=== PATIENT | male | born 1930 | race Caucasian/White ===

== ENCOUNTER 2016-12-29 14:13 | Inpatient (IN) | payer MEDICARE, OTHER ==
[2016-12-29] MEDS ORDERED: RX INFO: IV CONTRAST WAS GIVEN 1 EACH MISC MISCELLANE PRN (15:13)
[2016-12-29] MEDS ORDERED: SODIUM CHLORIDE 0.9% 1,000 ML IV STA (15:13)
[2016-12-29] MEDS ORDERED: SODIUM CHLORIDE 0.9% 500 ML IV STA (15:13)
--- NOTE | 2016-12-29 15:14 | ED ---
General Adult HPI - General Chief complaint: Recheck/Abnormal Lab/Rx Stated complaint: Fall/weakness Time Seen by Provider: 12/29/16 15:13 Source: patient, family, RN notes reviewed, old records reviewed Mode of arrival: wheelchair Limitations: physical limitation - History of Present Illness Initial comments: This is an 86-year-old male reevaluation. Patient here today for evaluation of neurological issues at this time. Urinary retention, back pain, patient denies history of back pain or trauma. Family states patient has had recent weight loss Intent. No change in his bowel habits. As far as diarrhea. The patient has had loss of stool, loss of bowel. The significant and occasional urinary retention. Weakness and right leg, multiple falls but no specific trauma from falls and patient denies any pain. - Related Data Home Medications Medication Instructions Recorded Confirmed Fluticasone/Salmeterol [Advair 1 puff INHALATION RT-BID 12/29/16 12/29/16 250-50 Diskus] Ipratropium-Albuterol Nebulize 3 ml INHALATION RT-QID PRN 12/29/16 12/29/16 [Duoneb 0.5 mg-3 mg/3 ml Soln] Allergies Allergy/AdvReac Type Severity Reaction Status Date / Time No Known Allergies Allergy Verified 12/29/16 16:23 Review of Systems ROS Statement: Those systems with pertinent positive or pertinent negative responses have been documented in the HPI. ROS Other: All systems not noted in ROS Statement are negative. Past Medical History Past Medical History: Asthma Additional Past Medical History / Comment(s): chronic back problems, PUD History of Any Multi-Drug Resistant Organisms: None Reported Past Surgical History: Back Surgery Past Psychological History: No Psychological Hx Reported Smoking Status: Never smoker Past Alcohol Use History: None Reported Past Drug Use History: None Reported General Exam Limitations: physical limitation General appearance: alert, in no apparent distress Head exam: Present: atraumatic, normocephalic, normal inspection Eye exam: Present: normal appearance, PERRL, EOMI. Absent: scleral icterus, conjunctival injection, periorbital swelling ENT exam: Present: normal exam, mucous membranes moist Neck exam: Present: normal inspection. Absent: tenderness, meningismus, lymphadenopathy Respiratory exam: Present: normal lung sounds bilaterally. Absent: respiratory distress, wheezes, rales, rhonchi, stridor Cardiovascular Exam: Present: regular rate, normal rhythm, normal heart sounds. Absent: systolic murmur, diastolic murmur, rubs, gallop, clicks GI/Abdominal exam: Present: soft, normal bowel sounds. Absent: distended, tenderness, guarding, rebound, rigid Extremities exam: Present: normal inspection, full ROM, normal capillary refill. Absent: tenderness, pedal edema, joint swelling, calf tenderness Back exam: Present: normal inspection Neurological exam: Present: alert, oriented X3, CN II-XII intact Psychiatric exam: Present: normal affect, normal mood Skin exam: Present: warm, dry, intact, normal color. Absent: rash Course Vital Signs 12/29/16 12/29/16 14:21 17:00 Temperature 97.6 F 97.5 F L Pulse Rate 68 63 Respiratory 20 18 Rate Blood Pressure 102/59 115/60 O2 Sat by Pulse 98 98 Oximetry EKG Findings - EKG Comments: EKG Findings:: EKG shows normal sinus rhythm at 61, KS 146, QRS 80, QTC 440 Medical Decision Making - Medical Decision Making 86 male ER for evaluation of weakness, increasing falls, patient appears did have urinary retention, UTI and pyelonephritis, patient admitted for IV antibiotic treatment - Lab Data Result diagrams: 12/29/16 15:54 12/29/16 15:54 Lab Results 12/29/16 12/29/16 12/29/16 Range/Units 15:19 15:54 15:54 WBC 11.5 H (3.8-10.6) k/uL RBC 4.24 L (4.30-5.90) m/uL Hgb 12.6 L (13.0-17.5) gm/dL Hct 38.5 L (39.0-53.0) % MCV 90.7 (80.0-100.0) fL MCH 29.7 (25.0-35.0) pg MCHC 32.8 (31.0-37.0) g/dL RDW 13.6 (11.5-15.5) % Plt Count 427 (150-450) k/uL Neutrophils % 81 % Lymphocytes % 11 % Monocytes % 5 % Eosinophils % 2 % Basophils % 1 % Neutrophils # 9.3 H (1.3-7.7) k/uL Lymphocytes # 1.3 (1.0-4.8) k/uL Monocytes # 0.5 (0-1.0) k/uL Eosinophils # 0.2 (0-0.7) k/uL Basophils # 0.1 (0-0.2) k/uL PT (9.0-12.0) sec INR (<1.1) APTT (22.0-30.0) sec Sodium (137-145) mmol/L Potassium (3.5-5.1) mmol/L Chloride (98-107) mmol/L Carbon Dioxide (22-30) mmol/L Anion Gap mmol/L BUN (9-20) mg/dL Creatinine (0.66-1.25) mg/dL Est GFR (MDRD) Af Amer (>60 ml/min/1.73 sqM) Est GFR (MDRD) Non-Af (>60 ml/min/1.73 sqM) Glucose (74-99) mg/dL Calcium (8.4-10.2) mg/dL Phosphorus (2.5-4.5) mg/dL Magnesium (1.6-2.3) mg/dL Total Bilirubin (0.2-1.3) mg/dL AST (17-59) U/L ALT (21-72) U/L Alkaline Phosphatase (38-126) U/L Total Creatine Kinase 45 L (55-170) U/L CK-MB (CK-2) 1.3 (0.0-2.4) ng/mL CK-MB (CK-2) Rel Index 2.9 Troponin I <0.012 (0.000-0.034) ng/mL Total Protein (6.3-8.2) g/dL Albumin (3.5-5.0) g/dL Urine Color Yellow Urine Appearance Cloudy (Clear) Urine pH 6.0 (5.0-8.0) Ur Specific [place] 1.011 (1.001-1.035) Urine Protein 1+ H (Negative) Urine Glucose (UA) Negative (Negative) Urine Ketones Negative (Negative) Urine Blood Small H (Negative) Urine Nitrite Negative (Negative) Urine Bilirubin Negative (Negative) Urine Urobilinogen 3.0 (<2.0) mg/dL Ur Leukocyte Esterase Large H (Negative) Urine RBC 10 H (0-5) /hpf Urine WBC >182 H (0-5) /hpf Urine WBC Clumps Many H (None) /hpf Amorphous Sediment Rare H (None) /hpf Urine Bacteria Many H (None) /hpf 12/29/16 12/29/16 Range/Units 15:54 15:54 WBC (3.8-10.6) k/uL RBC (4.30-5.90) m/uL Hgb (13.0-17.5) gm/dL Hct (39.0-53.0) % MCV (80.0-100.0) fL MCH (25.0-35.0) pg MCHC (31.0-37.0) g/dL RDW (11.5-15.5) % Plt Count (150-450) k/uL Neutrophils % % Lymphocytes % % Monocytes % % Eosinophils % % Basophils % % Neutrophils # (1.3-7.7) k/uL Lymphocytes # (1.0-4.8) k/uL Monocytes # (0-1.0) k/uL Eosinophils # (0-0.7) k/uL Basophils # (0-0.2) k/uL PT 13.4 H (9.0-12.0) sec INR 1.4 (<1.1) APTT 25.1 (22.0-30.0) sec Sodium 138 (137-145) mmol/L Potassium 4.2 (3.5-5.1) mmol/L Chloride 106 (98-107) mmol/L Carbon Dioxide 26 (22-30) mmol/L Anion Gap 6 mmol/L BUN 25 H (9-20) mg/dL Creatinine 0.84 (0.66-1.25) mg/dL Est GFR (MDRD) Af Amer >60 (>60 ml/min/1.73 sqM) Est GFR (MDRD) Non-Af >60 (>60 ml/min/1.73 sqM) Glucose 91 (74-99) mg/dL Calcium 8.3 L (8.4-10.2) mg/dL Phosphorus 2.5 (2.5-4.5) mg/dL Magnesium 1.8 (1.6-2.3) mg/dL Total Bilirubin 0.7 (0.2-1.3) mg/dL AST 34 (17-59) U/L ALT 49 (21-72) U/L Alkaline Phosphatase 83 (38-126) U/L Total Creatine Kinase (55-170) U/L CK-MB (CK-2) (0.0-2.4) ng/mL CK-MB (CK-2) Rel Index Troponin I (0.000-0.034) ng/mL Total Protein 6.5 (6.3-8.2) g/dL Albumin 2.8 L (3.5-5.0) g/dL Urine Color Urine Appearance (Clear) Urine pH (5.0-8.0) Ur Specific [place] (1.001-1.035) Urine Protein (Negative) Urine Glucose (UA) (Negative) Urine Ketones (Negative) Urine Blood (Negative) Urine Nitrite (Negative) Urine Bilirubin (Negative) Urine Urobilinogen (<2.0) mg/dL Ur Leukocyte Esterase (Negative) Urine RBC (0-5) /hpf Urine WBC (0-5) /hpf Urine WBC Clumps (None) /hpf Amorphous Sediment (None) /hpf Urine Bacteria (None) /hpf - Radiology Data Radiology results: report reviewed (CT abdomen and pelvis and lumbar spine shows likely L obstruction, urinary, kidney ultrasound ureter BLADDERS ULTRASOUND SHOWS NO DEFINITE MASS), image reviewed Disposition Clinical Impression: UTI (urinary tract infection), Pyelonephritis Disposition: ADMITTED IP TO THIS [facility] Condition: Fair Referrals: Nonstaff,Physician [REFERRING] - 1-2 days
[2016-12-29 15:43] LABS: Amorphous Sediment,Urine Rare /hpf; Appearance,Urine Cloudy (Clear); Bacteria,Urine Many /hpf; Bilirubin,Urine Negative (Negative); Glucose,Urine (UA) Negative (Negative); Ketones,Urine Negative (Negative); Leukocyte Esterase,Urine Large (Negative); Nitrite,Urine Negative (Negative); Particle Count 97632; Protein,Urine 1+ (Negative); RBC,Urine 10 /hpf (0-5); Specific Gravity,Urine 1.011 (1.001-1.035); UA Billing (MACRO vs. MICRO) MICRO; WBC,Urine >182 /hpf (0-5)
[2016-12-29 16:05] LABS: Basophils # (A) 0.1 k/uL (0-0.2); Basophils % (A) 1 %; CH 30.5; CHCM 33.8; Eosinophils # (A) 0.2 k/uL (0-0.7); Eosinophils % (A) 2 %; HCT 38.5 % (39.0-53.0); HDW 3.06; HGB 12.6 gm/dL (13.0-17.5); Luc # (Auto) 0.16; Luc % (Auto) 1; Lymphocytes # (A) 1.3 k/uL (1.0-4.8); Lymphocytes % (A) 11 %; MCH 29.7 pg (25.0-35.0); MCHC 32.8 g/dL (31.0-37.0); MCV 90.7 fL (80.0-100.0); Mean Platelet Volume 6.9; Monocytes # (A) 0.5 k/uL (0-1.0); Monocytes % (A) 5 %; Neutrophils # (A) 9.3 k/uL (1.3-7.7); Neutrophils % (A) 81 %; RBC 4.24 m/uL (4.30-5.90); RDW 13.6 % (11.5-15.5); WBC 11.5 k/uL (3.8-10.6)
[2016-12-29 16:12] LABS: INR 1.4 (<1.1); Partial Thromboplastin Time 25.1 sec (22.0-30.0); Prothrombin Time 13.4 sec (9.0-12.0)
[2016-12-29 16:13] LABS: ALT 49 U/L (21-72); AST 34 U/L (17-59); Alkaline Phosphatase 83 U/L (38-126); Anion Gap 6 mmol/L; Blood Urea Nitrogen 25 mg/dL (9-20); Calcium 8.3 mg/dL (8.4-10.2); Carbon Dioxide 26 mmol/L (22-30); Chloride 106 mmol/L (98-107); Glucose 91 mg/dL (74-99); Magnesium 1.8 mg/dL (1.6-2.3); Non-African American GFR(MDRD) >60 (>60 ml/min/1.73 sqM); Phosphorous 2.5 mg/dL (2.5-4.5); Potassium 4.2 mmol/L (3.5-5.1); Sodium 138 mmol/L (137-145); Total Bilirubin 0.7 mg/dL (0.2-1.3); Total Protein 6.5 g/dL (6.3-8.2)
[2016-12-29 16:23] LABS: Creatine Kinase 45 U/L (55-170)
[2016-12-29 16:36] LABS: Creatine Kinase MB 1.3 ng/mL (0.0-2.4); Troponin I <0.012 ng/mL (0.000-0.034)
[2016-12-29] MEDS ORDERED: cefTRIAXone 2,000 MG in SODIUM CHLORIDE 0.9% 100 ML IVPB STA (16:46)
--- NOTE | 2016-12-29 17:49 | CT ---
EXAMINATION TYPE: CT lumbar spine w con DATE OF EXAM: 12/29/2016 COMPARISON: NONE HISTORY: Weight loss and inability to urinate CT DLP: 474.7 mGycm Automated exposure control for dose reduction was used. CONTRAST: CT scan of the lumbar is performed with IV Contrast, patient injected with 100 mL of Omnipaque 300. Enhanced CT of the lumbar spine was performed. Bone and soft tissue window settings are submitted as well as coronal and sagittal reconstructions. There is laminectomy defect at L3-L4. There is spondylolysis of L5 bilaterally. I see no compression fracture. There is severe narrowing of the L2-3 disc space with sclerosis and subchondral cystic [place]. There is extensive spur formation anteriorly at L3-4. I see no focal bone destruction. There is n o lumbar paraspinal mass. There are a few bilateral renal cortical cysts that measure up to 2.3 cm. T he sacroiliac joints appear intact. I see no pathologic enhancement. There are posterior disc herniat ions noted at L3-4 and L4-5 with encroachment on the spinal canal. L4-5 disc herniation is more to th e right side. There is some spinal stenosis at L2-3 due to the spur formation and facet arthropathy. 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 Previous surgery. Moderate sized posterior disc stefan iations at L3-4 L4-5. No fracture. L5 spondylolysis. There is lateral recess stenosis and relative sp inal stenosis at L5-S1 due to facet arthropathy. There is mild spinal stenosis also at L2-3.
--- NOTE | 2016-12-29 18:04 | CT ---
EXAMINATION TYPE: CT abdomen pelvis w con DATE OF EXAM: 12/29/2016 5:54 PM COMPARISON: NONE HISTORY: Weight loss and inability to urinate CT DLP: 474.7 mGycm Automated exposure control for dose reduction was used. TECHNIQUE: Helical acquisition of images was performed from the lung bases through the pelvis. CONTRAST: Performed without Oral Contrast and with IV Contrast, patient injected with 100 mL of Omnipaque 300. FINDINGS: The lung bases are clear. There is no pleural effusion. There is no pericardial effusion. Liver spleen pancreas gallbladder appear normal. Bile ducts are not dilated. There is no adrenal mass . There are multiple rounded low-density areas in both kidneys that measure up to 2.5 cm related to m ultiple cortical cysts. There is an intermediate low-density 2.5 cm area on the lower pole left kidne y. There is slight decreased cortical enhancement on the lower pole right kidney and lower lateral po le left kidney. There is no hydronephrosis. There is no retroperitoneal adenopathy. There is no ascit es. I see no intestinal wall thickening. There are no dilated loops. There is a dilated urinary bladder that measures 15 cm in height. There are prostatic implants noted. There are changes in the lumbar spine described in the CT lumbar spine report today. I see no pelvic mass.: IMPRESSION: DILATED URINARY BLADDER CONSISTENT WITH BLADDER OUTLET OBSTRUCTION. HETEROGENEOUS RENAL ENHANCEMENT I N THE CORTEX OF THE LOWER POLE OF BOTH KIDNEYS AND TO A LESSER EXTENT THE UPPER POLES OF BOTH KIDNEYS BUT COULD RELATE TO PYELONEPHRITIS. MULTIPLE BILATERAL RENAL CORTICAL CYSTS. A SOLID RENAL MASS RYAN OT BE ENTIRELY EXCLUDED. BILATERAL RENAL ULTRASOUND IS RECOMMENDED TO CONFIRM RENAL CYSTS AND EXCLUDE A SOLID RENAL MASS.
--- NOTE | 2016-12-29 19:32 | US ---
EXAMINATION TYPE: US renals and bladder DATE OF EXAM: 12/29/2016 COMPARISON: NONE CLINICAL HISTORY: Pain. EXAM MEASUREMENTS: Right Kidney: 12.1 x 4.4 x 4.9 cm Left Kidney: 12.6 x 5.0 x 4.8 cm Right Kidney: Dilated right renal pelvis possible hydronephrosis, 1 anechoic area mid pole likely cys t, 1 complex area inferior pole with cystic and solid components Left Kidney: Echogenic area seen mid pole with twinkle artifact ?nephrolithiasis Bladder: appears wnl Bilateral Jets seen: yes Possible evidence for hydronephrosis on the right renal. Appears there may be small nephrolithiasis i n the left renal. Two areas are identified on the right renal one appearing anechoic the other compl ex with cystic and solid components. The urinary bladder is anechoic. Bilateral ureteral jets are s een. IMPRESSION: There is a 1.9 cm complex cyst on the lower pole of the right kidney. Urinary bladder is sonolucent. There is no evidence of renal obstruction. There are bilateral ureteral jets. Nonobstructing left carmina al calculus. I do not see definite solid suspicious renal mass and I think that this could be followe d conservatively with repeat ultrasound in 6 months. The heterogeneous enhancement pattern seen on CT scan today in the renal cortex is suggestive of pyelonephritis.
[2016-12-29 21:17] VITALS: BMI 19.0
[2016-12-30] MEDS: ENOXAPARIN 40 MG/0.4 ML SYRINGE SQ SCH (09:25)
[2016-12-30] MEDS ORDERED: IPRATROPIUM-ALBUTEROL 3 ML NEB INHALATION PRN ×2 (09:55→23:21)
[2016-12-30] MEDS: IPRATROPIUM-ALBUTEROL 3 ML NEB INHALATION SCH ×4 (12:29→23:20)
[2016-12-30] MEDS: PARoxetine 10 MG TAB PO SCH (17:31)
--- NOTE | 2016-12-30 19:24 | HP ---
DATE OF ADMISSION: 12/30/2016 The patient is a very pleasant 86-year-old gentleman, recently moved to [place] from [place]. Much of the history is not available because of that. The patient has not seen a doctor apparently for more than 3 years. Patient's daughter who happens to be a nurse practitioner, when she brought the patient from [place] the patient was doing okay, ambulating with a cane, and did need a walker in the airport though. He was doing well until the day before, that is Friday, and the patient had a fall on Friday, felt weak all of a sudden and had a fall. Patient was complaining of back pain. Because of this I obtained a CT of the back. There were some chronic changes without any myelopathy or compression of the spinal cord. The patient has urinary incontinence which is more so lately. The patient has bowel incontinence as well and foul-smelling urine, because of which patient was brought to the ER and then patient had a fall. The urine is grossly abnormal. The patient apparently, 20 years ago, was treated for prostate cancer which is in complete remission, because of which PAC is being ordered. Initially there was a concern that he may have metastatic lesion to the back. The patient does not have any such lesions on the CT. The other issues are loss of weight slowly over time and the patient has not been eating well. 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 Because of dementia the patient has not been eating and patient appears to be depressed secondary to that, because of which him I will start him on Donepezil and also antidepressant medications. Urine protein is 1+, small blood, large leukocyte esterase, RBC 10, WBC greater than 182. Many WBC clumps. The patient did have leukocytosis without any fever. Patient has increased urinary frequency as well. Although patient denies any symptoms, patient is not a reliable historian. REVIEW OF SYSTEMS: CONSTITUTIONAL: No fever, no malaise, no fatigue. HEENT: No recent visual problems or hearing problems. Denied any sore throat. CARDIOVASCULAR: No chest pain, orthopnea, PND, no palpitations, no syncope. PULMONARY: No shortness of breath, no cough, no hemoptysis. GASTROINTESTINAL: No diarrhea, no nausea, no vomiting, no abdominal pain. Normoactive bowel sounds. NEUROLOGICAL: No headaches, no weakness, no numbness. HEMATOLOGICAL: Denies any bleeding or petechiae. GENITOURINARY: Denies any burning micturition, frequency, or urgency. MUSCULOSKELETAL/RHEUMATOLOGICAL: Denies any joint pain, swelling, or any muscle pain. ENDOCRINE: Denies any polyuria or polydipsia. The rest of the 14 point review of systems is negative. Home medications: 1. Fluticasone. 2. Salmeterol. 3. Albuterol ipratropium. ALLERGIES: No known drug allergies. 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 SOCIAL HISTORY: Denied any smoking, alcohol abuse or any drug abuse. FAMILY HISTORY: Significant for myocardial infarction. PHYSICAL EXAMINATION: VITAL SIGNS: Temperature 98.0, pulse of 69, respiratory rate of 16, blood pressure 123/67. Saturating at 96% on room air. GENERAL: Alert and oriented x around 2, which is most probably his baseline, which is unknown at this time. HEENT: Pupils are round and equally reacting to light. EOMI. No scleral icterus. No conjunctival pallor. Normocephalic, atraumatic. No pharyngeal erythema. No thyromegaly. CARDIOVASCULAR: S1 and S2 present. No murmurs, rubs, or gallops. PULMONARY: Chest is clear to auscultation, no wheezing or crackles. ABDOMEN: Soft, nontender, nondistended, normoactive bowel sounds. No palpable organomegaly. MUSCULOSKELETAL: No joint swelling or deformity. EXTREMITIES: No cyanosis, clubbing, or pedal edema. NEUROLOGICAL: Gross neurological examination did not reveal any focal deficits. SKIN: No rashes. LABORATORY DATA: CBC, CMP abnormal for elevated WBC count of 11,500. The patient's MCV is 90.7, INR is 1.4 consistent with nutritional deficiency of vitamin K. ASSESSMENT: 1. Increased urinary frequency with abnormal urine. Urine cultures are obtained. The patient most probably has urinary tract infection for which patient is on Rocephin at this point of time. 2. Generalized weakness and falls, probably related to urinary tract infection, which is expected to improve. 3. Lumbar spinal CT did show some chronic changes without myelopathy or compression on the spinal cord at this time. 4. Generalized weakness and deconditioning for which we will obtain physical therapy consult. PT and OT consultation. 5. Possible dementia; appears to be moderate. We will obtain Mini-Mental status exam. Patient started on Donepezil. 6. Possible depression, for which patient will be started on antidepressants. 7. Elevated INR due to nutritional vitamin K deficiency as the patient has not been eating well. 8. History of prostate cancer, because of which we will PSA testing, which is pending. Patient had renal ultrasound which showed cysts. Does not appear to have any solid cysts. The patient will need a repeat ultrasound as an outpatient. Patient had abdominal CT which showed possible cyst, because of which ultrasound was obtained which did not show any solid cysts consistent with any cancers lesion. 9. Regarding weight loss, further work-up can be done as an outpatient. Patient will need his primary care physician. Dr. Gaona will evaluate the patient tomorrow. Daughter will decide primary care physician for him. 10. Leukocytosis due to possible urinary tract infection. 11. Moderate protein calorie malnutrition. PLAN: Physical therapy evaluation. Continue antibiotics. IV fluids. Pending PSA testing.
[2016-12-30] MEDS: SYMBICORT 160-4.5 MCG INHALER INHALATION SCH (19:53)
[2016-12-30] MEDS: DONEPEZIL 5 MG TAB PO SCH (21:00)
[2016-12-31 05:53] LABS: CH 30.1; CHCM 33.5; HCT 32.2 % (39.0-53.0); HDW 3.06; HGB 10.6 gm/dL (13.0-17.5); MCH 29.7 pg (25.0-35.0); MCHC 32.9 g/dL (31.0-37.0); MCV 90.4 fL (80.0-100.0); Mean Platelet Volume 6.4; RBC 3.56 m/uL (4.30-5.90); RDW 13.5 % (11.5-15.5); WBC 13.9 k/uL (3.8-10.6)
[2016-12-31 06:06] LABS: Anion Gap 3 mmol/L; Blood Urea Nitrogen 13 mg/dL (9-20); Carbon Dioxide 27 mmol/L (22-30); Chloride 108 mmol/L (98-107); Glucose 94 mg/dL (74-99); Non-African American GFR(MDRD) >60 (>60 ml/min/1.73 sqM); Potassium 4.1 mmol/L (3.5-5.1); Sodium 138 mmol/L (137-145)
[2016-12-31] MEDS: PARoxetine 10 MG TAB PO SCH ×2 (08:08→20:35)
[2016-12-31] MEDS: ENOXAPARIN 40 MG/0.4 ML SYRINGE SQ SCH (08:08)
[2016-12-31] MEDS: SYMBICORT 160-4.5 MCG INHALER INHALATION SCH ×2 (11:48→20:54)
--- NOTE | 2016-12-31 15:43 | XR ---
EXAMINATION TYPE: XR chest 2V DATE OF EXAM: 12/31/2016 COMPARISON: CT abdomen pelvis 12/29/2016 HISTORY: Rehabilitation placement, extended-care facility placement TECHNIQUE: Frontal and lateral views of the chest are obtained on 3 images. FINDINGS: There is no focal air space opacity, pleural effusion, or pneumothorax seen. The cardiac silhouette size is within normal limits. Scattered granulomas are present. Prominent lung lines to be indicative of COPD. The osseous structures are intact. IMPRESSION: No acute cardiopulmonary process. 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
--- NOTE | 2016-12-31 16:51 | PN ---
DATE OF SERVICE: 12/31/2016 This 86 -year-old gentleman who was admitted with UTI with possible sepsis also had change in mental status. The patient was confused and complains of weakness and falls, stress incontinence and other issues prior to admission. Currently the patient is feeling better. Still appetite is very poor. White count is elevated. Yesterday's white count was 11.5, today it is 13.9. The urine culture showed gram negative bacilli. Final report is pending. PSA was negative. PAST MEDICAL HISTORY: Reviewed. REVIEW OF SYSTEMS: CARDIOVASCULAR: No angina or palpitations. RESPIRATORY: As mentioned earlier. GI: No nausea or vomiting. : No dysuria. Nervous system: No numbness or weakness. Current medications are reviewed and include: 1. DuoNeb q.i.d. and p.r.n. 2. Symbicort 160/4.5. 3. Rocephin. 4. Lovenox. 5. Paxil. PHYSICAL EXAMINATION: Patient is alert and oriented times two. Pulse 62, blood pressure 111/54 mg. respiratory rate 16. Temperature 97.7. Pulse ox 97% on room air. HEENT: Conjunctivae normal. NECK: No jugular venous distention. CARDIOVASCULAR: S1, S2 muffled. RESPIRATORY: Breath sounds diminished at the bases. Scattered rhonchi and crackles. ABDOMEN: The abdomen is soft and nontender. No mass palpable. Legs: No edema. No swelling. Nervous system: Higher functions as mentioned earlier. Moves all four limbs. Mild diffuse weakness. LYMPHATICS: No lymph nodes palpable in the neck, axillae or groin. SKIN: No ulcer, rash, bleeding. LABS: WBC 13.9, hemoglobin 10.6, sodium 138. Potassium 4.1. Calcium 8. ASSESSMENT: 1. Urinary tract infection with possible sepsis. 2. Change in mental status, metabolic encephalopathy, secondary to urinary tract infection. 3. Generalized gait dysfunction and asthenia, possibly secondary to sepsis. 4. Increased WBC. 5. Anemia, normocytic anemia of chronic disease. 6. Dehydration, present on admission with diminished p.o. intake. 7. History of asthma. 8. History of degenerative joint disease. 9. History of back surgery. 10. Mild protein calorie malnutrition with a BMI of 19. 11. Full code. RECOMMENDATIONS AND DISCUSSION: In this 86 -year-old gentleman who presented with multiple complex medical issues, we will monitor the patient closely, continue the current medications, continue with symptomatic treatment. I would recommend broad spectrum IV antibiotics. Follow the cultures. Bronchodilators. DVT prophylaxis. Otherwise, PT, OT evaluation. Possible ECF rehab. Guarded prognosis because of the multiple complex medical issues. Further recommendations to follow. Repeat labs are noted. See orders for further details. The patient also apparently had poor score on the dementia testing, I would recommend to treat the infection and control the septic process and repeat dementia evaluation later. Otherwise, continue to monitor. Further recommendations to follow. Prognosis guarded. Discussed with the family. Discussed with the patient.
[2016-12-31] MEDS: DONEPEZIL 5 MG TAB PO SCH (20:35)
[2016-12-31] MEDS: PANTOPRAZOLE 40 MG/10 ML VIAL IVP SCH (20:35)
[2017-01-01 06:10] LABS: Basophils # (A) 0.1 k/uL (0-0.2); Basophils % (A) 1 %; CH 30.3; CHCM 33.6; Eosinophils # (A) 0.1 k/uL (0-0.7); Eosinophils % (A) 1 %; HCT 33.4 % (39.0-53.0); HDW 3.08; HGB 10.8 gm/dL (13.0-17.5); Luc # (Auto) 0.11; Luc % (Auto) 1; Lymphocytes # (A) 0.9 k/uL (1.0-4.8); Lymphocytes % (A) 8 %; MCH 29.3 pg (25.0-35.0); MCHC 32.5 g/dL (31.0-37.0); MCV 90.3 fL (80.0-100.0); Mean Platelet Volume 6.4; Monocytes # (A) 0.6 k/uL (0-1.0); Monocytes % (A) 6 %; Neutrophils % (A) 84 %; RDW 13.3 % (11.5-15.5); WBC 10.7 k/uL (3.8-10.6)
[2017-01-01 06:27] LABS: Anion Gap 6 mmol/L; Blood Urea Nitrogen 14 mg/dL (9-20); Calcium 8.1 mg/dL (8.4-10.2); Carbon Dioxide 25 mmol/L (22-30); Chloride 106 mmol/L (98-107); Glucose 77 mg/dL (74-99); Non-African American GFR(MDRD) >60 (>60 ml/min/1.73 sqM); Sodium 137 mmol/L (137-145)
[2017-01-01] MEDS: SYMBICORT 160-4.5 MCG INHALER INHALATION SCH ×2 (08:16→19:35)
[2017-01-01] MEDS: ENOXAPARIN 40 MG/0.4 ML SYRINGE SQ SCH (08:36)
[2017-01-01] MEDS: PANTOPRAZOLE 40 MG/10 ML VIAL IVP SCH (08:36)
[2017-01-01] MEDS: THIAMINE 100 MG TAB PO SCH (15:18)
[2017-01-01] MEDS: MULTIVITAMINS, THERA 1 EACH TAB PO SCH (15:18)
[2017-01-01] MEDS: FOLIC ACID 1 MG TAB PO SCH (15:18)
[2017-01-01] MEDS: ERTAPENEM 1 GM in SODIUM CHLORIDE 0.9% 50 ML IVPB SCH (16:13)
[2017-01-01 18:18] LABS: Appearance,Urine Turbid (Clear); Bacteria,Urine Many /hpf; Bilirubin,Urine Negative (Negative); Glucose,Urine (UA) Negative (Negative); Ketones,Urine Negative (Negative); Leukocyte Esterase,Urine Large (Negative); Nitrite,Urine Positive (Negative); PH, Urine 6.5 (5.0-8.0); Particle Count 37744; Protein,Urine 1+ (Negative); Specific Gravity,Urine 1.014 (1.001-1.035); UA Billing (MACRO vs. MICRO) MICRO; Urobilinogen,Urine <2.0 mg/dL (<2.0); WBC,Urine >182 /hpf (0-5)
--- NOTE | 2017-01-01 18:38 | P.CNOR ---
<Jair Camacho - Last Filed: 01/01/17 18:29> History of Present Illness - [facility] Consult date: 01/01/17 Requesting physician: Bernadette Bergeron Consult reason: other (Lumbar degenerative changes seen on CT; recent fall; history of lumbar surgery) History of present illness: Patient is a very pleasant 86-year-old male who is seen and examined at bedside after we were consulted for degenerative changes of his lumbar spine seen on CT. Patient was originally brought to [facility] for further evaluation by his family for after sustaining a fall over the weekend and increased lower extremity weakness. Patient also has been experiencing some urinary incontinence. Patient previously resided in [place] and was moved to [place] by his family, who is a nurse practitioner here at [facility]. After being admitted, a computed tomography scan of the lumbar spine was performed and showed evidence of degenerative changes without acute change. He does have a history of an L3-4 laminectomy surgery formed approximately 4 years ago that was performed in [place]. Patient states at the bedside following that surgery he had significant improvement of his symptoms at that time. Patient states at the bedside he is not currently experiencing any significant low back pain, lower extremity radiculopathy, or lower extremity weakness bilaterally. He was previously experiencing some right thigh pain that has subsided. He states he is not exactly sure why he was admitted. He does not currently wish to have further treatment or evaluation in regards to his lumbar spine. Medicine states patient does appear to have some dementia. He is also currently being treated for urinary tract infection after a urine culture was positive for E. coli. At the time of admission document state he was having mental status change. Today the patient is currently awake, alert, and oriented 3 and able to communicate without significant difficulty. Patient is able to answer questions about his history thoroughly without difficulty. Past Medical History Past Medical History: Asthma Additional Past Medical History / Comment(s): chronic back problems, PUD History of Any Multi-Drug Resistant Organisms: ESBL Year Discovered:: 12/29/16 MDRO Source:: URINE Past Surgical History: Back Surgery Past Anesthesia/Blood Transfusion Reactions: No Reported Reaction Past Psychological History: No Psychological Hx Reported Smoking Status: Never smoker Past Alcohol Use History: None Reported Past Drug Use History: None Reported - Past Family History Father Family Medical History: Myocardial Infarction ([place]) Mother Family Medical History: No Reported History Medications and Allergies Home Medications Medication Instructions Recorded Confirmed Type No Known Home Medications [No 12/29/16 12/29/16 History Known Home Medications] Allergies Allergy/AdvReac Type Severity Reaction Status Date / Time No Known Allergies Allergy Verified 12/29/16 21:12 Physical Examination Physical exam: Patient is awake, alert, and oriented 3 Vital signs stable Good chest excursion with deep inspiration and expiration Abdomen soft nontender Examination of lumbar spine reveals skin is intact with no abrasions, lacerations, or bruises; no erythema, purulence or signs of infection No pain with palpation of the lumbosacral spine Evidence of a well-healed incision along the midline of the lumbar spine Dorsiflexion, plantarflexion, and extensor hallucis longus positive sustained bilaterally Lower extremity strength 5/5 bilaterally Patellar reflex 2+ bilaterally No lower extremity hyperreflexia bilaterally Straight leg test negative bilateral lower extremities No signs or symptoms of DVT; no calf pain No pain with internal and external rotation of the hips bilaterally Neurovascularly intact Results Pertinent studies: CT lumbar spine taken on 12/29/2016 with contrast: L2-3 degenerative disc disease with sclerosis, facet arthropathy, and spur formation resulting in spinal stenosis; L3-4 evidence of laminectomy defect, extensive spur formation and posterior disc herniation resulting in spinal encroachment; L4-5 posterior disc herniation greater on the right with some encroachment of the spinal canal ; L5 spondylolysis bilaterally; no evidence of vertebral body compression fracture - Labs Labs: Abnormal Lab Results - Last 24 Hours (Table) 01/01/17 01/01/17 01/01/17 Range/Units 05:50 05:50 17:30 WBC 10.7 H (3.8-10.6) k/uL RBC 3.70 L (4.30-5.90) m/uL Hgb 10.8 L (13.0-17.5) gm/dL Hct 33.4 L (39.0-53.0) % Neutrophils # 9.0 H (1.3-7.7) k/uL Lymphocytes # 0.9 L (1.0-4.8) k/uL Calcium 8.1 L (8.4-10.2) mg/dL Urine Protein 1+ H (Negative) Urine Blood Small H (Negative) Ur Leukocyte Esterase Large H (Negative) Urine WBC >182 H (0-5) /hpf Urine WBC Clumps Many H (None) /hpf Urine Bacteria Many H (None) /hpf Microbiology - Last 24 Hours (Table) 12/31/16 15:18 Blood Culture - Preliminary Blood No Growth after 24 hours 12/31/16 15:07 Blood Culture - Preliminary Blood No Growth after 24 hours 12/29/16 15:19 Urine Culture - Final Urine,Voided Escherichia coli H & H 12/29/16 12/31/16 01/01/17 Range/Units 15:54 05:35 05:50 Hgb 12.6 L 10.6 L 10.8 L (13.0-17.5) gm/dL Hct 38.5 L 32.2 L 33.4 L (39.0-53.0) % Coagulation 12/29/16 Range/Units 15:54 INR 1.4 (<1.1) Result Diagrams: 01/01/17 05:50 01/01/17 05:50 Assessment and Plan (1) History of laminectomy Status: Acute (2) Lumbar facet arthropathy Status: Acute (3) Lumbar degenerative disc disease Status: Acute (4) Lumbar spinal stenosis Status: Acute (5) Lumbar spondylolysis Status: Acute (6) History of recent fall Status: Acute (7) UTI (urinary tract infection) Status: Acute Plan: Assessment: History of L3-4 laminectomy Urinary tract infection; positive for E. coli on urine culture Lumbar facet arthropathy Lumbar degenerative disc disease Lumbar spinal stenosis L5 spondylolysis Recent fall Plan: 1. After reviewing imaging, physical examination of the patient, further discussion with the patient, and further discussion with his family, we are not currently planning for any further treatment, imaging, or evaluation in regards to the patient's lumbosacral spine. Patient states he is not currently experiencing any low back pain, lower extremity weakness, or lower extremity radiculopathy. He does not wish to have further treatment in regards to his lumbosacral spine. We did discuss that if he has an exacerbation of low back pain or extremity radiculopathy, we could consult with pain management for further evaluation. If he begins to experience lower extremity weakness, he may also benefit by working through physical therapy. At this time we will plan to continue with conservative treatment. Patient agrees conservative treatment is a good plan of care. Conservative treatment was discussed in detail with his family as well who is in agreement with this plan. 2. Medicine to continue following the patient for his other medical diagnoses 3. From an orthopedic spine standpoint, patient is clear for discharge once cleared by medicine and other providers 4. Following discharge, patient may follow-up with Jair Camacho PA-C or Dr. Hamzah Berman at [facility] on an as-needed basis 5. I have discussed this patient detail with Dr. Hamzah Berman and he agrees with this plan Time with Patient: Less than 30 <Rosa M Berman - Last Filed: 01/02/17 10:13> History of Present Illness - HPI History of present illness: The patient is seen today at bedside on 01/02/2017. I discussed the case yesterday with our physician grants and contracts assistant Jair Holly. I also reviewed the computed tomography scan. The patient currently denies any problems with his back. He had surgery 2 years ago at his lumbar spine in [place] and feels that he had significant improvement in his back is happy with his results. He does have significant degenerative changes at his lumbar spine and prior decompression that has been appropriate for him and he is not having new changes in his back or lower extremities but he does have chronic changes at his lumbar spine as seen on his imaging. He is not instrumented any further workup or treatment for his lumbar spine and I think that is reasonable. He can follow-up with his regular physician for further care and may call her office if he feels he needs any further assistance with his spine. I discussed this with him and he is agreeable. Physical Examination Osteopathic Statement: *. No significant issues noted on an osteopathic structural exam other than those noted in the History and Physical/Consult. Results - Labs Labs: Abnormal Lab Results - Last 24 Hours (Table) 01/01/17 Range/Units 17:30 Urine Protein 1+ H (Negative) Urine Blood Small H (Negative) Ur Leukocyte Esterase Large H (Negative) Urine WBC >182 H (0-5) /hpf Urine WBC Clumps Many H (None) /hpf Urine Bacteria Many H (None) /hpf Microbiology - Last 24 Hours (Table) 01/01/17 17:30 Urine Culture - Preliminary Urine,Clean Catch 12/31/16 15:18 Blood Culture - Preliminary Blood No Growth after 24 hours 12/31/16 15:07 Blood Culture - Preliminary Blood No Growth after 24 hours 12/29/16 15:19 Urine Culture - Final Urine,Voided Escherichia coli H & H 12/29/16 12/31/16 01/01/17 Range/Units 15:54 05:35 05:50 Hgb 12.6 L 10.6 L 10.8 L (13.0-17.5) gm/dL Hct 38.5 L 32.2 L 33.4 L (39.0-53.0) % Coagulation 12/29/16 Range/Units 15:54 INR 1.4 (<1.1) Result Diagrams: 01/01/17 05:50 01/01/17 05:50
--- NOTE | 2017-01-01 19:42 | PN ---
DATE OF SERVICE: 01/01/2017 This 86-year-old gentleman who was admitted with urinary tract infection with sepsis also had ESBL E. coli from the culture. No chest pain or palpitation. No fever. Patient complained of tiredness, weakness. The patient mildly confused. On exam, pulse 61, blood pressure 107/59, respiratory rate 16, temperature 97.9, pulse ox 92% on room air. HEENT: Conjunctivae normal. NECK: No jugular venous distention. CARDIOVASCULAR: S1, S2 muffled. RESPIRATORY: Breath sounds diminished at the bases. A few scattered rhonchi. No crackles. ABDOMEN: Soft, nontender. Legs: No edema. No swelling. CENTRAL NERVOUS SYSTEM: Mild diffuse weakness. LABS: WBC 10.5, hemoglobin 10.8. Culture noted. ASSESSMENT: 1. Urinary tract infection with possible sepsis ESBL Escherichia coli. 2. Change in mental status, metabolic encephalopathy sepsis secondary to urinary tract infection. 3. Generalized gait dysfunction, asthenia, possibly secondary to sepsis. 4. Increased WBC. 5. Anemia, normocytic anemia of chronic disease. 6. Dehydration, present on admission with diminished p.o. intake. 7. History of asthma. 8. History of degenerative joint disease. 9. History of back surgery. 10. Mild protein calorie malnutrition with body mass index 19. 11. FULL CODE. RECOMMENDATIONS AND DISCUSSION. Continue the current medications, continue with monitoring, symptomatic treatment. Otherwise at this time, I recommend continue current medications, continue symptomatic treatment, dietary evaluation, continue with antibiotics, bronchodilators. Infectious disease evaluation, Ertapenem has been initiated. Further recommendations to follow.
[2017-01-01] MEDS: DONEPEZIL 5 MG TAB PO SCH (21:49)
[2017-01-01] MEDS: PARoxetine 10 MG TAB PO SCH (21:49)
[2017-01-02] MEDS: SYMBICORT 160-4.5 MCG INHALER INHALATION SCH ×2 (08:28→20:38)
[2017-01-02] MEDS: ENOXAPARIN 40 MG/0.4 ML SYRINGE SQ SCH (09:09)
[2017-01-02] MEDS: PANTOPRAZOLE 40 MG/10 ML VIAL IVP SCH (09:10)
[2017-01-02 10:06] LABS: Basophils % (A) 0 %; CH 30.2; CHCM 33.5; Eosinophils # (A) 0.1 k/uL (0-0.7); Eosinophils % (A) 1 %; HCT 34.2 % (39.0-53.0); HDW 3.01; HGB 11.2 gm/dL (13.0-17.5); Luc # (Auto) 0.12; Luc % (Auto) 1; Lymphocytes # (A) 0.8 k/uL (1.0-4.8); Lymphocytes % (A) 7 %; MCH 29.7 pg (25.0-35.0); MCHC 32.8 g/dL (31.0-37.0); MCV 90.6 fL (80.0-100.0); Mean Platelet Volume 6.7; Monocytes # (A) 0.7 k/uL (0-1.0); Monocytes % (A) 5 %; Neutrophils # (A) 10.6 k/uL (1.3-7.7); Neutrophils % (A) 86 %; RBC 3.77 m/uL (4.30-5.90); WBC 12.3 k/uL (3.8-10.6); WBC (Perox) 12.59
--- NOTE | 2017-01-02 10:26 | CONS ---
DATE OF CONSULTATION: DATE OF SERVICE: 01/01/2017 REASON FOR CONSULTATION: ESBL Escherichia coli urinary tract infection. HISTORY OF PRESENT ILLNESS: The patient is an 86-year-old male who has been admitted to [facility] and presented on 12/29/2016 predominantly with neurological symptoms. The patient apparently did have a fall on Friday. Prior to that, has been complaining of some back pain. The patient also noticed to have bowel incontinence and as well as foul smelling urine. With these symptoms, the patient has been evaluated by the ER physician. The patient did have CT of the abdomen and pelvis, which did show possibility of distention of the bladder and possible renal cysts. A renal ultrasound confirmed those cysts, one of them was complex. Patient did have a UA that was significantly positive. He has been treated with Rocephin with the urine culture coming back positive for an ESBL E. coli. Hence ID was consulted for further recommendation. Patient is not a very good historian when asked she says everything is right okay with me and denies having any significant pain or shortness of breath or any cough or any abdominal pain and no diarrhea. Overall history remains to be limited so most of the information has been obtained from review of the chart. REVIEW OF SYSTEMS: Could not be reliably obtained. The positives have been mentioned in the HPI. PAST MEDICAL HISTORY: Significant for asthma, chronic back pain and possibility of dementia. PAST SURGICAL HISTORY: Back surgery. SOCIAL HISTORY: No history of smoking, drinking or drug use. FAMILY HISTORY: Positive for [place]. ALLERGIES: No known drug allergies. Medications currently include the patient is on DuoNeb, Symbicort, Aricept Lovenox, folic acid, Theragran, Protonix, Paxil and vitamin B1. On examination, blood pressure is 125/65 with a pulse of 61, temperature 97.5. He is 97% on room air. General description is an elderly male, lying in bed in no distress. No tachypnea or accessory muscle of respiration use. HEENT examination shows pallor. No scleral icterus. Oral mucosal membranes dry. NECK: Trachea central, no thyromegaly. LUNGS: Unlabored breathing. Clear to auscultation anteriorly. No wheeze or crackle. HEART: S1, S2. Regular rate and rhythm. ABDOMEN: Soft, no tenderness. No guarding or rigidity. EXTREMITIES: No edema of the feet. SKIN EXAMINATION: No rash or mass palpable. NEUROLOGICAL: The patient is awake, alert, oriented x3. Mood and affect normal. LABS: Hemoglobin 10.8, white count 10.7. Admission white count is 11.5. BUN of 14 with creatinine 0.82. UA admission was large leukocyte esterase with more than 182 WBCs. Blood culture has been negative. Urine treated with an ESBL E. coli. CT and ultrasound report as mentioned above. DIAGNOSTIC IMPRESSION AND PLAN: Patient with ESBL Escherichia coli positive urine culture in a patient who did have significant retention of urine with cloudy, smelly urine on presentation likely symptomatic urinary tract infection. patient has not received antibiotics or exposure that has put him a risk ESBL infection. PLAN: 1. We will repeat a clean catch UA and cultures before commiting to terminal press operator IV antibiotics. 2. Will discontinue the Rocephin, start the patient on Invanz 1 gram IV daily while awaiting for repeat urine culture to finalize. 3. Will follow up on his clinical condition and cultures to further adjust the medication if needed. Thank you for this consultation. Will follow this patient along with you. BRETT
[2017-01-02 10:44] LABS: Anion Gap 6 mmol/L; Blood Urea Nitrogen 15 mg/dL (9-20); Carbon Dioxide 27 mmol/L (22-30); Chloride 105 mmol/L (98-107); Glucose 87 mg/dL (74-99); Non-African American GFR(MDRD) >60 (>60 ml/min/1.73 sqM); Sodium 138 mmol/L (137-145)
[2017-01-02] MEDS: ERTAPENEM 1 GM in SODIUM CHLORIDE 0.9% 50 ML IVPB SCH (13:14)
[2017-01-02] MEDS: FOLIC ACID 1 MG TAB PO SCH (13:20)
[2017-01-02] MEDS: MULTIVITAMINS, THERA 1 EACH TAB PO SCH (13:21)
[2017-01-02] MEDS: THIAMINE 100 MG TAB PO SCH (13:21)
[2017-01-02] MEDS ORDERED: LIDOCAINE URO-JET JELLY 2% 5 ML KIT URETHRAL STA (16:41)
[2017-01-02 18:28] LABS: Appearance,Urine Cloudy (Clear); Bacteria,Urine Rare /hpf; Bilirubin,Urine Negative (Negative); Glucose,Urine (UA) Negative (Negative); Ketones,Urine Negative (Negative); Leukocyte Esterase,Urine Large (Negative); Nitrite,Urine Negative (Negative); PH, Urine 6.5 (5.0-8.0); Particle Count 2219; Protein,Urine Trace (Negative); RBC,Urine 8 /hpf (0-5); Specific Gravity,Urine 1.008 (1.001-1.035); UA Billing (MACRO vs. MICRO) MICRO; WBC,Urine >182 /hpf (0-5)
--- NOTE | 2017-01-02 18:49 | PN ---
DATE OF SERVICE: 01/02/2017 This 86-year-old gentleman admitted with UTI with ESBL E. coli, also had significant post void residual indicating urinary outlet obstruction. The patient is also running some fever. The patient is on ertapenem. PICC line has been recommended by Dr. Harley of infectious disease. No chest pain or palpitations. On exam, alert and oriented x3. Pulse 67, blood pressure 180/58, respirations 19, temperature 98.1, T-max 100 degrees, pulse ox 96% on room air. HEENT: Conjunctivae normal. NECK: No jugular venous distension. CARDIOVASCULAR: S1 and S2 muffled. RESPIRATORY: Breath sounds diminished in the bases. No rhonchi. No crackles. ABDOMEN: Soft, nontender. LEGS: No edema. NERVOUS SYSTEM: Nonfocal. LABS: WBC 12.6, hemoglobin is 11.2. UA noted. ASSESSMENT: 1. Urinary tract infection, possibly extended-spectrum beta-lactamase Escherichia coli. 2. Urinary outlet obstruction with a high residual volume. 3. Change in mental status, metabolic encephalopathy and sepsis secondary to urinary tract infection, present on admission. 4. Generalized gait dysfunction asthenia, possibly secondary to sepsis. 5. Increased WBC. 6. Anemia, normocytic anemia of chronic disease. 7. Dehydration, present on admission with diminished p.o. intake. 8. History of asthma. 9. Asthma, chronic intermittent. 10. History of degenerative joint disease. 11. History of back surgery. 12. Mild protein-calorie malnutrition with a body mass index of 19. 13. FULL CODE. RECOMMENDATIONS AND DISCUSSION: In this 86-year-old gentleman who presented with multiple complex medical issues, we will monitor the patient closely. Continue the current medications, continue with symptomatic treatment. Otherwise, continue with antibiotics. Possible PICC line. PT and OT evaluation. Possible ECF rehab. Guarded prognosis. Urology evaluation. Further recommendations to follow.
[2017-01-02] MEDS: PARoxetine 10 MG TAB PO SCH (21:08)
[2017-01-02] MEDS: DONEPEZIL 5 MG TAB PO SCH (21:08)
--- NOTE | 2017-01-02 21:33 | CONS ---
DATE OF CONSULTATION: 01/02/2017 REASON FOR CONSULTATION: Urinary retention. The patient is an 86-year-old male admitted on 12/31 for treatment of a urinary tract infection and back pain. A CT scan of the lumbosacral spine showed degenerative changes but no spinal cord compression. CT scan on 12/29 showed evidence of a complex 1.9 cm cyst in the lower pole of the right kidney, a non-obstructive left renal calculus and a distended bladder. A renal ultrasound performed the same day showed no other significant abnormality. A urine culture from 12/29 grew E coli which was resistant to multiple antibiotics. Patient was initially started on Rocephin and has been switched to Ertapenem. A bladder scan was performed earlier today and reportedly showed over 700 mL. The patient has a history of difficulty in placement of a Deutsch catheter, and urologic consultation was requested. The patient is not a particularly accurate historian and is somewhat confused at times. He apparently has a history of prostate cancer treated with brachytherapy 20 years ago. One or 2 years ago he had back surgery and there was difficulty in placement of a Deutsch catheter at that time. Patient was incontinent of urine prior to admission. He did have malodorous urine, which has improved since admission. He has had no recent gross hematuria. Patient's past medical history is significant in regard to asthma and chronic back pain. Current medications include: 1. DuoNeb. 2. Symbicort. 3. Aricept. 4. Lovenox. 5. Protonix. 6. Paxil. 7. Ertapenem. The patient has previously undergone surgery on his lower back. REVIEW OF SYSTEMS: Significant mainly in regard to the above. Patient denies any shortness of breath or abdominal pain at the present time. Physical exam reveals an elderly male who has a temperature of 99.5, blood pressure 104/57. HEENT: No supraclavicular or cervical adenopathy. CHEST: Breathing is unlabored. ABDOMEN: There is some slight fullness in the suprapubic area to palpation. No pain in this region. GENITALIA: Patient is in diapers and is incontinent. Penis is uncircumcised. There is no urethral discharge or blood noted at the urethral meatus. Both testicles are descended. No hernia is present. RECTAL: A large external hemorrhoid is present. Prostate is relatively flat and consistent with previous radiation therapy. Anal sphincter tone is reduced. There is no evidence of fecal impaction. Laboratory evaluation on admission included a white blood count of 11,500. BUN 25, creatinine 0.84. White blood count today was 12,300. BUN 15, creatinine 0.86. Immediately following my examination I attempted to pass a 16 Indian Deutsch catheter using sterile technique, but this met with obstruction in the region of the bulbomembranous junction. A 12 Indian Coude catheter was also tried, without success. A 5 Indian filiform was passed through the urethra and into the bladder, and a urethral stricture was then dilated from 10 to 14 Indian using followers. A 0.035 Glidewire was passed through a follower and into the bladder. The 12 Indian Coude catheter was modified with a slit at its tip and advanced over the Glidewire and into the bladder. Clear urine drained from the bladder. IMPRESSION: 1. Incomplete bladder emptying secondary to urethral stricture. 2. Recent [id number] Escherichia coli urinary tract infection versus contaminated urine related to chronic incontinence. RECOMMENDATION: Patient's catheter should be left in place for the time being until his infection has been treated. A repeat urine culture will be obtained from urine obtained through the catheter. Thank you for allowing me to participate in the care of this gentleman.
[2017-01-03] MEDS ORDERED: PANTOPRAZOLE 40 MG TABLET PO SCH (07:30)
[2017-01-03] MEDS: SYMBICORT 160-4.5 MCG INHALER INHALATION SCH (07:32)
[2017-01-03 07:35] VITALS: RESP 16
[2017-01-03] MEDS: ENOXAPARIN 40 MG/0.4 ML SYRINGE SQ SCH (08:26)
[2017-01-03 08:55] LABS: Basophils # (A) 0.1 k/uL (0-0.2); Basophils % (A) 0 %; CH 30.4; CHCM 34.7; Eosinophils # (A) 0.1 k/uL (0-0.7); Eosinophils % (A) 1 %; HDW 3.23; HGB 11.3 gm/dL (13.0-17.5); Luc # (Auto) 0.15; Luc % (Auto) 1; Lymphocytes # (A) 0.9 k/uL (1.0-4.8); Lymphocytes % (A) 6 %; MCHC 34.1 g/dL (31.0-37.0); Mean Platelet Volume 6.3; Monocytes # (A) 0.9 k/uL (0-1.0); Monocytes % (A) 6 %; Neutrophils # (A) 12.8 k/uL (1.3-7.7); Neutrophils % (A) 86 %; RBC 3.75 m/uL (4.30-5.90); RDW 12.8 % (11.5-15.5); WBC 14.9 k/uL (3.8-10.6); WBC (Perox) 15.03
[2017-01-03 09:22] LABS: Anion Gap 6 mmol/L; Blood Urea Nitrogen 15 mg/dL (9-20); Carbon Dioxide 26 mmol/L (22-30); Chloride 103 mmol/L (98-107); Glucose 74 mg/dL (74-99); Non-African American GFR(MDRD) >60 (>60 ml/min/1.73 sqM); Potassium 4.2 mmol/L (3.5-5.1); Sodium 135 mmol/L (137-145)
--- NOTE | 2017-01-03 10:08 | P.PN ---
Progress Note - Text The patient is afebrile. He says that he has been comfortable with his Deutsch catheter. Urine draining from the catheter is clear with some sediment. Urine culture was obtained at the time of placement of the catheter yesterday but the results are pending. The patient is scheduled to undergo PICC line placement for IV antibiotics following discharge. It is anticipated that he will be going to a rehab unit. Impression: Urethral stricture and urinary tract infection-post urethral dilation and placement of Deutsch catheter. Recommendation: The patient's catheter should be left in place for 1 week. The patient should have bladder scans done once his catheter is removed and then periodically for the next week. I would like to see the patient back in the office within 1 week following removal of the catheter as it is likely he will require periodic urethral dilations due to his stricture. Have discussed this with the patient's daughter.
[2017-01-03] MEDS ORDERED: LIDOCAINE 2% INJ 20 MG/ML SQ ONE (10:43)
--- NOTE | 2017-01-03 10:58 | PN ---
DATE OF SERVICE: 01/02/2017 REASON FOR FOLLOWUP: ESBL C. coli urinary tract infection. INTERVAL HISTORY: The patient is afebrile. The patient is afebrile. The patient did have evidence of urinary retention, high postvoid residual, though the patient denies significant symptoms. Denies any chest pain. No cough. No abdominal pain or any diarrhea. On examination, blood pressure 104/57 with a pulse of 61, temperature 99.5. He is 98% on room air. General description is an elderly male, lying in bed in no distress. RESPIRATORY SYSTEM: Unlabored breathing. Clear to auscultation anteriorly. HEART: S1, S2. Regular rate and rhythm. ABDOMEN: Soft. No tenderness. LABS: Hemoglobin is 11.1, white count 12.2 with a BUN of 15, creatinine 0.86. DIAGNOSTIC IMPRESSION ANDP SIMON: Patient with an extended-spectrum beta-lactamase Escherichia coli urinary tract infection and complicated urinary tract infection. Patient did have evidence of urinary retention, positive benign prostatic hypertrophy. At this time, will continue the patient on Invanz 1 g daily. Will obtain a PICC line, as patient is likely to continue with outpatient antibiotic therapy. Plan discussed in detail with the patient's family. BRETT
[2017-01-03] MEDS: MULTIVITAMINS, THERA 1 EACH TAB PO SCH (11:04)
[2017-01-03] MEDS: FOLIC ACID 1 MG TAB PO SCH (11:04)
[2017-01-03] MEDS: THIAMINE 100 MG TAB PO SCH (11:04)
[2017-01-03] MEDS: ERTAPENEM 1 GM in SODIUM CHLORIDE 0.9% 50 ML IVPB SCH (12:46)
[2017-01-03 14:59] VITALS: BP 104/53; PULSE 63; TEMP 96.6
--- NOTE | 2017-01-03 15:48 | DS ---
DATE OF ADMISSION: 12/31/2016 DATE OF DISCHARGE: DATE OF SERVICE: 01/03/2017 FINAL DIAGNOSES: 1. Urinary tract infection with ESBL Escherichia coli with sepsis, present on admission. 2. Urinary outlet obstruction with possible urethral stricture with high-residual volume on Deutsch catheter. 3. Change in mental status, metabolic encephalopathy with sepsis, present on admission, secondary to urinary tract infection. 4. Generalized gait dysfunction, asthenia. 5. Increased white count. 6. Anemia, normocytic; anemia of chronic disease. 7. Dehydration, present on admission, with diminished oral intake. 8. History of chronic intermittent asthma. 9. History of degenerative joint disease. 10. History of back surgery. 11. History of mild protein-calorie malnutrition with a body mass index of 19. 12. Status post PICC line. 13. FULL CODE. DISCHARGE DISPOSITION: The patient will be discharged in stable condition with guarded prognosis. Total time taken 35 minutes. HISTORY OF PRESENT ILLNESS: This 86-year-old gentleman with a past medical history of multiple medical problems was admitted with UTI with ESBL E coli. The patient also had features of urinary outlet obstruction. Patient had change in mental status. He was treated with antibiotics. ESBL was grown from the culture. A PICC line was inserted. Dr. Harley recommended IV antibiotics and the patient improved significantly. Multiple consultants, including Dr. Kim and Dr. Casarez, also saw the patient; recommended outpatient followup. On exam, vitals are stable. CARDIOVASCULAR SYSTEM: S1, S2 muffled. ABDOMEN: Soft. NERVOUS SYSTEM: No focal deficit. Dr. Kim recommended that the catheter remain in place at least one week. Bladder scan once the catheter is removed, and periodically for the next week. Discharge advice and medications are: 1. Diet is cardiac. 2. Follow up with Dr. Mae in 2 to 3 days after discharge from [facility]. 3. Follow up with Dr. Carrillo and Dr. Kim as recommended. 4. Symbicort 160/4.5 two puffs b.i.d. 5. Invanz 1 gram IV daily per Dr. Harley. 6. Folic acid 1 mg daily. 7. Albuterol Atrovent updrafts q.i.d. and q.4 p.r.n. 8. Multivitamins 1 p.o. daily. 9. Protonix 40 mg daily. 10. Paxil 10 mg p.o. daily. 11. Thiamine 100 mg p.o. daily. Once again, the patient will be discharged in stable condition with guarded prognosis.
--- NOTE | 2017-01-03 16:56 | PN ---
DATE OF SERVICE: 01/03/2017 REASON FOR FOLLOWUP: ESBL E coli urinary tract infection. INTERVAL HISTORY: The patient is afebrile. He is feeling better, breathing comfortably. Denies significant chest pain or cough. No abdominal pain. Did have Deutsch catheter placed by Urology yesterday. On examination, blood pressure 105/60 with a pulse of 71, temperature 97.7. He is 94% on room air. General description is an elderly male lying in bed in no distress. RESPIRATORY SYSTEM: Unlabored breathing. Clear to auscultation anteriorly. HEART: S1, S2. Regular rate and rhythm. ABDOMEN: Soft. No tenderness. LABS: Hemoglobin 9.3, white count 14. 9 with BUN of 15, creatinine 0.83. DIAGNOSTIC IMPRESSION AND PLAN: Patient has ESBL urinary tract infection ( ) for which the patient is continued on IV Invanz for another 12 days with outpatient followup. Plan of care discussed with the attending. Continue supportive care.
--- NOTE | 2017-01-14 08:06 | IR ---
EXAMINATION TYPE: IR cvc insert >=5 years DATE OF EXAM: 01/14/2017 COMPARISON: NONE CLINICAL HISTORY: Infection Needs long-term intravenous access for antibiotics. PROCEDURE: After informed consent, the skin overlying the upper extremity vein was localized with ultrasound and noted to be compressible and patent. An ultrasound image was obtained and submitted on the patient' s chart. The overlying skin was prepped and draped and Lidocaine was used for local anesthesia. A s kin radha was made with a scalpel. Access was gained to the vein under ultrasound guidance with a 21 gauge needle and a 0.018 inch wire was advanced. Access site was dilated with Peel-Away sheath and c atheter tailored to the appropriate length and advanced such that the distal tip is at the cavoatrial junction. Spot image was obtained verifying placement. Catheter was fixed to the skin with suture and a sterile dressing was placed following hemostasis. Catheter was aspirated and flushed with sali ne. Patient was discharged in stable condition without complication. Maximal barrier technique is ut ilized. Ultrasound image is documented on the chart. Ultrasound used with sterile technique. Fluoro time and fluoroscopic images submitted to document procedure: 94 intraoperative C-arm images, 0.3 minutes fluoroscopy time IMPRESSION: STATUS POST ULTRASOUND AND FLUOROSCOPIC GUIDED PICC LINE PLACEMENT, READY FOR USE. THIS PROCEDURE WAS PERFORMED BY THE UNDERSIGNED.
== END 2017-01-03 16:42 | DRG 871 ==
LOC: EC 14:13 → 3OBS 19:55 → OBSVTOIN 12-31 10:57 → 4MS4W 01-01 15:15
PROVIDERS: ADMIT Hospitalist; ATTEND Hospitalist
PROC: 02HV33Z Insertion of Infusion Device into Superior Vena Cava, Percutaneous Approach (ICD-10-PCS; principal; 2017-01-03 10:00)
DX: A41.51 Sepsis due to Escherichia coli [E. coli] (principal); G93.41 Metabolic encephalopathy; N39.0 Urinary tract infection, site not specified; E44.1 Mild protein-calorie malnutrition; N28.1 Cyst of kidney, acquired; F03.90 Unspecified dementia, unspecified severity, without behavioral disturbance, psychotic disturbance, mood disturbance, and anxiety; E86.0 Dehydration; R15.9 Full incontinence of feces; N13.9 Obstructive and reflux uropathy, unspecified; D63.8 Anemia in other chronic diseases classified elsewhere; J45.20 Mild intermittent asthma, uncomplicated; R29.6 Repeated falls; M19.90 Unspecified osteoarthritis, unspecified site; M21.371 Foot drop, right foot; M43.06 Spondylolysis, lumbar region; M46.96 Unspecified inflammatory spondylopathy, lumbar region; M48.06 Spinal stenosis, lumbar region; M51.36 Other intervertebral disc degeneration, lumbar region; N20.0 Calculus of kidney; N35.9 Urethral stricture, unspecified; G89.29 Other chronic pain; N39.3 Stress incontinence (female) (male); R26.9 Unspecified abnormalities of gait and mobility; R53.1 Weakness; F32.9 Major depressive disorder, single episode, unspecified; E56.1 Deficiency of vitamin K; R79.1 Abnormal coagulation profile; Z68.1 Body mass index [BMI] 19.9 or less, adult; Z16.12 Extended spectrum beta lactamase (ESBL) resistance; Z79.51 Long term (current) use of inhaled steroids; Z79.899 Other long term (current) drug therapy; Z85.46 Personal history of malignant neoplasm of prostate; Z82.49 Family history of ischemic heart disease and other diseases of the circulatory system
CPT/HCPCS: 36415; 36569; 71020; 72132; 74177; 76770; 76937; 77001; 80048; 80053; 81001; 82550; 82553; 83735; 84100; 84153; 84484; 85025; 85027; 85610; 85730; 87040; 87077; 87086; 87186; 93005; 96361; 96365; 96366; 96372; 99285

== ENCOUNTER → 2017-02-03 | Outpatient (CLI) | payer MEDICARE, OTHER ==
[2017-02-03 16:27] LABS: Basophils # (A) 0.1 k/uL (0-0.2); Basophils % (A) 1 %; CH 29.7; CHCM 33.2; Eosinophils # (A) 0.4 k/uL (0-0.7); Eosinophils % (A) 6 %; HCT 36.3 % (39.0-53.0); HDW 2.96; HGB 12.2 gm/dL (13.0-17.5); Luc # (Auto) 0.13; Luc % (Auto) 2; Lymphocytes # (A) 1.2 k/uL (1.0-4.8); Lymphocytes % (A) 19 %; MCH 30.2 pg (25.0-35.0); MCHC 33.6 g/dL (31.0-37.0); MCV 89.9 fL (80.0-100.0); Monocytes # (A) 0.5 k/uL (0-1.0); Monocytes % (A) 7 %; Neutrophils # (A) 4.3 k/uL (1.3-7.7); Neutrophils % (A) 65 %; RBC 4.04 m/uL (4.30-5.90); RDW 14.7 % (11.5-15.5); WBC 6.6 k/uL (3.8-10.6)
[2017-02-03 16:37] LABS: Anion Gap 10 mmol/L; Blood Urea Nitrogen 20 mg/dL (9-20); Calcium 8.9 mg/dL (8.4-10.2); Carbon Dioxide 25 mmol/L (22-30); Chloride 109 mmol/L (98-107); Glucose 102 mg/dL (74-99); Non-African American GFR(MDRD) >60 (>60 ml/min/1.73 sqM); Potassium 4.1 mmol/L (3.5-5.1); Sodium 144 mmol/L (137-145)
== END | disposition home or self-care (01) ==
LOC: LABWHC1 15:49
PROVIDERS: ATTEND Urology
DX: Z01.810 Encounter for preprocedural cardiovascular examination (principal); R53.83 Other fatigue; N35.014 Post-traumatic urethral stricture, male, unspecified; Z79.899 Other long term (current) drug therapy; Z01.812 Encounter for preprocedural laboratory examination
CPT/HCPCS: 80048; 85025

== ENCOUNTER 2017-02-05 14:47 | Day surgery (SDC) | payer MEDICARE, OTHER ==
[2017-02-03 13:17] VITALS: BMI 19.0
[~2017-02-05 14:47] MED LIST: ERTAPENEM 1 GM in SODIUM CHLORIDE 0.9% 50 ML IVPB ONE; HYDROmorphone 1 MG/ML 1 ML SYRINGE IVP PRN; LACTATED RINGERS 1,000 ML IV SCH; LEVOFLOXACIN 500MG-D5W PMX 500 MG in DEXTROSE/WATER 1 100ML.BAG IVPB ONE; MIDAZOLAM 2 MG/2 ML VIAL IV PRN
[2017-02-05 15:13] VITALS: TEMP 97.7
[2017-02-05] MEDS ORDERED: LIDOCAINE 1% 20 ML VIAL (10MG/ML) FOR IV START INTRADERMA ONE (15:23)
[2017-02-05] MEDS ORDERED: ONDANSETRON 4 MG/2 ML VIAL IVP ONE (15:25)
[2017-02-05] MEDS ORDERED: PROPOFOL 10 MG/ML 20 ML VIAL IV ONE (15:32)
[2017-02-05] MEDS ORDERED: fentaNYL (PF) 50 MCG/ML 2 ML AMP ONE (15:32)
--- NOTE | 2017-02-05 16:19 | P.OP ---
Date of Procedure: 02/05/17 Preoperative Diagnosis: Incomplete bladder emptying secondary to urethral stricture Postoperative Diagnosis: Incomplete bladder emptying secondary to urethral stricture and/or bladder neck contracture Procedure(s) Performed: Cystoscopy with dilation of urethral stricture using filiforms and followers and placement of Deutsch catheter Implants: Anesthesia: MAC Pathology: none sent Disposition: same day Indications for Procedure: The patient is an 86-year-old male with a history of prostate cancer treated with brachytherapy. He has a history of incomplete bladder emptying and has required urethral dilations in the past. One month ago he developed urinary retention and it was only with difficulty that a 14-Panamanian Deutsch catheter could be placed following dilation of urethral stricture or bladder neck contracture using filiforms and followers. Repeat dilation under anesthesia is planned Operative Findings: The patient was taken to the operating suite where adequate intravenous sedation was given. Patient was placed in the dorsal lithotomy position with his legs suspended from padded Mir stirrups. The genitalia was prepped with Betadine soap painted with Betadine solution and draped in a sterile fashion. The penile urethra was traversed under direct vision using the 17-Panamanian sheath and 30 lens. Anterior urethra was free of inflammatory lesion tumor and stricture. It was impossible to advance the cystoscope through the region of the membranous urethra. A 5 Fr filiform was passed through the urethra and into the bladder. The urethra was then dilated from [id number] using successive followers. It was only with difficulty that the 18-Panamanian follower could be advanced. Cystoscopy was then performed using the 17-Panamanian sheath. The patient appeared to have narrowing in the region of the membranous urethra as well as the bladder neck. The bladder was examined. Both ureteral orifice ease were normal location and configuration and effluxed clear urine. The bladder was heavily trabeculated but was free of tumor foreign body and diverticulum. A 0.035 straight Glidewire was advanced through the cystoscope and the cystoscope was withdrawn leaving the Glidewire in place. I initially attempted to advance a 16-Panamanian Deutsch catheter over the Glidewire but this proved impossible. Eventually a 16-Panamanian coud catheter which had been modified with a slit at its tip was advanced over the Glidewire and into the bladder. The catheter was then connected to gravity drainage The patient tolerated procedure well and left the operative room awake and in satisfactory condition. The narrowing in the region of the prostate may be related to either a urethral stricture and/or bladder neck contracture related to previous radiation therapy. The catheter will be removed on 02/10 and the patient will be seen back in follow-up 1 week later. The patient is currently on Cipro and this will be continued for another for 5 days. Description of Procedure:
[2017-02-05 17:52] VITALS: PULSE 43
[2017-02-05 18:46] VITALS: BP 129/56; RESP 16
== END 2017-02-05 18:58 ==
LOC: OR 14:47
PROVIDERS: ATTEND Urology
DX: N35.014 Post-traumatic urethral stricture, male, unspecified (principal); R33.9 Retention of urine, unspecified; Z87.440 Personal history of urinary (tract) infections; Z85.46 Personal history of malignant neoplasm of prostate; Z92.3 Personal history of irradiation; J45.909 Unspecified asthma, uncomplicated; M21.371 Foot drop, right foot; Z79.51 Long term (current) use of inhaled steroids; Z79.899 Other long term (current) drug therapy
CPT/HCPCS: 52281; C1769; C2627; J2405; J3010; J1335; J2704

== ENCOUNTER 2017-03-12 20:53 | Inpatient (IN) | payer MEDICARE, OTHER ==
[2017-03-12] MEDS ORDERED: SODIUM CHLORIDE 0.9% 500 ML IV STA (21:10)
[2017-03-12] MEDS ORDERED: RX INFO: IV CONTRAST WAS GIVEN 1 EACH MISC MISCELLANE PRN (21:10)
[2017-03-12] MEDS ORDERED: SODIUM CHLORIDE 0.9% 1,000 ML IV ONE (21:20)
[2017-03-12 21:25] LABS: Basophils % (A) 0 %; CH 30.5; CHCM 34.8; Eosinophils # (A) 0.1 k/uL (0-0.7); Eosinophils % (A) 1 %; HCT 37.9 % (39.0-53.0); HDW 2.93; HGB 13.2 gm/dL (13.0-17.5); Luc # (Auto) 0.24; Luc % (Auto) 2; Lymphocytes % (A) 7 %; MCH 30.7 pg (25.0-35.0); MCHC 34.9 g/dL (31.0-37.0); Mean Platelet Volume 7.1; Monocytes # (A) 1.4 k/uL (0-1.0); Monocytes % (A) 9 %; Neutrophils # (A) 12.7 k/uL (1.3-7.7); Neutrophils % (A) 82 %; RBC 4.31 m/uL (4.30-5.90); RDW 13.7 % (11.5-15.5); WBC 15.5 k/uL (3.8-10.6); WBC (Perox) 15.78
[2017-03-12 21:35] LABS: ALT 29 U/L (21-72); AST 25 U/L (17-59); Alkaline Phosphatase 95 U/L (38-126); Anion Gap 13 mmol/L; Blood Urea Nitrogen 30 mg/dL (9-20); Calcium 9.2 mg/dL (8.4-10.2); Carbon Dioxide 21 mmol/L (22-30); Chloride 102 mmol/L (98-107); Glucose 114 mg/dL (74-99); Non-African American GFR(MDRD) >60 (>60 ml/min/1.73 sqM); Potassium 3.6 mmol/L (3.5-5.1); Sodium 136 mmol/L (137-145); Total Protein 6.9 g/dL (6.3-8.2)
[2017-03-12 21:39] LABS: INR 1.1 (<1.2); Partial Thromboplastin Time 26.2 sec (22.0-30.0); Prothrombin Time 11.2 sec (9.0-12.0)
--- NOTE | 2017-03-12 21:46 | CT ---
EXAMINATION TYPE: CT brain wo con for TPA DATE OF EXAM: 03/12/2017 COMPARISON: NONE HISTORY: TIA symptoms. CT DLP: 1176.7 mGycm Automated exposure control for dose reduction was used. FINDINGS: There is cerebral cortical atrophy. There is no mass effect nor midline shift. There is no sign of in tracranial hemorrhage. There is an extra-axial 1.5 cm rounded calcification at the right parietal con vexity this could be calcifying hemangioma or osteochondroma. There is no adjacent edema or mass effe ct. Calvarium is intact. IMPRESSION: SMALL CALCIFYING MASS AT THE RIGHT PARIETAL CONVEXITY HAS BENIGN FEATURES. CEREBRAL ATROPHY. NO ACUTE INTRACRANIAL ABNORMALITY.
[2017-03-12 21:47] LABS: Creatine Kinase 70 U/L (55-170)
--- NOTE | 2017-03-12 21:47 | XR ---
EXAMINATION TYPE: XR chest 1V portable DATE OF EXAM: 03/12/2017 COMPARISON: 12/31/2016 HISTORY: Altered mental status TECHNIQUE: Single frontal view of the chest is obtained. FINDINGS: Heart and mediastinum are normal. Lungs are clear. There is no heart failure. There is no pleural effusion. Bony thorax is intact. There are chest leads. IMPRESSION: No active cardiopulmonary disease. No change.
--- NOTE | 2017-03-12 21:49 | XR ---
EXAMINATION TYPE: XR hand complete RT DATE OF EXAM: 03/12/2017 COMPARISON: NONE HISTORY: Pain TECHNIQUE: 3 views FINDINGS: There is previous surgery with prosthetic MP joints at the second third fourth and fifth me tatarsal heads. There is fusion of the first MP joint. There is narrowing of intercarpal joint spaces with sclerosis and subchondral cystic change. I see no fracture. There is moderate narrowing with mojica bchondral cystic change and minimal spur formation at the IP joints. 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 This could b e long-standing rheumatoid arthritis or erosive osteoarthritis. No acute bony abnormality.
--- NOTE | 2017-03-12 21:57 | CT ---
EXAMINATION TYPE: CT angio head neck DATE OF EXAM: 03/12/2017 HISTORY: TIA symptoms. COMPARISON: NONE CT DLP: 395.28 mGycm. Automated Exposure Control for Dose Reduction was Utilized. TECHNIQUE: CTA scan of the neck is performed with IV Contrast, patient injected with 65 mL of Omnipa que 350, axial images are obtained, coronal and sagittal reformatted images are reviewed. Three-D rec onstructed images are created on an independent workstation and reviewed. FINDINGS: The thoracic aorta is atheromatous. There is normal branching pattern of the great vessels on the aor tic arch. There is bilateral arterial flow in the vertebral arteries. There is arterial flow in the c ommon internal and external carotid arteries. The carotid artery bifurcations appear widely patent. T here is no evidence of carotid artery aneurysm or dissection. There is arterial flow in the anterior middle and posterior cerebral arteries. There is arterial flow in the vertebrobasilar artery system. Basilar artery fills mostly from the left side. I see no evide nce of stenosis. There is no mass effect. There is no evidence of aneurysm. There is normal contrast opacification of the venous sinuses. There is mild calcification at the carotid artery bifurcations. IMPRESSION: Negative CT angiogram of the neck. Minimal atherosclerotic ossification without evidence of stenosis. Negative CT angiogram of the brain.
[2017-03-12 22:00] LABS: Creatine Kinase MB 1.7 ng/mL (0.0-2.4); Troponin I <0.012 ng/mL (0.000-0.034)
[2017-03-12] MEDS ORDERED: ASPIRIN 325 MG TAB PO STA (22:34)
[2017-03-12] MEDS: SODIUM CHLORIDE 0.9% 1,000 ML IV SCH (22:39)
[2017-03-12] MEDS ORDERED: METOPROLOL TARTRATE 25 MG TAB PO STA (22:49)
[2017-03-12 22:50] LABS: Appearance,Urine Clear (Clear); Bilirubin,Urine Negative (Negative); Glucose,Urine (UA) Negative (Negative); Ketones,Urine 2+ (Negative); Leukocyte Esterase,Urine Negative (Negative); Mucus,Urine Occasional /hpf; Nitrite,Urine Negative (Negative); Particle Count 3098; Protein,Urine 1+ (Negative); RBC,Urine 5 /hpf (0-5); Specific Gravity,Urine 1.037 (1.001-1.035); UA Billing (MACRO vs. MICRO) MICRO
[2017-03-12] MEDS ORDERED: ACETAMINOPHEN TAB 500 MG TAB PO STA (23:37)
--- NOTE | 2017-03-12 23:41 | ED ---
General Adult HPI - General Chief complaint: Neuro Symptoms/Deficit Stated complaint: TIA Time Seen by Provider: 03/12/17 21:10 Source: patient, family, RN notes reviewed Mode of arrival: wheelchair Limitations: no limitations - History of Present Illness Initial comments: 86-year-old male with past medical history of arthritis, and asthma presents with acute onset right upper and right lower extremity weakness. Patient's symptoms began approximately 5:30 PM. According to the patient's daughter he is right handed, and he ate his dinner with his left hand which is atypical. Patient also had to use his arms to move his right leg. He does have a history of right foot drop, but he normally has good proximal strength. No slurred speech, no acute confusion. Patient was also noted to have a left-sided facial droop. According to the patient's daughter he has a history of recurrent urinary tract infections was seen by his primary care physician for this yesterday. Also has had recent weight loss of approximately 15 pounds likely secondary to decreased appetite. Denies chest pain. Denies fever or chills. Denies abdominal pain. Severity scale (1-10): 0 - Related Data Home Medications Medication Instructions Recorded Confirmed Ipratropium-Albuterol Nebulize 3 ml INHALATION RT-QID PRN 02/03/17 03/12/17 [Duoneb 0.5 mg-3 mg/3 ml Soln] Escitalopram [Lexapro] 10 mg PO QAM 03/12/17 03/12/17 Fluticasone/Salmeterol [Advair 1 puff INHALATION RT-BID 03/12/17 03/12/17 250-50 Diskus] Folic Acid 1 mg PO QAM 03/12/17 03/12/17 Allergies Allergy/AdvReac Type Severity Reaction Status Date / Time No Known Allergies Allergy Verified 02/03/17 11:22 Review of Systems ROS Statement: Those systems with pertinent positive or pertinent negative responses have been documented in the HPI. ROS Other: All systems not noted in ROS Statement are negative. Past Medical History Past Medical History: Asthma Additional Past Medical History / Comment(s): chronic back problems, Rt foot drop, Uses a walker History of Any Multi-Drug Resistant Organisms: None Reported Date of last positivie culture/infection: 01/01/17 MDRO Source:: URINE Past Surgical History: Back Surgery Additional Past Surgical History / Comment(s): RECENT PICC LINE, NOW REMOVED, JONO CATARACTS Past Anesthesia/Blood Transfusion Reactions: No Reported Reaction Past Psychological History: No Psychological Hx Reported Smoking Status: Never smoker Past Alcohol Use History: None Reported Past Drug Use History: None Reported - Past Family History Father Family Medical History: Myocardial Infarction ([place]) Mother Family Medical History: No Reported History General Exam Limitations: no limitations General appearance: alert, in no apparent distress Head exam: Present: atraumatic, normocephalic Eye exam: Present: normal appearance, PERRL, EOMI. Absent: scleral icterus, conjunctival injection ENT exam: Present: normal exam, mucous membranes dry Neck exam: Present: normal inspection, tenderness. Absent: meningismus Respiratory exam: Present: normal lung sounds bilaterally. Absent: respiratory distress, wheezes Cardiovascular Exam: Present: tachycardia, irregular rhythm GI/Abdominal exam: Present: soft. Absent: distended, tenderness Extremities exam: Present: normal capillary refill, joint swelling (Bilateral wrists are swollen, worse on the right with overlying erythema.). Absent: pedal edema Neurological exam: Present: alert, oriented X3, other (NIH is 8, there is right lower extremity weakness, right upper extremity drift, and left-sided facial droop) Skin exam: Present: warm, dry, intact. 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 ] Respiratory 18 16 16 Rate Blood Pressure 140/75 Blood Pressure 140/75 135/75 [Right Arm] O2 Sat by Pulse 98 99 Oximetry 03/12/17 03/12/17 03/12/17 21:45 22:00 22:15 Temperature Pulse Rate Pulse Rate [ 124 H 120 H 118 H Oyster Preparer ] Respiratory 17 16 17 Rate Blood Pressure Blood Pressure 124/70 147/75 110/97 [Right Arm] O2 Sat by Pulse 99 100 100 Oximetry 03/12/17 03/12/17 03/12/17 22:30 22:45 23:00 Temperature Pulse Rate Pulse Rate [ 143 H 122 H 116 H Oyster Preparer ] Respiratory 17 17 17 Rate Blood Pressure Blood Pressure 143/92 132/72 140/68 [Right Arm] O2 Sat by Pulse 100 97 99 Oximetry - Reevaluation(s) Reevaluation #1: 03/12/17 23:34 Patient's NIH is 8, heart rate improving with IV hydration EKG Findings - EKG Comments: EKG Findings:: EKG shows atrial fibrillation with rapid ventricular response, ventricular rate of 118, QRS duration 86, QTC 454, there is no ST segment elevation, there is T-wave inversion in the anterior and anterolateral leads Medical Decision Making - Medical Decision Making 86-year-old male presenting with right upper and right lower extremity weakness. This began at approximately 5:30 PM. Patient is evaluated as a code stroke. Initial NIH of 8. Additional exam findings include atrial fibrillation with RVR, and bilateral wrist swelling, worse on the right. CT head is obtained is negative for hemorrhage or acute process, CT angiography of the head and neck shows no focal stenosis or filling defect. Case is discussed with the neuro interventional list, patient is also TPA window and he does not recommend TPA at this time. Case is discussed with the admitting team as well as neurology on-call. All parties involved agree TPA is not a good option for this patient. Patient will receive a stat MRI of the brain, be given aspirin. EKG does reveal atrial fibrillation with RVR, patient is clinically dehydrated on examination and urinalysis does point towards dehydration, he receives IV hydration with improvement in heart rate, is also started on metoprolol 25 mg by mouth. White blood cell count is elevated at 15.5, no clear source of infection identified. Troponin is negative. Patient will be admitted for neurology evaluation, MRI, echo and carotid duplex. Diagnosis: CVA, concern for brain stem infarction, atrial fibrillation with RVR , dehydration - Lab Data Result diagrams: 03/12/17 21:15 03/12/17 21:15 Lab Results 03/12/17 03/12/17 03/12/17 Range/Units 21:15 21:15 21:15 WBC 15.5 H (3.8-10.6) k/uL RBC 4.31 (4.30-5.90) m/uL Hgb 13.2 (13.0-17.5) gm/dL Hct 37.9 L (39.0-53.0) % MCV 88.0 (80.0-100.0) fL MCH 30.7 (25.0-35.0) pg MCHC 34.9 (31.0-37.0) g/dL RDW 13.7 (11.5-15.5) % Plt Count 325 (150-450) k/uL Neutrophils % 82 % Lymphocytes % 7 % Monocytes % 9 % Eosinophils % 1 % Basophils % 0 % Neutrophils # 12.7 H (1.3-7.7) k/uL Lymphocytes # 1.0 (1.0-4.8) k/uL Monocytes # 1.4 H (0-1.0) k/uL Eosinophils # 0.1 (0-0.7) k/uL Basophils # 0.0 (0-0.2) k/uL PT (9.0-12.0) sec INR (<1.2) APTT (22.0-30.0) sec Sodium 136 L (137-145) mmol/L Potassium 3.6 (3.5-5.1) mmol/L Chloride 102 (98-107) mmol/L Carbon Dioxide 21 L (22-30) mmol/L Anion Gap 13 mmol/L BUN 30 H (9-20) mg/dL Creatinine 0.70 (0.66-1.25) mg/dL Est GFR (MDRD) Af Amer >60 (>60 ml/min/1.73 sqM) Est GFR (MDRD) Non-Af >60 (>60 ml/min/1.73 sqM) Glucose 114 H (74-99) mg/dL Calcium 9.2 (8.4-10.2) mg/dL Magnesium 2.0 (1.6-2.3) mg/dL Total Bilirubin 1.0 (0.2-1.3) mg/dL AST 25 (17-59) U/L ALT 29 (21-72) U/L Alkaline Phosphatase 95 (38-126) U/L Total Creatine Kinase 70 (55-170) U/L CK-MB (CK-2) 1.7 (0.0-2.4) ng/mL CK-MB (CK-2) Rel Index 2.4 Troponin I <0.012 (0.000-0.034) ng/mL Total Protein 6.9 (6.3-8.2) g/dL Albumin 3.4 L (3.5-5.0) g/dL Urine Color Urine Appearance (Clear) Urine pH (5.0-8.0) Ur Specific [place] (1.001-1.035) Urine Protein (Negative) Urine Glucose (UA) (Negative) Urine Ketones (Negative) Urine Blood (Negative) Urine Nitrite (Negative) Urine Bilirubin (Negative) Urine Urobilinogen (<2.0) mg/dL Ur Leukocyte Esterase (Negative) Urine RBC (0-5) /hpf Hyaline Casts (0-2) /lpf Urine Mucus (None) /hpf 03/12/17 03/12/17 Range/Units 21:15 22:35 WBC (3.8-10.6) k/uL RBC (4.30-5.90) m/uL Hgb (13.0-17.5) gm/dL Hct (39.0-53.0) % MCV (80.0-100.0) fL MCH (25.0-35.0) pg MCHC (31.0-37.0) g/dL RDW (11.5-15.5) % Plt Count (150-450) k/uL Neutrophils % % Lymphocytes % % Monocytes % % Eosinophils % % Basophils % % Neutrophils # (1.3-7.7) k/uL Lymphocytes # (1.0-4.8) k/uL Monocytes # (0-1.0) k/uL Eosinophils # (0-0.7) k/uL Basophils # (0-0.2) k/uL PT 11.2 (9.0-12.0) sec INR 1.1 (<1.2) APTT 26.2 (22.0-30.0) sec Sodium (137-145) mmol/L Potassium (3.5-5.1) mmol/L Chloride (98-107) mmol/L Carbon Dioxide (22-30) mmol/L Anion Gap mmol/L BUN (9-20) mg/dL Creatinine (0.66-1.25) mg/dL Est GFR (MDRD) Af Amer (>60 ml/min/1.73 sqM) Est GFR (MDRD) Non-Af (>60 ml/min/1.73 sqM) Glucose (74-99) mg/dL Calcium (8.4-10.2) mg/dL Magnesium (1.6-2.3) mg/dL Total Bilirubin (0.2-1.3) mg/dL AST (17-59) U/L ALT (21-72) U/L Alkaline Phosphatase (38-126) U/L Total Creatine Kinase (55-170) U/L CK-MB (CK-2) (0.0-2.4) ng/mL CK-MB (CK-2) Rel Index Troponin I (0.000-0.034) ng/mL Total Protein (6.3-8.2) g/dL Albumin (3.5-5.0) g/dL Urine Color Yellow Urine Appearance Clear (Clear) Urine pH 6.0 (5.0-8.0) Ur Specific [place] 1.037 H (1.001-1.035) Urine Protein 1+ H (Negative) Urine Glucose (UA) Negative (Negative) Urine Ketones 2+ H (Negative) Urine Blood Small H (Negative) Urine Nitrite Negative (Negative) Urine Bilirubin Negative (Negative) Urine Urobilinogen 2.0 (<2.0) mg/dL Ur Leukocyte Esterase Negative (Negative) Urine RBC 5 (0-5) /hpf Hyaline Casts 64 H (0-2) /lpf Urine Mucus Occasional H (None) /hpf Critical Care Time Critical Care Time: Yes Total Critical Care Time: 35 Disposition Clinical Impression: Cerebrovascular accident, Atrial fibrillation with RVR Disposition: ADMITTED IP TO THIS HOSP Referrals: Daphney Mae MD [Primary Care Provider] - 1-2 days Decision to Admit Reason: Admit from [facility] Decision Date: 03/12/17 Decision Time: 23:00
[2017-03-12] MEDS ORDERED: IV VANCOMYCIN PER PHARMACY 1 EACH MISC MISCELLANE PRN (23:55)
[2017-03-13] MEDS ORDERED: VANCOMYCIN 1,000 MG in SODIUM CHLORIDE 0.9% 250 ML IVPB STA (00:07)
[2017-03-13] MEDS: HEPARIN SODIUM,PORCINE 5,000 UNIT/ML 1 ML VIAL SQ SCH ×2 (00:16→08:16)
--- NOTE | 2017-03-13 01:37 | P.CNNES ---
History of Present Illness Consult date: 03/13/17 Reason for Consult: Patient admitted with right-sided weakness and possible acute stroke. History of Present Illness: This patient is a 86-year-old right-handed white male who was brought in today to the emergency room by his daughter and other family members due to change in mentation and new findings of right-sided weakness. Patient currently is residing at [facility] and was seen today by his daughter and son-in-law. He appeared to be having more difficulty walking with right-sided weakness. He has a known history of a right foot drop from the previous back surgery 3 years ago. He was fitted for a recent AFO brace and was to obtain it in the next few days to use for his walking purposes. He normally uses a walker at home to get about. Apparently today he was noted to have new onset of right-sided weakness involving his right arm as well. He was also noted to have some facial asymmetry and mild facial weakness. The daughter was very concerned and decided to bring him to the emergency room for further evaluation. He was seen in the ER by the ER physician Dr. Wallace who ordered a initial computed tomography scan of the brain. His presentation to the ER revealed right-sided weakness and difficulty with his speech. He had an initial NIH stroke scale evaluation which came back at 9.0. A repeat NIH scale was done one hour later and his NIH scale was 6.0. The patient was evaluated by the neuro interventional this Dr. Moore with the use of the stroke robot. After evaluation of the computed tomography scan of the brain which was entirely normal as well as a CTA angiogram study which was done in the ER was also normal Dr. Moore did not recommend any further stroke intervention. He was not felt to be a TPA candidate as per Dr. Moore. He was recommended admission to the hospital with a stroke evaluation. The patient was surgically admitted to the hospital. Neurology was consulted late this evening for further evaluation and recommendations. Patient was seen in his room after admission to the hospital early this morning at about 1 AM. He does seem to show improvement with his right-sided hemiparesis. He does have a left upper motor neuron facial weakness pattern. His clinical history at this time was compounded with the finding of new onset of atrial fibrillation in the ER. We have recommended a cardiology consultation. Given the higher incidence of stroke associated with new onset atrial fibrillation we have recommended a aggressive stroke evaluation for this patient. According to his daughter he has been very much independent. He had been living at the [facility] in his own apartment with his . She is [facility] hospitalized [facility] at this time. The patient apparently has been losing weight according to the daughter over the last 6 months. There is been over a 40 pound weight loss recently. He is in the process of establishing with Dr. Mae as his primary care physician. We would recommend further evaluation for possibility of occult malignancy in this elderly gentleman. Overall he seems to be pleasant. He is aware of his right-sided weakness mostly involving his right arm. He denies any headache at this time. He does have a left upper motor neuron facial weakness pattern. We have recommended the patient undergo an MRI of the brain for further evaluation of possible brainstem ischemia or stroke. His computed tomography scan of the brain does reveal area of calcification on the right superficial area of the right parietal lobe. This could represent a meningioma. We will have further evaluation with the MRI of the brain. The patient is to continue on aspirin therapy at this time while he is undergoing a stroke evaluation. We have discussed the case at length with the patient as well as his daughter at bedside. All of their questions were answered. They' re in full agreement with our current treatment plans. His overall prognosis at this time remains guarded. We will continue close neurological follow-up this patient during this admission. Review of Systems Constitutional: Denies chills, Denies fever Eyes: denies blurred vision, denies pain Ears, nose, mouth and throat: Denies headache, Denies sore throat Cardiovascular: Denies chest pain, Denies shortness of breath Respiratory: Denies cough Gastrointestinal: Denies abdominal pain, Denies diarrhea, Denies nausea, Denies vomiting Musculoskeletal: Denies myalgias Integumentary: Denies pruritus, Denies rash Neurological: Reports change in mentation, Reports change in speech, Reports confusion, Reports gait dysfunction, Reports memory loss, Reports motor disturbance, Denies numbness, Denies weakness Psychiatric: Reports memory loss, Denies anxiety, Denies depression Endocrine: Denies fatigue, Denies weight change Past Medical History Past Medical History: Asthma, Cancer, Prostate Disorder, Rheumatoid Arthritis ( RA) Additional Past Medical History / Comment(s): chronic back problems, Rt foot drop, Uses a walker, prostate cancer, radiation seeds History of Any Multi-Drug Resistant Organisms: None Reported Date of last positivie culture/infection: 01/01/17 MDRO Source:: URINE Past Surgical History: Back Surgery Additional Past Surgical History / Comment(s): RECENT PICC LINE, NOW REMOVED, JONO CATARACTS, R hand surgery Past Anesthesia/Blood Transfusion Reactions: No Reported Reaction Past Psychological History: No Psychological Hx Reported Smoking Status: Never smoker Past Alcohol Use History: None Reported Past Drug Use History: None Reported - Past Family History Father Family Medical History: Myocardial Infarction ([place]) Mother Family Medical History: No Reported History Medications and Allergies Home Medications Medication Instructions Recorded Confirmed Type Ipratropium-Albuterol Nebulize 3 ml INHALATION RT-QID PRN 02/03/17 03/12/17 History [Duoneb 0.5 mg-3 mg/3 ml Soln] Escitalopram [Lexapro] 10 mg PO QAM 03/12/17 03/12/17 History Fluticasone/Salmeterol [Advair 1 puff INHALATION RT-BID 03/12/17 03/12/17 History 250-50 Diskus] Folic Acid 1 mg PO QAM 03/12/17 03/12/17 History Allergies Allergy/AdvReac Type Severity Reaction Status Date / Time No Known Allergies Allergy Verified 02/03/17 11:22 Physical Examination - Vital Signs Vital Signs: Vital Signs Temp Pulse Pulse Resp BP BP Pulse Ox 03/13/17 00:00 97.2 F L 100 16 116/65 99 03/12/17 23:00 116 H 17 140/68 99 03/12/17 22:45 122 H 17 132/72 97 03/12/17 22:30 143 H 17 143/92 100 03/12/17 22:15 118 H 17 110/97 100 03/12/17 22:00 120 H 16 147/75 100 03/12/17 21:45 124 H 17 124/70 99 03/12/17 21:30 122 H 16 135/75 99 03/12/17 21:15 126 H 16 140/75 98 03/12/17 21:00 97.6 F 125 H 18 140/75 Intake and Output 03/12/17 03/12/17 03/13/17 14:59 22:59 06:59 Other: Weight 57.606 kg 99 kg Patient Weight 03/13/17 06:59 Weight 99 kg - Constitutional General appearance: thin - EENT EENT: PERRL, mucous membranes moist - Respiratory Respiratory: lungs clear, normal breath sounds - Cardiovascular Cardiovascular: regular rate, normal S1, normal S2 Extremities: no peripheral edema bilaterally - Gastrointestinal Gastrointestinal: normoactive bowel sounds - Integumentary Integumentary: normal - Neurologic Cranial nerve examination: PERRL, EOMI, VFF, V1/V2/V3 grossly intact, tongue midline, intact gag reflex, intact corneal reflex, facial droop (There is left- sided facial asymmetry and left upper motor neuron weakness pattern.), normal palatal elevation Speech examination: intact Sensorimotor examination: intact Motor examination - right side: 3/5: biceps, triceps, wrist flexion, wrist extension, decal applier, hip flexors, knee extensors, dorsiflexion, toe extension (EHL) , plantarflexion Motor examination - left side: 4/5: biceps, triceps, wrist flexion, wrist extension, decal applier, hip flexors, knee extensors, dorsiflexion, toe extension (EHL) , plantarflexion Detailed sensory examination: intact Reflex and gait examination: intact Reflexes: 1+: ankle, bicep, knee, tricep - Musculoskeletal Musculoskeletal: no pain - Psychiatric Psychiatric: mood/affect appropriate, depressed, cooperative Results - Laboratory Findings CBC and BMP: 03/12/17 21:15 03/12/17 21:15 Abnormal Lab Findings: Abnormal Labs 03/12/17 03/12/17 03/12/17 21:15 21:15 22:35 WBC 15.5 H Hct 37.9 L Neutrophils # 12.7 H Monocytes # 1.4 H Sodium 136 L Carbon Dioxide 21 L BUN 30 H Glucose 114 H Albumin 3.4 L Ur Specific Holcomb 1.037 H Urine Protein 1+ H Urine Ketones 2+ H Urine Blood Small H Hyaline Casts 64 H Urine Mucus Occasional H Assessment and Plan (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 He was brought into the emergency room and was evaluated by the neuro interventional group at [facility]. The stroke robot was activated and he was evaluated. Dr. Moore reviewed his computed tomography scan of the brain and CTA angiogram results and felt he was not a candidate for TPA. He was admitted to hospital for further neurological assessment and treatment. His neurological exam findings at this time revealed right hemiparesis with a left facial weakness pattern. This findings suggest cross neurological localization suggesting possibility of brainstem ischemia or brainstem stroke. We have recommended an MRI of the brain for further evaluation. His CTA angiogram was reported negative for any evidence of any arterial stenosis. We will continue with close neurological follow-up for this patient during this admission. He is to be maintained on aspirin therapy for secondary stroke prevention at this time pending his stroke workup. This case was discussed at length with the patient's daughter. All of her questions were answered. She is aware of his guarded condition. We will continue close neurological follow-up with this patient. His overall prognosis at this time remains guarded. Time with Patient: Greater than 30
[2017-03-13 06:48] LABS: Calcium 7.8 mg/dL (8.4-10.2)
--- NOTE | 2017-03-13 08:46 | MR ---
EXAMINATION TYPE: MR brain wo/w con DATE OF EXAM: 03/13/2017 7:27 AM COMPARISON: CT brain March 12, 2017 HISTORY: possible brainstem stroke CONTRAST: Patient received 19 mL intravenous MultiHance gadolinium contrast. Multiplanar and multispin-echo imaging of the brain was performed . Pre and post contrast enhanced i mages are obtained. The ventricles, basal cisterns and sulci overlying the cerebral convexities are moderately enlarged w ith greater central component. There is evidence of mild to moderate periventricular white matter ischemic demyelination. Remote deep white matter insults are also noted. No acute edema is seen on diffusion weighted imaging. There is no evidence for midline shift or mass effect. Acute intracranial hemorrhage or extra-axial collection is not evident. Enhancing extra-axial lesion high right frontal region measuring 1.2 x 1.4 cm compatible with meningi chidi. Chronic paranasal sinusitis. Chronic right-sided mastoiditis. IMPRESSION: 1. Age-related atrophic and chronic small vessel ischemic change. No acute intracranial process at t his time. 2. High right frontal meningioma. 3. Chronic sinusitis and mastoiditis.
[2017-03-13] MEDS ORDERED: ASPIRIN 325 MG TAB PO SCH (09:00)
[2017-03-13] MEDS ORDERED: VANCOMYCIN 1,500 MG in SODIUM CHLORIDE 0.9% 250 ML IVPB SCH (10:00)
[2017-03-13 10:32] LABS: C Reactive Protein 190.3 mg/L (<10.0)
[2017-03-13] MEDS: METOPROLOL TARTRATE 25 MG TAB PO SCH ×2 (10:41→19:49)
--- NOTE | 2017-03-13 10:49 | P.CRDCN ---
History of Present Illness Consult date: 03/13/17 Requesting physician: Daphney Mae Consult reason: atrial fibrillation Chief complaint: Right sided weakness History of present illness: This is a very pleasant 86-year-old gentleman with history of asthma, mild dementia, UTIs, who was noted yesterday to have significant weakness in his right arm and right leg. Apparently the patient is right handed and was noted to use his left hand to eat dinner. He was also having to lift his his right leg with his left hand in order to move. He was brought to the hospital with suspicion of possible stroke. Patient has also apparently lost greater than 15 pounds recently. Most of the patient's history was obtained from his daughter who is a nurse practitioner. EKG on arrival here showed atrial fibrillation with a moderately rapid ventricular response and ST-T wave changes. Patient has no prior documented history of atrial fibrillation in the past. Since his admission here patient has converted to normal sinus rhythm and is in a normal sinus rhythm at the time of my examination. MRI of the brain revealed age-related atrophic and chronic small vessel change no acute process. High right frontal meningioma, chronic sinusitis. Carotid Doppler study and EEG have also been performed this morning and are pending. The pressure on arrival here 140/70 with a heart rate in the 120s, 98% on 2 L of oxygen. White blood cell count 15.5, hemoglobin 13.2, platelet count 325. Sed rate 78. Sodium 136, potassium 3.6, BUN 30, creatinine 0.7. Troponin 0.012. C -reactive protein 190.3. Rheumatoid factor 18. Past Medical History Past Medical History: Asthma, Cancer, Prostate Disorder, Rheumatoid Arthritis ( RA) Additional Past Medical History / Comment(s): chronic back problems, Rt foot drop, Uses a walker, prostate cancer, radiation seeds History of Any Multi-Drug Resistant Organisms: None Reported Date of last positivie culture/infection: 01/01/17 MDRO Source:: URINE Past Surgical History: Back Surgery Additional Past Surgical History / Comment(s): RECENT PICC LINE, NOW REMOVED, JONO CATARACTS, R hand surgery Past Anesthesia/Blood Transfusion Reactions: No Reported Reaction Past Psychological History: No Psychological Hx Reported Smoking Status: Never smoker Past Alcohol Use History: None Reported Past Drug Use History: None Reported - Past Family History Father Family Medical History: Myocardial Infarction ([place]) Mother Family Medical History: No Reported History Medications and Allergies Home Medications Medication Instructions Recorded Confirmed Type Ipratropium-Albuterol Nebulize 3 ml INHALATION RT-QID PRN 02/03/17 03/12/17 History [Duoneb 0.5 mg-3 mg/3 ml Soln] Escitalopram [Lexapro] 10 mg PO QAM 03/12/17 03/12/17 History Fluticasone/Salmeterol [Advair 1 puff INHALATION RT-BID 03/12/17 03/12/17 History 250-50 Diskus] Folic Acid 1 mg PO QAM 03/12/17 03/12/17 History Allergies Allergy/AdvReac Type Severity Reaction Status Date / Time No Known Allergies Allergy Verified 02/03/17 11:22 Physical Exam Vitals: Vital Signs Temp Pulse Pulse Resp BP BP Pulse Ox 03/13/17 10:27 50 L 03/13/17 07:56 96.8 F L 67 16 103/53 96 03/13/17 03:46 67 16 03/13/17 03:45 98.2 F 67 16 118/72 97 03/13/17 01:46 100 16 03/13/17 00:00 97.2 F L 100 16 116/65 99 03/12/17 23:00 116 H 17 140/68 99 03/12/17 22:45 122 H 17 132/72 97 03/12/17 22:30 143 H 17 143/92 100 03/12/17 22:15 118 H 17 110/97 100 03/12/17 22:00 120 H 16 147/75 100 03/12/17 21:45 124 H 17 124/70 99 03/12/17 21:30 122 H 16 135/75 99 03/12/17 21:15 126 H 16 140/75 98 03/12/17 21:00 97.6 F 125 H 18 140/75 Intake and Output 03/12/17 03/13/17 03/13/17 22:59 06:59 14:59 Intake Total 0 Balance 0 Intake: Oral 0 Other: Voiding Method Urinal Urinal Incontinent Incontinent Weight 57.606 kg 91.5 kg 91.5 kg Patient Weight 03/14/17 06:59 Weight 91.5 kg PHYSICAL EXAMINATION: HEENT: Head is atraumatic, normocephalic. Pupils equal, round. Neck is supple. There is no elevated jugular venous pressure. HEART EXAMINATION: Heart S1 and S2 with soft systolic murmur is heard. CHEST EXAMINATION: Lungs are clear to auscultation and precussion. No chest wall tenderness is noted on palpation or with deep breathing. ABDOMEN: Soft, nontender. Bowel sounds are heard. No organomegaly noted. EXTREMITIES:[ 2+ peripheral pulses with no evidence of peripheral edema and no calf tenderness noted]. NEUROLOGIC [patient is awake, alert and oriented times one Results 03/12/17 21:15 03/12/17 21:15 Cardiac Enzymes 03/12/17 03/12/17 Range/Units 21:15 21:15 AST 25 (17-59) U/L CK-MB (CK-2) 1.7 (0.0-2.4) ng/mL Troponin I <0.012 (0.000-0.034) ng/mL Coagulation 03/12/17 Range/Units 21:15 PT 11.2 (9.0-12.0) sec APTT 26.2 (22.0-30.0) sec Lipids 03/13/17 Range/Units 05:28 Triglycerides 49 (<150) mg/dL Cholesterol 106 (<200) mg/dL HDL Cholesterol 35 L (40-60) mg/dL CBC 03/12/17 Range/Units 21:15 WBC 15.5 H (3.8-10.6) k/uL RBC 4.31 (4.30-5.90) m/uL Hgb 13.2 (13.0-17.5) gm/dL Hct 37.9 L (39.0-53.0) % Plt Count 325 (150-450) k/uL Comprehensive Metabolic Panel 03/12/17 03/13/17 Range/Units 21:15 05:28 Sodium 136 L (137-145) mmol/L Potassium 3.6 (3.5-5.1) mmol/L Chloride 102 (98-107) mmol/L Carbon Dioxide 21 L (22-30) mmol/L BUN 30 H (9-20) mg/dL Creatinine 0.70 (0.66-1.25) mg/dL Glucose 114 H (74-99) mg/dL Calcium 9.2 7.8 L (8.4-10.2) mg/dL AST 25 (17-59) U/L ALT 29 (21-72) U/L Alkaline Phosphatase 95 (38-126) U/L Total Protein 6.9 (6.3-8.2) g/dL Albumin 3.4 L (3.5-5.0) g/dL Current Medications Generic Name Dose Route Start Last Admin Trade Name Freq PRN Reason Stop Dose Admin Aspirin 325 mg 03/13/17 09:00 Aspirin PO DAILY [facility] Heparin Sodium (Porcine) 5,000 unit 03/13/17 00:00 03/13/17 08:16 Heparin SQ 5,000 unit Q8HR DANIEL Administration Sodium Chloride 1,000 mls @ 75 mls/hr 03/12/17 21:30 03/12/17 22:39 Saline 0.9% IV 75 mls/hr .[id number] DANIEL Administration Vancomycin HCl 1,500 mg/ 250 mls @ 125 mls/hr 03/13/17 10:00 Sodium Chloride IVPB Q12H [facility] Metoprolol Tartrate 25 mg 03/13/17 09:00 Lopressor PO BID [facility] Miscellaneous Information 1 each 03/12/17 21:10 Rx Info: Iv Contrast Was Given MISCELLANE 03/14/17 21:11 DAILY PRN Per Protocol Miscellaneous Information 1 each 03/14/17 09:00 Vancomycin Trough Due MISCELLANE 03/14/17 09:01 ONCE ONE Intake and Output 03/12/17 03/13/17 03/13/17 22:59 06:59 14:59 Intake Total 0 Balance 0 Intake: Oral 0 Other: Voiding Method Urinal Urinal Incontinent Incontinent Weight 57.606 kg 91.5 kg 91.5 kg Patient Weight 03/14/17 06:59 Weight 91.5 kg 03/12/17 21:15 03/12/17 21:15 EKG Interpretations (text) Original EKG showed atrial fibrillation with a moderately rapid ventricular response and nonspecific ST-T wave changes. Repeat EKG shows normal sinus rhythm with no acute changes. Assessment and Plan Plan: Assessment and plan #1 symptoms of right-sided arm and leg weakness, rule out CVA. Neurology following. #2 atrial fibrillation with rapid ventricular response, now in normal sinus rhythm. New-onset. Paroxysmal in nature. #3 Mild dementia #4 recurrent UTIs #5 asthma Plan We will obtain an echocardiogram with Doppler study. We will also check a free T4 and TSH level. Patient will require anticoagulation for stroke prevention. We will look into coverage for Eliquis. He's currently on heparin 5000 units subcu every 8 hour which we will discontinue. We will also discontinue the patient's aspirin. Further recommendations to follow. DNP note has been reviewed, I agree with a documented findings and plan of care. Patient was seen and examined.
--- NOTE | 2017-03-13 10:57 | ECHOF ---
Referral Reason:Thrombus MEASUREMENTS -------- HEIGHT: 182.9 cm WEIGHT: 91.2 kg BP: 118/72 IVSd: 1.0 cm (0.6 - 1.1) LVIDd: 4.2 cm (3.9 - 5.3) LVPWd: 1.1 cm (0.6 - 1.1) IVSs: 1.2 cm LVIDs: 3.5 cm LVPWs: 1.3 cm LA Diam: 3.1 cm (2.7 - 3.8) MV EXCURSION: 27.614 mm (> 18.000) MV EF SLOPE: 143 mm/s (70 - 150) EPSS: 0.5 cm MV E Wallace: 0.71 m/s MV DecT: 188 ms MV A Wallace: 0.59 m/s MV E/A Ratio: 1.22 RAP: 5.00 mmHg RVSP: 31.23 mmHg FINDINGS -------- Undetermined rhythm. This was a technically adequate study. There is mild concentric left ventricular hypertrophy. Overall left ventricular systolic function is normal with, an EF between 55 - 60 %. The right ventricle is normal in size. Prominent Apical trabeculae, no clearcut thrombus. The left atrial size is normal. The right atrial size is normal. There is mild aortic valve sclerosis. There is no evidence of aortic regurgitation. Mild mitral annular calcification present. Mild mitral regurgitation is present. Mild tricuspid regurgitation present. There is no evidence of pulmonary hypertension. The right ventricular systolic pressure, as measured by Doppler, is 31.23mmHg. There is no pulmonic regurgitation present. The aortic root size is normal. There is no pericardial effusion. CONCLUSIONS -------- 1. There is mild concentric left ventricular hypertrophy. 2. Overall left ventricular systolic function is normal with, an EF between 55 - 60 %. 3. There is mild aortic valve sclerosis. 4. Mild mitral annular calcification present. 5. Mild mitral regurgitation is present. 6. Mild tricuspid regurgitation present. 7. There is no evidence of pulmonary hypertension. 8. The right ventricular systolic pressure, as measured by Doppler, is 31.23mmHg. 9. There is no pulmonic regurgitation present. MASTER SCHEDULER: Anna Mitchell RDCS
--- NOTE | 2017-03-13 11:05 | US ---
EXAMINATION TYPE: US carotid duplex BILAT DATE OF EXAM: 03/13/2017 COMPARISON: CTA neck dated 03/12/2017 CLINICAL HISTORY: Stenosis. EXAM MEASUREMENTS: RIGHT: Peak Systolic Velocity (PSV) cm/sec ----- Right CCA: 77.2 ----- Right ICA: 135.3 ----- Right ECA: 59.0 ICA/CCA ratio: 1.8 RIGHT: End Diastole cm/sec ----- Right CCA: 12.4 ----- Right ICA: 24.8 ----- Right ECA: 1.8 LEFT: Peak Systolic Velocity (PSV) cm/sec ----- Left CCA: 76.1 ----- Left ICA: 97.6 ----- Left ECA: 54.6 ICA/CCA ratio: 1.3 LEFT: End Diastole cm/sec ----- Left CCA: 0.0 ----- Left ICA: 18.3 ----- Left ECA: 0.0 VERTEBRALS (direction of flow): Right Vertebral: Antegrade Left Vertebral: Antegrade plaque bilateral bulbs. Tortuous right ICA, and left ECA. Grayscale, color Doppler, spectral Doppler imaging performed of the carotid arteries IMPRESSION: No hemodynamic significant stenosis of the proximal internal carotid arteries bilaterall y by Doppler criteria, and indirect measurement of carotid stenosis Criteria for Assigning % of Stenosis / Diameter reduction (Estimation based on the indirect measurements of the internal carotid artery velocities (ICA PSV). 1. Normal (no stenosis)=ICA PSV < 125 cm/s: ratio < 2.0: ICA EDV<40 cm/s. 2. Less than 50% stenosis=ICA PSV < 125 cm/s: ratio < 2.0: ICA EDV<40 cm/s. 3. 50 to 69% stenosis=ICA PSV of 125 to 230 cm/s: ration 2.0 ? 4.0: ICA EDV 40-100 cm/s. 4. Greater than 70% stenosis to near occlusion= ICA PSV > 230 cm/s: ratio > 4.0: ICA EDV > 100 cm/s. 5. Near occlusion= ICA PSV velocities may be low or undetectable: variable ratio and ICA EDV. 6. Total occlusion=unable to detect flow.
[2017-03-13] MEDS: SODIUM CHLORIDE 0.9% 1,000 ML IV SCH (12:03)
[2017-03-13] MEDS: APIXABAN 2.5 MG TABLET PO SCH ×2 (12:48→19:49)
--- NOTE | 2017-03-13 12:55 | P.CNPUL ---
History of Present Illness Consult date: 03/13/17 Requesting physician: Britany Gaona Reason for consult: dyspnea Chief complaint: Right-sided weakness History of present illness: This is a pleasant 86-year-old male patient who follows with Dr. Mae as his primary care physician. He does have history of chronic bronchial asthma, arthritis, right foot drop, chronic back pain, prostate cancer treated with therapy. He does have a history of ESBL E. coli and had been seen by Dr. Ortega E he had a PICC line placed and was on IV Inv and December 2016. 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 03/12/2017 the patient was brought to the emergency room with right-sided weakness. His daughter had noted him to be eating with his left arm and he is usually right-handed. He also was utilizing his arms to move his right leg which was unusual for him. A code stroke was called and the patient was evaluated by neurology and felt not to be a candidate for TPA. CT angiogram of the neck and brain were negative. X-ray of the right hand showed features of inflammatory arthritis which could be long- standing rheumatoid arthritis versus erosive osteoarthritis. No acute bony abnormalities were noted. MRI of the brain revealed age-related atrophic and chronic small vessel ischemic changes but no acute intracranial process. 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 Chronic sinusitis and mastoiditis. Carotid Dopplers revealed no significant stenosis. Echocardiogram revealed preserved left ventricular systolic function with estimated ejection fraction 55 -60%. The patient was also found to be in atrial fibrillation with rapid ventricular response, since converted to normal sinus rhythm. Cardiology and neurology are on the case. His chest x-ray showed no acute pulmonary process. He is maintaining good O2 saturations in the mid to upper 90s on room air. He has been afebrile. The patient is a poor historian. Review of Systems ROS unobtainable: due to mental status Past Medical History Past Medical History: Asthma, Cancer, Prostate Disorder, Rheumatoid Arthritis ( RA) Additional Past Medical History / Comment(s): chronic back problems, Rt foot drop, Uses a walker, prostate cancer, radiation seeds History of Any Multi-Drug Resistant Organisms: None Reported Date of last positivie culture/infection: 01/01/17 MDRO Source:: URINE Past Surgical History: Back Surgery Additional Past Surgical History / Comment(s): RECENT PICC LINE, NOW REMOVED, JONO CATARACTS, R hand surgery Past Anesthesia/Blood Transfusion Reactions: No Reported Reaction Past Psychological History: No Psychological Hx Reported Smoking Status: Never smoker Past Alcohol Use History: None Reported Past Drug Use History: None Reported - Past Family History Father Family Medical History: Myocardial Infarction ([place]) Mother Family Medical History: No Reported History Medications and Allergies Home Medications Medication Instructions Recorded Confirmed Type Ipratropium-Albuterol Nebulize 3 ml INHALATION RT-QID PRN 02/03/17 03/12/17 History [Duoneb 0.5 mg-3 mg/3 ml Soln] Escitalopram [Lexapro] 10 mg PO QAM 03/12/17 03/12/17 History Fluticasone/Salmeterol [Advair 1 puff INHALATION RT-BID 03/12/17 03/12/17 History 250-50 Diskus] Folic Acid 1 mg PO QAM 03/12/17 03/12/17 History Allergies Allergy/AdvReac Type Severity Reaction Status Date / Time No Known Allergies Allergy Verified 02/03/17 11:22 Physical Exam Vitals: Vital Signs Temp Pulse Pulse Resp BP BP BP 03/13/17 10:38 58 L 16 104/51 03/13/17 10:27 50 L 03/13/17 07:56 96.8 F L 67 16 103/53 03/13/17 03:46 67 16 03/13/17 03:45 98.2 F 67 16 118/72 03/13/17 01:46 100 16 03/13/17 00:00 97.2 F L 100 16 116/65 03/12/17 23:00 116 H 17 140/68 03/12/17 22:45 122 H 17 132/72 03/12/17 22:30 143 H 17 143/92 03/12/17 22:15 118 H 17 110/97 03/12/17 22:00 120 H 16 147/75 03/12/17 21:45 124 H 17 124/70 03/12/17 21:30 122 H 16 135/75 03/12/17 21:15 126 H 16 140/75 03/12/17 21:00 97.6 F 125 H 18 140/75 Pulse Ox 03/13/17 10:38 99 03/13/17 10:27 03/13/17 07:56 96 03/13/17 03:46 03/13/17 03:45 97 03/13/17 01:46 03/13/17 00:00 99 03/12/17 23:00 99 03/12/17 22:45 97 03/12/17 22:30 100 03/12/17 22:15 100 03/12/17 22:00 100 03/12/17 21:45 99 03/12/17 21:30 99 03/12/17 21:15 98 03/12/17 21:00 Intake and Output 03/12/17 03/13/17 03/13/17 22:59 06:59 14:59 Intake Total 0 Balance 0 Intake: Oral 0 Other: Voiding Method Urinal Urinal Incontinent Incontinent Weight 57.606 kg 91.5 kg 91.5 kg Patient Weight 03/14/17 06:59 Weight 91.5 kg GENERAL EXAM: Alert, comfortable in no apparent distress. HEAD: Normocephalic. EYES: Normal reaction of pupils, equal size. NOSE: Clear with pink turbinates. THROAT: No erythema or exudates. NECK: No masses, no JVD. CHEST: No chest wall deformity. LUNGS: Equal air entry with no crackles, wheeze, rhonchi or dullness. CVS: S1 and S2 normal with no audible murmurs, regular rhythm. ABDOMEN: No hepatosplenomegaly, normal bowel sounds, no guarding or rigidity. Extremities: There is some right-sided weakness noted. Changes of arthritis. No peripheral edema. No clubbing, no cyanosis. Results - Laboratory Findings CBC and BMP: 03/12/17 21:15 03/12/17 21:15 PT/INR, D-dimer PT 11.2 sec (9.0-12.0) 03/12/17 21:15 INR 1.1 (<1.2) 03/12/17 21:15 Abnormal lab findings: Abnormal Labs 03/12/17 03/12/17 03/12/17 21:15 21:15 22:35 WBC 15.5 H Hct 37.9 L Neutrophils # 12.7 H Monocytes # 1.4 H ESR Sodium 136 L Carbon Dioxide 21 L BUN 30 H Glucose 114 H Calcium C-Reactive Protein Albumin 3.4 L HDL Cholesterol Ur Specific [place] 1.037 H Urine Protein 1+ H Urine Ketones 2+ H Urine Blood Small H Hyaline Casts 64 H Urine Mucus Occasional H Rheumatoid Factor 03/13/17 03/13/17 05:28 05:28 WBC Hct Neutrophils # Monocytes # ESR 78 H Sodium Carbon Dioxide BUN Glucose Calcium 7.8 L C-Reactive Protein 190.3 H Albumin HDL Cholesterol 35 L Ur Specific [place] Urine Protein Urine Ketones Urine Blood Hyaline Casts Urine Mucus Rheumatoid Factor 18 H - Diagnostic Findings Chest x-ray: image reviewed Assessment and Plan Plan: Impression: #1 Right-sided weakness with suspected acute CVA/TIA. #2 New-onset atrial fibrillation with rapid ventricular response. Initiated on beta blockers and Eliquis. #3 Chronic mild persistent bronchial asthma, currently inactive and stable. 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 #5 Recent ESBL E. coli urinary tract infection treated with IV Invanz, PICC line since removed. Repeat culture in progress. #6 Chronic back pain with previous surgery and noted right foot drop. #7 Rheumatoid arthritis. Rheumatoid factor XVIII. #8 Recent 15 pound weight loss secondary to poor appetite. #9 Poor overall functional performance secondary to the above-mentioned multiple comorbidities. Plan: The patient was seen and evaluated by Dr. Sawyer. His chest x-ray scans and labs were all reviewed. We will continue with bronchodilators and Pulmicort inhalations twice a day as the patient is on Advair and DuoNeb inhalations in the outpatient setting. The patient was initiated on vancomycin in regards to his urinalysis and recent ESBL infection. He's been seen by cardiology and the patient is now on Eliquis and Lopressor. He is being followed by neurology as well. We will continue to follow and make further recommendations based on his clinical status. Time with Patient: Greater than 30
[2017-03-13] MEDS ORDERED: ACETAMINOPHEN TAB 500 MG TAB PO PRN (15:46)
--- NOTE | 2017-03-13 18:26 | P.CONS ---
History of Present Illness - Reason for Consult Consult date: 03/13/17 - History of Present Illness Patient is a pleasant 86-year-old male who presented to the [facility] ER last night with left facial droop and right-sided weakness. Patient's daughter who is a nurse practitioner at the hospital is present today with myself and Dr. Vizcarra and tells the majority of patient's history as patient is a poor historian. Per patient's daughter, patient has a history of RA and he was treated with gold about 30 years ago. He is not any RA medications at the moment. Patient has had lumbar spinal surgery about 3 years ago and he also has history of a right foot drop. Patient's daughter admits that the patient has experienced significant weight loss since last year when he weighed 170 pounds and he now weighs 127. She mentions that on Friday patient had some swelling in his left wrist and he now seems to have swelling in his right wrist. When patient was brought to the hospital he was unable to lift his right leg into the car which is unusual for him. Patient does have history of asthma and prostate cancer with radiation seeds. He does get recurrent UTIs however urinalysis done in the hospital was found to be negative and chest x-ray that was done was also found to be normal so no infectious process has yet to be identified. Patient was found to have a mildly positive rheumatoid factor of 18 , elevated ESR at 78, and a significantly elevated CRP at 190.3. He has been seen by neurology, cardiology, and pulmonology. Patient was evaluated by neurology and he was felt to not be a candidate for TPA and patient was also found to be in A. fib with rapid ventricular response and he was converted to normal sinus rhythm. X-ray of patient's right hand revealed some features of inflammatory arthritis. Upon speaking with the patient today he was sitting up in hospital bed comfortably in no acute distress Review of Systems All systems: negative Constitutional: Denies chills, Denies fever Eyes: denies blurred vision, denies pain Ears, nose, mouth and throat: Denies headache, Denies sore throat Cardiovascular: Denies chest pain, Denies shortness of breath Respiratory: Denies cough Gastrointestinal: Denies abdominal pain, Denies diarrhea, Denies nausea, Denies vomiting Musculoskeletal: right: hand pain, hand swelling Integumentary: Denies pruritus, Denies rash Neurological: Reports weakness, Denies numbness Psychiatric: Denies anxiety, Denies depression Endocrine: Reports weight change, Denies fatigue Past Medical History Past Medical History: Asthma, Cancer, Prostate Disorder, Rheumatoid Arthritis ( RA) Additional Past Medical History / Comment(s): chronic back problems, Rt foot drop, Uses a walker, prostate cancer, radiation seeds History of Any Multi-Drug Resistant Organisms: None Reported Year Discovered:: 01/01/17 MDRO Source:: URINE Past Surgical History: Back Surgery Additional Past Surgical History / Comment(s): RECENT PICC LINE, NOW REMOVED, JONO CATARACTS, R hand surgery Past Anesthesia/Blood Transfusion Reactions: No Reported Reaction Past Psychological History: No Psychological Hx Reported Smoking Status: Never smoker Past Alcohol Use History: None Reported Past Drug Use History: None Reported - Past Family History Father Family Medical History: Myocardial Infarction ([place]) Mother Family Medical History: No Reported History Medications and Allergies Home Medications Medication Instructions Recorded Confirmed Type Ipratropium-Albuterol Nebulize 3 ml INHALATION RT-QID PRN 02/03/17 03/12/17 History [Duoneb 0.5 mg-3 mg/3 ml Soln] Escitalopram [Lexapro] 10 mg PO QAM 03/12/17 03/12/17 History Fluticasone/Salmeterol [Advair 1 puff INHALATION RT-BID 03/12/17 03/12/17 History 250-50 Diskus] Folic Acid 1 mg PO QAM 03/12/17 03/12/17 History Allergies Allergy/AdvReac Type Severity Reaction Status Date / Time No Known Allergies Allergy Verified 02/03/17 11:22 Physical Exam Vitals: Vital Signs Temp Pulse Pulse Resp BP BP BP 03/13/17 16:00 97.9 F 69 16 127/65 03/13/17 10:38 58 L 16 104/51 03/13/17 10:27 50 L 03/13/17 07:56 96.8 F L 67 16 103/53 03/13/17 03:46 67 16 03/13/17 03:45 98.2 F 67 16 118/72 03/13/17 01:46 100 16 03/13/17 00:00 97.2 F L 100 16 116/65 03/12/17 23:00 116 H 17 140/68 03/12/17 22:45 122 H 17 132/72 03/12/17 22:30 143 H 17 143/92 03/12/17 22:15 118 H 17 110/97 03/12/17 22:00 120 H 16 147/75 03/12/17 21:45 124 H 17 124/70 03/12/17 21:30 122 H 16 135/75 03/12/17 21:15 126 H 16 140/75 03/12/17 21:00 97.6 F 125 H 18 140/75 Pulse Ox 03/13/17 16:00 98 03/13/17 10:38 99 03/13/17 10:27 03/13/17 07:56 96 03/13/17 03:46 03/13/17 03:45 97 03/13/17 01:46 03/13/17 00:00 99 03/12/17 23:00 99 03/12/17 22:45 97 03/12/17 22:30 100 03/12/17 22:15 100 03/12/17 22:00 100 03/12/17 21:45 99 03/12/17 21:30 99 03/12/17 21:15 98 03/12/17 21:00 Intake and Output 03/13/17 03/13/17 03/13/17 06:59 14:59 22:59 Intake Total 840 Output Total 300 Balance 540 Intake: IV 600 Sodium Chloride 0.9% 1, 600 000 ml @ 75 mls/hr IV . [id number] [facility] Rx#:[id number] Oral 240 Output: Urine 300 Other: Voiding Method Urinal Urinal Incontinent Incontinent Weight 91.5 kg 58.2 kg Patient Weight 03/14/17 06:59 Weight 58.2 kg - Constitutional General appearance: no acute distress - EENT Eyes: EOMI - Neck Neck: no lymphadenopathy - Respiratory Respiratory: right: CTA, left: diminished - Cardiovascular Heart sounds: normal: S1, S2 - Gastrointestinal General gastrointestinal: no organomegaly, soft, no tenderness - Integumentary Integumentary: no rash - Neurologic Neurologic: focal deficits (A&O x 1; left sided facial droop noted) - Musculoskeletal Musculoskeletal: right sided weakness (cogwheel rigidity noted in RUE; swelling in RT wrist; B/L Dupuytren's contractures; limited ROM RT knee ) Results CBC & Chem 7: 03/12/17 21:15 03/12/17 21:15 Labs: Abnormal Lab Results - Last 24 Hours (Table) 03/12/17 03/12/17 03/12/17 Range/Units 21:15 21:15 22:35 WBC 15.5 H (3.8-10.6) k/uL Hct 37.9 L (39.0-53.0) % Neutrophils # 12.7 H (1.3-7.7) k/uL Monocytes # 1.4 H (0-1.0) k/uL ESR (0-15) mm/hr Sodium 136 L (137-145) mmol/L Carbon Dioxide 21 L (22-30) mmol/L BUN 30 H (9-20) mg/dL Glucose 114 H (74-99) mg/dL Calcium (8.4-10.2) mg/dL C-Reactive Protein (<10.0) mg/L Albumin 3.4 L (3.5-5.0) g/dL HDL Cholesterol (40-60) mg/dL Ur Specific [place] 1.037 H (1.001-1.035) Urine Protein 1+ H (Negative) Urine Ketones 2+ H (Negative) Urine Blood Small H (Negative) Hyaline Casts 64 H (0-2) /lpf Urine Mucus Occasional H (None) /hpf Rheumatoid Factor (<12) IU/mL 03/13/17 03/13/17 Range/Units 05:28 05:28 WBC (3.8-10.6) k/uL Hct (39.0-53.0) % Neutrophils # (1.3-7.7) k/uL Monocytes # (0-1.0) k/uL ESR 78 H (0-15) mm/hr Sodium (137-145) mmol/L Carbon Dioxide (22-30) mmol/L BUN (9-20) mg/dL Glucose (74-99) mg/dL Calcium 7.8 L (8.4-10.2) mg/dL C-Reactive Protein 190.3 H (<10.0) mg/L Albumin (3.5-5.0) g/dL HDL Cholesterol 35 L (40-60) mg/dL Ur Specific [place] (1.001-1.035) Urine Protein (Negative) Urine Ketones (Negative) Urine Blood (Negative) Hyaline Casts (0-2) /lpf Urine Mucus (None) /hpf Rheumatoid Factor 18 H (<12) IU/mL Microbiology - Last 24 Hours (Table) 03/12/17 22:35 Urine Culture - Preliminary Urine,Voided Assessment and Plan Plan: At this time, a complete autoimmune workup will be ordered on the patient including ANCAs to look for possible vasculitis. 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 He did also seem to have synovitis/swelling in his right wrist and some stiffness in his right wrist as well. At this time, we will start patient on prednisone 30 mg daily and patient 's daughter has notified the nurses of this order verbally. At this time, the exact cause for patient's significantly elevated CRP is still unknown however we will follow patient's lab results for further plan of care. 1. Right-sided weakness and left facial droop; patient being followed by neurology 2. Rheumatoid arthritis; treated in the past not on any immunosuppressives currently 3. New onset Atrial fibrillation 3. recurrent UTIs 4. Unintentional weight loss The patient was seen and examined by Dr. Vizcarra who agrees with the above findings, assessment, and plan. Time with Patient: Less than 30
[2017-03-13] MEDS: predniSONE 10 MG TAB PO SCH (18:31)
[2017-03-13 18:41] LABS: Creatine Kinase 47 U/L (55-170); Uric Acid 5.1 mg/dL (3.5-8.5)
[2017-03-13 19:13] LABS: Hepatitis B Surface Ag Index 0.08
--- NOTE | 2017-03-13 19:49 | P.PN ---
Subjective This patient is a 86-year-old right-handed white male who was seen in neurology consultation yesterday for evaluation of possible stroke. Patient had undergone an initial evaluation in the ER due to increased symptoms of right- sided weakness and left facial droop. Patient underwent an initial computed tomography scan of the brain which was negative for any acute findings. He was sent for MRI of the brain today which is reported to show only age-related atrophy and chronic small vessel ischemic changes. 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 MRI was done with and without gadolinium. No other acute changes were noted. Review of the actual MRI films however reveals a area of possible ischemia involving the left dorothy. We will review this MRI films with the radiologist tomorrow for further assessment. The patient has been seen by cardiology today. His EKG showed atrial fibrillation with a moderately rapid ventricular response with nonspecific ST-T wave changes. Patient is to undergo an echocardiogram study. Patient will require anticoagulation for stroke prevention. Cardiology is recommending Eliquis as possible further treatment for anticoagulation. Patient was taken off of aspirin by cardiology. He was sent for MRI of the brain today as noted above revealed only age-related atrophy. We are waiting to have a second evaluation of this MRI tomorrow by radiology. Overall the patient seems to be relatively stable. He did undergo some laboratory testing today and results were reviewed. His C-reactive protein is quite elevated at 190.3. His rheumatoid factor is positive at 18.0. CEA antigen came back within the normal range at 2.3. Total cholesterol was 106. We have reviewed all of these test results today with the patient and his daughter in detail. They're updated on the MRI results. We will continue close follow-up with the patient during this admission. His overall prognosis at this time remains guarded. Objective - Vital Signs Vital signs: Vital Signs Temp 97.9 F 03/13/17 16:00 Pulse 69 03/13/17 16:00 Resp 16 03/13/17 16:00 BP 127/65 03/13/17 16:00 Pulse Ox 98 03/13/17 16:00 Intake & Output 03/12/17 03/13/17 03/13/17 18:59 06:59 18:59 Intake Total 840 Output Total 300 Balance 540 Weight 91.5 kg 58.2 kg Intake: IV 600 Sodium Chloride 0.9% 1, 600 000 ml @ 75 mls/hr IV . [id number] [facility] Rx#:[id number] Oral 240 Output: Urine 300 Other: Voiding Method Urinal Urinal Incontinent Incontinent - Exam Physical examination: PHYSICAL EXAMINATION: Patient is resting comfortably in bed. VITAL SIGNS: Blood pressure is [127/65]. Heart rate is [69]. Respiration is [16] . Temperature is [97.9]. HEENT: Head is atraumatic, neck is supple, there were no carotid bruits. CHEST: Lungs are clear to auscultation and percussion. CARDIAC: S1, S2 normal rate and rhythm. There is no murmur. ABDOMEN: Soft and nontender. Bowel sounds are present. EXTREMITIES: There is no pedal edema. Peripheral pulses are present. Neurological examination: Patient's neurological examination is unchanged from yesterday. Patient has been up and ambulating in his room. He does have some unsteady gait. - Labs CBC & Chem 7: 03/12/17 21:15 03/12/17 21:15 Labs: Abnormal Lab Results - Last 24 Hours (Table) 03/12/17 03/12/17 03/12/17 Range/Units 21:15 21:15 22:35 WBC 15.5 H (3.8-10.6) k/uL Hct 37.9 L (39.0-53.0) % Neutrophils # 12.7 H (1.3-7.7) k/uL Monocytes # 1.4 H (0-1.0) k/uL ESR (0-15) mm/hr Sodium 136 L (137-145) mmol/L Carbon Dioxide 21 L (22-30) mmol/L BUN 30 H (9-20) mg/dL Glucose 114 H (74-99) mg/dL Calcium (8.4-10.2) mg/dL C-Reactive Protein (<10.0) mg/L Albumin 3.4 L (3.5-5.0) g/dL HDL Cholesterol (40-60) mg/dL Ur Specific [place] 1.037 H (1.001-1.035) Urine Protein 1+ H (Negative) Urine Ketones 2+ H (Negative) Urine Blood Small H (Negative) Hyaline Casts 64 H (0-2) /lpf Urine Mucus Occasional H (None) /hpf Rheumatoid Factor (<12) IU/mL 03/13/17 03/13/17 Range/Units 05:28 05:28 WBC (3.8-10.6) k/uL Hct (39.0-53.0) % Neutrophils # (1.3-7.7) k/uL Monocytes # (0-1.0) k/uL ESR 78 H (0-15) mm/hr Sodium (137-145) mmol/L Carbon Dioxide (22-30) mmol/L BUN (9-20) mg/dL Glucose (74-99) mg/dL Calcium 7.8 L (8.4-10.2) mg/dL C-Reactive Protein 190.3 H (<10.0) mg/L Albumin (3.5-5.0) g/dL HDL Cholesterol 35 L (40-60) mg/dL Ur Specific [place] (1.001-1.035) Urine Protein (Negative) Urine Ketones (Negative) Urine Blood (Negative) Hyaline Casts (0-2) /lpf Urine Mucus (None) /hpf Rheumatoid Factor 18 H (<12) IU/mL Microbiology - Last 24 Hours (Table) 03/12/17 22:35 Urine Culture - Preliminary Urine,Voided Assessment and Plan (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 He was brought into the emergency room and was evaluated by the neuro interventional group at [facility]. The stroke robot was activated and he was evaluated. Dr. Moore reviewed his computed tomography scan of the brain and CTA angiogram results and felt he was not a candidate for TPA. He was admitted to hospital for further neurological assessment and treatment. His neurological exam findings at this time revealed right hemiparesis with a left facial weakness pattern. This findings suggest cross neurological localization suggesting possibility of brainstem ischemia or brainstem stroke. We have recommended an MRI of the brain for further evaluation. His CTA angiogram was reported negative for any evidence of any arterial stenosis. We will continue with close neurological follow-up for this patient during this admission. He is to be maintained on aspirin therapy for secondary stroke prevention at this time pending his stroke workup. The patient underwent MRI of the brain today for further evaluation of possible brainstem ischemia. This MRI is reported negative for any evidence of acute stroke. Patient was seen by cardiology regarding his new onset atrial fibrillation. We will await further recommendations. We did review the results of the MRI today with the patient in detail. He underwent a routine EEG today as well which was reviewed. EEG is moderately slow. No evidence of any epileptiform discharges were seen. We will continue close neurological follow-up of this patient during this admission. Patient did have evidence of elevated C-reactive protein. Rheumatology has been consulted. His overall prognosis at this time remains guarded.
[2017-03-13 19:55] LABS: C Reactive Protein 209.8 mg/L (<10.0)
[2017-03-13] MEDS: BUDESONIDE 1 MG/2 ML NEBU INHALATION SCH (19:57)
[2017-03-13] MEDS: SYMBICORT 80-4.5 MCG INHALER INHALATION SCH (19:58)
[2017-03-13] MEDS: IPRATROPIUM-ALBUTEROL 3 ML NEB INHALATION PRN (19:58)
[2017-03-13 20:27] LABS: Glucose,Whole Blood 142 mg/dL (75-99)
--- NOTE | 2017-03-13 20:33 | HP ---
DATE OF SERVICE: 03/13/2017 CHIEF COMPLAINT: Weakness of the right side of the body. HISTORY OF PRESENT ILLNESS: This 86-year-old gentleman with a past medical history of multiple medical problems, including ESBL UTI, history of possible dementia, history of dehydration, malnutrition, being followed by Dr. Mae in the outpatient setting, was admitted with generalized tiredness and weakness , mainly on the right side, and some left facial droop. The patient was taken to [facility] and admitted for further evaluation and treatment. Initial CT scan and CTA were negative. MRI was also done. The patient was deemed not a candidate for TPA as per the neuro toe sewer because of the age of the patient as well as multiple complex medical issues and timing of the possible stroke. The patient also had ESBL UTI. There is no history of any fever , rigor or chills; no history of headache, loss of consciousness, seizures. PAST MEDICAL HISTORY: 1. History of asthma. 2. History of DJD. 3. History of rheumatoid arthritis. HOME MEDICATIONS: 1. DuoNeb q.i.d. and p.r.n. 2. Folic acid 1 mg each morning. 3. Advair 250/50 one puff b.i.d. 4. Lexapro 10 mg in the morning. ALLERGIES: NONE. FAMILY HISTORY: History of myocardial infarction in the family. SOCIAL HISTORY: No history of smoking. Occasional alcohol intake. REVIEW OF SYSTEMS: ENT: No diminished hearing. No diminished vision. CARVIOVASCULAR SYSTEM: No angina, palpitations. RESPIRATORY SYSTEM: No cough, hemoptysis. GI: No nausea, vomiting. : No dysuria, retention. NERVOUS SYSTEM: As mentioned earlier. ALLERGY/IMMUNOLOGY: No asthma, hayfever. MUSCULOSKELETAL: As mentioned earlier. HEMATOLOGY/ONCOLOGY: No history of anemia. ENDOCRINE: No history of diabetes, hypothyroidism. CONSTITUTIONAL: As mentioned earlier. DERMATOLOGY: Negative. RHEUMATOLOGY: Negative. PSYCHIATRY: As mentioned earlier. PHYSICAL EXAM: Patient is alert and oriented x2. Pulse is 67, blood pressure 103 /58, respiration 16, temperature 97.8, pulse ox 96% on room air. HEENT: Conjunctivae normal. NECK: No jugular venous distention. CARDIOVASCULAR: S1, S2 muffled. No S3. No S4. RESPIRATORY: Breath sounds diminished at the bases. No rhonchi. No crackles. ABDOMEN: Soft. Non-tender. No mass palpable. LEGS: No edema. No swelling. NERVOUS SYSTEM: Higher functions as mentioned earlier. Cranial nerves 2 through 12 grossly intact. Significant weakness of the right upper limb as well as the right lower leg present. Right lower leg is about 3. Right upper limb is 4 to 4+ . LYMPHATICS: No lymph node palpable in neck, axillae or groin. SKIN: No ulcer, rash, bleeding. JOINTS: No active deforming arthropathy. Minimal swelling of the joints present. Lab investigations at this time show WBC 15.4, hemoglobin 13.2. Sodium 136. Potassium 3.6. UA noted. Other labs are noted. ASSESSMENT: 1. Weakness of the right side of the body; possible acute stroke involving the left hemisphere. 2. Hyponatremia. 3. Increased white count. ST-T changes in EKG, r/o CAD 4. History of recent urinary tract infection with ESBL E coli. 5. History of asthma. 6. History of rheumatoid arthritis. 7. NO CODE, NO CPR, NO VENT. RECOMMENDATIONS AND DISCUSSION: In this 86-year-old gentleman who presented with multiple complex medical issues, we will monitor the patient closely, continue the current medications, continue with symptomatic treatment. Cardiology consultation and neurology consultation. PT/OT evaluation. Otherwise , I would recommend antiplatelet agents. Continue with Eliquis. DVT prophylaxis. Incentive spirometry. GI prophylaxis. Further recommendations to follow. Symptomatic treatment. See orders for further details. MTDD
[2017-03-13] MEDS: INSULIN LISPRO (humaLOG) 300 UNIT/3 ML VIAL SQ SCH (20:40)
[2017-03-13] MEDS ORDERED: ESCITALOPRAM 10 MG TAB PO SCH (21:00)
[2017-03-13] MEDS: QUEtiapine 25 MG TAB PO PRN (22:39)
[2017-03-14] MEDS: SODIUM CHLORIDE 0.9% 1,000 ML IV SCH ×2 (00:15→12:26)
[2017-03-14 01:40] LABS: Centromere Antibody Interp NEGATIVE (NEGATIVE); RNP AB Interpretation NEGATIVE (NEGATIVE)
[2017-03-14 01:46] LABS: Scleroderma SC-70 Ab Interp NEGATIVE (NEGATIVE)
[2017-03-14 01:57] LABS: ANA w/Reflex to Titer NEGATIVE (NEGATIVE); Cyclic Citrull Pep IgG Unit 148.2 U/mL; Cyclic Citrullinated Pep IgG POSITIVE (NEGATIVE)
[2017-03-14 05:56] LABS: Glucose,Whole Blood 148 mg/dL (75-99)
--- NOTE | 2017-03-14 06:00 | EEG ---
DATE OF SERVICE: 03/13/2017 ELECTROENCEPHALOGRAPHIC EXAMINATION REPORT INDICATION FOR EXAMINATION: This patient is an 86-year-old male being evaluated for right-sided weakness and possible stroke. Age: 86. EEG FINDINGS: A routine 21 channel awake digital EEG recording was accomplished utilizing the 10-20 international system with bipolar and referential montages. The background activity in the most alert, resting state consists of a low to medium amplitude, fairly well developed and well sustained 5-6 Hz activity over the posterior head regions. This posterior rhythm attenuates to eye opening. There is a small amount of low amplitude 18-20 Hz beta activity seen maximally over the anterior head regions. Muscle and movement artifact was observed on a few occasions during the tracing. Hyperventilation was not performed. Photic stimulation at flash frequencies of 2 -30 Hz produced a minimal occipital driving response. No epileptiform discharges were seen. IMPRESSION: This EEG is moderately abnormal in a diffuse fashion due to slowing of the EEG background. The EEG failed to reveal any focal, lateralized or epileptiform abnormalities. Clinical correlation is recommended. KOTAD
[2017-03-14 06:01] LABS: Basophils % (A) 0 %; CH 31.3; Eosinophils % (A) 0 %; HCT 31.8 % (39.0-53.0); HDW 2.89; HGB 10.5 gm/dL (13.0-17.5); Luc # (Auto) 0.04; Luc % (Auto) 0; Lymphocytes # (A) 0.3 k/uL (1.0-4.8); Lymphocytes % (A) 3 %; MCH 30.6 pg (25.0-35.0); MCHC 33.1 g/dL (31.0-37.0); MCV 92.4 fL (80.0-100.0); Mean Platelet Volume 7.3; Monocytes # (A) 0.6 k/uL (0-1.0); Monocytes % (A) 6 %; Neutrophils # (A) 9.2 k/uL (1.3-7.7); Neutrophils % (A) 91 %; RBC 3.44 m/uL (4.30-5.90); WBC 10.1 k/uL (3.8-10.6)
[2017-03-14 06:10] LABS: Anion Gap 10 mmol/L; Blood Urea Nitrogen 12 mg/dL (9-20); Calcium 8.2 mg/dL (8.4-10.2); Carbon Dioxide 23 mmol/L (22-30); Chloride 107 mmol/L (98-107); Glucose 137 mg/dL (74-99); Non-African American GFR(MDRD) >60 (>60 ml/min/1.73 sqM); Potassium 3.2 mmol/L (3.5-5.1); Sodium 140 mmol/L (137-145)
[2017-03-14] MEDS: INSULIN LISPRO (humaLOG) 300 UNIT/3 ML VIAL SQ SCH ×2 (06:41→12:26)
[2017-03-14] MEDS: PANTOPRAZOLE 40 MG TABLET PO SCH (06:42)
[2017-03-14] MEDS: predniSONE 10 MG TAB PO SCH (08:36)
[2017-03-14] MEDS: APIXABAN 2.5 MG TABLET PO SCH ×2 (08:36→19:54)
[2017-03-14] MEDS: FOLIC ACID 1 MG TAB PO SCH (08:36)
[2017-03-14] MEDS: METOPROLOL TARTRATE 25 MG TAB PO SCH ×2 (08:40→19:54)
[2017-03-14] MEDS: BUDESONIDE 1 MG/2 ML NEBU INHALATION SCH (08:52)
[2017-03-14] MEDS: SYMBICORT 80-4.5 MCG INHALER INHALATION SCH ×2 (08:52→21:15)
[2017-03-14] MEDS: IPRATROPIUM-ALBUTEROL 3 ML NEB INHALATION PRN (08:53)
[2017-03-14] MEDS ORDERED: VANCOMYCIN TROUGH DUE 1 EACH MISC MISCELLANE ONE (09:00)
--- NOTE | 2017-03-14 09:24 | P.PN ---
Subjective Principal diagnosis: Paroxysmal A. fib This is a pleasant 86-year-old gentleman who was admitted to the hospital with symptoms of right-sided weakness and was diagnosed with TIA. He was found to be in A. fib with RVR which was a newly diagnosed atrial fibrillation but the patient was subsequently converted to normal sinus mechanism. On follow-up with him today, he denies having any chest pain or discomfort for or difficulty in breathing. The neurology service has been following up with the patient as well as regarding the TIA/CVA. The patient was started on anticoagulation using Eliquis. Beside that he has been maintaining normal sinus mechanism. He underwent an echocardiogram which showed normal LV function without any significant valvular abnormalities. Objective - Vital Signs Vital signs: Vital Signs Temp 96.9 F L 03/14/17 08:00 Pulse 72 03/14/17 09:09 Resp 17 03/14/17 08:00 BP 125/62 03/14/17 08:00 Pulse Ox 97 03/14/17 08:00 Intake & Output 03/13/17 03/14/17 03/14/17 18:59 06:59 18:59 Intake Total 1080 450 Output Total 300 300 Balance 780 150 Weight 58.2 kg 59.6 kg Intake: IV 600 Sodium Chloride 0.9% 1, 600 000 ml @ 75 mls/hr IV . [id number] DANIEL Rx#:[id number] Intake, IV Titration 450 Amount Sodium Chloride 0.9% 1, 450 000 ml @ 75 mls/hr IV . [id number] DANIEL Rx#:[id number] Oral 480 Output: Urine 300 300 Other: Voiding Method Urinal Diaper Incontinent Incontinent # Voids 1 - Constitutional General appearance: Present: no acute distress - Respiratory Respiratory: bilateral: CTA - Cardiovascular Rhythm: regular Heart sounds: normal: S1, S2 - Labs CBC & Chem 7: 03/14/17 05:07 03/14/17 05:07 Labs: Abnormal Lab Results - Last 24 Hours (Table) 03/13/17 03/13/17 03/13/17 Range/Units 05:28 05:28 17:58 RBC (4.30-5.90) m/uL Hgb (13.0-17.5) gm/dL Hct (39.0-53.0) % Neutrophils # (1.3-7.7) k/uL Lymphocytes # (1.0-4.8) k/uL ESR 78 H (0-15) mm/hr Potassium (3.5-5.1) mmol/L Creatinine (0.66-1.25) mg/dL Glucose (74-99) mg/dL POC Glucose (mg/dL) (75-99) mg/dL Calcium (8.4-10.2) mg/dL Creatine Kinase 47 L (55-170) U/L C-Reactive Protein 190.3 H 209.8 H (<10.0) mg/L Vitamin D 25-Hydroxy (30.0-100.0) ng/mL Cyclic Citrull Peptide (NEGATIVE) 03/13/17 03/13/17 03/13/17 Range/Units 17:58 18:09 18:09 RBC (4.30-5.90) m/uL Hgb (13.0-17.5) gm/dL Hct (39.0-53.0) % Neutrophils # (1.3-7.7) k/uL Lymphocytes # (1.0-4.8) k/uL ESR 95 H (0-15) mm/hr Potassium (3.5-5.1) mmol/L Creatinine (0.66-1.25) mg/dL Glucose (74-99) mg/dL POC Glucose (mg/dL) (75-99) mg/dL Calcium (8.4-10.2) mg/dL Creatine Kinase (55-170) U/L C-Reactive Protein (<10.0) mg/L Vitamin D 25-Hydroxy 22.5 L (30.0-100.0) ng/mL Cyclic [place] Peptide POSITIVE H (NEGATIVE) 03/13/17 03/14/17 03/14/17 Range/Units 20:24 05:07 05:07 RBC 3.44 L (4.30-5.90) m/uL Hgb 10.5 L (13.0-17.5) gm/dL Hct 31.8 L (39.0-53.0) % Neutrophils # 9.2 H (1.3-7.7) k/uL Lymphocytes # 0.3 L (1.0-4.8) k/uL ESR (0-15) mm/hr Potassium 3.2 L (3.5-5.1) mmol/L Creatinine 0.51 L (0.66-1.25) mg/dL Glucose 137 H (74-99) mg/dL POC Glucose (mg/dL) 142 H (75-99) mg/dL Calcium 8.2 L (8.4-10.2) mg/dL Creatine Kinase (55-170) U/L C-Reactive Protein (<10.0) mg/L Vitamin D 25-Hydroxy (30.0-100.0) ng/mL Cyclic Citrull Peptide (NEGATIVE) 03/14/17 Range/Units 05:54 RBC (4.30-5.90) m/uL Hgb (13.0-17.5) gm/dL Hct (39.0-53.0) % Neutrophils # (1.3-7.7) k/uL Lymphocytes # (1.0-4.8) k/uL ESR (0-15) mm/hr Potassium (3.5-5.1) mmol/L Creatinine (0.66-1.25) mg/dL Glucose (74-99) mg/dL POC Glucose (mg/dL) 148 H (75-99) mg/dL Calcium (8.4-10.2) mg/dL Creatine Kinase (55-170) U/L C-Reactive Protein (<10.0) mg/L Vitamin D 25-Hydroxy (30.0-100.0) ng/mL Cyclic Citrull Peptide (NEGATIVE) Microbiology - Last 24 Hours (Table) 03/12/17 22:35 Urine Culture - Preliminary Urine,Voided Assessment and Plan Plan: This is a pleasant 86-year-old gentleman who was admitted to the hospital with an episode of TIA and was found to be in A. fib and subsequently converted to normal sinus mechanism. The patient has been maintaining normal sinus mechanism. The echocardiogram showed normal LV function. We will continue oral anticoagulation as well as metoprolol.
[2017-03-14 10:17] LABS: Free Kappa Lt Chain Qnt, Serum 4.13 mg/dL (0.33-1.94)
--- NOTE | 2017-03-14 12:05 | CDI ---
In responding to this query, please exercise your independent professional judgment. The [facility] Coding Staff and Clinical Documentation Specialists appreciate your assistance in clarifying documentation, maintaining compliance with coding guidelines, accurately documenting patients condition and capturing severity of illness. The fact that a question is asked does not imply that any particular answer is desired or expected. Communication forms are a method of clarifying documentation and are not made part of the Legal Health Record. Thank you in advance for your clarification. Last Revision, May 2015 Rita Escalante [address] [facility] [place] [address] Documentation Clarification Form Date: 03/14/2017 11:42:00 AM From: Alina Talley RN, CDS Admit Date: 03/12/2017 11:25:00 PM Patient Name: Fabio Geller Visit Number: [id number] Dr. Britany Gaona, 86 year old patient admitted for possible acute stroke. Patient has had involuntary weight loss of 25% over one year. Malnutrition has been documented in your H&P. History/Risk Factors: age > 65, history of prostate cancer, Clinical Indicators: BMI 17.3, involuntary weight loss of 25%, weight at 72% of ideal body weight, per Dietitian consult. Total Protein 6.9, Albumin 3.4 Treatment: Dietitian consult, magic cups TIS, In your professional opinion, can you please clarify if these findings signify one of the following conditions? Mild Protein-Calorie Malnutrition Moderate Protein-Calorie Malnutrition Severe Protein-Calorie Malnutrition Other condition, please specify Unable to determine Please document in your progress notes and discharge summary in order to capture severity of illness and risk of mortality. Include clinical findings that support your diagnosis. FYI: Press F11 to launch patient chart. Thank you. BRETT
--- NOTE | 2017-03-14 12:09 | P.PN ---
Subjective Principal diagnosis: Acute ischemic vertebrobasilar artery brainstem stroke This is a pleasant 86-year-old male patient who follows with Dr. Mae as his primary care physician. He does have history of chronic bronchial asthma, arthritis, right foot drop, chronic back pain, prostate cancer treated with therapy. He does have a history of ESBL E. coli and had been seen by Dr. Ortega E he had a PICC line placed and was on IV Inv and December 2016. 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 03/12/2017 the patient was brought to the emergency room with right-sided weakness. His daughter had noted him to be eating with his left arm and he is usually right-handed. He also was utilizing his arms to move his right leg which was unusual for him. A code stroke was called and the patient was evaluated by neurology and felt not to be a candidate for TPA. CT angiogram of the neck and brain were negative. X-ray of the right hand showed features of inflammatory arthritis which could be long- standing rheumatoid arthritis versus erosive osteoarthritis. No acute bony abnormalities were noted. MRI of the brain revealed age-related atrophic and chronic small vessel ischemic changes but no acute intracranial process. 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 Chronic sinusitis and mastoiditis. Carotid Dopplers revealed no significant stenosis. Echocardiogram revealed preserved left ventricular systolic function with estimated ejection fraction 55 -60%. The patient was also found to be in atrial fibrillation with rapid ventricular response, since converted to normal sinus rhythm. Cardiology and neurology are on the case. His chest x-ray showed no acute pulmonary process. He is maintaining good O2 saturations in the mid to upper 90s on room air. He has been afebrile. The patient is a poor historian. Patient was reevaluated today on 03/14/2017, has been seen by many consultants regarding his acute CVA, he was also seen by us for underlying COPD/asthma. Pulmonary-brink, the patient is relatively asymptomatic, no cough, no wheezing no shortness of breath. MRI showed no acute changes. However Dr. Leblanc raise the possibility of possible ischemia involving the left dorothy. His atrial fibrillation is being addressed by cardiology. And the patient will require anticoagulation for stroke prevention. Objective - Vital Signs Vital signs: Vital Signs Temp 96.9 F L 03/14/17 08:00 Pulse 72 08/18/17 09:09 Resp 17 03/14/17 08:00 BP 125/62 03/14/17 08:00 Pulse Ox 97 03/14/17 08:00 Intake & Output 03/13/17 03/14/17 03/14/17 18:59 06:59 18:59 Intake Total 1080 450 100 Output Total 300 300 300 Balance 780 150 -200 Weight 58.2 kg 59.6 kg Intake: IV 600 Sodium Chloride 0.9% 1, 600 000 ml @ 75 mls/hr IV . [id number] DANIEL Rx#:[id number] Intake, IV Titration 450 Amount Sodium Chloride 0.9% 1, 450 000 ml @ 75 mls/hr IV . [id number] DANIEL Rx#:[id number] Oral 480 100 Output: Urine 300 300 300 Other: Voiding Method Urinal Diaper Incontinent Incontinent # Voids 1 - Exam PHYSICAL EXAMINATION: Patient is resting comfortably in bed. VITAL SIGNS: Blood pressure is [127/65]. Heart rate is [69]. Respiration is [16] . Temperature is [97.9]. HEENT: Head is atraumatic, neck is supple, there were no carotid bruits. CHEST: Lungs are clear to auscultation and percussion. CARDIAC: S1, S2 normal rate and rhythm. There is no murmur. ABDOMEN: Soft and nontender. Bowel sounds are present. EXTREMITIES: There is no pedal edema. Peripheral pulses are present. Neurologic: Please refer to full urological evaluation by neurology. Patient has unsteady gait. - Labs CBC & Chem 7: 03/14/17 05:07 03/14/17 05:07 Labs: Abnormal Lab Results - Last 24 Hours (Table) 03/13/17 03/13/17 03/13/17 Range/Units 17:58 17:58 18:09 RBC (4.30-5.90) m/uL Hgb (13.0-17.5) gm/dL Hct (39.0-53.0) % Neutrophils # (1.3-7.7) k/uL Lymphocytes # (1.0-4.8) k/uL ESR 95 H (0-15) mm/hr Potassium (3.5-5.1) mmol/L Creatinine (0.66-1.25) mg/dL Glucose (74-99) mg/dL POC Glucose (mg/dL) (75-99) mg/dL Calcium (8.4-10.2) mg/dL Creatine Kinase 47 L (55-170) U/L C-Reactive Protein 209.8 H (<10.0) mg/L Vitamin D 25-Hydroxy (30.0-100.0) ng/mL Cyclic Citrull Peptide POSITIVE H (NEGATIVE) Free [place] LC, Quant (0.33-1.94) mg/dL Free Lambda LC, Quant (0.57-2.63) mg/dL 03/13/17 03/13/17 03/13/17 Range/Units 18:09 18:09 20:24 RBC (4.30-5.90) m/uL Hgb (13.0-17.5) gm/dL Hct (39.0-53.0) % Neutrophils # (1.3-7.7) k/uL Lymphocytes # (1.0-4.8) k/uL ESR (0-15) mm/hr Potassium (3.5-5.1) mmol/L Creatinine (0.66-1.25) mg/dL Glucose (74-99) mg/dL POC Glucose (mg/dL) 142 H (75-99) mg/dL Calcium (8.4-10.2) mg/dL Creatine Kinase (55-170) U/L C-Reactive Protein (<10.0) mg/L Vitamin D 25-Hydroxy 22.5 L (30.0-100.0) ng/mL Cyclic Citrull Peptide (NEGATIVE) Free [place] LC, Quant 4.13 H (0.33-1.94) mg/dL Free Lambda LC, Quant 3.20 H (0.57-2.63) mg/dL 03/14/17 03/14/17 03/14/17 Range/Units 05:07 05:07 05:54 RBC 3.44 L (4.30-5.90) m/uL Hgb 10.5 L (13.0-17.5) gm/dL Hct 31.8 L (39.0-53.0) % Neutrophils # 9.2 H (1.3-7.7) k/uL Lymphocytes # 0.3 L (1.0-4.8) k/uL ESR (0-15) mm/hr Potassium 3.2 L (3.5-5.1) mmol/L Creatinine 0.51 L (0.66-1.25) mg/dL Glucose 137 H (74-99) mg/dL POC Glucose (mg/dL) 148 H (75-99) mg/dL Calcium 8.2 L (8.4-10.2) mg/dL Creatine Kinase (55-170) U/L C-Reactive Protein (<10.0) mg/L Vitamin D 25-Hydroxy (30.0-100.0) ng/mL Cyclic Citrull Peptide (NEGATIVE) Free [place] LC, Quant (0.33-1.94) mg/dL Free Lambda LC, Quant (0.57-2.63) mg/dL Microbiology - Last 24 Hours (Table) 03/12/17 22:35 Urine Culture - Final Urine,Voided Assessment and Plan Plan: #1 Right-sided weakness with suspected acute CVA/TIA. #2 New-onset atrial fibrillation with rapid ventricular response. Initiated on beta blockers and Eliquis. #3 Chronic mild persistent bronchial asthma, currently inactive and stable. 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 #5 Recent ESBL E. coli urinary tract infection treated with IV Invanz, PICC line since removed. Repeat culture in progress. #6 Chronic back pain with previous surgery and noted right foot drop. #7 Rheumatoid arthritis. Rheumatoid factor XVIII. #8 Recent 15 pound weight loss secondary to poor appetite. #9 Poor overall functional performance secondary to the above-mentioned multiple comorbidities. Recommendation: Continue present treatment plan and supportive care measures, no active pulmonary issues, we will follow on when necessary basis. Time with Patient: Less than 30
[2017-03-14 12:22] LABS: Glucose,Whole Blood 147 mg/dL (75-99)
[2017-03-14 14:19] LABS: C-ANCA <1:20 Titer (<1:20); P-ANCA <1:20 Titer (<1:20)
[2017-03-14] MEDS ORDERED: Potassium Replacement Protocol 1 EACH MISC MISCELLANE PRN (14:24)
[2017-03-14] MEDS: POTASSIUM CHLORIDE ER 20 MEQ TAB.ER PO SCH ×3 (15:14→17:25)
[2017-03-14] MEDS: HALOPERIDOL 1 MG TAB PO PRN (16:28)
[2017-03-14] MEDS ORDERED: Magnesium Replacement Protocol 1 EACH MISC MISCELLANE PRN (16:40)
[2017-03-14] MEDS ORDERED: HALOPERIDOL LACTATE 5 MG/ML 1 ML VIAL IVP PRN ×2 (16:53→18:11)
[2017-03-14 17:10] LABS: Glucose,Whole Blood 148 mg/dL (75-99)
[2017-03-14] MEDS: MEGESTROL 400 MG/10 ML CUP PO SCH (17:28)
[2017-03-14] MEDS: MIRTAZAPINE 15 MG TAB PO SCH (19:54)
[2017-03-14] MEDS: MAGNESIUM SULFATE-D5W PMX 1 GM in DEXTROSE/WATER 1 100ML.BAG IVPB SCH ×2 (19:55→21:25)
[2017-03-14 20:33] LABS: Glucose,Whole Blood 141 mg/dL (75-99)
--- NOTE | 2017-03-14 20:36 | P.PN ---
Subjective This patient is a 86-year-old right-handed white male who was seen in neurology consultation yesterday for evaluation of possible stroke. Patient had undergone an initial evaluation in the ER due to increased symptoms of right- sided weakness and left facial droop. Patient underwent an initial computed tomography scan of the brain which was negative for any acute findings. He was sent for MRI of the brain today which is reported to show only age-related atrophy and chronic small vessel ischemic changes. 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 MRI was done with and without gadolinium. No other acute changes were noted. Review of the actual MRI films however reveals a area of possible ischemia involving the left dorothy. We will review this MRI films with the radiologist tomorrow for further assessment. The patient has been seen by cardiology today. His EKG showed atrial fibrillation with a moderately rapid ventricular response with nonspecific ST-T wave changes. Patient is to undergo an echocardiogram study. Patient will require anticoagulation for stroke prevention. Cardiology is recommending Eliquis as possible further treatment for anticoagulation. Patient was taken off of aspirin by cardiology. He was sent for MRI of the brain today as noted above revealed only age-related atrophy. We are waiting to have a second evaluation of this MRI tomorrow by radiology. Overall the patient seems to be relatively stable. He did undergo some laboratory testing today and results were reviewed. His C-reactive protein is quite elevated at 190.3. His rheumatoid factor is positive at 18.0. CEA antigen came back within the normal range at 2.3. Total cholesterol was 106. We have reviewed all of these test results today with the patient and his daughter in detail. They were updated on the MRI results. Patient seems to still have episodes of confusion and disorientation especially at night. He apparently became very agitated last night and required some restraints. He is doing better today and is not combative or agitated. He is currently being anticoagulated for the new onset atrial fibrillation. We will continue close follow-up with the patient during this admission. His overall prognosis at this time remains guarded. Objective - Vital Signs Vital signs: Vital Signs Temp 96.9 F L 03/14/17 08:00 Pulse 72 03/14/17 09:09 Resp 17 03/14/17 08:00 BP 125/62 03/14/17 08:00 Pulse Ox 97 03/14/17 08:00 Intake & Output 08/03/14/17 03/14/17 18:59 06:59 18:59 Intake Total 1080 450 100 Output Total 300 300 300 Balance 780 150 -200 Weight 58.2 kg 59.6 kg Intake: IV 600 Sodium Chloride 0.9% 1, 600 000 ml @ 75 mls/hr IV . [id number] [facility] Rx#:[id number] Intake, IV Titration 450 Amount Sodium Chloride 0.9% 1, 450 000 ml @ 75 mls/hr IV . [id number] D[facility] Rx#:[id number] Oral 480 100 Output: Urine 300 300 300 Other: Voiding Method Urinal Diaper Incontinent Incontinent # Voids 1 - Exam Physical examination: PHYSICAL EXAMINATION: Patient is resting comfortably in bed. VITAL SIGNS: Blood pressure is [125/62]. Heart rate is [77]. Respiration is [17] . Temperature is [97.0]. HEENT: Head is atraumatic, neck is supple, there were no carotid bruits. CHEST: Lungs are clear to auscultation and percussion. CARDIAC: S1, S2 normal rate and rhythm. There is no murmur. ABDOMEN: Soft and nontender. Bowel sounds are present. EXTREMITIES: There is no pedal edema. Peripheral pulses are present. Neurological examination: Patient's neurological examination is unchanged from yesterday. Patient has been up and ambulating in his room. He does have some unsteady gait. - Labs CBC & Chem 7: 03/14/17 05:07 03/14/17 19:23 Labs: Abnormal Lab Results - Last 24 Hours (Table) 03/13/17 03/13/17 03/13/17 Range/Units 17:58 17:58 18:09 RBC (4.30-5.90) m/uL Hgb (13.0-17.5) gm/dL Hct (39.0-53.0) % Neutrophils # (1.3-7.7) k/uL Lymphocytes # (1.0-4.8) k/uL ESR 95 H (0-15) mm/hr Potassium (3.5-5.1) mmol/L Creatinine (0.66-1.25) mg/dL Glucose (74-99) mg/dL POC Glucose (mg/dL) (75-99) mg/dL Calcium (8.4-10.2) mg/dL Creatine Kinase 47 L (55-170) U/L C-Reactive Protein 209.8 H (<10.0) mg/L Vitamin D 25-Hydroxy (30.0-100.0) ng/mL Cyclic Citrull Peptide POSITIVE H (NEGATIVE) Free [place] LC, Quant (0.33-1.94) mg/dL Free Lambda LC, Quant (0.57-2.63) mg/dL 03/13/17 03/13/17 03/13/17 Range/Units 18:09 18:09 20:24 RBC (4.30-5.90) m/uL Hgb (13.0-17.5) gm/dL Hct (39.0-53.0) % Neutrophils # (1.3-7.7) k/uL Lymphocytes # (1.0-4.8) k/uL ESR (0-15) mm/hr Potassium (3.5-5.1) mmol/L Creatinine (0.66-1.25) mg/dL Glucose (74-99) mg/dL POC Glucose (mg/dL) 142 H (75-99) mg/dL Calcium (8.4-10.2) mg/dL Creatine Kinase (55-170) U/L C-Reactive Protein (<10.0) mg/L Vitamin D 25-Hydroxy 22.5 L (30.0-100.0) ng/mL Cyclic Citrull Peptide (NEGATIVE) Free [place] LC, Quant 4.13 H (0.33-1.94) mg/dL Free [place] LC, Quant 3.20 H (0.57-2.63) mg/dL 03/14/17 03/14/17 03/14/17 Range/Units 05:07 05:07 05:54 RBC 3.44 L (4.30-5.90) m/uL Hgb 10.5 L (13.0-17.5) gm/dL Hct 31.8 L (39.0-53.0) % Neutrophils # 9.2 H (1.3-7.7) k/uL Lymphocytes # 0.3 L (1.0-4.8) k/uL ESR (0-15) mm/hr Potassium 3.2 L (3.5-5.1) mmol/L Creatinine 0.51 L (0.66-1.25) mg/dL Glucose 137 H (74-99) mg/dL POC Glucose (mg/dL) 148 H (75-99) mg/dL Calcium 8.2 L (8.4-10.2) mg/dL Creatine Kinase (55-170) U/L C-Reactive Protein (<10.0) mg/L Vitamin D 25-Hydroxy (30.0-100.0) ng/mL Cyclic Citrull Peptide (NEGATIVE) Free [place] LC, Quant (0.33-1.94) mg/dL Free Lambda LC, Quant (0.57-2.63) mg/dL 03/14/17 Range/Units 12:02 RBC (4.30-5.90) m/uL Hgb (13.0-17.5) gm/dL Hct (39.0-53.0) % Neutrophils # (1.3-7.7) k/uL Lymphocytes # (1.0-4.8) k/uL ESR (0-15) mm/hr Potassium (3.5-5.1) mmol/L Creatinine (0.66-1.25) mg/dL Glucose (74-99) mg/dL POC Glucose (mg/dL) 147 H (75-99) mg/dL Calcium (8.4-10.2) mg/dL Creatine Kinase (55-170) U/L C-Reactive Protein (<10.0) mg/L Vitamin D 25-Hydroxy (30.0-100.0) ng/mL Cyclic Cit[place]ull Peptide (NEGATIVE) Free [place] LC, Quant (0.33-1.94) mg/dL Free [place]ambda LC, Quant (0.57-2.63) mg/dL Microbiology - Last 24 Hours (Table) 03/12/17 22:35 Urine Culture - Final Urine,Voided Assessment and Plan (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 He was brought into the emergency room and was evaluated by the neuro interventional group at [facility]. The stroke robot was activated and he was evaluated. Dr. Moore reviewed his computed tomography scan of the brain and CTA angiogram results and felt he was not a candidate for TPA. He was admitted to hospital for further neurological assessment and treatment. His neurological exam findings at this time revealed right hemiparesis with a left facial weakness pattern. This findings suggest cross neurological localization suggesting possibility of brainstem ischemia or brainstem stroke. We have recommended an MRI of the brain for further evaluation. His CTA angiogram was reported negative for any evidence of any arterial stenosis. We will continue with close neurological follow-up for this patient during this admission. He is to be maintained on aspirin therapy for secondary stroke prevention at this time pending his stroke workup. The patient underwent MRI of the brain today for further evaluation of possible brainstem ischemia. This MRI is reported negative for any evidence of acute stroke. Patient was seen by cardiology regarding his new onset atrial fibrillation. We will await further recommendations. We did review the results of the MRI today with the patient in detail. He underwent a routine EEG today as well which was reviewed. EEG is moderately slow. No evidence of any epileptiform discharges were seen. We have reviewed all of these test results today in detail with the patient daughter and she is aware of these findings. We did review his MRI films today with Dr. Hopson and there does appear to be possible early ischemia in the left dorothy, suggesting infarction. We will continue close neurological follow-up of this patient during this admission. Patient did have evidence of elevated C-reactive protein. Rheumatology has been consulted. He is being evaluated for possible autoimmune disorder. We will continue close neurologic follow-up for this patient. His overall prognosis at this time remains guarded.
[2017-03-14] MEDS: QUEtiapine 25 MG TAB PO PRN (21:26)
[2017-03-15] MEDS: HALOPERIDOL 1 MG TAB PO PRN (03:16)
[2017-03-15] MEDS: SODIUM CHLORIDE 0.9% 1,000 ML IV SCH ×2 (04:25→19:36)
[2017-03-15 05:36] LABS: Glucose,Whole Blood 95 mg/dL (75-99)
[2017-03-15] MEDS: PANTOPRAZOLE 40 MG TABLET PO SCH (06:28)
[2017-03-15 06:42] LABS: Basophils % (A) 0 %; CHCM 33.7; Eosinophils % (A) 0 %; HCT 32.4 % (39.0-53.0); HDW 2.87; HGB 10.3 gm/dL (13.0-17.5); Luc # (Auto) 0.08; Luc % (Auto) 1; Lymphocytes # (A) 0.8 k/uL (1.0-4.8); Lymphocytes % (A) 9 %; MCH 29.4 pg (25.0-35.0); MCHC 31.9 g/dL (31.0-37.0); MCV 92.2 fL (80.0-100.0); Mean Platelet Volume 7.2; Monocytes # (A) 0.8 k/uL (0-1.0); Monocytes % (A) 9 %; Neutrophils # (A) 7.8 k/uL (1.3-7.7); Neutrophils % (A) 82 %; RBC 3.51 m/uL (4.30-5.90); RDW 13.9 % (11.5-15.5); WBC 9.5 k/uL (3.8-10.6); WBC (Perox) 9.74
[2017-03-15 06:55] LABS: Anion Gap 6 mmol/L; Blood Urea Nitrogen 11 mg/dL (9-20); Calcium 8.1 mg/dL (8.4-10.2); Carbon Dioxide 27 mmol/L (22-30); Chloride 108 mmol/L (98-107); Glucose 76 mg/dL (74-99); Magnesium 2.2 mg/dL (1.6-2.3); Non-African American GFR(MDRD) >60 (>60 ml/min/1.73 sqM); Potassium 3.3 mmol/L (3.5-5.1); Sodium 141 mmol/L (137-145)
[2017-03-15] MEDS ORDERED: Potassium Replacement Protocol 1 EACH MISC MISCELLANE PRN ×2 (07:04→14:48)
[2017-03-15 08:35] LABS: HLA B27 NEGATIVE; HLA B27 Comment SEEBELOW
[2017-03-15] MEDS: SYMBICORT 80-4.5 MCG INHALER INHALATION SCH ×2 (09:20→19:57)
[2017-03-15] MEDS: METOPROLOL TARTRATE 25 MG TAB PO SCH (10:48)
[2017-03-15] MEDS: POTASSIUM CHLORIDE ER 20 MEQ TAB.ER PO SCH ×4 (10:48→17:04)
[2017-03-15] MEDS: APIXABAN 2.5 MG TABLET PO SCH ×2 (10:48→19:37)
[2017-03-15] MEDS: FOLIC ACID 1 MG TAB PO SCH (10:48)
[2017-03-15] MEDS: MEGESTROL 400 MG/10 ML CUP PO SCH (10:48)
[2017-03-15] MEDS: predniSONE 10 MG TAB PO SCH (10:48)
--- NOTE | 2017-03-15 11:20 | P.PN ---
Subjective Principal diagnosis: Right-sided weakness This is an 86-year-old gentleman who presented to the hospital with symptoms of right-sided weakness and was diagnosed with TIA. Cardiology was following the patient because of a new diagnosis of atrial fibrillation. At this time he continues to be in a normal sinus rhythm, this morning his heart rate is in the 40s. Patient has been given Haldol through the night because of agitation. We will hold his morning dose of beta marta today, and decrease the dose to 12-1/2 mg one tablet by mouth twice a day from tomorrow. He is on Eliquis for anticoagulation. Echocardiogram revealed an ejection fraction of 55 -60%. Objective - Vital Signs Vital signs: Vital Signs Temp 97.4 F L 03/15/17 04:00 Pulse 55 L 03/15/17 04:00 Resp 18 03/15/17 04:00 BP 127/56 03/15/17 04:00 Pulse Ox 93 L 03/15/17 09:21 Intake & Output 03/14/17 03/15/17 03/15/17 18:59 06:59 18:59 Intake Total 100 1000 Output Total 300 600 0 Balance -200 400 0 Weight 59.2 kg Intake: IV 600 Sodium Chloride 0.9% 1, 600 000 ml @ 75 mls/hr IV . [id number] [facility] Rx#:[id number] Intake, IV Titration 200 Amount Magnesium Sulfate-D5w Pmx 200 1 gm In Dextrose/Water 1 100ml.bag @ 100 mls/hr IVPB Q1H D[facility]EL Rx#: [id number] Oral 100 200 Output: Urine 300 600 0 Other: Voiding Method Diaper Diaper Incontinent Incontinent # Voids 1 2 - Exam HEENT: Head is atraumatic, normocephalic. Pupils equal, round. Neck is supple. There is no elevated jugular venous pressure. HEART EXAMINATION: Heart S1 and S2 with soft systolic murmur is heard. CHEST EXAMINATION: Lungs are clear to auscultation and precussion. No chest wall tenderness is noted on palpation or with deep breathing. ABDOMEN: Soft, nontender. Bowel sounds are heard. No organomegaly noted. EXTREMITIES:[ 2+ peripheral pulses with no evidence of peripheral edema and no calf tenderness noted]. NEUROLOGIC [patient is awake, alert and oriented times one - Labs CBC & Chem 7: 03/15/17 05:39 03/15/17 05:39 Labs: Abnormal Lab Results - Last 24 Hours (Table) 03/13/17 03/13/17 03/14/17 Range/Units 17:58 18:09 12:02 RBC (4.30-5.90) m/uL Hgb (13.0-17.5) gm/dL Hct (39.0-53.0) % Neutrophils # (1.3-7.7) k/uL Lymphocytes # (1.0-4.8) k/uL Potassium (3.5-5.1) mmol/L Chloride (98-107) mmol/L Creatinine (0.66-1.25) mg/dL POC Glucose (mg/dL) 147 H (75-99) mg/dL Calcium (8.4-10.2) mg/dL Aldolase 9.1 H (1.2-7.6) U/L Free [place] LC, Quant 4.13 H (0.33-1.94) mg/dL Free [place] LC, Quant 3.20 H (0.57-2.63) mg/dL 03/14/17 03/14/17 03/15/17 Range/Units 17:07 20:32 05:39 RBC 3.51 L (4.30-5.90) m/uL Hgb 10.3 L (13.0-17.5) gm/dL Hct 32.4 L (39.0-53.0) % Neutrophils # 7.8 H (1.3-7.7) k/uL Lymphocytes # 0.8 L (1.0-4.8) k/uL Potassium (3.5-5.1) mmol/L Chloride (98-107) mmol/L Creatinine (0.66-1.25) mg/dL POC Glucose (mg/dL) 148 H 141 H (75-99) mg/dL Calcium (8.4-10.2) mg/dL Aldolase (1.2-7.6) U/L Free [place] LC, Quant (0.33-1.94) mg/dL Free [place] LC, Quant (0.57-2.63) mg/dL 03/15/17 Range/Units 05:39 RBC (4.30-5.90) m/uL Hgb (13.0-17.5) gm/dL Hct (39.0-53.0) % Neutrophils # (1.3-7.7) k/uL Lymphocytes # (1.0-4.8) k/uL Potassium 3.3 L (3.5-5.1) mmol/L Chloride 108 H (98-107) mmol/L Creatinine 0.48 L (0.66-1.25) mg/dL POC Glucose (mg/dL) (75-99) mg/dL Calcium 8.1 L (8.4-10.2) mg/dL Aldolase (1.2-7.6) U/L Free [place] LC, Quant (0.33-1.94) mg/dL Free [place]ambda LC, Quant (0.57-2.63) mg/dL Microbiology - Last 24 Hours (Table) 03/12/17 22:35 Urine Culture - Final Urine,Voided Assessment and Plan Plan: Assessment and plan #1 symptoms of right-sided arm and leg weakness, suggestive of TIA. Neurology following. #2 atrial fibrillation with rapid ventricular response, now in normal sinus rhythm. New-onset. Paroxysmal in nature. #3 Mild dementia #4 recurrent UTIs #5 asthma Plan Heart rate this morning in the 40s, patient is noted to also be receiving Haldol through the night for agitation. We will hold his beta marta today and decrease the dose from tomorrow to 12-1/2 mg one tablet by mouth twice a day. Continue current dose of Eliquis. DNP note has been reviewed, I agree with a documented findings and plan of care. Patient was seen and examined.
[2017-03-15 11:52] LABS: Glucose,Whole Blood 134 mg/dL (75-99)
[2017-03-15 16:44] LABS: Glucose,Whole Blood 203 mg/dL (75-99)
[2017-03-15] MEDS: MIRTAZAPINE 15 MG TAB PO SCH (19:37)
[2017-03-15] MEDS: METOPROLOL TARTRATE 12.5 MG TAB PO SCH (19:37)
--- NOTE | 2017-03-15 20:23 | P.PN ---
Subjective This patient is a 86-year-old right-handed white male who was seen in neurology consultation yesterday for evaluation of possible stroke. Patient had undergone an initial evaluation in the ER due to increased symptoms of right- sided weakness and left facial droop. Patient underwent an initial computed tomography scan of the brain which was negative for any acute findings. He was sent for MRI of the brain today which is reported to show only age-related atrophy and chronic small vessel ischemic changes. 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 MRI was done with and without gadolinium. No other acute changes were noted. Review of the actual MRI films however reveals a area of possible ischemia involving the left dorothy. We will review this MRI films with the radiologist tomorrow for further assessment. The patient has been seen by cardiology today. His EKG showed atrial fibrillation with a moderately rapid ventricular response with nonspecific ST-T wave changes. Patient is to undergo an echocardiogram study. Patient will require anticoagulation for stroke prevention. Cardiology is recommending Eliquis as possible further treatment for anticoagulation. Patient was taken off of aspirin by cardiology. He was sent for MRI of the brain today as noted above revealed only age-related atrophy. We are waiting to have a second evaluation of this MRI tomorrow by radiology. Overall the patient seems to be relatively stable. He did undergo some laboratory testing today and results were reviewed. His C-reactive protein is quite elevated at 190.3. His rheumatoid factor is positive at 18.0. CEA antigen came back within the normal range at 2.3. Total cholesterol was 106. We have reviewed all of these test results today with the patient and his daughter in detail. They were updated on the MRI results. Patient seems to still have episodes of confusion and disorientation especially at night. He apparently became very agitated last night and required some restraints. He is doing better today and is not combative or agitated. He is currently being anticoagulated for the new onset atrial fibrillation. Patient does appear to be doing better today as compared to yesterday. He seems to be following commands more easily. We will continue to monitor him closely over the weekend. We will continue close follow-up with the patient during this admission. His overall prognosis at this time remains guarded. Objective - Vital Signs Vital signs: Vital Signs Temp 97.1 F L 03/15/17 16:00 Pulse 59 L 03/15/17 16:00 Resp 18 03/15/17 16:00 BP 114/55 03/15/17 16:00 Pulse Ox 95 03/15/17 16:00 Intake & Output 03/15/17 03/15/17 03/16/17 06:59 18:59 06:59 Intake Total 1000 298 Output Total 600 350 Balance 400 -52 Weight 59.2 kg Intake: IV 600 Sodium Chloride 0.9% 1, 600 000 ml @ 75 mls/hr IV . [id number] DANIEL Rx#:[id number] Intake, IV Titration 200 Amount Magnesium Sulfate-D5w Pmx 200 1 gm In Dextrose/Water 1 100ml.bag @ 100 mls/hr IVPB Q1H DANIEL Rx#: [id number] Oral 200 298 Output: Urine 600 350 Other: Voiding Method Diaper Urinal Incontinent # Voids 2 - Exam Physical examination: PHYSICAL EXAMINATION: Patient is resting comfortably in bed. VITAL SIGNS: Blood pressure is [114/55]. Heart rate is [59]. Respiration is [18] . Temperature is [97.1]. HEENT: Head is atraumatic, neck is supple, there were no carotid bruits. CHEST: Lungs are clear to auscultation and percussion. CARDIAC: S1, S2 normal rate and rhythm. There is no murmur. ABDOMEN: Soft and nontender. Bowel sounds are present. EXTREMITIES: There is no pedal edema. Peripheral pulses are present. Neurological examination: Patient's neurological examination is unchanged from yesterday. Patient has been up and ambulating in his room. He does have some unsteady gait. - Labs CBC & Chem 7: 03/15/17 05:39 03/15/17 18:21 Labs: Abnormal Lab Results - Last 24 Hours (Table) 03/13/17 03/14/17 03/15/17 Range/Units 17:58 20:32 05:39 RBC 3.51 L (4.30-5.90) m/uL Hgb 10.3 L (13.0-17.5) gm/dL Hct 32.4 L (39.0-53.0) % Neutrophils # 7.8 H (1.3-7.7) k/uL Lymphocytes # 0.8 L (1.0-4.8) k/uL Potassium (3.5-5.1) mmol/L Chloride (98-107) mmol/L Creatinine (0.66-1.25) mg/dL POC Glucose (mg/dL) 141 H (75-99) mg/dL Calcium (8.4-10.2) mg/dL Aldolase 9.1 H (1.2-7.6) U/L 03/15/17 03/15/17 03/15/17 Range/Units 05:39 11:50 12:57 RBC (4.30-5.90) m/uL Hgb (13.0-17.5) gm/dL Hct (39.0-53.0) % Neutrophils # (1.3-7.7) k/uL Lymphocytes # (1.0-4.8) k/uL Potassium 3.3 L 3.1 L (3.5-5.1) mmol/L Chloride 108 H (98-107) mmol/L Creatinine 0.48 L (0.66-1.25) mg/dL POC Glucose (mg/dL) 134 H (75-99) mg/dL Calcium 8.1 L (8.4-10.2) mg/dL Aldolase (1.2-7.6) U/L 03/15/17 Range/Units 16:39 RBC (4.30-5.90) m/uL Hgb (13.0-17.5) gm/dL Hct (39.0-53.0) % Neutrophils # (1.3-7.7) k/uL Lymphocytes # (1.0-4.8) k/uL Potassium (3.5-5.1) mmol/L Chloride (98-107) mmol/L Creatinine (0.66-1.25) mg/dL POC Glucose (mg/dL) 203 H (75-99) mg/dL Calcium (8.4-10.2) mg/dL Aldolase (1.2-7.6) U/L Assessment and Plan (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 He was brought into the emergency room and was evaluated by the neuro interventional group at [facility]. The stroke robot was activated and he was evaluated. Dr. Moore reviewed his computed tomography scan of the brain and CTA angiogram results and felt he was not a candidate for TPA. He was admitted to hospital for further neurological assessment and treatment. His neurological exam findings at this time revealed right hemiparesis with a left facial weakness pattern. This findings suggest cross neurological localization suggesting possibility of brainstem ischemia or brainstem stroke. We have recommended an MRI of the brain for further evaluation. His CTA angiogram was reported negative for any evidence of any arterial stenosis. We will continue with close neurological follow-up for this patient during this admission. He is to be maintained on aspirin therapy for secondary stroke prevention at this time pending his stroke workup. The patient underwent MRI of the brain today for further evaluation of possible brainstem ischemia. This MRI is reported negative for any evidence of acute stroke. Patient was seen by cardiology regarding his new onset atrial fibrillation. We will await further recommendations. We did review the results of the MRI today with the patient in detail. He underwent a routine EEG today as well which was reviewed. EEG is moderately slow. No evidence of any epileptiform discharges were seen. We have reviewed all of these test results today in detail with the patient daughter and she is aware of these findings. We did review his MRI films today with Dr. Hopson and there does appear to be possible early ischemia in the left dorothy, suggesting infarction. We will continue close neurological follow-up of this patient during this admission. Patient did have evidence of elevated C-reactive protein. Rheumatology has been consulted. He is being evaluated for possible autoimmune disorder. Patient seems to be doing better today overall. We will continue to follow his progress closely over the weekend. We will continue close neurologic follow-up for this patient. His overall prognosis at this time remains guarded.
[2017-03-15 20:42] LABS: Glucose,Whole Blood 186 mg/dL (75-99)
[2017-03-16 06:04] LABS: Glucose,Whole Blood 118 mg/dL (75-99)
[2017-03-16] MEDS: SODIUM CHLORIDE 0.9% 1,000 ML IV SCH ×2 (06:06→20:36)
[2017-03-16 06:26] LABS: Basophils % (A) 0 %; CHCM 33.5; Eosinophils % (A) 0 %; HCT 30.4 % (39.0-53.0); HDW 2.84; HGB 9.7 gm/dL (13.0-17.5); Luc % (Auto) 1; Lymphocytes # (A) 0.8 k/uL (1.0-4.8); Lymphocytes % (A) 9 %; MCH 29.7 pg (25.0-35.0); Mean Platelet Volume 7.3; Monocytes # (A) 0.6 k/uL (0-1.0); Monocytes % (A) 7 %; Neutrophils # (A) 7.4 k/uL (1.3-7.7); Neutrophils % (A) 84 %; RBC 3.26 m/uL (4.30-5.90); RDW 14.1 % (11.5-15.5); WBC 8.9 k/uL (3.8-10.6); WBC (Perox) 9.55
[2017-03-16] MEDS: PANTOPRAZOLE 40 MG TABLET PO SCH (06:27)
[2017-03-16 06:43] LABS: Anion Gap 7 mmol/L; Blood Urea Nitrogen 16 mg/dL (9-20); Calcium 8.5 mg/dL (8.4-10.2); Carbon Dioxide 25 mmol/L (22-30); Chloride 109 mmol/L (98-107); Glucose 113 mg/dL (74-99); Non-African American GFR(MDRD) >60 (>60 ml/min/1.73 sqM); Potassium 3.8 mmol/L (3.5-5.1); Sodium 141 mmol/L (137-145)
[2017-03-16] MEDS: APIXABAN 2.5 MG TABLET PO SCH ×2 (07:34→20:28)
[2017-03-16] MEDS: MEGESTROL 400 MG/10 ML CUP PO SCH (07:34)
[2017-03-16] MEDS: predniSONE 10 MG TAB PO SCH (07:34)
[2017-03-16] MEDS: FOLIC ACID 1 MG TAB PO SCH (07:34)
[2017-03-16] MEDS: METOPROLOL TARTRATE 12.5 MG TAB PO SCH ×2 (07:38→20:28)
[2017-03-16] MEDS: SYMBICORT 80-4.5 MCG INHALER INHALATION SCH ×2 (08:26→20:47)
[2017-03-16 11:39] LABS: Glucose,Whole Blood 189 mg/dL (75-99)
[2017-03-16 16:43] LABS: Glucose,Whole Blood 112 mg/dL (75-99)
[2017-03-16] MEDS ORDERED: ERGOCALCIFEROL 50,000 UNIT CAP PO SCH (17:00)
[2017-03-16] MEDS: MIRTAZAPINE 15 MG TAB PO SCH (20:28)
[2017-03-16 20:38] LABS: Glucose,Whole Blood 150 mg/dL (75-99)
[2017-03-17 06:05] LABS: Glucose,Whole Blood 106 mg/dL (75-99)
[2017-03-17] MEDS: PANTOPRAZOLE 40 MG TABLET PO SCH (06:28)
[2017-03-17] MEDS: FOLIC ACID 1 MG TAB PO SCH (07:55)
[2017-03-17] MEDS: MEGESTROL 400 MG/10 ML CUP PO SCH (07:55)
[2017-03-17] MEDS: APIXABAN 2.5 MG TABLET PO SCH ×2 (07:55→20:07)
[2017-03-17] MEDS: predniSONE 10 MG TAB PO SCH (07:55)
[2017-03-17] MEDS: METOPROLOL TARTRATE 12.5 MG TAB PO SCH ×2 (07:55→20:08)
[2017-03-17] MEDS: SYMBICORT 80-4.5 MCG INHALER INHALATION SCH ×2 (08:10→20:14)
[2017-03-17 11:27] LABS: HCV Qualitative Result Not detected (Not detected)
[2017-03-17 11:34] LABS: Glucose,Whole Blood 130 mg/dL (75-99)
--- NOTE | 2017-03-17 12:10 | P.PN ---
Subjective Principal diagnosis: Right-sided weakness This is an 86-year-old gentleman who presented to the hospital with symptoms of right-sided weakness and was diagnosed with TIA. Cardiology was following the patient because of a new diagnosis of atrial fibrillation. At this time he continues to be in a normal sinus rhythm, this morning his heart rate is in the 40s. Patient has been given Haldol through the night because of agitation. We will hold his morning dose of beta marta today, and decrease the dose to 12-1/2 mg one tablet by mouth twice a day from tomorrow. He is on Eliquis for anticoagulation. Echocardiogram revealed an ejection fraction of 55 -60%. 03/17/2017 Patient seen and examined this morning, sitting up in the chair bedside. Continues to be confused. In normal sinus rhythm with heart rates in the 70s. On Eliquis for anticoagulation. Objective - Vital Signs Vital signs: Vital Signs Temp 96.7 F L 03/17/17 07:53 Pulse 52 L 03/17/17 07:53 Resp 20 03/17/17 07:53 BP 161/73 03/17/17 07:53 Pulse Ox 98 03/17/17 07:53 Intake & Output 03/16/17 03/17/17 03/17/17 18:59 06:59 18:59 Intake Total 780 600 236 Output Total 600 250 Balance 780 0 -14 Weight 62.5 kg Intake: IV 600 600 Sodium Chloride 0.9% 1, 600 600 000 ml @ 75 mls/hr IV . [id number] [facility] Rx#:[id number] Oral 180 236 Output: Urine 600 250 Other: Voiding Method Bedside Commode Bedside Commode Toilet Diaper Diaper Incontinent Incontinent # Voids 1 2 - Exam HEENT: Head is atraumatic, normocephalic. Pupils equal, round. Neck is supple. There is no elevated jugular venous pressure. HEART EXAMINATION: Heart S1 and S2 with soft systolic murmur is heard. CHEST EXAMINATION: Lungs are clear to auscultation and precussion. No chest wall tenderness is noted on palpation or with deep breathing. ABDOMEN: Soft, nontender. Bowel sounds are heard. No organomegaly noted. EXTREMITIES:[ 2+ peripheral pulses with no evidence of peripheral edema and no calf tenderness noted]. NEUROLOGIC [patient is awake, alert and oriented times one - Labs CBC & Chem 7: 03/16/17 06:05 03/16/17 06:05 Labs: Abnormal Lab Results - Last 24 Hours (Table) 03/16/17 03/16/17 03/17/17 Range/Units 16:35 20:35 06:02 POC Glucose (mg/dL) 112 H 150 H 106 H (75-99) mg/dL 03/17/17 Range/Units 11:29 POC Glucose (mg/dL) 130 H (75-99) mg/dL Assessment and Plan Plan: Assessment and plan #1 symptoms of right-sided arm and leg weakness, suggestive of TIA. Neurology following. #2 atrial fibrillation with rapid ventricular response, now in normal sinus rhythm. New-onset. Paroxysmal in nature. #3 Mild dementia #4 recurrent UTIs #5 asthma Plan From cardiology's perspective, we will continue the patient on his current medications.We will follow him now on an as-needed basis only, please don't hesitate to call with any questions. DNP note has been reviewed, I agree with a documented findings and plan of care. Patient was seen and examined.
[2017-03-17 14:21] LABS: Hexagonal Phase Neutralization Positive (Negative)
[2017-03-17 14:52] VITALS: BMI 18.6
[2017-03-17] MEDS: SODIUM CHLORIDE 0.9% 1,000 ML IV SCH (16:00)
[2017-03-17 16:42] LABS: Glucose,Whole Blood 183 mg/dL (75-99)
[2017-03-17] MEDS: MIRTAZAPINE 15 MG TAB PO SCH (20:08)
[2017-03-17] MEDS ORDERED: ATORVASTATIN 40 MG TAB PO SCH (21:00)
--- NOTE | 2017-03-17 23:10 | P.PN ---
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 #2 atrial fibrillation with rapid ventricular response, now in normal sinus rhythm. New-onset. Paroxysmal in nature. #3 Mild dementia #4 recurrent UTIs #5 asthma This is an 86-year-old gentleman with a known history of asthma, rheumatoid arthritis, history of prostate cancer status post radiation seeds who presented to the hospital with symptoms of right-sided weakness and was diagnosed with CVA/TIA. Patient was found to have new diagnosis of atrial fibrillation. At this time he continues to be in a normal sinus rhythm. He is on Eliquis for anticoagulation. Echocardiogram revealed an ejection fraction of 55-60%. Cardiology and neurology is following this patient Patient had workup done including CT head, CT angiogram, EEG, carotid duplex and MRI of the brain. MRI of the brain does appear to be possible early ischemia in the left dorothy, suggesting infarction. He is admitted atrophic changes and high right frontal meningioma Today patient is sitting in a chair comfortably. Denied any chest pain or short of breath. Patient is bradycardic and has not started beta blockers at this time. No fever no chills. Right upper extremity strength slightly improved. No Other acute overnight issues. Objective - Vital Signs Vital signs: Vital Signs Temp 97.5 F L 03/16/17 20:00 Pulse 66 03/16/17 20:00 Resp 18 03/16/17 20:00 BP 120/57 03/16/17 20:00 Pulse Ox 98 03/16/17 20:51 Intake & Output 03/16/17 03/16/17 03/17/17 06:59 18:59 06:59 Intake Total 1440 780 Output Total 400 Balance 1040 780 Weight 59.7 kg Intake: IV 1200 600 Sodium Chloride 0.9% 1, 1200 600 000 ml @ 75 mls/hr IV . [id number] [facility] Rx#:[id number] Oral 240 180 Output: Urine 400 Other: Voiding Method Urinal Bedside Commode Bedside Commode Diaper Diaper Diaper Incontinent Incontinent # Voids 2 1 - Exam PHYSICAL EXAMINATION: Patient is lying in the bed comfortably, no acute distress, awake alert and oriented.. HEENT: Normocephalic. Neck is supple. Pupils reactive. Nostrils clear. Oral cavity is moist. Ears reveal no drainage. Neck reveals no JVD, carotid bruits, or thyromegaly. CHEST EXAMINATION: Trachea is central. Symmetrical expansion. Lung lincoln clear to auscultation and percussion. CARDIAC: Normal S1, S2 with no gallops. No murmurs . bradycardia. ABDOMEN: Soft. Bowel sounds normal. No organomegaly. No abdominal bruits. Extremities reveal no edema. No clubbing or cyanosis Neurologically awake, alert, oriented 2-3. Right lower extremity foot drop. And right upper extremity muscle strength 3-4 out of 5 Skin: no rash or skin lesions Musculoskeletal: no joint swelling or deformity. Mild rheumatoid arthritis changes - Labs CBC & Chem 7: 03/16/17 06:05 03/16/17 06:05 Labs: Abnormal Lab Results - Last 24 Hours (Table) 03/16/17 03/16/17 03/16/17 Range/Units 06:02 06:05 06:05 RBC 3.26 L (4.30-5.90) m/uL Hgb 9.7 L (13.0-17.5) gm/dL Hct 30.4 L (39.0-53.0) % Lymphocytes # 0.8 L (1.0-4.8) k/uL Chloride 109 H (98-107) mmol/L Creatinine 0.50 L (0.66-1.25) mg/dL Glucose 113 H (74-99) mg/dL POC Glucose (mg/dL) 118 H (75-99) mg/dL 03/16/17 03/16/17 03/16/17 Range/Units 11:33 16:35 20:35 RBC (4.30-5.90) m/uL Hgb (13.0-17.5) gm/dL Hct (39.0-53.0) % Lymphocytes # (1.0-4.8) k/uL Chloride (98-107) mmol/L Creatinine (0.66-1.25) mg/dL Glucose (74-99) mg/dL POC Glucose (mg/dL) 189 H 112 H 150 H (75-99) mg/dL Assessment and Plan Plan: #1 acute CVA with right arm weakness and left facial droop. Improving. MRI showed possible early ischemia in the left dorothy, suggesting infarction #2 new onset atrial fibrillation. Currently in sinus rhythm. Started on low- dose metoprolol #3 right wrist synovitis and elevated CRP level. Patient was started on redness on 30 mg daily. #4 Rheumatoid arthritis. CCP positive and rheumatoid factor 18. Not on immunosuppressive therapy #5 history of right foot drop #5 unintensional intestinal weight loss. Possible poor oral intake. Malignancy workup so far negative. #6 mild dementia #7 recurrent UTI #8 history of asthma stable #9 depression #10 mild protein calorie malnutrition with a low level 3.4 #11 normocytic anemia. Plan: Patient will be continued on telemetry monitoring and patient was started on metoprolol 12.5 mg twice a day and anticoagulation. Continue the prednisone now. Continue with atorvastatin for secondary stroke prophylaxis. Patient is already on antibiotic ideation with brooke. We will continue to follow closely. Continue PT OT and possible transfer to rehab. Time with Patient: Greater than 30
--- NOTE | 2017-03-17 23:10 | P.PN ---
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 #2 atrial fibrillation with rapid ventricular response, now in normal sinus rhythm. New-onset. Paroxysmal in nature. #3 Mild dementia #4 recurrent UTIs #5 asthma This is an 86-year-old gentleman with a known history of asthma, rheumatoid arthritis, history of prostate cancer status post radiation seeds who presented to the hospital with symptoms of right-sided weakness and was diagnosed with CVA/TIA. Patient was found to have new diagnosis of atrial fibrillation. At this time he continues to be in a normal sinus rhythm. He is on Eliquis for anticoagulation. Echocardiogram revealed an ejection fraction of 55-60%. Cardiology and neurology is following this patient Patient had workup done including CT head, CT angiogram, EEG, carotid duplex and MRI of the brain. MRI of the brain does appear to be possible early ischemia in the left dorothy, suggesting infarction. He is admitted atrophic changes and high right frontal meningioma Today patient is sitting in a chair comfortably. Denied any chest pain or short of breath. Patient is bradycardic and has not started beta blockers at this time. No fever no chills. Right upper extremity strength slightly improved. No Other acute overnight issues. 03/17/2017 Patient denied any new complaints. Continue the current management and anticipate transfer to rehab tomorrow. Objective - Vital Signs Vital signs: Vital Signs Temp 97.0 F L 03/17/17 20:00 Pulse 57 L 03/17/17 20:00 Resp 18 03/17/17 20:00 BP 161/68 03/17/17 20:00 Pulse Ox 99 03/17/17 20:00 Intake & Output 03/17/17 03/17/17 03/18/17 06:59 18:59 06:59 Intake Total 600 672 250 Output Total 600 250 450 Balance 0 422 -200 Weight 62.5 kg 62.5 kg Intake: IV 600 Sodium Chloride 0.9% 1, 600 000 ml @ 75 mls/hr IV . [id number] [facility] Rx#:[id number] Intake, IV Titration 250 Amount Sodium Chloride 0.9% 1, 250 000 ml @ 75 mls/hr IV . [id number] [facility] Rx#:[id number] Oral 672 Output: Urine 600 250 450 Other: Voiding Method Bedside Commode Toilet Toilet Diaper Urinal Urinal Incontinent # Voids 2 - Exam PHYSICAL EXAMINATION: Patient is lying in the bed comfortably, no acute distress, awake alert and oriented.. HEENT: Normocephalic. Neck is supple. Pupils reactive. Nostrils clear. Oral cavity is moist. Ears reveal no drainage. Neck reveals no JVD, carotid bruits, or thyromegaly. CHEST EXAMINATION: Trachea is central. Symmetrical expansion. Lung lincoln clear to auscultation and percussion. CARDIAC: Normal S1, S2 with no gallops. No murmurs . bradycardia. ABDOMEN: Soft. Bowel sounds normal. No organomegaly. No abdominal bruits. Extremities reveal no edema. No clubbing or cyanosis Neurologically awake, alert, oriented 2-3. Right lower extremity foot drop. And right upper extremity muscle strength 3-4 out of 5 Skin: no rash or skin lesions Musculoskeletal: no joint swelling or deformity. Mild rheumatoid arthritis changes - Labs CBC & Chem 7: 03/16/17 06:05 03/16/17 06:05 Labs: Abnormal Lab Results - Last 24 Hours (Table) 03/13/17 03/13/17 03/17/17 Range/Units 17:58 18:09 06:02 Lupus Anticoag aPTT 68 H (<43) Sec(s) Lupus Anticoag PTT Mix 57 H (<43) Sec(s) Dil Manfred Viper Venom 79 H (<44) Sec(s) dRVVT 50:50 53 H (<44) Sec(s) Lupus Hexagonal Phase Positive H (Negative) POC Glucose (mg/dL) 106 H (75-99) mg/dL Total Protein (PEP) 5.6 L (6.2-8.2) g/dL Albumin (PEP) 2.59 L (3.80-4.90) g/dL 03/17/17 03/17/17 Range/Units 11:29 16:39 Lupus Anticoag aPTT (<43) Sec(s) Lupus Anticoag PTT Mix (<43) Sec(s) Dil Manfred Viper Venom (<44) Sec(s) dRVVT 50:50 (<44) Sec(s) Lupus Hexagonal Phase (Negative) POC Glucose (mg/dL) 130 H 183 H (75-99) mg/dL Total Protein (PEP) (6.2-8.2) g/dL Albumin (PEP) (3.80-4.90) g/dL Assessment and Plan Plan: #1 acute CVA with right arm weakness and left facial droop. Improving. MRI showed possible early ischemia in the left dorothy, suggesting infarction #2 new onset atrial fibrillation. Currently in sinus rhythm. Started on low- dose metoprolol #3 right wrist synovitis and elevated CRP level. Patient was started on redness on 30 mg daily. #4 Rheumatoid arthritis. CCP positive and rheumatoid factor 18. Not on immunosuppressive therapy #5 history of right foot drop #5 unintensional intestinal weight loss. Possible poor oral intake. Malignancy workup so far negative. #6 mild dementia #7 recurrent UTI #8 history of asthma stable #9 depression #10 mild protein calorie malnutrition with a low level 3.4 #11 normocytic anemia. Plan: Patient will be continued on telemetry monitoring and patient was started on metoprolol 12.5 mg twice a day and anticoagulation. Continue the prednisone now. Continue with atorvastatin for secondary stroke prophylaxis. Patient is already on antibiotic ideation with brooke. We will continue to follow closely. Continue PT OT and possible transfer to rehab.
[2017-03-18] MEDS: PANTOPRAZOLE 40 MG TABLET PO SCH (06:12)
[2017-03-18 06:56] LABS: % Iron Saturation 22.3 % (20-50)
[2017-03-18] MEDS: APIXABAN 2.5 MG TABLET PO SCH (08:24)
[2017-03-18] MEDS: FOLIC ACID 1 MG TAB PO SCH (08:24)
[2017-03-18] MEDS: predniSONE 10 MG TAB PO SCH (08:24)
[2017-03-18] MEDS: METOPROLOL TARTRATE 12.5 MG TAB PO SCH (08:24)
[2017-03-18] MEDS: MEGESTROL 400 MG/10 ML CUP PO SCH (08:25)
[2017-03-18 08:27] VITALS: BP 139/66; PULSE 64; RESP 16; TEMP 97.6
[2017-03-18 10:13] LABS: Basophils % (A) 0 %; CH 31.1; CHCM 33.5; Eosinophils % (A) 0 %; HCT 33.4 % (39.0-53.0); HDW 2.72; HGB 10.7 gm/dL (13.0-17.5); Luc # (Auto) 0.14; Luc % (Auto) 1; Lymphocytes # (A) 1.1 k/uL (1.0-4.8); Lymphocytes % (A) 10 %; MCH 29.8 pg (25.0-35.0); MCHC 31.9 g/dL (31.0-37.0); MCV 93.3 fL (80.0-100.0); Mean Platelet Volume 7.6; Monocytes # (A) 0.8 k/uL (0-1.0); Monocytes % (A) 7 %; Neutrophils % (A) 82 %; RBC 3.58 m/uL (4.30-5.90); RDW 14.1 % (11.5-15.5); WBC 11.1 k/uL (3.8-10.6)
[2017-03-18 10:21] LABS: Anion Gap 6 mmol/L; Blood Urea Nitrogen 16 mg/dL (9-20); Calcium 8.6 mg/dL (8.4-10.2); Carbon Dioxide 28 mmol/L (22-30); Chloride 107 mmol/L (98-107); Glucose 110 mg/dL (74-99); Magnesium 1.7 mg/dL (1.6-2.3); Non-African American GFR(MDRD) >60 (>60 ml/min/1.73 sqM); Potassium 3.7 mmol/L (3.5-5.1); Sodium 141 mmol/L (137-145)
[2017-03-18] MEDS: SYMBICORT 80-4.5 MCG INHALER INHALATION SCH (11:00)
--- NOTE | 2017-03-18 11:01 | P.DS ---
Addendum entered and electronically signed by Bernadette Bergeron NP-C 03/18/17 11: 29: Clarification: Final diagnoses, anemia of chronic disease, ferritin level pending. Change Protonix to 40 mg twice a day. Under plan: Holter monitor for 30 days Addendum entered and electronically signed by Bernadette Bergeron NP-C 03/18/17 11: 02: Final diagnoses #9 iron deficient anemia Original Note: <Bernadette Bergeron - Last Filed: 03/18/17 10:58> Providers Date of admission: 03/12/17 23:25 Expected date of discharge: 03/18/17 Attending physician: Britany Hitchcock Consults: 03/12/17 23:26 Consult Physician Urgent Consulting Provider: Daphney Mae Consult Reason/Comments: Patient known to physician Do you want consulting provider notified?: Yes, Notify in am Consult Physician Urgent Consulting Provider: Rosemary Leblanc Consult Reason/Comments: CVA Do you want consulting provider notified?: Yes, Notify in am 03/13/17 02:11 Consult Physician Urgent Consulting Provider: [facility] Consult Reason/Comments: New onset Afib Do you want consulting provider notified?: Yes, Notify in am 03/13/17 16:55 Consult Physician Routine Consulting Provider: Lenka Gomez Consult Reason/Comments: RA Do you want consulting provider notified?: Yes Primary care physician: Daphney Mae Hospital Course: Final Diagnoses: #1 Acute CVA with right-sided arm and leg weakness with left facial droop, improving #2 atrial fibrillation with rapid ventricular response, now in normal sinus rhythm. New-onset. Paroxysmal in nature. #3 Mild dementia #4 recurrent UTIs #5 asthma, no acute exacerbation #6 acute exacerbation of rheumatoid arthritis #7 moderate to severe protein calorie malnutrition, weight loss of greater than 40 pounds in 1 year. #8 gait dysfunction, uses walker with assistance, history of right foot drop. Hospital course:This is an 86-year-old gentleman with a known history of asthma, rheumatoid arthritis, history of prostate cancer status post radiation seeds who presented to the hospital with symptoms of right-sided weakness and was diagnosed with CVA/TIA, moderate to severe protein calorie malnutrition. Patient was found to have new diagnosis of atrial fibrillation. At this time he continues to be in a normal sinus rhythm. He is on Eliquis for anticoagulation. Echocardiogram revealed an ejection fraction of 55-60%. A cardiology, neurology and rheumatology.Patient had workup done including CT head, CT angiogram, EEG, carotid duplex and MRI of the brain.MRI of the brain does appear to be possible early ischemia in the left dorothy, suggesting infarction. He is admitted atrophic changes and high right frontal meningioma. Initiated on beta marta, dose decreased related to bradycardia, anticoagulated on Eliquis, statin initiated. Significant clinical improvement. Patient has been cleared for discharge by all consults. Patient is being discharged to [facility] in a stable condition with guarded prognosis. The impression and plan of care has been dictated as directed. : I performed a H&P examination of this patient and discussed the same with the dictator. I agree with the dictator's note. Any additional findings/opinions/ etc. will be noted. Patient Condition at Discharge: Stable Plan - Discharge Summary New Discharge Prescriptions: New Apixaban [Eliquis] 2.5 mg PO BID tab Atorvastatin [Lipitor] 40 mg PO HS tab Ergocalciferol [Vitamin D2 (DRISDOL)] 50,000 unit PO Q7D cap Megestrol [Megace] 400 mg PO DAILY dose Metoprolol Tartrate [Lopressor] 12.5 mg PO BID tab Mirtazapine [Remeron] 7.5 mg PO HS tab Multivitamins, Thera [Multivitamin (formulary)] 1 tab PO DAILY@1200 #1 tablet Pantoprazole [Protonix] 40 mg PO AC-BRKFST tab predniSONE 30 mg PO DAILY tab QUEtiapine [SEROquel] 12.5 mg PO HS PRN tab PRN Reason: Agitation Pantoprazole Sodium [Protonix] 40 mg PO BID #60 tablet.dr Continue Fluticasone/Salmeterol [Advair 250-50 Diskus] 1 puff INHALATION RT-BID Folic Acid 1 mg PO QAM Changed Ipratropium-Albuterol Nebulize [Duoneb 0.5 mg-3 mg/3 ml Soln] 3 ml INHALATION RT-QID #0 Discontinued Escitalopram [Lexapro] 10 mg PO QAM Discharge Medication List Fluticasone/Salmeterol [Advair 250-50 Diskus] 1 puff INHALATION RT-BID 08/16/17 [History] Folic Acid 1 mg PO QAM 03/12/17 [History] Apixaban [Eliquis] 2.5 mg PO BID tab 03/18/17 [Rx] Atorvastatin [Lipitor] 40 mg PO HS tab 03/18/17 [Rx] Ergocalciferol [Vitamin D2 (DRISDOL)] 50,000 unit PO Q7D cap 03/18/17 [Rx] Ipratropium-Albuterol Nebulize [Duoneb 0.5 mg-3 mg/3 ml Soln] 3 ml INHALATION RT -QID #0 03/18/17 [Rx] Megestrol [Megace] 400 mg PO DAILY dose 03/18/17 [Rx] Metoprolol Tartrate [Lopressor] 12.5 mg PO BID tab 03/18/17 [Rx] Mirtazapine [Remeron] 7.5 mg PO HS tab 03/18/17 [Rx] Multivitamins, Thera [Multivitamin (formulary)] 1 tab PO DAILY@1200 #1 tablet [Rx] Pantoprazole Sodium [Protonix] 40 mg PO BID #60 tablet.dr 03/18/17 [Rx] Pantoprazole [Protonix] 40 mg PO AC-BRKFST tab 03/18/17 [Rx] QUEtiapine [SEROquel] 12.5 mg PO HS PRN tab 03/18/17 [Rx] predniSONE 30 mg PO DAILY tab 03/18/17 [Rx] Follow up Appointment(s)/Referral(s): Rosemary Leblanc MD [STAFF PHYSICIAN] - 04/10/17 10:15 am Jamal Mcbride MD [STAFF PHYSICIAN] - 04/04/17 4:30 pm Cyrsu Bailey MD [STAFF PHYSICIAN] - 3 Days (While at [facility]) Lenka Gomez MD [STAFF PHYSICIAN] - 04/01/17 8:45 am (Appointment at 9:30, arrive at 8:45 for new patient forms) Daphney Mae MD [Primary Care Provider] - 1 Week (after DC from [facility]) Activity/Diet/Wound Care/Special Instructions: [facility] further steroid tapering to be completed at follow-up visit with dr. gomez. Diet: Cardiac, high protein, high calorie,encourage oral intake, Magic cups between meals ( No chocolate please)) Activity: As tolerated with walker and assistance Speech therapy Calorie Count with each meal , close monitoring of diet intake, BMI 18.4 CBC, BMP,Magnesium in 3 days Please have molder feeder that comes in to ECF trim both toenails and fingernails Discharge Disposition: TRANSFER TO SNF/ECF <Meek Hitchcock - Last Filed: 03/19/17 00:49> Hospital Course: Patient was seen and examined with DEALER ANALYST and reports reviewed. I agree with plan and management
[2017-03-18] MEDS ORDERED: MAGNESIUM OXIDE 400 MG TAB PO STA (11:39)
[2017-03-18] MEDS ORDERED: FERROUS SULFATE 325 MG TAB PO SCH (12:30)
--- NOTE | 2017-03-18 14:26 | P.PN ---
Subjective Principal diagnosis: Right-sided weakness This is an 86-year-old gentleman who presented to the hospital with symptoms of right-sided weakness and was diagnosed with TIA. Cardiology was following the patient because of a new diagnosis of atrial fibrillation. At this time he continues to be in a normal sinus rhythm, this morning his heart rate is in the 40s. Patient has been given Haldol through the night because of agitation. We will hold his morning dose of beta marta today, and decrease the dose to 12-1/2 mg one tablet by mouth twice a day from tomorrow. He is on Eliquis for anticoagulation. Echocardiogram revealed an ejection fraction of 55 -60%. 03/17/2017 Patient seen and examined this morning, sitting up in the chair bedside. Continues to be confused. In normal sinus rhythm with heart rates in the 70s. On Eliquis for anticoagulation. 03/18/2017 Patient seen and examined this morning, being discharged home today. Currently on Eliquis for anticoagulation. Objective - Vital Signs Vital signs: Vital Signs Temp 97.6 F 03/18/17 08:00 Pulse 64 03/18/17 08:00 Resp 16 03/18/17 08:00 BP 139/66 03/18/17 08:00 Pulse Ox 95 03/18/17 08:00 Intake & Output 03/17/17 03/18/17 03/18/17 18:59 06:59 18:59 Intake Total 672 250 Output Total 250 450 Balance 422 -200 Weight 62.5 kg 61.6 kg Intake: Intake, IV Titration 250 Amount Sodium Chloride 0.9% 1, 250 000 ml @ 75 mls/hr IV . [id number] [facility] Rx#:[id number] Oral 672 Output: Urine 250 450 Other: Voiding Method Toilet Toilet Toilet Urinal Urinal Urinal # Voids 1 - Exam HEENT: Head is atraumatic, normocephalic. Pupils equal, round. Neck is supple. There is no elevated jugular venous pressure. HEART EXAMINATION: Heart S1 and S2 with soft systolic murmur is heard. CHEST EXAMINATION: Lungs are clear to auscultation and precussion. No chest wall tenderness is noted on palpation or with deep breathing. ABDOMEN: Soft, nontender. Bowel sounds are heard. No organomegaly noted. EXTREMITIES:[ 2+ peripheral pulses with no evidence of peripheral edema and no calf tenderness noted]. NEUROLOGIC [patient is awake, alert and oriented times one - Labs CBC & Chem 7: 03/18/17 06:20 03/18/17 06:20 Labs: Abnormal Lab Results - Last 24 Hours (Table) 03/13/17 03/17/17 03/18/17 Range/Units 18:09 16:39 06:20 WBC (3.8-10.6) k/uL RBC (4.30-5.90) m/uL Hgb (13.0-17.5) gm/dL Hct (39.0-53.0) % Neutrophils # (1.3-7.7) k/uL Creatinine (0.66-1.25) mg/dL Glucose (74-99) mg/dL POC Glucose (mg/dL) 183 H (75-99) mg/dL Iron 41 L (49-181) ug/dL TIBC 184 L (261-462) ug/dL Total Protein (PEP) 5.6 L (6.2-8.2) g/dL Albumin (PEP) 2.59 L (3.80-4.90) g/dL 03/18/17 03/18/17 Range/Units 06:20 06:20 WBC 11.1 H (3.8-10.6) k/uL RBC 3.58 L (4.30-5.90) m/uL Hgb 10.7 L (13.0-17.5) gm/dL Hct 33.4 L (39.0-53.0) % Neutrophils # 9.0 H (1.3-7.7) k/uL Creatinine 0.62 L (0.66-1.25) mg/dL Glucose 110 H (74-99) mg/dL POC Glucose (mg/dL) (75-99) mg/dL Iron (49-181) ug/dL TIBC (261-462) ug/dL Total Protein (PEP) (6.2-8.2) g/dL Albumin (PEP) (3.80-4.90) g/dL Assessment and Plan Plan: Assessment and plan #1 symptoms of right-sided arm and leg weakness, suggestive of TIA. Neurology following. #2 atrial fibrillation with rapid ventricular response, now in normal sinus rhythm. New-onset. Paroxysmal in nature. #3 Mild dementia #4 recurrent UTIs #5 asthma Plan From cardiology's perspective, we will continue the patient on his current medications. Patient will require lifelong anticoagulation for stroke prevention. We will make him a follow-up appointment in the office to see Dr. Smith post discharge. DNP note has been reviewed, I agree with a documented findings and plan of care. Patient was seen and examined.
[2017-03-18] MEDS ORDERED: SENNOSIDES-DOCUSATE SODIUM 1 EACH TAB PO SCH (21:00)
== END 2017-03-18 12:10 | DRG 64 ==
LOC: EC 20:53 → 6SEL 23:25
PROVIDERS: ADMIT Hospitalist; ATTEND Hospitalist
DX: I63.9 Cerebral infarction, unspecified (principal); E43 Unspecified severe protein-calorie malnutrition; G81.94 Hemiplegia, unspecified affecting left nondominant side; E87.1 Hypo-osmolality and hyponatremia; F03.90 Unspecified dementia, unspecified severity, without behavioral disturbance, psychotic disturbance, mood disturbance, and anxiety; I48.0 Paroxysmal atrial fibrillation; J44.9 Chronic obstructive pulmonary disease, unspecified; E86.0 Dehydration; R29.810 Facial weakness; D32.0 Benign neoplasm of cerebral meninges; G89.29 Other chronic pain; H70.90 Unspecified mastoiditis, unspecified ear; J32.9 Chronic sinusitis, unspecified; M21.371 Foot drop, right foot; M19.90 Unspecified osteoarthritis, unspecified site; M54.9 Dorsalgia, unspecified; R26.9 Unspecified abnormalities of gait and mobility; J45.30 Mild persistent asthma, uncomplicated; D72.829 Elevated white blood cell count, unspecified; M65.9 Synovitis and tenosynovitis, unspecified; M06.9 Rheumatoid arthritis, unspecified; R32 Unspecified urinary incontinence; D50.9 Iron deficiency anemia, unspecified; D63.8 Anemia in other chronic diseases classified elsewhere; Z79.899 Other long term (current) drug therapy; Z85.46 Personal history of malignant neoplasm of prostate; Z82.49 Family history of ischemic heart disease and other diseases of the circulatory system; Z66 Do not resuscitate
CPT/HCPCS: 36415; 70450; 70496; 70498; 70553; 71010; 80048; 80053; 80061; 81001; 82085; 82164; 82306; 82310; 82378; 82550; 82553; 82607; 82728; 82747; 83036; 83516; 83540; 83550; 83735; 83883; 84132; 84165; 84443; 84484; 84550; 85025; 85598; 85610; 85613; 85652; 85730; 85732; 86038; 86140; 86147; 86160; 86162; 86200; 86225; 86226; 86235; 86255; 86334; 86431; 86812; 87086; 87340; 87522; 93005; 93306; 93880; 94640; 94760; 95819; 96361; 96372; 96374; 99291

== ENCOUNTER → 2019-03-02 | Outpatient (CLI) | payer MEDICARE, OTHER ==
--- NOTE | 2019-03-03 09:48 | NM ---
EXAMINATION TYPE: NM bone scan whole body DATE OF EXAM: 03/02/2019 COMPARISON: No recent exams, correlation to prior CT 12/29/2016 HISTORY: Prostate cancer, right hip pain Delayed whole-body scanning was performed following the injection of 20.2 mCi Tc 99m MDP. Images acq uired 3 hours post injection. FINDINGS: Mild increased uptake noted at the right hip joint correlates with osteoarthritic change. Arthropathy also noted in the right knee greater than left, bilateral wrists, shoulders, sternoclavicular joints . Uptake within the lumbar spine correlates with patient's degenerative disc change. Uptake in the ma xilla and mandible likely due to periodontal disease. Soft tissue uptake is noted and is normal. 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 Metastatic disease is not evident.
== END | disposition home or self-care (01) ==
LOC: RADNMMAIN 11:25
PROVIDERS: ATTEND Orthopaedic Surgery Sports Medicine
DX: M16.11 Unilateral primary osteoarthritis, right hip (principal); M51.36 Other intervertebral disc degeneration, lumbar region
CPT/HCPCS: 78306; A9503

== ENCOUNTER → 2019-05-12 | Outpatient (CLI) | payer MEDICARE, OTHER | END | disposition home or self-care (01) | LOC: LABWHC1 16:44 | PROVIDERS: ATTEND Urology | DX: N30.20 Other chronic cystitis without hematuria (principal) | CPT/HCPCS: 87086 ==

== ENCOUNTER 2020-03-04 22:53 | Inpatient (IN) | payer MEDICARE, OTHER ==
[2020-03-05] MEDS ORDERED: IPRATROPIUM-ALBUTEROL 3 ML NEB INHALATION PRN ×2 (00:30→11:21)
[2020-03-05 00:41] LABS: Basophils % (A) 0 %; Eosinophils # (A) 0.1 k/uL (0-0.7); Eosinophils % (A) 1 %; HCT 36.7 % (39.0-53.0); HGB 11.8 gm/dL (13.0-17.5); Lymphocytes # (A) 0.8 k/uL (1.0-4.8); Lymphocytes % (A) 5 %; MCH 29.7 pg (25.0-35.0); MCHC 32.3 g/dL (31.0-37.0); MCV 92.2 fL (80.0-100.0); Mean Platelet Volume 7.3; Monocytes % (A) 7 %; Neutrophils # (A) 12.7 k/uL (1.3-7.7); Neutrophils % (A) 87 %; Platelet Count 284 k/uL (150-450); RBC 3.98 m/uL (4.30-5.90); RDW 14.3 % (11.5-15.5); WBC 14.7 k/uL (3.8-10.6)
[2020-03-05] MEDS ORDERED: ALPRAZolam 0.5 MG TAB PO PRN (00:44)
[2020-03-05] MEDS ORDERED: MINERAL OIL-WHITE PETROLATUM 120 GM JAR TOPICAL PRN (00:45)
[2020-03-05] MEDS ORDERED: Magnesium Replacement Protocol 1 EACH MISC MISCELLANE PRN (00:58)
[2020-03-05] MEDS ORDERED: Potassium Replacement Protocol 1 EACH MISC MISCELLANE PRN (00:58)
[2020-03-05 01:40] LABS: ALT 18 U/L (4-49); AST 22 U/L (17-59); African American GFR (CKD) >90 (>60 ml/min/1.73 sqM); Albumin 2.8 g/dL (3.5-5.0); Alkaline Phosphatase 90 U/L (38-126); Anion Gap 8 mmol/L; Blood Urea Nitrogen 32 mg/dL (9-20); Calcium 8.4 mg/dL (8.4-10.2); Carbon Dioxide 21 mmol/L (22-30); Chloride 106 mmol/L (98-107); Glucose 121 mg/dL (74-99); Magnesium 1.8 mg/dL (1.6-2.3); Non-African American GFR(CKD) 84 (>60 ml/min/1.73 sqM); Potassium 3.7 mmol/L (3.5-5.1); Sodium 135 mmol/L (137-145); Total Bilirubin 0.7 mg/dL (0.2-1.3); Total Protein 6.1 g/dL (6.3-8.2)
[2020-03-05] MEDS ORDERED: METOPROLOL TARTRATE 25 MG TAB PO STA (01:41)
[2020-03-05 01:46] LABS: Basophils % (A) 0 %; Eosinophils # (A) 0.1 k/uL (0-0.7); Eosinophils % (A) 1 %; HCT 34.7 % (39.0-53.0); HGB 11.1 gm/dL (13.0-17.5); Hypochromasia Slight; Lymphocytes # (A) 0.6 k/uL (1.0-4.8); Lymphocytes % (A) 4 %; MCH 29.9 pg (25.0-35.0); MCV 93.4 fL (80.0-100.0); Mean Platelet Volume 7.3; Monocytes # (A) 0.9 k/uL (0-1.0); Monocytes % (A) 6 %; Neutrophils # (A) 13.1 k/uL (1.3-7.7); Neutrophils % (A) 88 %; Platelet Count 286 k/uL (150-450); RBC 3.72 m/uL (4.30-5.90); RDW 14.3 % (11.5-15.5); WBC 14.9 k/uL (3.8-10.6)
[2020-03-05] MEDS: SODIUM CHLORIDE 0.9% 1,000 ML IV SCH ×3 (02:16→22:06)
[2020-03-05 05:07] LABS: Mucus,Urine Rare /hpf; RBC,Urine 1 /hpf (0-5); Squamous Epithelial Cell,Urine 1 /hpf (0-4); WBC,Urine >182 /hpf (0-5)
[2020-03-05 05:12] LABS: Appearance,Urine Turbid (Clear); Color,Urine Yellow; Glucose,Urine (UA) Negative (Negative); Ketones,Urine Negative (Negative); PH, Urine 7.5 (5.0-8.0); Protein,Urine 1+ (Negative)
[2020-03-05 05:13] LABS: Bilirubin,Urine Negative (Negative); Blood,Urine Moderate (Negative); Leukocyte Esterase,Urine Large (Negative); Nitrite,Urine Negative (Negative)
[2020-03-05] MEDS: IPRATROPIUM-ALBUTEROL 3 ML NEB INHALATION SCH ×4 (07:46→19:04)
[2020-03-05] MEDS: SYMBICORT 80-4.5 MCG INHALER INHALATION SCH ×2 (07:46→19:04)
[2020-03-05] MEDS ORDERED: AMIODARONE 360 MG in DEXTROSE 5% IN WATER 200 ML IV ONE ×2 (08:38)
[2020-03-05] MEDS ORDERED: DEXTROSE 5% IN WATER 100 ML with AMIODARONE 150 MG IV ONE (08:38)
[2020-03-05] MEDS ORDERED: METOPROLOL TARTRATE 12.5 MG TAB PO SCH (09:00)
[2020-03-05] MEDS ORDERED: SODIUM CHLORIDE 0.9% 250 ML IV ONE (09:00)
--- NOTE | 2020-03-05 09:00 | P.CRDCN ---
History of Present Illness Consult date: 03/05/20 Chief complaint: Generalized weakness History of present illness: This is a very pleasant 89-year-old gentleman with a past medical history signi ficant for long-standing persistent atrial fibrillation on oral anticoagulation as well as underlying dementia was brought to the hospital by his family because he was not feeling well. Unfortunately the patient lost his few days ago. Since then he has not been eating and drinking well. He was not feeling well. He was feeling tired and fatigued and has no energy. This morning when the crys serranorichard was seen he was experiencing shivering and the temperature was elevated at 101. No symptoms of dizziness or lightheadedness or syncope. No symptoms of chest pain or chest discomfort, shortness of breath, or any feeling of heart racing or fluttering. The patient was diagnosed with dehydration and also the urine analysis revealed evidence of urinary tract infection and currently he is on antibiotic. We involved in the care of the patient for further evaluation of atrial fibrillation with RVR. The heart rate has been around 120 beats per minutes. The blood pressure has been marginal and it has been in the 90s. The patient is on metoprolol at 25 mg by mouth twice a day. He is also on oral anticoagulation. I am going to DC the metoprolol and start the patient on amiodarone bolus and drip. Continue oral anticoagulation at this point. Beside that he is in process of getting a urine culture and blood culture as well. Past Medical History Past Medical History: Atrial Fibrillation, Asthma, Cancer, Prostate Disorder, Rheumatoid Arthritis (RA) Additional Past Medical History / Comment(s): chronic back problems, Rt foot drop, Uses a walker, prostate cancer, radiation seeds History of Any Multi-Drug Resistant Organisms: ESBL Date of last positivie culture/infection: 03/30/17 MDRO Source:: URINE ESBL Past Surgical History: Back Surgery Additional Past Surgical History / Comment(s): RECENT PICC LINE, NOW REMOVED, JONO CATARACTS, R hand surgery Past Anesthesia/Blood Transfusion Reactions: No Reported Reaction Past Psychological History: No Psychological Hx Reported Smoking Status: Never smoker Past Alcohol Use History: None Reported Past Drug Use History: None Reported - Past Family History Father Family Medical History: No Reported History Mother Family Medical History: GI Bleed Medications and Allergies Home Medications Medication Instructions Recorded Confirmed Type Folic Acid 1 mg PO HS@199903/12/17 03/05/20 History Apixaban [Eliquis] 2.5 mg PO BID tab 03/18/17 03/05/20 Rx Atorvastatin [Lipitor] 40 mg PO HS tab 03/18/17 03/05/20 Rx ALPRAZolam [Xanax] 0.5 mg PO BID PRN 03/05/20 03/05/20 History Breo Unknown 1 puff INHALATION RT-DAILY 03/05/20 03/05/20 History Colloidal Oatmeal [Eucerin Eczema 1 applic TOPICAL DAILY PRN 03/05/20 03/05/20 History Relief] Cyanocobalamin [Vitamin B-12] 500 mcg PO DAILY@79903/05/20 03/05/20 History Donepezil [Aricept] 10 mg PO DAILY@79903/05/20 03/05/20 History Ergocalciferol [Vitamin D2 50,000 unit PO HARO 03/05/20 03/05/20 History (DRISDOL)] Ipratropium-Albuterol Nebulize 3 ml INHALATION RT-QID PRN 03/05/20 03/05/20 History [Duoneb 0.5 mg-3 mg/3 ml Soln] Metoprolol Tartrate [Lopressor] 12.5 mg PO BID 03/05/20 03/05/20 History Mirtazapine [Remeron] 30 mg PO HS 03/05/20 03/05/20 History Pantoprazole [Protonix] 40 mg PO DAILY@79903/05/20 03/05/20 History QUEtiapine [SEROquel] 50 mg PO HS@199903/05/20 03/05/20 History Allergies Allergy/AdvReac Type Severity Reaction Status Date / Time No Known Allergies Allergy Verified 03/05/20 07:47 Physical Exam Vitals: Vital Signs Temp Pulse Resp BP Pulse Ox 03/05/20 08:15 101.7 F H 119 H 18 92/51 96 03/05/20 04:05 16 03/05/20 00:10 98.9 F 132 H 20 137/73 96 03/04/20 23:43 147 H 17 Intake and Output 03/04/20 03/05/20 03/05/20 22:59 06:59 14:59 Intake Total 100 Balance 100 Intake: Oral 100 Other: Voiding Method Urinal Toilet Urinal # Voids 1 Weight 64.5 kg - Constitutional General appearance: no acute distress - Respiratory Respiratory: bilateral: CTA - Cardiovascular Rhythm: regular Heart sounds: normal: S1, S2 Abnormal Heart Sounds: systolic murmur Results 03/05/20 01:09 03/05/20 01:09 Cardiac Enzymes 03/05/20 03/05/20 Range/Units 01:09 01:09 AST 22 (17-59) U/L Troponin I <0.012 (0.000-0.034) ng/mL CBC 03/05/20 03/05/20 Range/Units 00:27 01:09 WBC 14.7 H 14.9 H (3.8-10.6) k/uL RBC 3.98 L 3.72 L (4.30-5.90) m/uL Hgb 11.8 L 11.1 L (13.0-17.5) gm/dL Hct 36.7 L 34.7 L (39.0-53.0) % Plt Count 284 286 (150-450) k/uL Comprehensive Metabolic Panel 03/05/20 Range/Units 01:09 Sodium 135 L (137-145) mmol/L Potassium 3.7 (3.5-5.1) mmol/L Chloride 106 (98-107) mmol/L Carbon Dioxide 21 L (22-30) mmol/L BUN 32 H (9-20) mg/dL Creatinine 0.72 (0.66-1.25) mg/dL Glucose 121 H (74-99) mg/dL Calcium 8.4 (8.4-10.2) mg/dL AST 22 (17-59) U/L ALT 18 (4-49) U/L Alkaline Phosphatase 90 (38-126) U/L Total Protein 6.1 L (6.3-8.2) g/dL Albumin 2.8 L (3.5-5.0) g/dL Current Medications Generic Name Dose Route Start Last Admin Trade Name Freq PRN Reason Stop Dose Admin Albuterol/Ipratropium 3 ml 03/05/20 08:00 03/05/20 07:46 Duoneb 0.5 Mg-3 Mg/3 Ml Soln INHALATION Not Given RT-QID DANIEL Albuterol/Ipratropium 3 ml 03/05/20 00:30 Duoneb 0.5 Mg-3 Mg/3 Ml Soln INHALATION RT-Q2H PRN Shortness Of Breath Or Wheezing Alprazolam 0.5 mg 03/05/20 00:44 Xanax PO BID PRN Agitation Apixaban 2.5 mg 03/05/20 09:00 Eliquis PO BID [facility] Atorvastatin Calcium 40 mg 03/05/20 21:00 Lipitor PO HS [facility] Budesonide/Formoterol Fumarate 2 puff 03/05/20 09:00 03/05/20 07:46 Symbicort 80-4.5 Mcg Inhaler INHALATION Not Given RT-BID [facility] Cyanocobalamin 500 mcg 03/05/20 09:00 Vitamin B-12 PO DAILY [facility] Escitalopram Oxalate 10 mg 03/05/20 09:00 Lexapro PO DAILY DANIEL Folic Acid 1 mg 03/05/20 09:00 Folic Acid PO QAM DANIEL Sodium Chloride 1,000 mls @ 60 mls/hr 03/05/20 00:15 03/05/20 02:16 Saline 0.9% IV 60 mls/hr .[id number] DANIEL Administration Ceftriaxone Sodium 1 gm/ 50 mls @ 100 mls/hr 03/05/20 02:00 03/05/20 04:42 Sodium Chloride IVPB 100 mls/hr HS DANIEL Administration Amiodarone HCl 360 mg/ 200 mls @ 33.333 mls/hr 03/05/20 08:38 Dextrose/Water IV 03/05/20 14:37 .Q6H ONE Protocol 1 MG/MIN Amiodarone HCl 300 mg/ 250 mls @ 25 mls/hr 03/05/20 14:38 Dextrose/Water IV 03/06/20 08:37 .Q10H DANIEL Protocol 0.5 MG/MIN Sodium Chloride 250 mls @ 999 mls/hr 03/05/20 09:00 Saline 0.9% IV 03/05/20 09:15 .Q16M ONE Miscellaneous Information 1 each 03/05/20 00:58 Magnesium Per Protocol MISCELLANE DAILY PRN Per Protocol Protocol Miscellaneous Information 1 each 03/05/20 00:58 Potassium Per Protocol MISCELLANE DAILY PRN Per Protocol Protocol Multi-Ingred Cream/Lotion/Oil/Oint 1 applic 08/09/20 00:45 Eucerin Cream TOPICAL BID PRN Dry Skin Multivitamins 1 each 03/05/20 12:00 Theragran PO DAILY@1200 DANIEL Pantoprazole Sodium 40 mg 03/05/20 09:00 Protonix IVP DAILY DANIEL Quetiapine Fumarate 50 mg 03/05/20 21:00 Seroquel PO HS DANIEL Intake and Output 03/04/20 03/05/20 03/05/20 22:59 06:59 14:59 Intake Total 100 Balance 100 Intake: Oral 100 Other: Voiding Method Urinal Toilet Urinal # Voids 1 Weight 64.5 kg 03/05/20 01:09 03/05/20 01:09 Assessment and Plan Assessment: Assessment #1 urosepsis #2 dehydration #3 atrial fibrillation with RVR secondary to the above #4 underlying dementia Plan #1 hold metoprolol in view of the marginal blood pressure #2 start the patient on amiodarone was bolus and drip and switched to amiodarone by mouth down the line #3 give the patient a bolus of IV fluid of 250 cc normal saline #4 continue oral anticoagulation #5 transferred to the ICU if he goes unstable
[2020-03-05] MEDS: ACETAMINOPHEN TAB 325 MG TAB PO PRN ×2 (09:14→23:38)
[2020-03-05] MEDS: CYANOCOBALAMIN 500 MCG TAB PO SCH (10:39)
[2020-03-05] MEDS: ESCITALOPRAM 10 MG TAB PO SCH (10:39)
[2020-03-05] MEDS: FOLIC ACID 1 MG TAB PO SCH (10:39)
[2020-03-05] MEDS: APIXABAN 2.5 MG TABLET PO SCH ×2 (10:39→22:01)
[2020-03-05] MEDS: MULTIVITAMINS, THERA 1 EACH TAB PO SCH (10:39)
[2020-03-05] MEDS: PANTOPRAZOLE 40 MG/10 ML VIAL IVP SCH (10:42)
[2020-03-05 11:14] VITALS: BMI 19.3
[2020-03-05] MEDS ORDERED: QUEtiapine 50 MG TAB PO PRN (11:21)
--- NOTE | 2020-03-05 12:38 | P.HPIM ---
History of Present Illness Patient is a pleasant 89-year-old male was sent in here because of the fever. Patient does have history of atrial ablation patient is found to be in A. fib with rapid unclear rate. Patient does have dementia appears to be moderate, does get agitated for which patient is on Seroquel. Patient was having altered mental status at home all the workup is negative except for urine which was abnormal for which patient was started on Rocephin. Patient had Proteus mirabilis in the urine in the past that Proteus mirabilis was pansensitive. Patient is unable to provide much of the history because of his insulin for his hearing problems and baseline dementia. Patient had temperature of 101. Patient heart rate was 1 20 bpm and patient clinically appears to be bit dehydrated. Patient blood pressure was low as well. Patient was on metoprolol which is being switched to amiodarone IV because of hypotension. Is not easy to obtain history from the patient but he denied any dysuria or increased urinary frequency. Patient had a QT of 380 and QTC is around 490. Chest x-ray did not show any obvious infiltrate hip x-ray and knee x-ray were not read by the radiologist at Review of Systems REVIEW OF SYSTEMS: Unable to obtain due to his clinical condition Past Medical History Past Medical History: Atrial Fibrillation, Asthma, Cancer, Prostate Disorder, Rh eumatoid Arthritis (RA) Additional Past Medical History / Comment(s): chronic back problems, Rt foot drop, Uses a walker, prostate cancer, radiation seeds History of Any Multi-Drug Resistant Organisms: ESBL Date of last positivie culture/infection: 03/30/17 MDRO Source:: URINE ESBL Past Surgical History: Back Surgery Additional Past Surgical History / Comment(s): RECENT PICC LINE, NOW REMOVED, JONO CATARACTS, R hand surgery Past Anesthesia/Blood Transfusion Reactions: No Reported Reaction Past Psychological History: No Psychological Hx Reported Smoking Status: Never smoker Past Alcohol Use History: None Reported Past Drug Use History: None Reported - Past Family History Father Family Medical History: No Reported History Mother Family Medical History: GI Bleed Medications and Allergies Home Medications Medication Instructions Recorded Confirmed Type Folic Acid 1 mg PO HS@199903/12/17 03/05/20 History Apixaban [Eliquis] 2.5 mg PO BID tab 03/18/17 03/05/20 Rx Atorvastatin [Lipitor] 40 mg PO HS tab 03/18/17 03/05/20 Rx ALPRAZolam [Xanax] 0.5 mg PO BID PRN 03/05/20 03/05/20 History Breo Unknown 1 puff INHALATION RT-DAILY 03/05/20 03/05/20 History Colloidal Oatmeal [Eucerin Eczema 1 applic TOPICAL DAILY PRN 03/05/20 03/05/20 History Relief] Cyanocobalamin [Vitamin B-12] 500 mcg PO DAILY@79903/05/20 03/05/20 History Donepezil [Aricept] 10 mg PO DAILY@79903/05/20 03/05/20 History Ergocalciferol [Vitamin D2 50,000 unit PO HARO 03/05/20 03/05/20 History (DRISDOL)] Ipratropium-Albuterol Nebulize 3 ml INHALATION RT-QID PRN 03/05/20 03/05/20 History [Duoneb 0.5 mg-3 mg/3 ml Soln] Metoprolol Tartrate [Lopressor] 12.5 mg PO BID 03/05/20 03/05/20 History Mirtazapine [Remeron] 30 mg PO HS 03/05/20 03/05/20 History Pantoprazole [Protonix] 40 mg PO DAILY@79903/05/20 03/05/20 History QUEtiapine [SEROquel] 50 mg PO HS@199903/05/20 03/05/20 History Allergies Allergy/AdvReac Type Severity Reaction Status Date / Time No Known Allergies Allergy Verified 03/05/20 07:47 Physical Exam Vitals: Vital Signs Temp Pulse Resp BP Pulse Ox 03/05/20 10:00 98.3 F 03/05/20 08:15 101.7 F H 119 H 18 92/51 96 03/05/20 04:05 16 03/05/20 00:10 98.9 F 132 H 20 137/73 96 03/04/20 23:43 147 H 17 Intake and Output 03/04/20 03/05/20 03/05/20 22:59 06:59 14:59 Intake Total 100 Output Total 0 Balance 100 0 Intake: Oral 100 Output: Urine 0 Other: Voiding Method Urinal Toilet Urinal # Voids 1 0 Weight 64.5 kg 64.5 kg PHYSICAL EXAMINATION: GENERAL: The patient is alert and oriented x1-2, not in any acute distress. Thin built with dry because membranes. HEENT: Pupils are round and equally reacting to light. EOMI. No scleral icterus. No conjunctival pallor. Normocephalic, atraumatic. No pharyngeal erythema. No thyromegaly. CARDIOVASCULAR: S1 and S2 present. No murmurs, rubs, or gallops. Fibrillation with rapid ventricular rate PULMONARY: Chest is clear to auscultation, no wheezing or crackles. ABDOMEN: Soft, nontender, nondistended, normoactive bowel sounds. No palpable organomegaly. MUSCULOSKELETAL: No joint swelling or deformity. EXTREMITIES: No cyanosis, clubbing, or pedal edema. NEUROLOGICAL: No focal deficits patient is confused because of his baseline dementia SKIN: No rashes. Results CBC & Chem 7: 03/05/20 01:09 03/05/20 01:09 Labs: Abnormal Lab Results - Last 24 Hours (Table) 03/05/20 03/05/20 03/05/20 Range/Units 00:27 01:09 01:09 WBC 14.7 H 14.9 H (3.8-10.6) k/uL RBC 3.98 L 3.72 L (4.30-5.90) m/uL Hgb 11.8 L 11.1 L (13.0-17.5) gm/dL Hct 36.7 L 34.7 L (39.0-53.0) % Neutrophils # 12.7 H 13.1 H (1.3-7.7) k/uL Lymphocytes # 0.8 L 0.6 L (1.0-4.8) k/uL Sodium 135 L (137-145) mmol/L Carbon Dioxide 21 L (22-30) mmol/L BUN 32 H (9-20) mg/dL Glucose 121 H (74-99) mg/dL Total Protein 6.1 L (6.3-8.2) g/dL Albumin 2.8 L (3.5-5.0) g/dL Urine Protein (Negative) Urine WBC (0-5) /hpf Urine WBC Clumps (None) /hpf Urine Mucus (None) /hpf 03/05/20 Range/Units 03:30 WBC (3.8-10.6) k/uL RBC (4.30-5.90) m/uL Hgb (13.0-17.5) gm/dL Hct (39.0-53.0) % Neutrophils # (1.3-7.7) k/uL Lymphocytes # (1.0-4.8) k/uL Sodium (137-145) mmol/L Carbon Dioxide (22-30) mmol/L BUN (9-20) mg/dL Glucose (74-99) mg/dL Total Protein (6.3-8.2) g/dL Albumin (3.5-5.0) g/dL Urine Protein 1+ H (Negative) Urine WBC >182 H (0-5) /hpf Urine WBC Clumps Many H (None) /hpf Urine Mucus Rare H (None) /hpf Microbiology - Last 24 Hours (Table) 03/05/20 03:30 Urine Culture - Preliminary Urine,Voided Thrombosis Risk Factor Assmnt - Choose All That Apply Any of the Below Risk Factors Present?: Yes Other Risk Factors: Yes Each Risk Factor Represents 3 Points: Age 75 years or older Thrombosis Risk Factor Assessment Total Risk Factor Score: 3 Thrombosis Risk Factor Assessment Level: Moderate Risk Assessment and Plan Plan: -Sepsis secondary to possible urinary tract infection continue with urine cul tures can you to Rocephin. - toxic encephalopathy from sepsis - atrial fibrillation with rapid ventricular rate patient was started on amiodarone and A. fib is precipitated by sepsis,Patient is on Eliquis which will be continued Asthma without any acute exacerbation -benign prostatic hypertrophy -Senile or vascular dementia: Patient will review chest started on Seroquel and as-needed basis nighttime for agitation. -Dehydration: Patient was started on 68 mL of IV fluids which will be switched to 100 mL for today when he to cut back on the fluids and closely monitor for any pulmonary edema patient had previous ejection fraction of 50-55% no evidence of any CHF at this time -Depression continue with the Lexapro next and heparin gastroesophageal reflux disease
--- NOTE | 2020-03-05 13:12 | XR ---
EXAMINATION TYPE: XR chest 2V DATE OF EXAM: 03/05/2020 CLINICAL HISTORY: Cough, fever TECHNIQUE: Frontal and lateral views of the chest are obtained. COMPARISON: 03/12/2017 chest radiograph FINDINGS: The cardiomediastinal silhouette is within normal limits for size. Pulmonary vasculature i s normal. There is no focal air space opacity, pleural effusion, or pneumothorax seen. Biapical pleur al thickening. The osseous structures are intact. IMPRESSION: No acute cardiopulmonary process.
--- NOTE | 2020-03-05 14:49 | XR ---
EXAMINATION TYPE: XR knee complete bilateral DATE OF EXAM: 03/05/2020 CLINICAL HISTORY: Pain after fall TECHNIQUE: Frontal, oblique, and lateral views of the bilateral knees are obtained. COMPARISON: None. FINDINGS: There is no acute fracture/dislocation evident in bilateral knee. Chondrocalcinosis bilat erally. The right knee demonstrates marked tricompartmental degenerative spurring, medial compartment joint space narrowing, large suprapatellar joint effusion, and edema of the infrapatellar Hoffa's fa t pad. Left knee demonstrates lateral compartment and patellofemoral degenerative spurring, and no mojica prapatellar joint effusion. IMPRESSION: 1. No acute fracture or dislocation in the bilateral knees. 2. Right knee marked tricompartmental osteoarthrosis, medial compartment joint space narrowing, large suprapatellar joint effusion, and infrapatellar fat pad edema. 2. Mild bicompartmental osteoarthrosis of the left knee.
--- NOTE | 2020-03-05 14:53 | XR ---
EXAMINATION TYPE: XR Hip Bilateral and AP pelvis DATE OF EXAM: 03/05/2020 COMPARISON: CT abdomen and pelvis 12/29/2016. HISTORY: Pain after fall TECHNIQUE: A single AP view of the pelvis is obtained. Two views of the bilateral hip obtained. FINDINGS: Prostate brachytherapy seeds. There is no acute fracture/dislocation evident in the pelvis . Decreased osseous mineralization. There is degenerative change of the bilateral hips, right greate r than left, with right superior hip [id number] contact. The pubic symphysis and sacroiliac joints are unremarkable. Degenerative changes of the spine. Two views of the bilateral hips show no acute fracture or dislocation. There is a redemonstrated sil gn-appearing sclerotic subcentimeter focus of the left proximal femur unchanged versus [address] IMPRESSION: 1. No acute fracture or dislocation in the pelvis or bilateral hips. 2. Degenerative changes of the bilateral hip joints, with [id number] contact on the right.
[2020-03-05] MEDS: AMIODARONE 300 MG in DEXTROSE 5% IN WATER 250 ML IV SCH ×2 (16:13)
[2020-03-05] MEDS ORDERED: QUEtiapine 50 MG TAB PO SCH (21:00)
[2020-03-05] MEDS ORDERED: MIRTAZAPINE 15 MG TAB PO SCH (21:00)
[2020-03-05] MEDS ORDERED: DONEPEZIL 10 MG TAB PO SCH (21:00)
[2020-03-05] MEDS: ATORVASTATIN 40 MG TAB PO SCH (22:01)
[2020-03-06] MEDS: AMIODARONE 300 MG in DEXTROSE 5% IN WATER 250 ML IV SCH ×2 (02:54)
[2020-03-06 06:41] LABS: HGB 9.8 gm/dL (13.0-17.5); Hypochromasia Slight; MCH 29.9 pg (25.0-35.0); MCHC 32.8 g/dL (31.0-37.0); MCV 91.1 fL (80.0-100.0); Mean Platelet Volume 7.5; Platelet Count 289 k/uL (150-450); RDW 14.4 % (11.5-15.5); WBC 13.8 k/uL (3.8-10.6)
[2020-03-06 06:52] LABS: African American GFR (CKD) >90 (>60 ml/min/1.73 sqM); Anion Gap 5 mmol/L; Blood Urea Nitrogen 19 mg/dL (9-20); Calcium 7.8 mg/dL (8.4-10.2); Carbon Dioxide 23 mmol/L (22-30); Chloride 108 mmol/L (98-107); Glucose 87 mg/dL (74-99); Magnesium 1.8 mg/dL (1.6-2.3); Non-African American GFR(CKD) >90 (>60 ml/min/1.73 sqM); Potassium 3.4 mmol/L (3.5-5.1); Sodium 136 mmol/L (137-145)
[2020-03-06] MEDS: IPRATROPIUM-ALBUTEROL 3 ML NEB INHALATION SCH ×4 (07:28→19:49)
[2020-03-06] MEDS: SYMBICORT 80-4.5 MCG INHALER INHALATION SCH ×2 (07:28→19:49)
[2020-03-06] MEDS ORDERED: PANTOPRAZOLE 40 MG TABLET PO SCH (08:00)
[2020-03-06] MEDS: PANTOPRAZOLE 40 MG/10 ML VIAL IVP SCH (08:35)
[2020-03-06] MEDS: FOLIC ACID 1 MG TAB PO SCH (08:36)
[2020-03-06] MEDS: APIXABAN 2.5 MG TABLET PO SCH ×2 (08:36→21:30)
[2020-03-06] MEDS: DONEPEZIL 10 MG TAB PO SCH (08:36)
[2020-03-06] MEDS: CYANOCOBALAMIN 500 MCG TAB PO SCH (08:36)
[2020-03-06] MEDS: ESCITALOPRAM 10 MG TAB PO SCH (08:36)
[2020-03-06] MEDS ORDERED: Potassium Replacement Protocol 1 EACH MISC MISCELLANE PRN (10:32)
[2020-03-06] MEDS: POTASSIUM CHLORIDE ER 20 MEQ TAB.ER PO SCH ×2 (11:07→12:23)
[2020-03-06] MEDS: MULTIVITAMINS, THERA 1 EACH TAB PO SCH (11:22)
[2020-03-06] MEDS: METOPROLOL TARTRATE 12.5 MG TAB PO SCH ×2 (11:22→21:30)
--- NOTE | 2020-03-06 11:29 | P.PN ---
Subjective Progress Note Date: 03/06/20 This is a pleasant 89-year-old gentleman with a past history of long-standing persistent atrial fibrillation, on oral anticoagulation, underlying dementia. Recently lost his and has not been eating and drinking well. He was brought to the hospital by his family because he was feeling well. This was found to be highly dehydrated with evidence of a UTI and found to be in atrial fibrillation with RVR. Blood pressure has been low and his beta marta was put on hold and he was started on amiodarone drip. Heart rate remains around 100 bpm with a blood pressure in the mid 90s. 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 The initial plan was to initiate oral amiodarone once the drip was done however according to nursing staff patient's family does not want him on oral amiodarone long-term. Objective - Vital Signs Vital signs: Vital Signs Temp 99.0 F 03/06/20 08:00 Pulse 115 H 03/06/20 11:20 Resp 16 03/06/20 11:20 BP 122/70 03/06/20 11:20 Pulse Ox 95 03/06/20 08:00 Intake & Output 03/05/20 03/06/20 03/06/20 18:59 06:59 18:59 Intake Total 250 Output Total 200 200 Balance -200 50 Weight 64.5 kg 64 kg Intake: Intake, IV Titration 250 Amount Amiodarone 300 mg In 250 Dextrose 5% in Water 250 ml @ 0.5 MG/MIN 25 mls/hr IV .Q10H [facility] Rx#: [id number] Output: Urine 200 200 Other: Voiding Method Toilet Urinal Urinal # Voids 1 1 2 # Bowel Movements 1 - Exam PHYSICAL EXAMINATION: HEENT: Head is atraumatic, normocephalic. Pupils equal, round. Neck is supple. There is no elevated jugular venous pressure. HEART EXAMINATION: Heart sounds irregularly irregular, S1 and S2 with a systolic murmur. CHEST EXAMINATION: Lungs are clear to auscultation. No chest wall tenderness is noted on palpation or with deep breathing. ABDOMEN: Soft, nontender. Bowel sounds are heard. No organomegaly noted. EXTREMITIES: 2+ peripheral pulses with no evidence of peripheral edema and no calf tenderness noted. NEUROLOGIC patient is awake, alert and oriented x2. . - Labs CBC & Chem 7: 03/06/20 06:10 03/06/20 06:10 Labs: Abnormal Lab Results - Last 24 Hours (Table) 03/06/20 03/06/20 Range/Units 06:10 06:10 WBC 13.8 H (3.8-10.6) k/uL RBC 3.30 L (4.30-5.90) m/uL Hgb 9.8 L (13.0-17.5) gm/dL Hct 30.0 L (39.0-53.0) % Sodium 136 L (137-145) mmol/L Potassium 3.4 L (3.5-5.1) mmol/L Chloride 108 H (98-107) mmol/L Creatinine 0.52 L (0.66-1.25) mg/dL Calcium 7.8 L (8.4-10.2) mg/dL Microbiology - Last 24 Hours (Table) 03/05/20 09:04 Blood Culture - Preliminary Blood No Growth after 24 hours 03/05/20 03:30 Urine Culture - Preliminary Urine,Voided Gram Neg Bacilli 03/05/20 08:44 Blood Culture - Preliminary Blood No Growth after 24 hours Assessment and Plan Assessment: #1 urosepsis #2 dehydration #3 long-standing persistent atrial fibrillation with rapid ventricular response #4 dementia Plan: From cardiology's perspective, we will resume metoprolol 12.5 mg by mouth twice a day and hold for systolic blood pressure less than 90. Obtain a 2-D echo with Doppler to assess LV systolic function. If the echo shows no evidence of heart failure we will hydrate the patient more aggressively. We'll continue to follow the patient and provide further recommendations accordingly. SSN/SSBN ASSISTANT NAVIGATOR note has been reviewed, I agree with a documented findings and plan of care. Patient was seen and examined.
[2020-03-06] MEDS: ACETAMINOPHEN TAB 325 MG TAB PO PRN (12:24)
[2020-03-06] MEDS: SODIUM CHLORIDE 0.9% 1,000 ML IV SCH ×2 (14:05→23:55)
--- NOTE | 2020-03-06 17:51 | ECHOF ---
Referral Reason:AF w/RVR MEASUREMENTS -------- HEIGHT: 182.9 cm WEIGHT: 81.6 kg BP: RVIDd: 3.4 cm (< 3.3) IVSd: 1.1 cm (0.6 - 1.1) LVIDd: 3.7 cm (3.9 - 5.3) LVPWd: 1.2 cm (0.6 - 1.1) EDV(Teich): 60 ml IVSs: 1.3 cm LVIDs: 2.8 cm LVPWs: 1.5 cm %IVS Thck: 24 % ESV(Teich): 30 ml EF(Teich): 49 % %FS: 25 % SV(Teich): 29 ml Ao Diam: 3.3 cm (2.0 - 3.7) AV Cusp: 1.5 cm (1.5 - 2.6) LA Diam: 4.8 cm (2.7 - 3.8) MV EXCURSION: 21.866 mm (> 18.000) MV EF SLOPE: 181 mm/s (70 - 150) EPSS: 0.8 cm MV E Wallace: 0.83 m/s MV DecT: 136 ms MV Dec Meade: 6.1 m/s MV A Wallace: 0.49 m/s MV E/A Ratio: 1.69 MV PHT: 39 ms TR Vmax: 3.01 m/s TR maxP.26 mmHg RAP: 5.00 mmHg RVSP: 41.26 mmHg FINDINGS -------- Sinus rhythm with extra systolic beats. This was a technically good study. The left ventricular size is normal. Overall left ventricular systolic function is low-normal with, an EF between 50 - 55 %. The right ventricle is normal in size. The left atrium is moderately dilated. The right atrial size is normal. The aortic valve is trileaflet, and appears structurally normal. No aortic stenosis or regurgitation. Mild mitral regurgitation is present. Mild tricuspid regurgitation present. There is mild pulmonary hypertension. There is no pulmonic regurgitation present. The aortic root size is normal. Echo free space represents a pericardial fat pad. CONCLUSIONS -------- 1. The left ventricular size is normal. 2. Overall left ventricular systolic function is low-normal with, an EF between 50 - 55 %. 3. The right ventricle is normal in size. 4. The left atrium is moderately dilated. 5. Mild mitral regurgitation is present. 6. Mild tricuspid regurgitation present. 7. There is mild pulmonary hypertension. 8. Echo free space represents a pericardial fat pad. PREPRESS TECHNICIAN: Anna Mitchell RDCS
[2020-03-06] MEDS: ATORVASTATIN 40 MG TAB PO SCH (21:30)
--- NOTE | 2020-03-06 21:37 | P.PN ---
Subjective Progress Note Date: 03/06/20 Pt febrile to 99.8 overnight, vitals otherwise have remained stable. Urine culture growing gram negative rods. He is overall feeling well today, returning to his baseline. He was resumed on lopressor by cardiology. Objective - Vital Signs Vital signs: Vital Signs Temp 98.4 F 03/06/20 20:00 Pulse 80 03/06/20 20:00 Resp 16 03/06/20 20:00 BP 100/53 03/06/20 20:00 Pulse Ox 95 03/06/20 20:00 Intake & Output 03/06/20 03/06/20 03/07/20 06:59 18:59 06:59 Intake Total 250 420 Output Total 200 1 Balance 50 419 Weight 64 kg Intake: Intake, IV Titration 250 Amount Amiodarone 300 mg In 250 Dextrose 5% in Water 250 ml @ 0.5 MG/MIN 25 mls/hr IV .Q10H DANIEL Rx#: [id number] Oral 420 Output: Urine 200 Stool 1 Other: Voiding Method Urinal Incontinent # Voids 1 1 1 # Bowel Movements 1 1 - Exam General: well developed, well nourished elderly male in NAD CV: irregularly irregular, no murmur Lungs: Normal effort, clear throughout Abd: soft, nontender Neuro: alert and oriented - Labs CBC & Chem 7: 03/06/20 06:10 03/06/20 06:10 Labs: Abnormal Lab Results - Last 24 Hours (Table) 03/06/20 03/06/20 Range/Units 06:10 06:10 WBC 13.8 H (3.8-10.6) k/uL RBC 3.30 L (4.30-5.90) m/uL Hgb 9.8 L (13.0-17.5) gm/dL Hct 30.0 L (39.0-53.0) % Sodium 136 L (137-145) mmol/L Potassium 3.4 L (3.5-5.1) mmol/L Chloride 108 H (98-107) mmol/L Creatinine 0.52 L (0.66-1.25) mg/dL Calcium 7.8 L (8.4-10.2) mg/dL Microbiology - Last 24 Hours (Table) 03/05/20 09:04 Blood Culture - Preliminary Blood No Growth after 24 hours 03/05/20 03:30 Urine Culture - Preliminary Urine,Voided Gram Neg Bacilli 03/05/20 08:44 Blood Culture - Preliminary Blood No Growth after 24 hours Assessment and Plan (1) Sepsis secondary to UTI Current Visit: Yes Status: Acute Code(s): A41.9 - SEPSIS, UNSPECIFIED ORGANISM; N39.0 - URINARY TRACT INFECTION, SITE NOT SPECIFIED SNOMED Code(s): 660722674 (2) Acute kidney injury Current Visit: Yes Status: Acute Code(s): N17.9 - ACUTE KIDNEY FAILURE, UNS PECIFIED SNOMED Code(s): 93901492 (3) Paroxysmal atrial fibrillation Current Visit: Yes Status: Acute Code(s): I48.0 - PAROXYSMAL ATRIAL FIBRILLATION SNOMED Code(s): 894325454 (4) Atrial fibrillation with RVR Current Visit: No Status: Acute Code(s): I48.91 - UNSPECIFIED ATRIAL FIBRILLATION SNOMED Code(s): 442481669977143 Plan: Continue rocephin for urosepsis, urine culture growing gram negative rods. Cardiology following, lopressor resumed, HR and BP stable. Follow cultures and can plan for dc to [facility] pending sensitivity
[2020-03-07] MEDS: SODIUM CHLORIDE 0.9% 1,000 ML IV SCH (01:43)
[2020-03-07 07:51] LABS: HCT 31.2 % (39.0-53.0); MCH 29.6 pg (25.0-35.0); MCHC 32.2 g/dL (31.0-37.0); MCV 91.7 fL (80.0-100.0); Mean Platelet Volume 7.1; Platelet Count 327 k/uL (150-450); RDW 14.2 % (11.5-15.5); WBC 13.4 k/uL (3.8-10.6)
[2020-03-07] MEDS: IPRATROPIUM-ALBUTEROL 3 ML NEB INHALATION SCH ×2 (08:14→11:50)
[2020-03-07] MEDS: SYMBICORT 80-4.5 MCG INHALER INHALATION SCH (08:15)
[2020-03-07] MEDS: PANTOPRAZOLE 40 MG/10 ML VIAL IVP SCH (08:56)
[2020-03-07] MEDS: FOLIC ACID 1 MG TAB PO SCH (08:56)
[2020-03-07] MEDS: CYANOCOBALAMIN 500 MCG TAB PO SCH (08:56)
[2020-03-07] MEDS: ESCITALOPRAM 10 MG TAB PO SCH (08:56)
[2020-03-07] MEDS: APIXABAN 2.5 MG TABLET PO SCH (08:56)
[2020-03-07] MEDS: DONEPEZIL 10 MG TAB PO SCH (08:56)
[2020-03-07] MEDS: METOPROLOL TARTRATE 12.5 MG TAB PO SCH (08:56)
[2020-03-07 11:04] VITALS: TEMP 98.3
[2020-03-07] MEDS: ACETAMINOPHEN TAB 325 MG TAB PO PRN (11:17)
--- NOTE | 2020-03-07 11:22 | P.PN ---
Subjective Progress Note Date: 03/07/20 This is a pleasant 89-year-old gentleman with a past history of long-standing persistent atrial fibrillation, on oral anticoagulation, underlying dementia. Recently lost his and has not been eating and drinking well. He was brought to the hospital by his family because he was feeling well. This was found to be highly dehydrated with evidence of a UTI and found to be in atrial fibrillation with RVR. Blood pressure has been low and his beta marta was put on hold and he was started on amiodarone drip. Heart rate remains around 100 bpm with a blood pressure in the mid 90s. 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 The initial plan was to initiate oral amiodarone once the drip was done however according to nursing staff patient's family does not want him on oral amiodarone long-term. 03/07/2020 The patient was seen and examined today resting comfortably in bed. He says "I feel normal". He continues to have no appetite. Overall he appears to be a bit stronger today but continues to verbalize feeling weak. His heart rate remains 90s to low 100s but his blood pressure has stabilized. He's currently on metoprolol tartrate 12.5 mg by mouth twice a day. Echocardiogram with Doppler study done yesterday showed low normal LV systolic function with ejection fraction between 50-55%, monitor, mild TR and mild pulmonary hypertension. Objective - Vital Signs Vital signs: Vital Signs Temp 98.3 F 03/07/20 08:00 Pulse 68 03/07/20 08:28 Resp 16 03/07/20 08:00 BP 117/59 03/07/20 08:00 Pulse Ox 97 03/07/20 08:00 Intake & Output 03/06/20 03/07/20 03/07/20 18:59 06:59 18:59 Intake Total 420 800 Output Total 1 Balance 419 800 Weight 72 kg Intake: Intake, IV Titration 800 Amount Sodium Chloride 0.9% 1, 800 000 ml @ 100 mls/hr IV . Q10H DANIEL Rx#:[id number] Oral 420 Output: Stool 1 Other: Voiding Method Incontinent Urinal Urinal Diaper Diaper Incontinent Incontinent # Voids 1 1 # Bowel Movements 1 1 - Exam PHYSICAL EXAMINATION: HEENT: Head is atraumatic, normocephalic. Pupils equal, round. Neck is supple. There is no elevated jugular venous pressure. HEART EXAMINATION: Heart sounds irregularly irregular, S1 and S2 with a systolic murmur. CHEST EXAMINATION: Lungs are clear to auscultation. No chest wall tenderness is noted on palpation or with deep breathing. ABDOMEN: Soft, nontender. Bowel sounds are heard. No organomegaly noted. EXTREMITIES: 2+ peripheral pulses with no evidence of peripheral edema and no calf tenderness noted. NEUROLOGIC patient is awake, alert and oriented x2. - Labs CBC & Chem 7: 03/07/20 07:33 03/07/20 06:03 Labs: Abnormal Lab Results - Last 24 Hours (Table) 03/07/20 Range/Units 07:33 WBC 13.4 H (3.8-10.6) k/uL RBC 3.40 L (4.30-5.90) m/uL Hgb 10.0 L (13.0-17.5) gm/dL Hct 31.2 L (39.0-53.0) % Microbiology - Last 24 Hours (Table) 03/05/20 09:04 Blood Culture - Preliminary Blood No Growth after 48 hours 03/05/20 08:44 Blood Culture - Preliminary Blood No Growth after 48 hours 03/05/20 03:30 Urine Culture - Final Urine,Voided Proteus mirabilis Assessment and Plan Assessment: #1 urosepsis #2 dehydration #3 long-standing persistent atrial fibrillation #4 dementia Plan: From cardiology's perspective, we will increase metoprolol to 25 mg by mouth twice a day. From our standpoint the patient may be discharged back to an assisted living facility today. He'll follow-up as an outpatient. [employer] note has been reviewed, I agree with a documented findings and plan of care. Patient was seen and examined.
[2020-03-07] MEDS: MULTIVITAMINS, THERA 1 EACH TAB PO SCH (12:29)
[2020-03-07 13:27] VITALS: BP 109/57; PULSE 118; RESP 18
--- NOTE | 2020-03-07 13:57 | P.DS ---
Providers Date of admission: 03/04/20 23:29 Expected date of discharge: 03/07/20 Attending physician: Silvestre Ames MD Consults: 03/05/20 01:38 Consult Physician Routine Consulting Provider: Jamal Mcbride Consult Reason/Comments: Afib Do you want consulting provider notified?: Yes, Notify in am Primary care physician: Alley Wade - Discharge Diagnosis(es) (1) Sepsis secondary to UTI Current Visit: Yes Status: Acute (2) Acute kidney injury Current Visit: Yes Status: Acute (3) Paroxysmal atrial fibrillation Current Visit: Yes Status: Acute (4) Atrial fibrillation with RVR Current Visit: No Status: Acute Hospital Course: Patient is a pleasant 89-year-old male was sent in here because of the fever. Patient does have history of atrial ablation patient is found to be in A. fib with rapid unclear rate. Patient does have dementia appears to be moderate, does get agitated for which patient is on Seroquel. Patient was having altered mental status at home all the workup is negative except for urine. Patient had Proteus mirabilis in the urine in the past that Proteus mirabilis was pansensitive. Patient is unable to provide much of the history because of his insulin for his hearing problems and baseline dementia. Patient had temperature of 101. Patient heart rate was 1 20 bpm and patient clinically appears to be bit dehydrated. Patient blood pressure was low as well. Patient was on metoprolol which is being switched to amiodarone IV because of hypotension. Is not easy to obtain history from the patient but he denied any dysuria or increased urinary frequency. Patient had a QT of 380 and QTC is around 490. Chest x-ray did not show any obvious infiltrate. Pt was admitted to medicine and started on rocephin. Cardiology was consulted for his A fib and initially gave pt a loading dose of amiodarone. Echo performed which showed normal LVEF, good valvular function. His urine culture did again grow proteus resistant to bacrim, cipro and macrobid, otherwise donald-sensitive. Upon discussion with pt's family, elected to control HR with metoprolol instead of amiodarone. On day of discharge, pt felt at baseline, denies chest pain, shortness of breath, nausea, vomiting or chills. He is discharged in stable condition and will resume metoprolol and complete a course of levaquin. Recommend repeat UA and CBC in 1 week. Discharge exam Gen: pleasant elderly male in NAD CV: regular rate and rhythm. no murmur Lungs: normal effort, clear thoughout Abd: soft, nontender, non distended Neuro: alert and oriented x3, no focal deficits Patient Condition at Discharge: Fair Plan - Discharge Summary Discharge Rx Participant: No New Discharge Prescriptions: New Levofloxacin [Levaquin] 500 mg PO DAILY 3 Days #3 tab Mirtazapine [Remeron] 30 mg PO HS #30 tab Continue Folic Acid 1 mg PO HS@1999 Apixaban [Eliquis] 2.5 mg PO BID tab Atorvastatin [Lipitor] 40 mg PO HS tab Ergocalciferol [Vitamin D2 (DRISDOL)] 50,000 unit PO HARO QUEtiapine [SEROquel] 50 mg PO HS@1999 Metoprolol Tartrate [Lopressor] 12.5 mg PO BID Cyanocobalamin [Vitamin B-12] 500 mcg PO DAILY@0800 Donepezil [Aricept] 10 mg PO DAILY@0800 Colloidal Oatmeal [Eucerin Eczema Relief] 1 applic TOPICAL DAILY PRN PRN Reason: DRY FEET ALPRAZolam [Xanax] 0.5 mg PO BID PRN PRN Reason: Anxiety Pantoprazole [Protonix] 40 mg PO DAILY@0800 Ipratropium-Albuterol Nebulize [Duoneb 0.5 mg-3 mg/3 ml Soln] 3 ml INHALATION RT-QID PRN PRN Reason: Shortness Of Breath Breo Unknown 1 puff INHALATION RT-DAILY Discontinued Mirtazapine [Remeron] 30 mg PO HS Discharge Medication List Folic Acid 1 mg PO HS@199903/12/17 [History] Apixaban [Eliquis] 2.5 mg PO BID tab 03/18/17 [Rx] Atorvastatin [Lipitor] 40 mg PO HS tab 03/18/17 [Rx] ALPRAZolam [Xanax] 0.5 mg PO BID PRN 03/05/20 [History] Breo Unknown 1 puff INHALATION RT-DAILY 03/05/20 [History] Colloidal Oatmeal [Eucerin Eczema Relief] 1 applic TOPICAL DAILY PRN 03/05/20 [History] Cyanocobalamin [Vitamin B-12] 500 mcg PO DAILY@0800 20 [History] Donepezil [Aricept] 10 mg PO DAILY@79903/05/20 [History] Ergocalciferol [Vitamin D2 (DRISDOL)] 50,000 unit PO HARO 03/05/20 [History] Ipratropium-Albuterol Nebulize [Duoneb 0.5 mg-3 mg/3 ml Soln] 3 ml INHALATION RT-QID PRN 03/05/20 [History] Metoprolol Tartrate [Lopressor] 12.5 mg PO BID 03/05/20 [History] Pantoprazole [Protonix] 40 mg PO DAILY@79903/05/20 [History] QUEtiapine [SEROquel] 50 mg PO HS@199903/05/20 [History] Levofloxacin [Levaquin] 500 mg PO DAILY 3 Days #3 tab 03/07/20 [Rx] Mirtazapine [Remeron] 30 mg PO HS #30 tab 03/07/20 [Rx] Follow up Appointment(s)/Referral(s): Jamal Mcbride MD [STAFF PHYSICIAN] - 2 Weeks [facility], [NON-STAFF] - Alley Wade MD [Primary Care Provider] - 1 Week Patient Instructions/Handouts: Dehydration (DC), Urinary Tract Infection in Men (DC) Activity/Diet/Wound Care/Special Instructions: Patient needs wheelchair at discharge to assist with ADLs secondary to Rheumatoid Arthritis and Dementia Needs negative COVID 72hrs before discharge to return to [facility] Patient resides at [facility] - family will transport home Discharge Disposition: TRANSFER TO SNF/ECF
[2020-03-07] MEDS ORDERED: METOPROLOL TARTRATE 25 MG TAB PO SCH (21:00)
== END 2020-03-07 14:19 | disposition home or self-care (01) | DRG 871 ==
LOC: 4SSUR 23:29 → 3SCARD 03-05 06:35
PROVIDERS: ADMIT Family Medicine; ATTEND Family Medicine
DX: A41.59 Other Gram-negative sepsis (principal); G92 Toxic encephalopathy; I48.11 Longstanding persistent atrial fibrillation; N39.0 Urinary tract infection, site not specified; N17.9 Acute kidney failure, unspecified; E86.0 Dehydration; F32.9 Major depressive disorder, single episode, unspecified; I27.20 Pulmonary hypertension, unspecified; J45.909 Unspecified asthma, uncomplicated; K21.9 Gastro-esophageal reflux disease without esophagitis; M06.9 Rheumatoid arthritis, unspecified; N40.0 Benign prostatic hyperplasia without lower urinary tract symptoms; F01.50 Vascular dementia, unspecified severity, without behavioral disturbance, psychotic disturbance, mood disturbance, and anxiety; Z20.828 Contact with and (suspected) exposure to other viral communicable diseases; Z86.19 Personal history of other infectious and parasitic diseases; Z98.890 Other specified postprocedural states; Z98.42 Cataract extraction status, left eye; Z98.41 Cataract extraction status, right eye; Z87.19 Personal history of other diseases of the digestive system; Z79.01 Long term (current) use of anticoagulants; Z79.899 Other long term (current) drug therapy; Z85.46 Personal history of malignant neoplasm of prostate; Z11.59 Encounter for screening for other viral diseases
CPT/HCPCS: 71046; 73521; 80048; 80053; 81001; 83605; 83735; 84132; 84484; 85025; 85027; 87040; 87077; 87086; 87186; 87635; 93005; 93306; 94640

== ENCOUNTER 2022-02-26 01:21 | Inpatient (IN) | payer MEDICARE, OTHER ==
[2022-02-26] MEDS ORDERED: SODIUM CHLORIDE 0.9% 1,000 ML IV STA (01:34)
--- NOTE | 2022-02-26 01:38 | ED ---
Weakness HPI - General Chief complaint: Fall Stated complaint: Fall, Fever, UTI Time Seen by Provider: 02/26/22 01:34 Source: EMS Mode of arrival: EMS Limitations: altered mental status - Related Data Home Medications Medication Instructions Recorded Confirmed Folic Acid 1 mg PO HS@199903/12/17 03/05/20 ALPRAZolam [Xanax] 0.5 mg PO BID PRN 03/05/20 03/05/20 Breo Unknown 1 puff INHALATION RT-DAILY 03/05/20 03/05/20 Colloidal Oatmeal [Eucerin Eczema 1 applic TOPICAL DAILY PRN 03/05/20 03/05/20 Relief] Cyanocobalamin [Vitamin B-12] 500 mcg PO DAILY@79903/05/20 03/05/20 Donepezil [Aricept] 10 mg PO DAILY@79903/05/20 03/05/20 Ergocalciferol [Vitamin D2 50,000 unit PO HARO 03/05/20 03/05/20 (DRISDOL)] Ipratropium-Albuterol Nebulize 3 ml INHALATION RT-QID PRN 03/05/20 03/05/20 [Duoneb 0.5 mg-3 mg/3 ml Soln] Metoprolol Tartrate [Lopressor] 12.5 mg PO BID 03/05/20 03/05/20 Pantoprazole [Protonix] 40 mg PO DAILY@79903/05/20 03/05/20 QUEtiapine [SEROquel] 50 mg PO HS@199903/05/20 03/05/20 Previous Rx's Medication Instructions Recorded Apixaban [Eliquis] 2.5 mg PO BID tab 03/18/17 Atorvastatin [Lipitor] 40 mg PO HS tab 03/18/17 Mirtazapine [Remeron] 30 mg PO HS #30 tab 03/07/20 levoFLOXacin [Levaquin] 500 mg PO DAILY 3 Days #3 tab 03/07/20 Allergies Allergy/AdvReac Type Severity Reaction Status Date / Time No Known Allergies Allergy Verified 03/05/20 07:47 Review of Systems ROS Statement: Those systems with pertinent positive or pertinent negative responses have been documented in the HPI. ROS Other: All systems not noted in ROS Statement are negative. Past Medical History Past Medical History: Atrial Fibrillation, Asthma, Cancer, Prostate Disorder, Rheumatoid Arthritis (RA) Additional Past Medical History / Comment(s): chronic back problems, Rt foot drop, Uses a walker, prostate cancer, radiation seeds History of Any Multi-Drug Resistant Organisms: ESBL Date of last positivie culture/infection: 03/30/17 MDRO Source:: URINE ESBL Past Surgical History: Back Surgery Additional Past Surgical History / Comment(s): RECENT PICC LINE, NOW REMOVED, JONO CATARACTS, R hand surgery Past Anesthesia/Blood Transfusion Reactions: No Reported Reaction Past Psychological History: No Psychological Hx Reported Smoking Status: Never smoker Past Alcohol Use History: None Reported Past Drug Use History: None Reported - Past Family History Father Family Medical History: No Reported History Mother Family Medical History: GI Bleed General Exam Limitations: altered mental status Course Vital Signs 02/26/22 02/26/22 02/26/22 01:26 03:07 04:02 Temperature 99.9 F H 99.9 F H 99.7 F H Pulse Rate 96 75 Pulse Rate [ 86 Ticketer ] Respiratory 16 20 16 Rate Blood Pressure 120/62 110/83 Blood Pressure 129/87 [Left Arm] O2 Sat by Pulse 94 L 96 96 Oximetry EKG Findings - EKG Comments: EKG Findings:: EKG is sinus 90 IL 160 QRS 90 QTC 403 Medical Decision Making - Lab Data Result diagrams: 02/26/22 01:51 02/26/22 01:51 Lab Results 02/26/22 02/26/22 02/26/22 Range/Units 01:51 01:51 01:51 WBC 17.4 H (3.8-10.6) k/uL RBC 3.97 L (4.30-5.90) m/uL Hgb 11.8 L (13.0-17.5) gm/dL Hct 35.1 L (39.0-53.0) % MCV 88.3 (80.0-100.0) fL MCH 29.6 (25.0-35.0) pg MCHC 33.5 (31.0-37.0) g/dL RDW 13.3 (11.5-15.5) % Plt Count 345 (150-450) k/uL MPV 7.6 Neutrophils % 89 % Lymphocytes % 4 % Monocytes % 6 % Eosinophils % 1 % Basophils % 0 % Neutrophils # 15.5 H (1.3-7.7) k/uL Lymphocytes # 0.6 L (1.0-4.8) k/uL Monocytes # 1.0 (0-1.0) k/uL Eosinophils # 0.1 (0-0.7) k/uL Basophils # 0.0 (0-0.2) k/uL PT (9.0-12.0) sec INR (<1.2) APTT (22.0-30.0) sec Sodium 134 L (137-145) mmol/L Potassium 4.4 (3.5-5.1) mmol/L Chloride 105 (98-107) mmol/L Carbon Dioxide 21 L (22-30) mmol/L Anion Gap 8 mmol/L BUN 22 H (9-20) mg/dL Creatinine 0.82 (0.66-1.25) mg/dL Est GFR (CKD-EPI)AfAm >90 (>60 ml/min/1.73 sqM) Est GFR (CKD-EPI)NonAf 78 (>60 ml/min/1.73 sqM) Glucose 137 H (74-99) mg/dL Plasma Lactic Acid Lino (0.7-2.0) mmol/L Calcium 8.4 (8.4-10.2) mg/dL Phosphorus 3.0 (2.5-4.5) mg/dL Magnesium 1.5 L (1.6-2.3) mg/dL Total Bilirubin 1.1 (0.2-1.3) mg/dL AST 29 (17-59) U/L ALT 23 (4-49) U/L Alkaline Phosphatase 119 (38-126) U/L Troponin I <0.012 (0.000-0.034) ng/mL Total Protein 6.5 (6.3-8.2) g/dL Albumin 3.0 L (3.5-5.0) g/dL Urine Color Urine Appearance (Clear) Urine pH (5.0-8.0) Ur Specific [place] (1.001-1.035) Urine Protein (Negative) Urine Glucose (UA) (Negative) Urine Ketones (Negative) Urine Blood (Negative) Urine Nitrite (Negative) Urine Bilirubin (Negative) Urine Urobilinogen (<2.0) mg/dL Ur Leukocyte Esterase (Negative) Urine RBC (0-5) /hpf Urine WBC (0-5) /hpf Urine WBC Clumps (None) /hpf Ur Squamous Epith Cells (0-4) /hpf Urine Bacteria (None) /hpf 02/26/22 02/26/22 02/26/22 Range/Units 01:51 01:51 04:58 WBC (3.8-10.6) k/uL RBC (4.30-5.90) m/uL Hgb (13.0-17.5) gm/dL Hct (39.0-53.0) % MCV (80.0-100.0) fL MCH (25.0-35.0) pg MCHC (31.0-37.0) g/dL RDW (11.5-15.5) % Plt Count (150-450) k/uL MPV Neutrophils % % Lymphocytes % % Monocytes % % Eosinophils % % Basophils % % Neutrophils # (1.3-7.7) k/uL Lymphocytes # (1.0-4.8) k/uL Monocytes # (0-1.0) k/uL Eosinophils # (0-0.7) k/uL Basophils # (0-0.2) k/uL PT 12.4 H (9.0-12.0) sec INR 1.2 H (<1.2) APTT 23.3 (22.0-30.0) sec Sodium (137-145) mmol/L Potassium (3.5-5.1) mmol/L Chloride (98-107) mmol/L Carbon Dioxide (22-30) mmol/L Anion Gap mmol/L BUN (9-20) mg/dL Creatinine (0.66-1.25) mg/dL Est GFR (CKD-EPI)AfAm (>60 ml/min/1.73 sqM) Est GFR (CKD-EPI)NonAf (>60 ml/min/1.73 sqM) Glucose (74-99) mg/dL Plasma Lactic Acid Lino 1.4 (0.7-2.0) mmol/L Calcium (8.4-10.2) mg/dL Phosphorus (2.5-4.5) mg/dL Magnesium (1.6-2.3) mg/dL Total Bilirubin (0.2-1.3) mg/dL AST (17-59) U/L ALT (4-49) U/L Alkaline Phosphatase (38-126) U/L Troponin I (0.000-0.034) ng/mL Total Protein (6.3-8.2) g/dL Albumin (3.5-5.0) g/dL Urine Color Yellow Urine Appearance Cloudy (Clear) Urine pH 6.5 (5.0-8.0) Ur Specific [place] 1.020 (1.001-1.035) Urine Protein 2+ H (Negative) Urine Glucose (UA) Negative (Negative) Urine Ketones 1+ H (Negative) Urine Blood Small H (Negative) Urine Nitrite Negative (Negative) Urine Bilirubin Negative (Negative) Urine Urobilinogen <2.0 (<2.0) mg/dL Ur Leukocyte Esterase Large H (Negative) Urine RBC 7 H (0-5) /hpf Urine WBC >182 H (0-5) /hpf Urine WBC Clumps Few H (None) /hpf Ur Squamous Epith Cells 1 (0-4) /hpf Urine Bacteria Few H (None) /hpf Disposition Clinical Impression: UTI (urinary tract infection), Fall Disposition: ADMITTED IP TO THIS HOSP Condition: Fair Is patient prescribed a controlled substance at d/c from ED?: No Referrals: Alley Wade MD [Primary Care Provider] - 1-2 days
[2022-02-26 02:05] LABS: Basophils % (A) 0 %; Eosinophils # (A) 0.1 k/uL (0-0.7); Eosinophils % (A) 1 %; HCT 35.1 % (39.0-53.0); HGB 11.8 gm/dL (13.0-17.5); Lymphocytes # (A) 0.6 k/uL (1.0-4.8); Lymphocytes % (A) 4 %; MCH 29.6 pg (25.0-35.0); MCHC 33.5 g/dL (31.0-37.0); MCV 88.3 fL (80.0-100.0); Mean Platelet Volume 7.6; Monocytes % (A) 6 %; Neutrophils # (A) 15.5 k/uL (1.3-7.7); Neutrophils % (A) 89 %; Platelet Count 345 k/uL (150-450); RBC 3.97 m/uL (4.30-5.90); RDW 13.3 % (11.5-15.5); WBC 17.4 k/uL (3.8-10.6)
[2022-02-26 02:18] LABS: INR 1.2 (<1.2); Partial Thromboplastin Time 23.3 sec (22.0-30.0); Prothrombin Time 12.4 sec (9.0-12.0)
[2022-02-26 02:23] LABS: ALT 23 U/L (4-49); AST 29 U/L (17-59); African American GFR (CKD) >90 (>60 ml/min/1.73 sqM); Alkaline Phosphatase 119 U/L (38-126); Anion Gap 8 mmol/L; Blood Urea Nitrogen 22 mg/dL (9-20); Calcium 8.4 mg/dL (8.4-10.2); Carbon Dioxide 21 mmol/L (22-30); Chloride 105 mmol/L (98-107); Glucose 137 mg/dL (74-99); Magnesium 1.5 mg/dL (1.6-2.3); Non-African American GFR(CKD) 78 (>60 ml/min/1.73 sqM); Potassium 4.4 mmol/L (3.5-5.1); Sodium 134 mmol/L (137-145); Total Bilirubin 1.1 mg/dL (0.2-1.3); Total Protein 6.5 g/dL (6.3-8.2)
--- NOTE | 2022-02-26 03:45 | CT ---
EXAMINATION TYPE: CT brain mahi carlos con DATE OF EXAM: 02/26/2022 COMPARISON: 03/12/2017 HISTORY: fall CT DLP: 1464.9 mGycm Automated exposure control for dose reduction was used. There is mild enlargement of the ventricles. There is some cerebral cortical atrophy. No mass effect or midline shift. No sign of intracranial hemorrhage. There are extra-axial calcified mass in the rig ht parietal lobe convexity consistent with meningioma that measure 1.5 cm in diameter. There is also small meningioma in the right side of the anterior cerebral falx. The cervical vertebra show degenerative disc space narrowing from C3 to C7 with spurring of the endpl ates. Facet joints are intact. Prevertebral soft tissues are intact. IMPRESSION: Cervical spondylotic changes. No fracture. Cerebral atrophy. No acute intracranial abnormality. Brain unchanged compared to old exam.
--- NOTE | 2022-02-26 03:50 | XR ---
EXAMINATION TYPE: XR chest 1V DATE OF EXAM: 02/26/2022 COMPARISON: 03/05/2020 HISTORY: Fall. Pain TECHNIQUE: FINDINGS: There is no heart failure nor confluent pneumonic infiltrate. Costophrenic angles are clear . No pneumothorax. There are chest leads. IMPRESSION: No active cardiopulmonary disease. No change.
[2022-02-26 05:17] LABS: Appearance,Urine Cloudy (Clear); Bacteria,Urine Few /hpf; Bilirubin,Urine Negative (Negative); Blood,Urine Small (Negative); Color,Urine Yellow; Glucose,Urine (UA) Negative (Negative); Ketones,Urine 1+ (Negative); Leukocyte Esterase,Urine Large (Negative); Nitrite,Urine Negative (Negative); PH, Urine 6.5 (5.0-8.0); Protein,Urine 2+ (Negative); RBC,Urine 7 /hpf (0-5); Squamous Epithelial Cell,Urine 1 /hpf (0-4); Urobilinogen,Urine <2.0 mg/dL (<2.0); WBC,Urine >182 /hpf (0-5)
[2022-02-26] MEDS ORDERED: ONDANSETRON 4 MG/2 ML VIAL IVP PRN (05:51)
[2022-02-26] MEDS ORDERED: PIPERACILLIN-TAZOBACTAM 3.375 GM in SODIUM CHLORIDE 0.9% 100 ML IVPB STA (05:51)
[2022-02-26] MEDS ORDERED: NALOXONE 0.4 MG/ML 1 ML VIAL IV PRN (05:51)
[2022-02-26] MEDS ORDERED: PIPERACILLIN-TAZOBACTAM 3.375 GM in SODIUM CHLORIDE 0.9% 100 ML IVPB ONE (05:52)
[2022-02-26] MEDS: SODIUM CHLORIDE 0.9% 1,000 ML IV SCH ×2 (07:57→19:14)
[2022-02-26] MEDS: PANTOPRAZOLE 40 MG/10 ML VIAL IV SCH (07:58)
[2022-02-26] MEDS ORDERED: MAGNESIUM SULFATE-D5W PMX 1 GM in DEXTROSE/WATER 1 100ML.BAG IVPB ONE (10:06)
[2022-02-26] MEDS ORDERED: IPRATROPIUM-ALBUTEROL 3 ML NEB INHALATION PRN (10:10)
[2022-02-26] MEDS ORDERED: MAGNESIUM HYDROXIDE 2,400 MG/10 ML CUP PO PRN (10:10)
[2022-02-26] MEDS ORDERED: ALPRAZolam 0.5 MG TAB PO PRN (10:10)
[2022-02-26] MEDS ORDERED: LIDOCAINE URO-JET JELLY 2% 5 ML KIT URETHRAL ONE ×2 (12:46→20:15)
[2022-02-26] MEDS: DONEPEZIL 10 MG TAB PO SCH (13:37)
[2022-02-26] MEDS: TAMSULOSIN 0.4 MG CAP.ER.24H PO SCH (13:37)
--- NOTE | 2022-02-26 14:11 | P.HPIM ---
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. Patient discovered on the floor at bedside with suspected fall out of bed, possbily hitting bedside table. At the time of incident patient reported to have difficulty lifiting left left shoulder, with pain, febrile, temp of 102 with shaking/chills/ near rigors reported. Received cold wash cloth to forehead along with Tylenol and transported to the ER via EMS.T-max 99.9 on admission, post tylenol prior to transfer from [facility]. Vague historian secondary to underlying dementia. WBC 17.4, hemoglobin 11.8, platelets 345, neutrophils 15.5, INR 1.2, sodium 134, potassium 4.4, bicarb 21, BUN 22, creatinine 0.8 to, GFR 78, lactic acid 1.4, magnesium 1.5 troponin negative 1, albumin 3. UA reported large leukocytes, 2+ protein, plus ketones, small amount of blood, urine wbc's greater than 182, elevated urine RBCs, few bacteria, culture with micro-pending. Blood cultures obtained. Chest x-ray limited exam, reporting no active cardiopulmonary disease. Head/cervical spine CT reported mild enlargement of ventricles, some cerebral cortical atrophy , no mass effect or midline shift , no sign of intracranial hemorrhage ,extra-axial calcified mass in the right parietal lobe convexity consistent with meningioma measuring 1.5 cm in diameter, small meningioma in the right side of the anterior cerebral falx, cervical spondylitic changes, no fracture, cerebral atrophy with no acute intracranial abnormality, brain unchanged compared to prior exam. EKG reporting sinus rhythm with occasional PVC.Resting comfortably, mild diaphoresis, denies chest pain, palpitations or shortness of breath. Denies nausea, vomiting or diarrhea. Denies abdominal pain. IV fluid hydration and IV antibiotics of Rocephin and Zosyn initiated. Review of Systems ROS Statement: Limited as patient has baseline dementia .Those systems with pertinent positive or pertinent negative responses have been documented in the HPI. ROS Other: All systems not noted in ROS Statement are negative. Past Medical History Past Medical History: Atrial Fibrillation, Asthma, Cancer, Prostate Disorder, Rheumatoid Arthritis (RA) Additional Past Medical History / Comment(s): chronic back problems, Rt foot drop, Uses a walker, prostate cancer, radiation seeds History of Any Multi-Drug Resistant Organisms: ESBL Date of last positivie culture/infection: 03/30/17 MDRO Source:: URINE ESBL Past Surgical History: Back Surgery Additional Past Surgical History / Comment(s): RECENT PICC LINE, NOW REMOVED, JONO CATARACTS, R hand surgery Past Anesthesia/Blood Transfusion Reactions: No Reported Reaction Past Psychological History: No Psychological Hx Reported Smoking Status: Never smoker Past Alcohol Use History: None Reported Past Drug Use History: None Reported - Past Family History Father Family Medical History: No Reported History Mother Family Medical History: GI Bleed Medications and Allergies Home Medications Medication Instructions Recorded Confirmed Type Folic Acid 1 mg PO DAILY@179903/12/17 02/26/22 History ALPRAZolam [Xanax] 0.5 mg PO BID PRN 03/05/20 02/26/22 History Colloidal Oatmeal [Eucerin Eczema 1 applic TOPICAL BID 03/05/20 02/26/22 History Relief] Cyanocobalamin [Vitamin B-12] 500 mcg PO DAILY@79903/05/20 02/26/22 History Donepezil [Aricept] 10 mg PO DAILY@79903/05/20 02/26/22 History Ipratropium-Albuterol Nebulize 3 ml INHALATION RT-QID PRN 03/05/20 02/26/22 History [Duoneb 0.5 mg-3 mg/3 ml Soln] Metoprolol Tartrate [Lopressor] 12.5 mg PO BID@0800,1800 03/05/20 02/26/22 History Pantoprazole [Protonix] 40 mg PO DAILY@79903/05/20 02/26/22 History QUEtiapine [SEROquel] 50 mg PO HS@1800 03/05/20 02/26/22 History Acetaminophen Tab [Tylenol] 650 mg PO Q4H PRN 02/26/22 02/26/22 History Apixaban [Eliquis] 2.5 mg PO BID@0800,1800 02/26/22 02/26/22 History Ascorbic Acid [Vitamin C] 500 mg PO BID@0800,1800 02/26/22 02/26/22 History Cranberry Fruit Extract [Cranberry] 500 mg PO DAILY@0800 02/26/22 02/26/22 History Fluticasone/Vilanterol [Breo 1 puff INHALATION RT-DAILY@79902/26/22 02/26/22 History Ellipta 100-25 Mcg Inhaler] Ipratropium-Albuterol Nebulize 3 ml INHALATION RT-Q3H PRN 02/26/22 02/26/22 History [Duoneb 0.5 mg-3 mg/3 ml Soln] Kaolin Pectin 30 ml PO DAILY PRN 02/26/22 02/26/22 History Mag Hydrox/Aluminum Hyd/Simeth 15 ml PO BID PRN 02/26/22 02/26/22 History [Mylanta Maximum Strength Liq] Magnesium Hydroxide [Milk of 2,400 mg PO HS PRN 02/26/22 02/26/22 History Magnesia] Mirtazapine [Remeron] 30 mg PO HS@1800 02/26/22 02/26/22 History Pravastatin Sodium [Pravachol] 40 mg PO HS@1800 02/26/22 02/26/22 History Zinc Sulfate [Orazinc] 220 mg PO DAILY@79902/26/22 02/26/22 History guaiFENesin SYRUP 100MG/5ML 1 dose PO Q6H PRN 02/26/22 02/26/22 History [Robitussin] Allergies Allergy/AdvReac Type Severity Reaction Status Date / Time No Known Allergies Allergy Verified 02/26/22 07:20 Physical Exam Vitals: Vital Signs Temp Pulse Pulse Resp BP BP Pulse Ox 02/26/22 11:46 79 16 127/62 96 02/26/22 07:45 98.1 F 82 16 138/63 96 02/26/22 06:54 98.8 F 75 14 115/54 97 02/26/22 04:02 99.7 F H 75 16 110/83 96 02/26/22 03:07 99.9 F H 86 20 129/87 96 02/26/22 01:26 99.9 F H 96 16 120/62 94 L Intake and Output 02/25/22 02/26/22 02/26/22 22:59 06:59 14:59 Other: Weight 77.111 kg PHYSICAL EXAM: VITAL SIGNS: As above GENERAL: Lying on stretcher, no acute distress. No shakiness under light blanket. Baseline confusion; alert to self, recognizes daughter. HEENT: Atraumatic, normocephalic , pupils round and equal ,Conjunctivae normal. NECK: No JVD. No thyroid enlargement. No LNs CARDIOVASCULAR: S1, S2 regular. Systolic murmur RESPIRATION: Breath sounds diminished in the bases. No rhonchi or crackles. No bronchial breathing. ABDOMEN: Soft, nontender, nondistended . No guarding. no masses palpable. No ascites, No hepatosplenomegaly.Bowel sounds heard. Extremities: Bilateral Dupuytren's contractures, history of right hand surgery, No edema. no swelling. PSYCHIATRY: Alert and oriented X1-2, pleasantly confused,baseline NERVOUS SYSTEM: Limited exam. Cranial N 2-12 grossly normal. Skin: Warm and dry, no rash Results CBC & Chem 7: 02/26/22 01:51 02/26/22 01:51 Labs: Abnormal Lab Results - Last 24 Hours (Table) 02/26/22 02/26/22 02/26/22 Range/Units 01:51 01:51 01:51 WBC 17.4 H (3.8-10.6) k/uL RBC 3.97 L (4.30-5.90) m/uL Hgb 11.8 L (13.0-17.5) gm/dL Hct 35.1 L (39.0-53.0) % Neutrophils # 15.5 H (1.3-7.7) k/uL Lymphocytes # 0.6 L (1.0-4.8) k/uL PT 12.4 H (9.0-12.0) sec INR 1.2 H (<1.2) Sodium 134 L (137-145) mmol/L Carbon Dioxide 21 L (22-30) mmol/L BUN 22 H (9-20) mg/dL Glucose 137 H (74-99) mg/dL Magnesium 1.5 L (1.6-2.3) mg/dL Albumin 3.0 L (3.5-5.0) g/dL Urine Protein (Negative) Urine Ketones (Negative) Urine Blood (Negative) Ur Leukocyte Esterase (Negative) Urine RBC (0-5) /hpf Urine WBC (0-5) /hpf Urine WBC Clumps (None) /hpf Urine Bacteria (None) /hpf 02/26/22 Range/Units 04:58 WBC (3.8-10.6) k/uL RBC (4.30-5.90) m/uL Hgb (13.0-17.5) gm/dL Hct (39.0-53.0) % Neutrophils # (1.3-7.7) k/uL Lymphocytes # (1.0-4.8) k/uL PT (9.0-12.0) sec INR (<1.2) Sodium (137-145) mmol/L Carbon Dioxide (22-30) mmol/L BUN (9-20) mg/dL Glucose (74-99) mg/dL Magnesium (1.6-2.3) mg/dL Albumin (3.5-5.0) g/dL Urine Protein 2+ H (Negative) Urine Ketones 1+ H (Negative) Urine Blood Small H (Negative) Ur Leukocyte Esterase Large H (Negative) Urine RBC 7 H (0-5) /hpf Urine WBC >182 H (0-5) /hpf Urine WBC Clumps Few H (None) /hpf Urine Bacteria Few H (None) /hpf Microbiology - Last 24 Hours (Table) 02/26/22 04:58 Urine Culture - Preliminary Urine,Voided Assessment and Plan Assessment: Sepsis secondary to acute UTI, cultures pending in a patient with history of ESBL, prostate cancer with radiation seeds , urinary retention secondary to urethral stricture lending to difficult catheter insertion/coude', history of cystoscopy with urethral dilations with , Urology. Fall, Suspected fell out of bed hitting bedside table. Head, cervical spine CT reported negative. X-rays of bilateral shoulder and humerus ordered. Leukocytosis secondary to the above Hypoalbuminemia Chronic renal failure, stage II, secondary to chronic urinary retention Chronic anemia secondary to the above Hyponatremia, hypovolemic, mild Hypomagnesemia Chronic mild persistent bronchial asthma, currently stable History of high right frontal meningioma , suspected CVA, no residuals. 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 Underlying dementia, baseline Plan: Continue on current medication regime ,monitoring and symptomatic treatment. X-rays of bilateral shoulder and humerus ordered.Maintain IV fluid hydration, IV antibiotics of Rocephin, Zosyn with urine and blood cultures finalizing. Pro-calcitonin ordered/pending Bladder scan X1 now. Flomax ordered . Coud /hernandez catheter ordered in a patient who is a difficult Hernandez catheter placement with orders given to staff for urology if unable to place coude' with lidocaine gel. Anticoagulated on Eliquis, GI prophylaxis with PPI. Protein supplements ordered between meals. Magnesium supplementation ordered. Close monitoring of renal function, electrolytes,WBC with repeat labs ordered for a.m. The impression and plan of care has been dictated as directed. : I performed a history and examination of this patient, discussed the same with the dictator. I agree with the dictator's note ,documented as a scribe. Any additional findings or plans will be noted.
--- NOTE | 2022-02-26 15:13 | XR ---
Bilateral humerus, bilateral shoulders HISTORY: Trauma and pain 3 views of each shoulder, 2 views of each humerus submitted Comparison to chest x-ray 09/16/2021 Bone mineralization is reduced. Arthropathy is noted in the elbows left greater than right. Suspect c hanges of calcific tendinitis in the left shoulder greater than right. Acromioclavicular joints show arthropathy. Enthesophyte present at the insertion of the triceps tendon on the right. Hand is superi mposed over the upper chest on the right at one of the shoulder views. Distal acromial spurs are note d. Correlate for impingement. Alignment is maintained. Transscapular Y view of the right shows distor tion. IMPRESSION: No fracture or dislocation is evident.
[2022-02-26] MEDS: SYMBICORT 80-4.5 MCG INHALER INHALATION SCH ×2 (16:53→19:56)
[2022-02-26] MEDS: PRAVASTATIN SODIUM 40 MG TAB PO SCH (17:39)
[2022-02-26] MEDS: METOPROLOL TARTRATE 12.5 MG TAB PO SCH (17:39)
[2022-02-26] MEDS: APIXABAN 2.5 MG TABLET PO SCH (17:39)
[2022-02-26] MEDS: PIPERACILLIN-TAZOBACTAM 3.375 GM in SODIUM CHLORIDE 0.9% 100 ML IVPB SCH (17:39)
[2022-02-26] MEDS: MIRTAZAPINE 15 MG TAB PO SCH (17:39)
[2022-02-26] MEDS: FOLIC ACID 1 MG TAB PO SCH (17:39)
--- NOTE | 2022-02-26 22:07 | P.GSCN ---
History of Present Illness Consult date: 02/26/22 History of present illness: 89-year-old gentleman with multiple medical problems as well as dementia was brought into the hospital because of a fall, fever and apparent urinary infection. She has a known history of prostate cancer treated with radium seeds according to the chart. He has a history of urethral strictures treated by the past. The nursing staffs unable to pass a catheter in there so 100 mL the urine in his bladder. Since the patient is unaware urinate, he is infected medical staff wishes the catheter be placed. The patient can give me no history. He is somewhat belligerent. Apparently he has dementia. Review of Systems All systems: negative - Constitutional Denies fever, Denies weight loss - EENT Eyes: denies blurred vision Ears, nose, mouth and throat: Denies dysphagia - Cardiovascular Denies chest pain, Denies shortness of breath - Respiratory Denies cough, Denies 7 - Gastrointestinal Reports as per HPI - Genitourinary Denies dysuria, Denies hematuria - Integumentary Denies rash, Denies unusual bruising - Neurological Denies headaches, Denies syncope - Hematologic/Lymphatic Denies easy bleeding, Denies easy bruising Past Medical History Past Medical History: Atrial Fibrillation, Asthma, Cancer, CVA/TIA, GI Bleed, Prostate Disorder, Rheumatoid Arthritis (RA) Additional Past Medical History / Comment(s): chronic back problems, Rt foot drop, Uses a walker, prostate cancer, radiation seeds; suspected cva 2017; covid; strictures History of Any Multi-Drug Resistant Organisms: ESBL Year Discovered:: 07/28/2019 MDRO Source:: URINE ESBL Past Surgical History: Back Surgery Additional Past Surgical History / Comment(s): RECENT PICC LINE, NOW REMOVED, JONO CATARACTS, R hand surgery; laminectomy Past Anesthesia/Blood Transfusion Reactions: No Reported Reaction Past Psychological History: No Psychological Hx Reported Smoking Status: Never smoker Past Alcohol Use History: None Reported Past Drug Use History: None Reported - Past Family History Father Family Medical History: No Reported History Mother Family Medical History: GI Bleed Medications and Allergies Home Medications Medication Instructions Recorded Confirmed Type Folic Acid 1 mg PO DAILY@1800 03/12/17 02/26/22 History ALPRAZolam [Xanax] 0.5 mg PO BID PRN 03/05/20 02/26/22 History Colloidal Oatmeal [Eucerin Eczema 1 applic TOPICAL BID 03/05/20 02/26/22 History Relief] Cyanocobalamin [Vitamin B-12] 500 mcg PO DAILY@0800 03/05/20 02/26/22 History Donepezil [Aricept] 10 mg PO DAILY@0800 03/05/20 02/26/22 History Ipratropium-Albuterol Nebulize 3 ml INHALATION RT-QID PRN 03/05/20 02/26/22 History [Duoneb 0.5 mg-3 mg/3 ml Soln] Metoprolol Tartrate [Lopressor] 12.5 mg PO BID@0800,1800 03/05/20 02/26/22 History Pantoprazole [Protonix] 40 mg PO DAILY@79903/05/20 02/26/22 History QUEtiapine [SEROquel] 50 mg PO HS@1800 03/05/20 02/26/22 History Acetaminophen Tab [Tylenol] 650 mg PO Q4H PRN 02/26/22 02/26/22 History Apixaban [Eliquis] 2.5 mg PO BID@0800,1800 02/26/22 02/26/22 History Ascorbic Acid [Vitamin C] 500 mg PO BID@0800,1800 02/26/22 02/26/22 History Cranberry Fruit Extract [Cranberry] 500 mg PO DAILY@79902/26/22 02/26/22 History Fluticasone/Vilanterol [Breo 1 puff INHALATION RT-DAILY@79902/26/22 02/26/22 History Ellipta 100-25 Mcg Inhaler] Ipratropium-Albuterol Nebulize 3 ml INHALATION RT-Q3H PRN 02/26/22 02/26/22 History [Duoneb 0.5 mg-3 mg/3 ml Soln] Kaolin Pectin 30 ml PO DAILY PRN 02/26/22 02/26/22 History Mag Hydrox/Aluminum Hyd/Simeth 15 ml PO BID PRN 02/26/22 02/26/22 History [Mylanta Maximum Strength Liq] Magnesium Hydroxide [Milk of 2,400 mg PO HS PRN 02/26/22 02/26/22 History Magnesia] Mirtazapine [Remeron] 30 mg PO HS@1800 02/26/22 02/26/22 History Pravastatin Sodium [Pravachol] 40 mg PO HS@1800 02/26/22 02/26/22 History Zinc Sulfate [Orazinc] 220 mg PO DAILY@0800 02/26/22 02/26/22 History guaiFENesin SYRUP 100MG/5ML 1 dose PO Q6H PRN 02/26/22 02/26/22 History [Robitussin] Allergies Allergy/AdvReac Type Severity Reaction Status Date / Time No Known Allergies Allergy Verified 02/26/22 07:20 Surgical - Exam Vital Signs Temp Pulse Resp BP Pulse Ox 99.9 F H 96 16 120/62 94 L 02/26/22 01:26 02/26/22 01:26 02/26/22 01:26 02/26/22 01:26 02/26/22 01:26 - General well nourished, moderate distress - Eyes PERRL - ENT no hearing loss - Neck trachea midline - Respiratory normal respiratory effort - Abdomen Abdomen: tender - Genitourinary unCircumcised phallus with purulence draining from the tip of the penis - Neurologic combative, memory loss - Psychiatric Disoriented other (This) Results - Labs 02/26/22 01:51 02/26/22 01:51 Abnormal Lab Results - Last 24 Hours (Table) 02/26/22 02/26/22 02/26/22 Range/Units 01:51 01:51 01:51 WBC 17.4 H (3.8-10.6) k/uL RBC 3.97 L (4.30-5.90) m/uL Hgb 11.8 L (13.0-17.5) gm/dL Hct 35.1 L (39.0-53.0) % Neutrophils # 15.5 H (1.3-7.7) k/uL Lymphocytes # 0.6 L (1.0-4.8) k/uL PT 12.4 H (9.0-12.0) sec INR 1.2 H (<1.2) Sodium 134 L (137-145) mmol/L Carbon Dioxide 21 L (22-30) mmol/L BUN 22 H (9-20) mg/dL Glucose 137 H (74-99) mg/dL Magnesium 1.5 L (1.6-2.3) mg/dL Albumin 3.0 L (3.5-5.0) g/dL Urine Protein (Negative) Urine Ketones (Negative) Urine Blood (Negative) Ur Leukocyte Esterase (Negative) Urine RBC (0-5) /hpf Urine WBC (0-5) /hpf Urine WBC Clumps (None) /hpf Urine Bacteria (None) /hpf 02/26/22 Range/Units 04:58 WBC (3.8-10.6) k/uL RBC (4.30-5.90) m/uL Hgb (13.0-17.5) gm/dL Hct (39.0-53.0) % Neutrophils # (1.3-7.7) k/uL Lymphocytes # (1.0-4.8) k/uL PT (9.0-12.0) sec INR (<1.2) Sodium (137-145) mmol/L Carbon Dioxide (22-30) mmol/L BUN (9-20) mg/dL Glucose (74-99) mg/dL Magnesium (1.6-2.3) mg/dL Albumin (3.5-5.0) g/dL Urine Protein 2+ H (Negative) Urine Ketones 1+ H (Negative) Urine Blood Small H (Negative) Ur Leukocyte Esterase Large H (Negative) Urine RBC 7 H (0-5) /hpf Urine WBC >182 H (0-5) /hpf Urine WBC Clumps Few H (None) /hpf Urine Bacteria Few H (None) /hpf Microbiology - Last 24 Hours (Table) 02/26/22 04:58 Urine Culture - Preliminary Urine,Voided Diabetes panel 02/26/22 Range/Units 01:51 Sodium 134 L (137-145) mmol/L Potassium 4.4 (3.5-5.1) mmol/L Chloride 105 (98-107) mmol/L Carbon Dioxide 21 L (22-30) mmol/L BUN 22 H (9-20) mg/dL Creatinine 0.82 (0.66-1.25) mg/dL Glucose 137 H (74-99) mg/dL Calcium 8.4 (8.4-10.2) mg/dL AST 29 (17-59) U/L ALT 23 (4-49) U/L Alkaline Phosphatase 119 (38-126) U/L Total Protein 6.5 (6.3-8.2) g/dL Albumin 3.0 L (3.5-5.0) g/dL Calcium panel 02/26/22 Range/Units 01:51 Calcium 8.4 (8.4-10.2) mg/dL Phosphorus 3.0 (2.5-4.5) mg/dL Albumin 3.0 L (3.5-5.0) g/dL Pituitary panel 02/26/22 Range/Units 01:51 Sodium 134 L (137-145) mmol/L Potassium 4.4 (3.5-5.1) mmol/L Chloride 105 (98-107) mmol/L Carbon Dioxide 21 L (22-30) mmol/L BUN 22 H (9-20) mg/dL Creatinine 0.82 (0.66-1.25) mg/dL Glucose 137 H (74-99) mg/dL Calcium 8.4 (8.4-10.2) mg/dL Adrenal panel 02/26/22 Range/Units 01:51 Sodium 134 L (137-145) mmol/L Potassium 4.4 (3.5-5.1) mmol/L Chloride 105 (98-107) mmol/L Carbon Dioxide 21 L (22-30) mmol/L BUN 22 H (9-20) mg/dL Creatinine 0.82 (0.66-1.25) mg/dL Glucose 137 H (74-99) mg/dL Calcium 8.4 (8.4-10.2) mg/dL Total Bilirubin 1.1 (0.2-1.3) mg/dL AST 29 (17-59) U/L ALT 23 (4-49) U/L Alkaline Phosphatase 119 (38-126) U/L Total Protein 6.5 (6.3-8.2) g/dL Albumin 3.0 L (3.5-5.0) g/dL Assessment and Plan Assessment: Impression: Urinary tract infection with sepsis. History urethral strictures. History of prostate cancer. Multiple medical illnesses. Recommendations: At the request of the medical staff I will place a catheter.
--- NOTE | 2022-02-26 22:09 | P.PCN ---
Date of Procedure: 02/26/22 Preoperative Diagnosis: Urine retention, history urethral strictures. Postoperative Diagnosis: Same Procedure(s) Performed: Dilation of urethral strictures with filiforms and followers [id number]. Placement of 12-Turkmen coud-tip catheter Anesthesia: local Surgeon: Enrique Hays Pathology: none sent Condition: stable Indications for Procedure: The patient is in the hospital for urinary tract infection with sepsis. He has a history of strictures. The nursing staff some I will place a catheter. He is in urine retention. I'll place a catheter Description of Procedure: The patient is prepped and draped sterilely. I attempted to pass a 16-Turkmen coud-tip catheter meet resistance the bulbar urethra. The same as with a 12- Turkmen coud-tip catheter. I then pass a 4-Turkmen spiral filiform into the bladder. I then sequentially diet late the urethral stricture in the bulbar urethra from 38-96-[place]. I then am able to pass a 12-Turkmen coud-tip catheter and bladder with very cloudy looking urine over 500 mL Impression urethral stricture disease causing urine retention. Urinary tract i nfection with sepsis. Recommendations. The catheter should stay in several days before it is removed.
[2022-02-26] MEDS: QUEtiapine 50 MG TAB PO SCH (22:16)
[2022-02-27] MEDS: PIPERACILLIN-TAZOBACTAM 3.375 GM in SODIUM CHLORIDE 0.9% 100 ML IVPB SCH ×3 (00:26→16:17)
[2022-02-27] MEDS: SODIUM CHLORIDE 0.9% 1,000 ML IV SCH ×3 (02:35→22:04)
[2022-02-27 07:19] LABS: Basophils % (A) 0 %; Eosinophils % (A) 0 %; HCT 36.3 % (39.0-53.0); HGB 11.2 gm/dL (13.0-17.5); Hypochromasia Slight; Lymphocytes # (A) 0.7 k/uL (1.0-4.8); Lymphocytes % (A) 6 %; MCH 28.5 pg (25.0-35.0); MCHC 30.9 g/dL (31.0-37.0); MCV 92.5 fL (80.0-100.0); Monocytes # (A) 0.7 k/uL (0-1.0); Monocytes % (A) 7 %; Neutrophils # (A) 9.8 k/uL (1.3-7.7); Neutrophils % (A) 86 %; Platelet Count 331 k/uL (150-450); RBC 3.92 m/uL (4.30-5.90); WBC 11.4 k/uL (3.8-10.6)
[2022-02-27 07:34] LABS: ALT 20 U/L (4-49); AST 28 U/L (17-59); African American GFR (CKD) >90 (>60 ml/min/1.73 sqM); Albumin 2.5 g/dL (3.5-5.0); Albumin/Globulin Ratio 0.7; Alkaline Phosphatase 112 U/L (38-126); Anion Gap 6 mmol/L; Blood Urea Nitrogen 19 mg/dL (9-20); Calcium 8.1 mg/dL (8.4-10.2); Carbon Dioxide 20 mmol/L (22-30); Chloride 111 mmol/L (98-107); Globulin 3.4 g/dL; Glucose 109 mg/dL (74-99); Magnesium 1.8 mg/dL (1.6-2.3); Non-African American GFR(CKD) 84 (>60 ml/min/1.73 sqM); Phosphorus 2.7 mg/dL (2.5-4.5); Potassium 3.9 mmol/L (3.5-5.1); Sodium 137 mmol/L (137-145); Total Bilirubin 0.7 mg/dL (0.2-1.3); Total Protein 5.9 g/dL (6.3-8.2)
[2022-02-27] MEDS: SYMBICORT 80-4.5 MCG INHALER INHALATION SCH ×2 (07:45→20:20)
[2022-02-27] MEDS: METOPROLOL TARTRATE 12.5 MG TAB PO SCH ×2 (07:50→17:29)
[2022-02-27] MEDS: APIXABAN 2.5 MG TABLET PO SCH ×2 (07:50→17:29)
[2022-02-27] MEDS: ZINC SULFATE 220 MG CAP PO SCH (07:50)
[2022-02-27] MEDS: DONEPEZIL 10 MG TAB PO SCH (07:50)
[2022-02-27] MEDS: TAMSULOSIN 0.4 MG CAP.ER.24H PO SCH (07:51)
--- NOTE | 2022-02-27 08:36 | P.PN ---
Subjective Progress Note Date: 02/27/22 The patient was admitted with a urine infection. He is in urine retention due to urethral stricture disease. He required dilation to put in a catheter. His urine output is good. A low-grade fever last night as expected. The catheter should stay in at least for 5 days. Objective - Vital Signs Vital signs: Vital Signs Temp 97.7 F 02/27/22 07:17 Pulse 91 02/27/22 07:17 Resp 17 02/27/22 07:17 BP 145/70 02/27/22 07:17 Pulse Ox 96 02/27/22 07:17 FiO2 Intake & Output 02/26/22 02/27/22 02/27/22 18:59 06:59 18:59 Intake Total 590 Output Total 850 Balance -260 Weight 77.111 kg Intake: Oral 590 Output: Urine 850 Uretheral (Deutsch) 500 Other: Voiding Method Indwelling Catheter - Labs CBC & Chem 7: 02/27/22 06:47 02/27/22 06:47 Labs: Abnormal Lab Results - Last 24 Hours (Table) 02/26/22 02/27/22 02/27/22 Range/Units 01:51 06:47 06:47 WBC 11.4 H (3.8-10.6) k/uL RBC 3.92 L (4.30-5.90) m/uL Hgb 11.2 L (13.0-17.5) gm/dL Hct 36.3 L (39.0-53.0) % MCHC 30.9 L (31.0-37.0) g/dL Neutrophils # 9.8 H (1.3-7.7) k/uL Lymphocytes # 0.7 L (1.0-4.8) k/uL Chloride 111 H (98-107) mmol/L Carbon Dioxide 20 L (22-30) mmol/L Glucose 109 H (74-99) mg/dL Calcium 8.1 L (8.4-10.2) mg/dL Total Protein 5.9 L (6.3-8.2) g/dL Albumin 2.5 L (3.5-5.0) g/dL Procalcitonin 0.26 H (0.02-0.09) ng/mL Microbiology - Last 24 Hours (Table) 02/26/22 01:51 Blood Culture - Preliminary Blood No Growth after 24 hours 02/26/22 01:35 Blood Culture - Preliminary Blood No Growth after 24 hours 02/26/22 04:58 Urine Culture - Preliminary Urine,Voided
[2022-02-27] MEDS: PANTOPRAZOLE 40 MG/10 ML VIAL IV SCH (08:46)
[2022-02-27] MEDS: LACTOBACILLUS ACIDOPH & BULGAR 1 EACH PACKET PO SCH (08:46)
[2022-02-27] MEDS ORDERED: IPRATROPIUM-ALBUTEROL 3 ML NEB INHALATION PRN (15:59)
[2022-02-27] MEDS: IPRATROPIUM-ALBUTEROL 3 ML NEB INHALATION SCH ×2 (16:25→20:20)
[2022-02-27] MEDS: QUEtiapine 50 MG TAB PO SCH (17:29)
[2022-02-27] MEDS: PRAVASTATIN SODIUM 40 MG TAB PO SCH (17:29)
[2022-02-27] MEDS: FOLIC ACID 1 MG TAB PO SCH (17:29)
[2022-02-27] MEDS: MIRTAZAPINE 15 MG TAB PO SCH (17:29)
[2022-02-27] MEDS ORDERED: DEXTROSE 5%-0.45% NACL 1,000 ML IV SCH (19:00)
--- NOTE | 2022-02-27 19:03 | P.PN ---
Subjective Progress Note Date: 02/27/22 H&P Date: 02/26/22 Chief Complaint: Fevers, fall This is a 86-year-old gentleman with known history of paroxysmal atrial fibrillation, follows with Dr. 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 Patient discovered on the floor at bedside with suspected fall out of bed, possbily hitting bedside table. At the time of incident patient reported to have difficulty lifiting left left shoulder, with pain, febrile, temp of 102 with shaking/chills/ near rigors reported. Received cold wash cloth to forehead along with Tylenol and transported to the ER via EMS.T-max 99.9 on admission, post tylenol prior to transfer from [facility]. Vague historian secondary to underlying dementia. WBC 17.4, hemoglobin 11.8, platelets 345, neutrophils 15.5, INR 1.2, sodium 134, potassium 4.4, bicarb 21, BUN 22, creatinine 0.8 to, GFR 78, lactic acid 1.4, magnesium 1.5 troponin negative 1, albumin 3. UA reported large leukocytes, 2+ protein, plus ketones, small amount of blood, urine wbc's greater than 182, elevated urine RBCs, few bacteria, culture with micro-pending. Blood cultures obtained. Chest x-ray limited exam, reporting no active cardiopulmonary disease. Head/cervical spine CT reported mild enlargement of ventricles, some cerebral cortical atrophy , no mass effect or midline shift , no sign of intracranial hemorrhage ,extra-axial calcified mass in the right parietal lobe convexity con sistent with meningioma measuring 1.5 cm in diameter, small meningioma in the right side of the anterior cerebral falx, cervical spondylitic changes, no fracture, cerebral atrophy with no acute intracranial abnormality, brain unchanged compared to prior exam. EKG reporting sinus rhythm with occasional PVC.Resting comfortably, mild diaphoresis, denies chest pain, palpitations or shortness of breath. Denies nausea, vomiting or diarrhea. Denies abdominal pain. IV fluid hydration and IV antibiotics of Rocephin and Zosyn initiated. 02/27/2022 T-max 100.9, WBC decreased to 11.4. Currently maintained on Zosyn. Urine and blood cultures, finalizing. Last night required dilation of urethral strictures with placement of coud-tipped Deutsch catheter per urology secondary to urinary retention. Urine cloudy, significant sediment, repeat urine culture ordered. Extremely fatigued this morning. Objective - Vital Signs Vital signs: Vital Signs Temp 99.2 F 02/27/22 13:22 Pulse 84 02/27/22 13:22 Resp 17 02/27/22 13:22 BP 123/69 02/27/22 13:22 Pulse Ox 97 02/27/22 13:22 FiO2 Intake & Output 02/26/22 02/27/22 02/27/22 18:59 06:59 18:59 Intake Total 590 800 Output Total 850 950 Balance -260 -150 Weight 77.111 kg Intake: Intake, IV Titration 800 Amount Piperacillin-Tazobactam 3 50 .375 gm In Sodium Chloride 0.9% 100 ml @ 25 mls/hr IVPB Q8HR [facility] Rx# :[id number] Sodium Chloride 0.9% 1, 750 000 ml @ 75 mls/hr IV . [id number] [facility] Rx#:[id number] Oral 590 Output: Urine 850 950 Uretheral (Deutsch) 500 650 Other: Voiding Method Indwelling Catheter Indwelling Catheter - Exam PHYSICAL EXAM: VITAL SIGNS: As above GENERAL: Sleepy, fatigued, alert and oriented 1 HEENT: Atraumatic, normocephalic , pupils round and equal ,Conjunctivae normal. NECK: No JVD. No thyroid enlargement. CARDIOVASCULAR: S1, S2 regular. Systolic murmur RESPIRATION: Bilateral air entry with breath sounds diminished in the bases. ABDOMEN: Soft, nontender, nondistended . No guarding. no masses palpable. Positive Bowel sounds. Extremities: Bilateral Dupuytren's contractures, history of right hand surgical repair, No edema. no swelling. PSYCHIATRY: Alert and oriented X1, pleasantly confused,baseline NERVOUS SYSTEM: Limited exam. Cranial N 2-12 grossly normal. Skin: Warm and dry, no rash - Labs CBC & Chem 7: 02/27/22 06:47 02/27/22 06:47 Labs: Abnormal Lab Results - Last 24 Hours (Table) 02/26/22 02/27/22 02/27/22 Range/Units 01:51 06:47 06:47 WBC 11.4 H (3.8-10.6) k/uL RBC 3.92 L (4.30-5.90) m/uL Hgb 11.2 L (13.0-17.5) gm/dL Hct 36.3 L (39.0-53.0) % MCHC 30.9 L (31.0-37.0) g/dL Neutrophils # 9.8 H (1.3-7.7) k/uL Lymphocytes # 0.7 L (1.0-4.8) k/uL Chloride 111 H (98-107) mmol/L Carbon Dioxide 20 L (22-30) mmol/L Glucose 109 H (74-99) mg/dL Calcium 8.1 L (8.4-10.2) mg/dL Total Protein 5.9 L (6.3-8.2) g/dL Albumin 2.5 L (3.5-5.0) g/dL Procalcitonin 0.26 H (0.02-0.09) ng/mL Microbiology - Last 24 Hours (Table) 02/26/22 04:58 Urine Culture - Final Urine,Voided 02/26/22 01:51 Blood Culture - Preliminary Blood No Growth after 24 hours 02/26/22 01:35 Blood Culture - Preliminary Blood No Growth after 24 hours Assessment and Plan Assessment: Sepsis secondary to acute UTI, cultures pending in a patient with history of ESBL, prostate cancer with radiation seeds , urinary retention. Elevated pro- calcitonin Urinary retention secondary to urethral stricture lending to difficult catheter insertion/coude', history of cystoscopy with urethral dilations with , Urology. Status post dilation and placement of 12-Indonesian coud tip catheter per urology. Fall, Suspected fell out of bed hitting bedside table. Head, cervical spine CT reported negative. X-rays of bilateral shoulder and humerus noted. 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 History of rheumatoid arthritis, treated in the past, not on immunosuppressants History of lumbar degenerative disc disease, spinal stenosis, L5 spondylosis, facet arthropathy, L3-4 laminectomy Gait dysfunction, right foot drop, ambulates with walker Chronic paroxysmal atrial fibrillation on anticoagulation, follows with toy stuffer Dr. Mcbride. Underlying dementia, baseline Plan: Continue on current medication regime ,monitoring and symptomatic treatment. IV fluid hydration adjusted. Reoccurring fevers, infectious disease consulted. IV antibiotics. urine and blood cultures finalizing. Repeat urine culture ordered. Close monitoring of renal function, electrolytes,WBC with repeat labs ordered for a.m. PT/OT consulted. The impression and plan of care has been dictated as directed. : I performed a history and examination of this patient, discussed the same with the dictator. I agree with the dictator's note ,documented as a scribe. Any additional findings or plans will be noted.
[2022-02-27] MEDS ORDERED: ACETAMINOPHEN TAB 325 MG TAB PO PRN (19:36)
--- NOTE | 2022-02-27 19:40 | P.CONS ---
History of Present Illness - Reason for Consult Consult date: 02/27/22 Sepsis/UTI Requesting physician: Bernadette Bergeron - Chief Complaint Weakness x few days - History of Present Illness Patient is a 89-year-old male with a past medical history significant for paroxysmal atrial fibrillation with arthritis history of prostate cancer s/p radiation seed history of recurrent UTI history of urethral stricture requiring dilatation patient who is a resident of [facility] patient was brought into the ER however the patient was noticed to be on the floor at the bedside with suspected pulm out of the bed patient subsequently was brought into the ER on arrival to the ER the patient did have a low-grade fever of 99.9 F patient did have a urine retention requiring catheter placement by urology patient did have elevated white was 13.4 with a left shift creatinine has been normal liver enzymes are normal urine was positive cultures are currently pending blood cultures of which are currently pending the patient spiking fever infectious disease was consulted for further management patient did have a chest x-ray reported negative for acute cardiopulmonary disease patient is currently on Zosyn most information has been obtained from review of the chart and talking nursing staff and the patient himself was unable to provide reliable history Review of Systems Positive points has been mentioned in HPI complete review could not be obtained because of his underlying mental status Past Medical History Past Medical History: Atrial Fibrillation, Asthma, Cancer, CVA/TIA, GI Bleed, Prostate Disorder, Rheumatoid Arthritis (RA) Additional Past Medical History / Comment(s): chronic back problems, Rt foot drop, Uses a walker, prostate cancer, radiation seeds; suspected cva 2017; covid; strictures History of Any Multi-Drug Resistant Organisms: ESBL Year Discovered:: 07/28/2019 MDRO Source:: URINE ESBL Past Surgical History: Back Surgery Additional Past Surgical History / Comment(s): RECENT PICC LINE, NOW REMOVED, B IL CATARACTS, R hand surgery; laminectomy Past Anesthesia/Blood Transfusion Reactions: No Reported Reaction Past Psychological History: No Psychological Hx Reported Smoking Status: Never smoker Past Alcohol Use History: None Reported Past Drug Use History: None Reported - Past Family History Father Family Medical History: No Reported History Mother Family Medical History: GI Bleed Medications and Allergies Home Medications Medication Instructions Recorded Confirmed Type Folic Acid 1 mg PO DAILY@1800 03/12/17 02/26/22 History ALPRAZolam [Xanax] 0.5 mg PO BID PRN 03/05/20 02/26/22 History Colloidal Oatmeal [Eucerin Eczema 1 applic TOPICAL BID 03/05/20 02/26/22 History Relief] Cyanocobalamin [Vitamin B-12] 500 mcg PO DAILY@0800 03/05/20 02/26/22 History Donepezil [Aricept] 10 mg PO DAILY@0800 03/05/20 02/26/22 History Ipratropium-Albuterol Nebulize 3 ml INHALATION RT-QID PRN 03/05/20 02/26/22 History [Duoneb 0.5 mg-3 mg/3 ml Soln] Metoprolol Tartrate [Lopressor] 12.5 mg PO BID@0800,1800 03/05/20 02/26/22 History Pantoprazole [Protonix] 40 mg PO DAILY@0800 03/05/20 02/26/22 History QUEtiapine [SEROquel] 50 mg PO HS@1800 03/05/20 02/26/22 History Acetaminophen Tab [Tylenol] 650 mg PO Q4H PRN 02/26/22 02/26/22 History Apixaban [Eliquis] 2.5 mg PO BID@0800,1800 02/26/22 02/26/22 History Ascorbic Acid [Vitamin C] 500 mg PO BID@0800,1800 02/26/22 02/26/22 History Cranberry Fruit Extract [Cranberry] 500 mg PO DAILY@0800 02/26/22 02/26/22 History Fluticasone/Vilanterol [Breo 1 puff INHALATION RT-DAILY@79902/26/22 02/26/22 History Ellipta 100-25 Mcg Inhaler] Ipratropium-Albuterol Nebulize 3 ml INHALATION RT-Q3H PRN 02/26/22 02/26/22 History [Duoneb 0.5 mg-3 mg/3 ml Soln] Kaolin Pectin 30 ml PO DAILY PRN 02/26/22 02/26/22 History Mag Hydrox/Aluminum Hyd/Simeth 15 ml PO BID PRN 02/26/22 02/26/22 History [Mylanta Maximum Strength Liq] Magnesium Hydroxide [Milk of 2,400 mg PO HS PRN 02/26/22 02/26/22 History Magnesia] Mirtazapine [Remeron] 30 mg PO HS@1800 02/26/22 02/26/22 History Pravastatin Sodium [Pravachol] 40 mg PO HS@1800 02/26/22 02/26/22 History Zinc Sulfate [Orazinc] 220 mg PO DAILY@0800 02/26/22 02/26/22 History guaiFENesin SYRUP 100MG/5ML 1 dose PO Q6H PRN 02/26/22 02/26/22 History [Robitussin] Allergies Allergy/AdvReac Type Severity Reaction Status Date / Time No Known Allergies Allergy Verified 02/26/22 07:20 Physical Exam Vitals: Vital Signs Temp Pulse Resp BP Pulse Ox 02/27/22 19:06 101.2 F H 104 H 16 135/68 94 L 02/27/22 13:22 99.2 F 84 17 123/69 97 02/27/22 08:46 91 17 02/27/22 08:00 97.7 F 91 17 145/70 96 02/27/22 07:17 97.7 F 91 17 145/70 96 02/27/22 02:40 100.9 F H 108 H 18 135/57 97 02/27/22 01:37 96 02/26/22 20:00 81 17 02/26/22 19:50 98.3 F 81 17 120/61 95 Intake and Output 02/27/22 02/27/22 02/27/22 06:59 14:59 22:59 Intake Total 590 800 Output Total 350 950 Balance 240 -150 Intake: Intake, IV Titration 800 Amount Piperacillin-Tazobactam 3 50 .375 gm In Sodium Chloride 0.9% 100 ml @ 25 mls/hr IVPB Q8HR [facility] Rx# :[id number] Sodium Chloride 0.9% 1, 750 000 ml @ 75 mls/hr IV . [id number] [facility] Rx#:[id number] Oral 590 Output: Urine 350 950 Uretheral (Deutsch) 650 Other: Voiding Method Indwelling Catheter GENERAL DESCRIPTION: Elderly male lying in bed, no distress. No tachypnea or accessory muscle of respiration use. HEENT: Shows Pallor , no scleral icterus. Oral mucous membrane is dry. No pharyngeal erythema or thrush NECK: Trachea central, no thyromegaly. LUNGS: Unlabored breathing. Decreased breath sound at the base. No wheeze or crackle. HEART: S1, S2, regular rate and rhythm. No loud murmur ABDOMEN: Soft, no tenderness , guarding or rigidity, no organomegaly EXTREMITIES: No edema of feet. SKIN: No rash, no masses palpable. NEUROLOGICAL: The patient is slightly lethargic and orientation could not be determined Results CBC & Chem 7: 03/02/22 12:18 03/02/22 12:18 Labs: Abnormal Lab Results - Last 24 Hours (Table) 02/26/22 02/27/22 02/27/22 Range/Units 01:51 06:47 06:47 WBC 11.4 H (3.8-10.6) k/uL RBC 3.92 L (4.30-5.90) m/uL Hgb 11.2 L (13.0-17.5) gm/dL Hct 36.3 L (39.0-53.0) % MCHC 30.9 L (31.0-37.0) g/dL Neutrophils # 9.8 H (1.3-7.7) k/uL Lymphocytes # 0.7 L (1.0-4.8) k/uL Chloride 111 H (98-107) mmol/L Carbon Dioxide 20 L (22-30) mmol/L Glucose 109 H (74-99) mg/dL Calcium 8.1 L (8.4-10.2) mg/dL Total Protein 5.9 L (6.3-8.2) g/dL Albumin 2.5 L (3.5-5.0) g/dL Procalcitonin 0.26 H (0.02-0.09) ng/mL Microbiology - Last 24 Hours (Table) 02/26/22 04:58 Urine Culture - Final Urine,Voided 02/26/22 01:51 Blood Culture - Preliminary Blood No Growth after 24 hours 02/26/22 01:35 Blood Culture - Preliminary Blood No Growth after 24 hours Assessment and Plan (1) UTI (urinary tract infection) Current Visit: Yes Status: Acute Code(s): N39.0 - URINARY TRACT INFECTION, SITE NOT SPECIFIED SNOMED Code(s): 73305937 Plan: 1patient presented to hospital with sepsis in this patient had fever elevated white count did have urinary retention requiring Deutsch catheter placement positive high clinical suspicious for urinary tract infection in this patient spiking fever despite being on Zosyn with concern for possible ESBL pathogen as the patient previously did have ESBL E. coli UTI. 2- Blood and urine culture have been requested 3-discontinue Zosyn and start the patient on Invanz 1 g daily 4-gentle IV fluid We will follow on clinical condition and cultures to further adjust medication if needed Thank you for this consultation will follow this patient along with you Time with Patient: Greater than 30
[2022-02-27] MEDS: ERTAPENEM 1 GM in SODIUM CHLORIDE 0.9% 50 ML IVPB SCH (20:35)
[2022-02-28] MEDS: DONEPEZIL 10 MG TAB PO SCH (07:59)
[2022-02-28] MEDS: METOPROLOL TARTRATE 12.5 MG TAB PO SCH ×2 (08:00→17:59)
[2022-02-28] MEDS: PANTOPRAZOLE 40 MG TABLET PO SCH (08:00)
[2022-02-28] MEDS: TAMSULOSIN 0.4 MG CAP.ER.24H PO SCH (08:01)
[2022-02-28] MEDS: ZINC SULFATE 220 MG CAP PO SCH (08:01)
[2022-02-28] MEDS: APIXABAN 2.5 MG TABLET PO SCH ×2 (08:02→17:59)
[2022-02-28] MEDS: SYMBICORT 80-4.5 MCG INHALER INHALATION SCH ×2 (08:20→19:33)
[2022-02-28] MEDS: IPRATROPIUM-ALBUTEROL 3 ML NEB INHALATION SCH ×4 (08:20→19:33)
[2022-02-28 10:40] LABS: Basophils # (A) 0.04 X 10*3/uL (0.00-0.10); Basophils % (A) 0.3 %; Eosinophils # (A) 0.12 X 10*3/uL (0.04-0.35); HCT 31.2 % (39.6-50.0); HGB 10.2 g/dL (13.0-17.0); Immature Grans, Automated 0.4 %; Lymphocytes # (A) 0.99 X 10*3/uL (0.90-5.00); Lymphocytes % (A) 8.2 %; MCH 28.7 pg (27.0-32.0); MCHC 32.7 g/dL (32.0-37.0); MCV 87.9 fL (80.0-97.0); Mean Platelet Volume 9.7 fL (9.5-12.2); Monocytes # (A) 1.32 X 10*3/uL (0.20-1.00); Monocytes % (A) 10.9 %; NRBC Per 100 WBC 0 /100 WBCS (0.0-0.0); Neutrophils # (A) 9.56 X 10*3/uL (1.80-7.70); Neutrophils % (A) 79.2 %; Platelet Count 317 X 10*3/uL (140-440); RBC 3.55 X 10*6/uL (4.40-5.60); RDW 13.1 % (11.5-14.5); WBC 12.08 X 10*3/uL (4.50-10.00)
[2022-02-28 10:55] LABS: African American GFR (CKD) 103.3 (60.0-200.0); Anion Gap 9.9 mmol/L (10.00-18.00); BUN/Creat Ratio 29.17 Ratio (12.00-20.00); Blood Urea Nitrogen 17.5 mg/dL (9.0-27.0); Calcium 8.1 mg/dL (8.7-10.3); Carbon Dioxide 22.1 mmol/L (20.0-27.5); Non-African American GFR(CKD) 89.1 (60.0-200.0)
[2022-02-28] MEDS: LACTOBACILLUS ACIDOPH & BULGAR 1 EACH PACKET PO SCH (11:34)
--- NOTE | 2022-02-28 14:46 | P.PN ---
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 Patient discovered on the floor at bedside with suspected fall out of bed, possbily hitting bedside table. At the time of incident patient reported to have difficulty lifiting left left shoulder, with pain, febrile, temp of 102 with shaking/chills/ near rigors reported. Received cold wash cloth to forehead along with Tylenol and transported to the ER via EMS.T-max 99.9 on admission, post tylenol prior to transfer from [facility]. Vague historian secondary to underlying dementia. WBC 17.4, hemoglobin 11.8, platelets 345, neutrophils 15.5, INR 1.2, sodium 134, potassium 4.4, bicarb 21, BUN 22, creatinine 0.8 to, GFR 78, lactic acid 1.4, magnesium 1.5 troponin negative 1, albumin 3. UA reported large leukocytes, 2+ protein, plus ketones, small amount of blood, urine wbc's greater than 182, elevated urine RBCs, few bacteria, culture with micro-pending. Blood cultures obtained. Chest x-ray limited exam, reporting no active cardiopulmonary disease. Head/cervical spine CT reported mild enlargement of ventricles, some cerebral cortical atrophy , no mass effect or midline shift , no sign of intracranial hemorrhage ,extra-axial calcified mass in the right parietal lobe convexity con sistent with meningioma measuring 1.5 cm in diameter, small meningioma in the right side of the anterior cerebral falx, cervical spondylitic changes, no fracture, cerebral atrophy with no acute intracranial abnormality, brain unchanged compared to prior exam. EKG reporting sinus rhythm with occasional PVC.Resting comfortably, mild diaphoresis, denies chest pain, palpitations or shortness of breath. Denies nausea, vomiting or diarrhea. Denies abdominal pain. IV fluid hydration and IV antibiotics of Rocephin and Zosyn initiated. 02/27/2022 T-max 100.9, WBC decreased to 11.4. Currently maintained on Zosyn. Urine and blood cultures, finalizing. Last night required dilation of urethral strictures with placement of coud-tipped Deutsch catheter per urology secondary to urinary retention. Urine cloudy, significant sediment, repeat urine culture ordered. Extremely fatigued this morning. 02/28/2022 continued spiking temperatures, infectious disease consulted. T-max 101.2. Blood and urine cultures redrawn/pending. Antibiotics adjusted further to ertapenem. Extreme fatigue/lethargy secondary to infection/fevers/sepsis. Minimal diet intake. Maintaining O2 sats in the high 90s on room air. Denies pain. Objective - Vital Signs Vital signs: Vital Signs Temp 97.7 F 02/28/22 08:00 Pulse 85 02/28/22 12:03 Resp 18 02/28/22 08:31 BP 117/56 02/28/22 08:00 Pulse Ox 96 02/28/22 08:00 FiO2 Intake & Output 02/27/22 02/28/22 02/28/22 18:59 06:59 18:59 Intake Total 800 Output Total 950 925 Balance -150 -925 Intake: Intake, IV Titration 800 Amount Piperacillin-Tazobactam 3 50 .375 gm In Sodium Chloride 0.9% 100 ml @ 25 mls/hr IVPB Q8HR [facility] Rx# :[id number] Sodium Chloride 0.9% 1, 750 000 ml @ 75 mls/hr IV . [id number] [facility] Rx#:[id number] Output: Urine 950 925 Uretheral (Deutsch) 650 350 Other: Voiding Method Indwelling Catheter Indwelling Catheter Indwelling Catheter - Exam PHYSICAL EXAM: VITAL SIGNS: As above GENERAL: Lethargic, fatigued, alert and oriented 1 HEENT: Atraumatic, normocephalic , pupils round and equal ,Conjunctivae normal. NECK: Supple, No JVD. CARDIOVASCULAR: S1, S2 regular. Systolic murmur RESPIRATION: Bilateral air entry with breath sounds diminished in the bases. ABDOMEN: Soft, nontender, nondistended . No guarding. no masses palpable. Positive Bowel sounds. Extremities: Bilateral Dupuytren's contractures,( history of right hand surgical repair), No edema. no swelling. PSYCHIATRY: Alert and oriented X1, mildly increased confusion NERVOUS SYSTEM: Limited exam. Cranial N 2-12 grossly normal. Skin: Warm and dry, no rash Microbiology 02/26/22 01:35 Blood Blood Culture - Preliminary No Growth after 48 hours 02/26/22 01:51 Blood Blood Culture - Preliminary No Growth after 48 hours 02/27/22 16:02 Urine,Catheterized Urine Culture - Preliminary 02/26/22 04:58 Urine,Voided Urine Culture - Final - Labs CBC & Chem 7: 02/28/22 08:05 02/28/22 08:05 Labs: Abnormal Lab Results - Last 24 Hours (Table) 02/28/22 02/28/22 Range/Units 08:05 08:05 WBC 12.08 H (4.50-10.00) X 10*3/uL RBC 3.55 L (4.40-5.60) X 10*6/uL Hgb 10.2 L (13.0-17.0) g/dL Hct 31.2 L (39.6-50.0) % Immature Gran # 0.05 H (0.00-0.04) X 10*3/uL Neutrophils # 9.56 H (1.80-7.70) X 10*3/uL Monocytes # 1.32 H (0.20-1.00) X 10*3/uL Anion Gap 9.90 L (10.00-18.00) mmol/L BUN/Creatinine Ratio 29.17 H (12.00-20.00) Ratio Calcium 8.1 L (8.7-10.3) mg/dL Microbiology - Last 24 Hours (Table) 02/26/22 01:35 Blood Culture - Preliminary Blood No Growth after 48 hours 02/26/22 01:51 Blood Culture - Preliminary Blood No Growth after 48 hours 02/27/22 16:02 Urine Culture - Preliminary Urine,Catheterized 02/26/22 04:58 Urine Culture - Final Urine,Voided Assessment and Plan Assessment: Sepsis secondary to suspected acute UTI, cultures pending in a patient with history of ESBL, prostate cancer with radiation seeds , urinary retention. Elevated pro-calcitonin Urinary retention secondary to urethral stricture lending to difficult catheter insertion/coude', history of cystoscopy with urethral dilations with , Urology. Status post dilation and placement of 12-Belarusian coud tip catheter per urology. Acute metabolic encephalopathy, multifactorial, all the above, environment, in a patient with underlying dementia. Fall, Suspected fell out of bed hitting bedside table. Head, cervical spine CT reported negative. X-rays of bilateral shoulder and humerus noted. 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 Underlying dementia Plan: Continue on current medication regime ,monitoring and symptomatic treatment. Gentle IV fluid hydration. Repeat urine and blood cultures pending. Antibiotics as per infectious disease.Close monitoring of renal function, electrolytes,WBC with repeat labs ordered for a.m. The impression and plan of care has been dictated as directed. : I performed a history and examination of this patient, discussed the same with the dictator. I agree with the dictator's note ,documented as a scribe. Any additional findings or plans will be noted.
[2022-02-28] MEDS: SODIUM CHLORIDE 0.9% 1,000 ML IV SCH (16:10)
[2022-02-28 17:24] LABS: Appearance,Urine Cloudy (Clear); Bilirubin,Urine Negative (Negative); Blood,Urine Moderate (Negative); Color,Urine Yellow; Glucose,Urine (UA) Negative (Negative); Ketones,Urine 1+ (Negative); Leukocyte Esterase,Urine Large (Negative); Mucus,Urine Rare /hpf; Nitrite,Urine Negative (Negative); Protein,Urine 1+ (Negative); RBC,Urine 27 /hpf (0-5); Specific Gravity,Urine 1.016 (1.001-1.035); Squamous Epithelial Cell,Urine 2 /hpf (0-4); WBC,Urine >182 /hpf (0-5)
[2022-02-28] MEDS: PRAVASTATIN SODIUM 40 MG TAB PO SCH (17:58)
[2022-02-28] MEDS: FOLIC ACID 1 MG TAB PO SCH (17:59)
[2022-02-28] MEDS: MIRTAZAPINE 15 MG TAB PO SCH (17:59)
[2022-02-28] MEDS: QUEtiapine 50 MG TAB PO SCH (17:59)
[2022-02-28] MEDS: ERTAPENEM 1 GM in SODIUM CHLORIDE 0.9% 50 ML IVPB SCH (20:15)
[2022-03-01] MEDS: METOPROLOL TARTRATE 12.5 MG TAB PO SCH ×2 (07:31→18:26)
[2022-03-01] MEDS: TAMSULOSIN 0.4 MG CAP.ER.24H PO SCH (07:31)
[2022-03-01] MEDS: APIXABAN 2.5 MG TABLET PO SCH ×2 (07:31→18:26)
[2022-03-01] MEDS: PANTOPRAZOLE 40 MG TABLET PO SCH (07:31)
[2022-03-01] MEDS: SODIUM CHLORIDE 0.9% 1,000 ML IV SCH ×2 (07:31→21:55)
[2022-03-01] MEDS: DONEPEZIL 10 MG TAB PO SCH (07:31)
[2022-03-01] MEDS: ZINC SULFATE 220 MG CAP PO SCH (07:31)
[2022-03-01] MEDS: IPRATROPIUM-ALBUTEROL 3 ML NEB INHALATION SCH ×4 (08:55→20:16)
[2022-03-01] MEDS: SYMBICORT 80-4.5 MCG INHALER INHALATION SCH ×2 (08:55→20:16)
[2022-03-01] MEDS: LACTOBACILLUS ACIDOPH & BULGAR 1 EACH PACKET PO SCH (09:46)
[2022-03-01 11:49] LABS: Basophils # (A) 0.04 X 10*3/uL (0.00-0.10); Basophils % (A) 0.4 %; Eosinophils # (A) 0.18 X 10*3/uL (0.04-0.35); Eosinophils % (A) 1.8 %; HCT 30.4 % (39.6-50.0); HGB 9.9 g/dL (13.0-17.0); Immature Grans, Automated 0.5 %; Lymphocytes # (A) 0.94 X 10*3/uL (0.90-5.00); Lymphocytes % (A) 9.6 %; MCH 28.7 pg (27.0-32.0); MCHC 32.6 g/dL (32.0-37.0); MCV 88.1 fL (80.0-97.0); Mean Platelet Volume 9.4 fL (9.5-12.2); Monocytes # (A) 1.19 X 10*3/uL (0.20-1.00); Monocytes % (A) 12.2 %; NRBC Per 100 WBC 0 /100 WBCS (0.0-0.0); Neutrophils # (A) 7.36 X 10*3/uL (1.80-7.70); Neutrophils % (A) 75.5 %; Platelet Count 332 X 10*3/uL (140-440); RBC 3.45 X 10*6/uL (4.40-5.60); RDW 12.9 % (11.5-14.5); WBC 9.76 X 10*3/uL (4.50-10.00)
[2022-03-01 12:22] LABS: BUN/Creat Ratio 29.96 Ratio (12.00-20.00); Blood Urea Nitrogen 15.1 mg/dL (9.0-27.0); Carbon Dioxide 22.3 mmol/L (20.0-27.5); Non-African American GFR(CKD) 95.8 (60.0-200.0); Potassium 3.7 mmol/L (3.5-5.5)
--- NOTE | 2022-03-01 15:04 | P.PN ---
Subjective Progress Note Date: 03/01/22 H&P Date: 02/26/22 Chief Complaint: Fevers, fall This is a 86-year-old gentleman with known history of paroxysmal atrial fibrillation, follows with Dr. 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 Patient discovered on the floor at bedside with suspected fall out of bed, possbily hitting bedside table. At the time of incident patient reported to have difficulty lifiting left left shoulder, with pain, febrile, temp of 102 with shaking/chills/ near rigors reported. Received cold wash cloth to forehead along with Tylenol and transported to the ER via EMS.T-max 99.9 on admission, post tylenol prior to transfer from [facility]. Vague historian secondary to underlying dementia. WBC 17.4, hemoglobin 11.8, platelets 345, neutrophils 15.5, INR 1.2, sodium 134, potassium 4.4, bicarb 21, BUN 22, creatinine 0.8 to, GFR 78, lactic acid 1.4, magnesium 1.5 troponin negative 1, albumin 3. UA reported large leukocytes, 2+ protein, plus ketones, small amount of blood, urine wbc's greater than 182, elevated urine RBCs, few bacteria, culture with micro-pending. Blood cultures obtained. Chest x-ray limited exam, reporting no active cardiopulmonary disease. Head/cervical spine CT reported mild enlargement of ventricles, some cerebral cortical atrophy , no mass effect or midline shift , no sign of intracranial hemorrhage ,extra-axial calcified mass in the right parietal lobe convexity con sistent with meningioma measuring 1.5 cm in diameter, small meningioma in the right side of the anterior cerebral falx, cervical spondylitic changes, no fracture, cerebral atrophy with no acute intracranial abnormality, brain unchanged compared to prior exam. EKG reporting sinus rhythm with occasional PVC.Resting comfortably, mild diaphoresis, denies chest pain, palpitations or shortness of breath. Denies nausea, vomiting or diarrhea. Denies abdominal pain. IV fluid hydration and IV antibiotics of Rocephin and Zosyn initiated. 02/27/2022 T-max 100.9, WBC decreased to 11.4. Currently maintained on Zosyn. Urine and blood cultures, finalizing. Last night required dilation of urethral strictures with placement of coud-tipped Deutsch catheter per urology secondary to urinary retention. Urine cloudy, significant sediment, repeat urine culture ordered. Extremely fatigued this morning. 02/28/2022 continued spiking temperatures, infectious disease consulted. T-max 101.2. Blood and urine cultures redrawn/pending. Antibiotics adjusted further to ertapenem. Extreme fatigue/lethargy secondary to infection/fevers/sepsis. Minimal diet intake. Maintaining O2 sats in the high 90s on room air. Denies pain. 03/01/2022 . Diet intake improving, more so later in the day. Fevers pe rsistant on Zosyn ; currently maintained on ertapenem, with significant improvement in fevers , T-max 99.7, WBC normalized. Urine clearer, now without sediment, less concentrated.Hemoglobin 9.9, platelets 332, BUN 15, creatinine 0.5, magnesium 2. Fatigued. Denies chest pain, palpitations or shortness of breath. Maintaining O2 sats in the mid 90s on room air. Objective - Vital Signs Vital signs: Vital Signs Temp 97.9 F 03/01/22 08:00 Pulse 76 03/01/22 09:08 Resp 16 03/01/22 08:00 BP 136/65 03/01/22 08:00 Pulse Ox 95 03/01/22 08:00 FiO2 Intake & Output 02/28/22 03/01/22 03/01/22 18:59 06:59 18:59 Intake Total 700 Output Total 500 600 100 Balance 200 -600 -100 Intake: Intake, IV Titration 700 Amount Sodium Chloride 0.9% 1, 700 000 ml @ 60 mls/hr IV . [id number] [facility] Rx#:[id number] Output: Urine 500 600 100 Uretheral (Deutsch) 100 Other: Voiding Method Indwelling Catheter Indwelling Catheter Indwelling Catheter # Bowel Movements 0 - Exam PHYSICAL EXAM: VITAL SIGNS: As above GENERAL: Fatigued, alert and oriented 1,[place] HEENT: Atraumatic, normocephalic , pupils round and equal ,Conjunctivae normal. NECK: Supple, No JVD. CARDIOVASCULAR: S1, S2 regular. Systolic murmur RESPIRATION: Bilateral air entry with breath sounds diminished in the bases. ABDOMEN: Soft, nontender, nondistended . No guarding. no masses palpable. Positive Bowel sounds. Extremities: Bilateral Dupuytren's contractures,( history of right hand surgical repair), No edema. no swelling. PSYCHIATRY: Alert and oriented X1, mildly increased confusion NERVOUS SYSTEM: Limited exam. Cranial N 2-12 grossly normal. Skin: Warm and dry, no rash Microbiology 02/26/22 01:51 Blood Blood Culture - Preliminary No Growth after 72 hours 02/26/22 01:35 Blood Blood Culture - Preliminary No Growth after 72 hours 02/27/22 19:43 Blood Blood Culture - Preliminary No Growth after 24 hours 02/27/22 16:02 Urine,Catheterized Urine Culture - Final 02/26/22 04:58 Urine,Voided Urine Culture - Final - Labs CBC & Chem 7: 03/01/22 07:30 03/01/22 07:30 Labs: Abnormal Lab Results - Last 24 Hours (Table) 02/27/22 03/01/22 03/01/22 Range/Units 16:30 07:30 07:30 RBC 3.45 L (4.40-5.60) X 10*6/uL Hgb 9.9 L (13.0-17.0) g/dL Hct 30.4 L (39.6-50.0) % MPV 9.4 L (9.5-12.2) fL Immature Gran # 0.05 H (0.00-0.04) X 10*3/uL Monocytes # 1.19 H (0.20-1.00) X 10*3/uL Anion Gap 9.00 L (10.00-18.00) mmol/L Creatinine 0.5 L (0.6-1.5) mg/dL BUN/Creatinine Ratio 29.96 H (12.00-20.00) Ratio Calcium 8.0 L (8.7-10.3) mg/dL Urine Protein 1+ H (Negative) Urine Ketones 1+ H (Negative) Urine Blood Moderate H (Negative) Ur Leukocyte Esterase Large H (Negative) Urine RBC 27 H (0-5) /hpf Urine WBC >182 H (0-5) /hpf Urine WBC Clumps Few H (None) /hpf Urine Mucus Rare H (None) /hpf Microbiology - Last 24 Hours (Table) 02/26/22 01:51 Blood Culture - Preliminary Blood No Growth after 72 hours 02/26/22 01:35 Blood Culture - Preliminary Blood No Growth after 72 hours 02/27/22 19:43 Blood Culture - Preliminary Blood No Growth after 24 hours 02/27/22 16:02 Urine Culture - Final Urine,Catheterized Assessment and Plan Assessment: Sepsis secondary to suspected acute UTI, cultures pending in a patient with history of ESBL, prostate cancer with radiation seeds , urinary retention. Elevated pro-calcitonin Urinary retention secondary to urethral stricture lending to difficult catheter insertion/coude', history of cystoscopy with urethral dilations with , Urology. Status post dilation and placement of 12-[place] coud tip catheter per urology. Acute metabolic encephalopathy, multifactorial, all the above, environment, in a patient with underlying dementia. Fall, Suspected fell out of bed hitting bedside table. Head, cervical spine CT reported negative. X-rays of bilateral shoulder and humerus noted. 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 History of rheumatoid arthritis, treated in the past, not on immunosuppressants History of lumbar degenerative disc disease, spinal stenosis, L5 spondylosis, facet arthropathy, L3-4 laminectomy Gait dysfunction, right foot drop, ambulates with walker Chronic paroxysmal atrial fibrillation on anticoagulation, follows with sr risk management consultant Dr. Mcbride. Underlying dementia [place] Plan: Continue on current medication regime ,monitoring and symptomatic treatment. Gentle IV fluid hydration. Antibiotics as per infectious disease. fatigued, increase ambulation with PT, as tolerated.Close monitoring of renal function, electrolytes,WBC with repeat labs ordered for a.m. Patient will be managed/covered this weekend by Dunia Zavala. The impression and plan of care has been dictated as directed. : I performed a history and examination of this patient, discussed the same with the dictator. I agree with the dictator's note ,documented as a scribe. Any additional findings or plans will be noted.
--- NOTE | 2022-03-01 15:50 | P.PN ---
Subjective Progress Note Date: 02/28/22 Principal diagnosis: Fever/UTI Patient is 89 year old male with multiple comorbidities including a prostate cancer status post radiation seed implant history of urethral stricture requiring dilatation in history of recurrent UTI, brought into the hospital for low-grade fever weakness and urinary retention positive UA concerning for symptomatic urinary tract infection on today's evaluation that is 02/28/2022, the patient overall fever pattern has improved with last temperature of 101.2 last evening, the patient remained to be sleepy and lethargic and unable to provide any history and no vomiting or diarrhea was reported by the nursing staff Objective - Vital Signs Vital signs: Vital Signs Temp 97.5 F L 02/28/22 15:20 Pulse 80 02/28/22 15:50 Resp 15 02/28/22 15:20 BP 131/59 02/28/22 15:20 Pulse Ox 96 02/28/22 08:00 FiO2 Intake & Output 02/27/22 02/28/22 02/28/22 18:59 06:59 18:59 Intake Total 800 Output Total 950 925 400 Balance -150 -925 -400 Intake: Intake, IV Titration 800 Amount Piperacillin-Tazobactam 3 50 .375 gm In Sodium Chloride 0.9% 100 ml @ 25 mls/hr IVPB Q8HR [facility] Rx# :[id number] Sodium Chloride 0.9% 1, 750 000 ml @ 75 mls/hr IV . [id number] [facility] Rx#:[id number] Output: Urine 950 925 400 Uretheral (Deutsch) 650 350 Other: Voiding Method Indwelling Catheter Indwelling Catheter Indwelling Catheter - Exam GENERAL DESCRIPTION: An elderly male lying in bed in no distress RESPIRATORY SYSTEM: Unlabored breathing , decreased breath sounds at bases HEART: S1 S2 regular rate and rhythm , ABDOMEN: Soft , no tenderness EXTREMITIES: No edema feet - Labs CBC & Chem 7: 03/01/22 07:30 03/01/22 07:30 Labs: Abnormal Lab Results - Last 24 Hours (Table) 02/28/22 02/28/22 Range/Units 08:05 08:05 WBC 12.08 H (4.50-10.00) X 10*3/uL RBC 3.55 L (4.40-5.60) X 10*6/uL Hgb 10.2 L (13.0-17.0) g/dL Hct 31.2 L (39.6-50.0) % Immature Gran # 0.05 H (0.00-0.04) X 10*3/uL Neutrophils # 9.56 H (1.80-7.70) X 10*3/uL Monocytes # 1.32 H (0.20-1.00) X 10*3/uL Anion Gap 9.90 L (10.00-18.00) mmol/L BUN/Creatinine Ratio 29.17 H (12.00-20.00) Ratio Calcium 8.1 L (8.7-10.3) mg/dL Microbiology - Last 24 Hours (Table) 02/26/22 01:35 Blood Culture - Preliminary Blood No Growth after 48 hours 02/26/22 01:51 Blood Culture - Preliminary Blood No Growth after 48 hours 02/27/22 16:02 Urine Culture - Preliminary Urine,Catheterized 02/26/22 04:58 Urine Culture - Final Urine,Voided Assessment and Plan (1) UTI (urinary tract infection) Current Visit: Yes Status: Acute Code(s): N39.0 - URINARY TRACT INFECTION, SITE NOT SPECIFIED SNOMED Code(s): 54854553 Plan: 1patient presented to hospital with sepsis in this patient had fever elevated white count did have urinary retention requiring Deutsch catheter placement positive high clinical suspicious for urinary tract infection in this patient spiking fever despite being on Zosyn with concern for possible ESBL pathogen as the patient previously did have ESBL E. coli UTI. 2- Blood and urine culture have been requested which are currently pending 3Patient to continue with Invanz 1 g daily while waiting for the cultures to finalize Time with Patient: Less than 30
--- NOTE | 2022-03-01 15:51 | P.PN ---
Subjective Progress Note Date: 03/01/22 Principal diagnosis: Fever/UTI Patient is 89 year old male with multiple comorbidities including a prostate cancer status post radiation seed implant history of urethral stricture requiring dilatation in history of recurrent UTI, brought into the hospital for low-grade fever weakness and urinary retention positive UA concerning for symptomatic urinary tract infection on today's evaluation that is 03/01/2022, the patient fever has resolved and is afebrile this morning however the patient remained to be sleepy and lethargic and did not provide any history and no vomiting or diarrhea was reported by the nursing staff Objective - Vital Signs Vital signs: Vital Signs Temp 99.2 F 03/01/22 14:00 Pulse 79 03/01/22 14:00 Resp 15 03/01/22 14:00 BP 127/59 03/01/22 14:00 Pulse Ox 99 03/01/22 14:00 FiO2 Intake & Output 02/28/22 03/01/22 03/01/22 18:59 06:59 18:59 Intake Total 700 Output Total 500 600 100 Balance 200 -600 -100 Intake: Intake, IV Titration 700 Amount Sodium Chloride 0.9% 1, 700 000 ml @ 60 mls/hr IV . [id number] [facility] Rx#:[id number] Output: Urine 500 600 100 Uretheral (Deutsch) 100 Other: Voiding Method Indwelling Catheter Indwelling Catheter Indwelling Catheter # Bowel Movements 0 - Exam GENERAL DESCRIPTION: An elderly male lying in bed in no distress RESPIRATORY SYSTEM: Unlabored breathing , decreased breath sounds at bases HEART: S1 S2 regular rate and rhythm , ABDOMEN: Soft , no tenderness EXTREMITIES: No edema feet - Labs CBC & Chem 7: 03/01/22 07:30 03/01/22 07:30 Labs: Abnormal Lab Results - Last 24 Hours (Table) 02/27/22 03/01/22 03/01/22 Range/Units 16:30 07:30 07:30 RBC 3.45 L (4.40-5.60) X 10*6/uL Hgb 9.9 L (13.0-17.0) g/dL Hct 30.4 L (39.6-50.0) % MPV 9.4 L (9.5-12.2) fL Immature Gran # 0.05 H (0.00-0.04) X 10*3/uL Monocytes # 1.19 H (0.20-1.00) X 10*3/uL Anion Gap 9.00 L (10.00-18.00) mmol/L Creatinine 0.5 L (0.6-1.5) mg/dL BUN/Creatinine Ratio 29.96 H (12.00-20.00) Ratio Calcium 8.0 L (8.7-10.3) mg/dL Urine Protein 1+ H (Negative) Urine Ketones 1+ H (Negative) Urine Blood Moderate H (Negative) Ur Leukocyte Esterase Large H (Negative) Urine RBC 27 H (0-5) /hpf Urine WBC >182 H (0-5) /hpf Urine WBC Clumps Few H (None) /hpf Urine Mucus Rare H (None) /hpf Microbiology - Last 24 Hours (Table) 02/26/22 01:51 Blood Culture - Preliminary Blood No Growth after 72 hours 02/26/22 01:35 Blood Culture - Preliminary Blood No Growth after 72 hours 02/27/22 19:43 Blood Culture - Preliminary Blood No Growth after 24 hours 02/27/22 16:02 Urine Culture - Final Urine,Catheterized Assessment and Plan (1) UTI (urinary tract infection) Current Visit: Yes Status: Acute Code(s): N39.0 - URINARY TRACT INFECTION, SITE NOT SPECIFIED SNOMED Code(s): 79961429 Plan: 1patient presented to hospital with sepsis in this patient had fever elevated white count did have urinary retention requiring Deutsch catheter placement positive high clinical suspicious for urinary tract infection in this patient spiking fever despite being on Zosyn with concern for possible ESBL pathogen as the patient previously did have ESBL E. coli UTI. 2- Blood and urine culture have been requested which are so far negative 3Patient seemed to have clinically responded with resolution of the fever and will continue with Invanz 1 g daily and monitor clinical course closely Time with Patient: Less than 30
[2022-03-01] MEDS: PRAVASTATIN SODIUM 40 MG TAB PO SCH (18:26)
[2022-03-01] MEDS: QUEtiapine 50 MG TAB PO SCH (18:26)
[2022-03-01] MEDS: MIRTAZAPINE 15 MG TAB PO SCH (18:27)
[2022-03-01] MEDS: FOLIC ACID 1 MG TAB PO SCH (18:27)
[2022-03-01] MEDS: ERTAPENEM 1 GM in SODIUM CHLORIDE 0.9% 50 ML IVPB SCH (20:36)
[2022-03-02] MEDS ORDERED: DILTIAZEM DRIP BOLUS FROM BAG 1 MG SOLN IV ONE (06:04)
[2022-03-02] MEDS ORDERED: DILTIAZEM 125 MG in SODIUM CHLORIDE 0.9% 100 ML IV SCH (06:15)
[2022-03-02] MEDS: IPRATROPIUM-ALBUTEROL 3 ML NEB INHALATION SCH ×2 (07:59→11:39)
[2022-03-02] MEDS: SYMBICORT 80-4.5 MCG INHALER INHALATION SCH ×2 (07:59→20:25)
[2022-03-02] MEDS: SODIUM CHLORIDE 0.9% 1,000 ML IV SCH ×2 (08:29→21:49)
[2022-03-02] MEDS: DONEPEZIL 10 MG TAB PO SCH (08:32)
[2022-03-02] MEDS: PANTOPRAZOLE 40 MG TABLET PO SCH (08:32)
[2022-03-02] MEDS: LACTOBACILLUS ACIDOPH & BULGAR 1 EACH PACKET PO SCH (08:32)
[2022-03-02] MEDS: APIXABAN 2.5 MG TABLET PO SCH ×2 (08:32→16:43)
[2022-03-02] MEDS: METOPROLOL TARTRATE 12.5 MG TAB PO SCH (08:32)
[2022-03-02] MEDS: ZINC SULFATE 220 MG CAP PO SCH (08:32)
[2022-03-02] MEDS: TAMSULOSIN 0.4 MG CAP.ER.24H PO SCH (08:32)
--- NOTE | 2022-03-02 11:56 | P.PN ---
Subjective Progress Note Date: 03/02/22 Principal diagnosis: UTI sepsis Patient was seen and examined. Patient was noted to be in atrial fibrillation with RVR and transferred to cardiac unit. Started on diltiazem drip, heart rate in the 110s. Tmax 99.2F over the last 24H. Patient denies any complaints. Upset when woken up. Objective - Vital Signs Vital signs: Vital Signs Temp 98.4 F 03/02/22 08:48 Pulse 128 H 03/02/22 08:48 Resp 16 03/02/22 08:48 BP 125/56 03/02/22 08:48 Pulse Ox 97 03/02/22 08:48 FiO2 Intake & Output 03/01/22 03/02/22 03/02/22 18:59 06:59 18:59 Output Total 400 1200 Balance -400 -1200 Output: Urine 400 1200 Uretheral (Deutsch) 400 Other: Voiding Method Indwelling Catheter Indwelling Catheter Indwelling Catheter # Voids 2 - Exam General: [non toxic], [no distress], [appears at stated age] Derm: [warm], [dry] Head: [atraumatic], [normocephalic], [symmetric] Eyes: [EOMI], [no lid lag], [anicteric sclera] Mouth: [no lip lesion], [mucus membranes moist] Cardiovascular: [Irregularly irregular HR 110s], [systolic murmur] Lungs: [Decreased BS bilateral], [no rhonchi, no rales] , [no accessory muscle use] Abdominal: [soft], [ nontender to palpation], [no guarding], [no appreciable organomegaly] Ext: [no gross muscle atrophy], [no edema] Neuro: [Uncooperative] Psych: [AOx1] - Labs CBC & Chem 7: 03/01/22 07:30 03/01/22 07:30 Labs: Abnormal Lab Results - Last 24 Hours (Table) 03/01/22 03/01/22 Range/Units 07:30 07:30 RBC 3.45 L (4.40-5.60) X 10*6/uL Hgb 9.9 L (13.0-17.0) g/dL Hct 30.4 L (39.6-50.0) % MPV 9.4 L (9.5-12.2) fL Immature Gran # 0.05 H (0.00-0.04) X 10*3/uL Monocytes # 1.19 H (0.20-1.00) X 10*3/uL Anion Gap 9.00 L (10.00-18.00) mmol/L Creatinine 0.5 L (0.6-1.5) mg/dL BUN/Creatinine Ratio 29.96 H (12.00-20.00) Ratio Calcium 8.0 L (8.7-10.3) mg/dL Microbiology - Last 24 Hours (Table) 02/26/22 01:35 Blood Culture - Preliminary Blood No Growth after 96 hours 02/26/22 01:51 Blood Culture - Preliminary Blood No Growth after 96 hours 02/27/22 19:43 Blood Culture - Preliminary Blood No Growth after 48 hours Assessment and Plan Assessment: Assessment and Plan #Sepsis secondary to suspected acute UTI, cultures pending in a patient with history of ESBL, prostate cancer with radiation seeds , urinary retention. Elevated pro-calcitonin #Urinary retention secondary to urethral stricture, Status post dilation and placement of 12-[place] coud tip catheter per urology. #Acute metabolic encephalopathy, multifactorial, all the above, environment, in a patient with underlying dementia. #Atrial fibrillation with RVR #Fall, Suspected fell out of bed hitting bedside table. Head, cervical spine CT reported negative. X-rays of bilateral shoulder and humerus noted. 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 #History of rheumatoid arthritis, treated in the past, not on immunosuppressants #History of lumbar degenerative disc disease, spinal stenosis, L5 spondylosis, facet arthropathy, L3-4 laminectomy #Gait dysfunction, right foot drop, ambulates with walker #Underlying dementia No fever over the past 24H. Leukocytosis resolved. Blood cultures negative at 96 hours. Urine culture negative at 18 hours. Continue normal saline at 60 cc/hr. Continue Ertapenem. Follow cultures. Telemetry monitoring. Infectious disease onboard. s/p dilation of urethral strictures. Urology on board. Monitor strict intake and output. Patient noted to have atrial fibrillation with RVR this morning. Patient is moved to cardiac unit. Continue Eliquis for anticoagulation. Continue diltiazem drip. Discontinue scheduled DuoNeb treatments as this could be contributing to AFib with RVR and patient not in respiratory distress. Maintain potassium greater than 4 and magnesium greater than 2, labs ordered. Will order echocardiogram. Cardiology consulted for further management of this patient. Fall precautions. PT and OT consulted. Case discussed with nursing.
[2022-03-02 12:09] LABS: Basophils # (A) 0.03 X 10*3/uL (0.00-0.10); Basophils % (A) 0.2 %; Eosinophils # (A) 0.09 X 10*3/uL (0.04-0.35); Eosinophils % (A) 0.7 %; HCT 33.5 % (39.6-50.0); Immature Grans, Automated 0.5 %; Lymphocytes # (A) 0.99 X 10*3/uL (0.90-5.00); Lymphocytes % (A) 7.5 %; MCH 28.8 pg (27.0-32.0); MCHC 32.8 g/dL (32.0-37.0); MCV 87.7 fL (80.0-97.0); Mean Platelet Volume 9.7 fL (9.5-12.2); Monocytes # (A) 1.25 X 10*3/uL (0.20-1.00); Monocytes % (A) 9.5 %; NRBC Per 100 WBC 0 /100 WBCS (0.0-0.0); Neutrophils # (A) 10.72 X 10*3/uL (1.80-7.70); Neutrophils % (A) 81.6 %; Platelet Count 378 X 10*3/uL (140-440); RBC 3.82 X 10*6/uL (4.40-5.60); RDW 12.7 % (11.5-14.5); WBC 13.14 X 10*3/uL (4.50-10.00)
[2022-03-02 12:26] LABS: African American GFR (CKD) 111.4 (60.0-200.0); Anion Gap 10.7 mmol/L (10.00-18.00); BUN/Creat Ratio 29.2 Ratio (12.00-20.00); Blood Urea Nitrogen 14.6 mg/dL (9.0-27.0); Calcium 8.3 mg/dL (8.7-10.3); Carbon Dioxide 23.3 mmol/L (20.0-27.5); Non-African American GFR(CKD) 96.1 (60.0-200.0)
[2022-03-02 12:28] LABS: HCT 32.1 % (39.0-53.0); HGB 11.4 gm/dL (13.0-17.5); MCHC 35.5 g/dL (31.0-37.0); MCV 90.1 fL (80.0-100.0); Mean Platelet Volume 7.1; Platelet Count 361 k/uL (150-450); RBC 3.56 m/uL (4.30-5.90); RDW 12.9 % (11.5-15.5); WBC 12.9 k/uL (3.8-10.6)
[2022-03-02 12:42] LABS: African American GFR (CKD) >90 (>60 ml/min/1.73 sqM); Anion Gap 6 mmol/L; Blood Urea Nitrogen 16 mg/dL (9-20); Calcium 8.2 mg/dL (8.4-10.2); Carbon Dioxide 22 mmol/L (22-30); Chloride 107 mmol/L (98-107); Glucose 108 mg/dL (74-99); Magnesium 1.8 mg/dL (1.6-2.3); Non-African American GFR(CKD) >90 (>60 ml/min/1.73 sqM); Potassium 4.1 mmol/L (3.5-5.1); Sodium 135 mmol/L (137-145)
[2022-03-02] MEDS: IPRATROPIUM-ALBUTEROL 3 ML NEB INHALATION PRN ×2 (15:47→20:24)
[2022-03-02] MEDS ORDERED: DEXTROSE 5% IN WATER 100 ML with AMIODARONE 150 MG IV ONE (16:08)
[2022-03-02] MEDS ORDERED: AMIODARONE 360 MG in DEXTROSE 5% IN WATER 200 ML IV ONE ×2 (16:08)
--- NOTE | 2022-03-02 16:40 | P.CRDCN ---
History of Present Illness Consult date: 03/02/22 Chief complaint: Generalized weakness History of present illness: The patient is a pleasant 89-year-old gentleman with a past medical history sig nificant for underlying dementia as well as permanent atrial fibrillation maintaining oral anticoagulation as well as multiple comorbid conditions who was admitted to the hospital initially with urosepsis. Initially the patient was admitted to the fourth floor. He is known to have permanent atrial fibrillation. Earlier today it was noticed that his heart rate was going up and he was in atrial fibrillation with a heart rate around 120 beats per minutes. For that reason the patient was brought to the telemetry unit. He is a poor historian and known to have underlying dementia. No indication that he was experiencing any chest pain or chest discomfort or any shortness of breath. As a matter of fact he seems to be euvolemic on examination. He was started on Cardizem IV. He was also on beta marta which has increased a earlier today. He is also on oral anticoagulation. I am going to DC the Cardizem and start the patient on amiodarone IV and subsequently switching to amiodarone by mouth and also try to increase the dose of beta marta within the next 24-48 hours. Continue oral anticoagulation. On examination also the patient seems to be somewhat dehydrated. And that could be contributing to his atrial fibrillation with RVR in addition of course to the urosepsis. The patient is known to our service before. He was admitted in 2019 was A. fib with RVR and at that point he underwent an echo which revealed normal left ventricular systolic function was no significant valvular abnormalities. His blood work and workup was reviewed. His hemoglobin is stable. His GFR is about 60. Past Medical History Past Medical History: Atrial Fibrillation, Asthma, Cancer, CVA/TIA, GI Bleed, Prostate Disorder, Rheumatoid Arthritis (RA) Additional Past Medical History / Comment(s): chronic back problems, Rt foot kym p, Uses a walker, prostate cancer, radiation seeds; suspected cva 2017; covid; strictures History of Any Multi-Drug Resistant Organisms: ESBL Date of last positivie culture/infection: 07/28/2019 MDRO Source:: URINE ESBL Past Surgical History: Back Surgery Additional Past Surgical History / Comment(s): RECENT PICC LINE, NOW REMOVED, JONO CATARACTS, R hand surgery; laminectomy Past Anesthesia/Blood Transfusion Reactions: No Reported Reaction Past Psychological History: No Psychological Hx Reported Smoking Status: Never smoker Past Alcohol Use History: None Reported Past Drug Use History: None Reported - Past Family History Father Family Medical History: No Reported History Mother Family Medical History: GI Bleed Medications and Allergies Home Medications Medication Instructions Recorded Confirmed Type Folic Acid 1 mg PO DAILY@1800 03/12/17 02/26/22 History ALPRAZolam [Xanax] 0.5 mg PO BID PRN 03/05/20 02/26/22 History Colloidal Oatmeal [Eucerin Eczema 1 applic TOPICAL BID 03/05/20 02/26/22 History Relief] Cyanocobalamin [Vitamin B-12] 500 mcg PO DAILY@79903/05/20 02/26/22 History Donepezil [Aricept] 10 mg PO DAILY@79903/05/20 02/26/22 History Ipratropium-Albuterol Nebulize 3 ml INHALATION RT-QID PRN 03/05/20 02/26/22 History [Duoneb 0.5 mg-3 mg/3 ml Soln] Metoprolol Tartrate [Lopressor] 12.5 mg PO BID@0800,1800 03/05/20 02/26/22 History Pantoprazole [Protonix] 40 mg PO DAILY@79903/05/20 02/26/22 History QUEtiapine [SEROquel] 50 mg PO HS@179903/05/20 02/26/22 History Acetaminophen Tab [Tylenol] 650 mg PO Q4H PRN 02/26/22 02/26/22 History Apixaban [Eliquis] 2.5 mg PO BID@0800,1800 02/26/22 02/26/22 History Ascorbic Acid [Vitamin C] 500 mg PO BID@0800,1800 02/26/22 02/26/22 History Cranberry Fruit Extract [Cranberry] 500 mg PO DAILY@79902/26/22 02/26/22 History Fluticasone/Vilanterol [Breo 1 puff INHALATION RT-DAILY@79902/26/22 02/26/22 History Ellipta 100-25 Mcg Inhaler] Ipratropium-Albuterol Nebulize 3 ml INHALATION RT-Q3H PRN 02/26/22 02/26/22 History [Duoneb 0.5 mg-3 mg/3 ml Soln] Kaolin Pectin 30 ml PO DAILY PRN 02/26/22 02/26/22 History Mag Hydrox/Aluminum Hyd/Simeth 15 ml PO BID PRN 02/26/22 02/26/22 History [Mylanta Maximum Strength Liq] Magnesium Hydroxide [Milk of 2,400 mg PO HS PRN 02/26/22 02/26/22 History Magnesia] Mirtazapine [Remeron] 30 mg PO HS@1800 02/26/22 02/26/22 History Pravastatin Sodium [Pravachol] 40 mg PO HS@1800 02/26/22 02/26/22 History Zinc Sulfate [Orazinc] 220 mg PO DAILY@0800 02/26/22 02/26/22 History guaiFENesin SYRUP 100MG/5ML 1 dose PO Q6H PRN 02/26/22 02/26/22 History [Robitussin] Allergies Allergy/AdvReac Type Severity Reaction Status Date / Time No Known Allergies Allergy Verified 02/26/22 07:20 Physical Exam Vitals: Vital Signs Temp Pulse Pulse Pulse Resp BP Pulse Ox 03/02/22 11:50 116 H 03/02/22 11:47 99.0 F 118 H 18 118/62 98 03/02/22 11:40 116 H 03/02/22 08:48 98.4 F 128 H 16 125/56 97 03/02/22 08:09 112 H 03/02/22 07:59 116 H 03/02/22 02:00 98.9 F 87 18 132/54 97 03/01/22 20:26 80 03/01/22 20:16 77 03/01/22 20:00 98.7 F 80 87 18 115/70 95 Intake and Output 03/02/22 03/02/22 03/02/22 06:59 14:59 22:59 Intake Total 16.5 Output Total 1200 Balance -1200 16.5 Intake: Intake, IV Titration 16.5 Amount Diltiazem 125 mg In 16.5 Sodium Chloride 0.9% 100 ml @ Per Protocol IV .Q0M [facility] Rx#:[id number] Output: Urine 1200 Other: Voiding Method Indwelling Catheter - Constitutional General appearance: no acute distress - Respiratory Respiratory: bilateral: diminished - Cardiovascular Rhythm: irregularly irregular Heart sounds: normal: S1, S2 Results 03/02/22 12:18 03/02/22 12:18 CBC 03/02/22 03/02/22 Range/Units 07:23 12:18 WBC 13.14 H 12.9 H (4.50-10.00) X 10*3/uL RBC 3.82 L 3.56 L (4.40-5.60) X 10*6/uL Hgb 11.0 L 11.4 L (13.0-17.0) g/dL Hct 33.5 L 32.1 L (39.6-50.0) % Plt Count 378 361 (140-440) X 10*3/uL Comprehensive Metabolic Panel 03/02/22 03/02/22 Range/Units 07:23 12:18 Sodium 137 135 L (135-145) mmol/L Potassium 4.0 4.1 (3.5-5.5) mmol/L Chloride 103 107 (96-109) mmol/L Carbon Dioxide 23.3 22 (20.0-27.5) mmol/L BUN 14.6 16 (9.0-27.0) mg/dL Creatinine 0.5 L 0.57 L (0.6-1.5) mg/dL Glucose 96 108 H (70-110) mg/dL Calcium 8.3 L 8.2 L (8.7-10.3) mg/dL Current Medications Generic Name Dose Route Start Last Admin Trade Name Freq PRN Reason Stop Dose Admin Acetaminophen 650 mg 02/27/22 19:36 02/27/22 20:02 Acetaminophen Tab 325 Mg Tab PO 650 mg Q4HR PRN Administration Fever and/ or Pain Albuterol/Ipratropium 3 ml 02/27/22 15:59 Ipratropium-Albuterol 3 Ml Neb INHALATION RT-Q2H PRN Shortness Of Breath Or Wheezing Albuterol/Ipratropium 3 ml 03/02/22 11:51 03/02/22 15:47 Ipratropium-Albuterol 3 Ml Neb INHALATION 3 ml RT-QID PRN Administration Shortness Of Breath Or Wheezing Alprazolam 0.5 mg 02/26/22 10:10 02/26/22 18:21 Alprazolam 0.5 Mg Tab PO 0.5 mg BID PRN Administration Anxiety Apixaban 2.5 mg 02/26/22 18:00 08/06/22 08:32 Apixaban 2.5 Mg Tablet PO 2.5 mg BID@0800,1800 [facility] Administration Protocol Budesonide/Formoterol Fumarate 2 puff 02/26/22 11:00 03/02/22 07:59 Symbicort 80-4.5 Mcg Inhaler INHALATION 2 puff RT-BID [facility] Administration Donepezil HCl 10 mg 02/26/22 08:00 03/02/22 08:32 Donepezil 10 Mg Tab PO 10 mg DAILY@0800 [facility] Administration Folic Acid 1 mg 02/26/22 18:00 03/01/22 18:27 Folic Acid 1 Mg Tab PO 1 mg DAILY@1800 [facility] Administration Ertapenem 1 gm/ Sodium 50 mls @ 100 mls/hr 02/27/22 20:15 03/01/22 20:36 Chloride IVPB 100 mls/hr DAILY@2000 [facility] Administration Protocol Sodium Chloride 1,000 mls @ 60 mls/hr 02/27/22 22:00 03/02/22 08:29 Saline 0.9% IV 60 mls/hr .[id number] [facility] Administration Amiodarone HCl 360 mg/ 200 mls @ 33.333 mls/hr 03/02/22 16:08 Dextrose/Water IV 03/02/22 22:07 .Q6H ONE Protocol 1 MG/MIN Amiodarone HCl 450 mg/ 250 mls @ 16.667 mls/hr 03/02/22 22:15 Dextrose/Water IV 03/03/22 16:14 .Q15H [facility] Protocol 0.5 MG/MIN Lactobacillus Acidoph/Bulgaricus 1 each 02/27/22 09:00 03/02/22 08:32 Lactobacillus Acidoph & Bulgar 1 Each Packet PO 1 each DAILY [facility] Administration Magnesium Hydroxide 2,400 mg 02/26/22 10:10 Magnesium Hydroxide 2,400 Mg/10 Ml Cup PO HS PRN Constipation Metoprolol Tartrate 25 mg 03/02/22 21:00 Metoprolol Tartrate 25 Mg Tab PO BID [facility] Mirtazapine 30 mg 02/26/22 18:00 03/01/22 18:27 Mirtazapine 15 Mg Tab PO 30 mg HS@1800 [facility] Administration Naloxone HCl 0.2 mg 02/26/22 05:51 Naloxone 0.4 Mg/Ml 1 Ml Vial IV Q2M PRN Opioid Reversal Ondansetron HCl 4 mg 02/26/22 05:51 Ondansetron 4 Mg/2 Ml Vial IVP Q8HR PRN Nausea And Vomiting Pantoprazole Sodium 40 mg 02/28/22 07:30 03/02/22 08:32 Pantoprazole 40 Mg Tablet PO 40 mg [id number] [facility] Administration Pravastatin Sodium 40 mg 02/26/22 18:00 03/01/22 18:26 Pravastatin Sodium 40 Mg Tab PO 40 mg HS@1800 [facility] Administration Quetiapine Fumarate 50 mg 02/26/22 18:00 03/01/22 18:26 Quetiapine 50 Mg Tab PO 50 mg HS@1800 [facility] Administration Tamsulosin HCl 0.4 mg 02/26/22 13:15 03/02/22 08:32 Tamsulosin 0.4 Mg Cap.Er.24h PO 0.4 mg [id number] [facility] Administration Zinc Sulfate 220 mg 02/27/22 08:00 03/02/22 08:32 Zinc Sulfate 220 Mg Cap PO 220 mg DAILY@0800 [facility] Administration Intake and Output 03/02/22 03/02/22 03/02/22 06:59 14:59 22:59 Intake Total 16.5 Output Total 1200 Balance -1200 16.5 Intake: Intake, IV Titration 16.5 Amount Diltiazem 125 mg In 16.5 Sodium Chloride 0.9% 100 ml @ Per Protocol IV .Q0M [facility] Rx#:[id number] Output: Urine 1200 Other: Voiding Method Indwelling Catheter 03/02/22 12:18 03/02/22 12:18 Assessment and Plan Assessment: Assessment #1 urosepsis #2 possible component of dehydration #3 atrial fibrillation with rapid ventricular response #4 known history of permanent atrial fibrillation #5 preserved left ventricle systolic function Plan #1 IV hydration to be continued #2 DC Cardizem IV and start the patient on amiodarone IV #3 uptitrate the dose of beta marta orally #4 no need for further cardiac workup like echocardiogram #5 follow-up with the patient
[2022-03-02] MEDS: FOLIC ACID 1 MG TAB PO SCH (16:43)
[2022-03-02] MEDS: PRAVASTATIN SODIUM 40 MG TAB PO SCH ×2 (16:43→16:44)
[2022-03-02] MEDS: QUEtiapine 50 MG TAB PO SCH (16:44)
[2022-03-02] MEDS: MIRTAZAPINE 15 MG TAB PO SCH (17:05)
--- NOTE | 2022-03-02 18:20 | P.PN ---
Subjective Progress Note Date: 03/02/22 Principal diagnosis: Fever/UTI Patient is 89 year old male with multiple comorbidities including a prostate cancer status post radiation seed implant history of urethral stricture requiring dilatation in history of recurrent UTI, brought into the hospital for low-grade fever weakness and urinary retention positive UA concerning for symptomatic urinary tract infection on today's evaluation that is 03/02/2022, the patient remains to be afebrile, the patient remained to be sleepy and lethargic and did not provide any history, the patient did went into A. fib with RVR and has been transferred to the telemetry unit, no vomiting or diarrhea has been reported Objective - Vital Signs Vital signs: Vital Signs Temp 99.0 F 03/02/22 11:47 Pulse 116 H 03/02/22 11:50 Resp 18 03/02/22 11:47 BP 118/62 03/02/22 11:47 Pulse Ox 98 03/02/22 11:47 FiO2 Intake & Output 03/01/22 03/02/22 03/02/22 18:59 06:59 18:59 Intake Total 16.5 Output Total 400 1200 Balance -400 -1200 16.5 Intake: Intake, IV Titration 16.5 Amount Diltiazem 125 mg In 16.5 Sodium Chloride 0.9% 100 ml @ Per Protocol IV .Q0M [facility] Rx#:[id number] Output: Urine 400 1200 Uretheral (Deutsch) 400 Other: Voiding Method Indwelling Catheter Indwelling Catheter Indwelling Catheter # Voids 2 - Exam GENERAL DESCRIPTION: An elderly male lying in bed in no distress RESPIRATORY SYSTEM: Unlabored breathing , decreased breath sounds at bases HEART: S1 S2 regular rate and rhythm , ABDOMEN: Soft , no tenderness EXTREMITIES: No edema feet - Labs CBC & Chem 7: 03/02/22 12:18 03/02/22 12:18 Labs: Abnormal Lab Results - Last 24 Hours (Table) 03/02/22 03/02/22 03/02/22 Range/Units 07:23 07:23 12:18 WBC 13.14 H 12.9 H (4.50-10.00) X 10*3/uL RBC 3.82 L 3.56 L (4.40-5.60) X 10*6/uL Hgb 11.0 L 11.4 L (13.0-17.0) g/dL Hct 33.5 L 32.1 L (39.6-50.0) % Immature Gran # 0.06 H (0.00-0.04) X 10*3/uL Neutrophils # 10.72 H (1.80-7.70) X 10*3/uL Monocytes # 1.25 H (0.20-1.00) X 10*3/uL Sodium (137-145) mmol/L Creatinine 0.5 L (0.6-1.5) mg/dL BUN/Creatinine Ratio 29.20 H (12.00-20.00) Ratio Glucose (74-99) mg/dL Calcium 8.3 L (8.7-10.3) mg/dL 03/02/22 Range/Units 12:18 WBC (4.50-10.00) X 10*3/uL RBC (4.40-5.60) X 10*6/uL Hgb (13.0-17.0) g/dL Hct (39.6-50.0) % Immature Gran # (0.00-0.04) X 10*3/uL Neutrophils # (1.80-7.70) X 10*3/uL Monocytes # (0.20-1.00) X 10*3/uL Sodium 135 L (137-145) mmol/L Creatinine 0.57 L (0.6-1.5) mg/dL BUN/Creatinine Ratio (12.00-20.00) Ratio Glucose 108 H (74-99) mg/dL Calcium 8.2 L (8.7-10.3) mg/dL Microbiology - Last 24 Hours (Table) 02/26/22 01:35 Blood Culture - Preliminary Blood No Growth after 96 hours 02/26/22 01:51 Blood Culture - Preliminary Blood No Growth after 96 hours 02/27/22 19:43 Blood Culture - Preliminary Blood No Growth after 48 hours Assessment and Plan (1) UTI (urinary tract infection) Current Visit: Yes Status: Acute Code(s): N39.0 - URINARY TRACT INFECTION, SITE NOT SPECIFIED SNOMED Code(s): 27275387 Plan: 1patient presented to hospital with sepsis in this patient had fever elevated white count did have urinary retention requiring Deutsch catheter placement positive high clinical suspicious for urinary tract infection in this patient spiking fever despite being on Zosyn with concern for possible ESBL pathogen as the patient previously did have ESBL E. coli UTI. 2- Blood and urine culture have been requested which are so far negative 3Patient did have resolution of the fever and currently being treated with Invanz 1 g daily and monitor clinical course closely Time with Patient: Less than 30
[2022-03-02] MEDS: METOPROLOL TARTRATE 25 MG TAB PO SCH (20:01)
--- NOTE | 2022-03-02 21:00 | US ---
EXAMINATION TYPE: US abdomen complete DATE OF EXAM: 03/02/2022 COMPARISON: CLINICAL HISTORY: fever. Poor historian. TECHNIQUE: Multiple sonographic images of the abdomen are obtained. FINDINGS: EXAM MEASUREMENTS: Liver Length: 15.5 cm Gallbladder Wall: 0.2 cm Spleen: 11.8 cm Right Kidney: 10.6 x 4.6 x 5.6 cm Left Kidney: 11.5 x 5.0 x 5.3 cm SENIOR BEHAVIORAL SCIENTIST NOTES: Very limited do to bowel gas and patient unable to follow directions Pancreas: Obscured by bowel gas Liver: Limited, scanned through ribs. No prominent masses or lesions seen Gallbladder: wnl, unable to obtain LLD images Evidence for sonographic Brantley's sign: neg CBD: Obscured by overlying bowel gas Spleen: wnl Right Kidney: Limited visualization, no prominent masses or lesion seen Left Kidney: Limited visualization, no prominent masses or lesion seen Upper IVC: Obscured by overlying bowel gas Abd Aorta: Proximal and mid obscured by bowel gas IMPRESSION: No gallstones or dilated ducts. No focal liver defect. Common bile duct not visualized.
[2022-03-02] MEDS: ERTAPENEM 1 GM in SODIUM CHLORIDE 0.9% 50 ML IVPB SCH (21:48)
[2022-03-02] MEDS ORDERED: AMIODARONE 450 MG in DEXTROSE 5% IN WATER 250 ML IV SCH ×2 (22:15)
--- NOTE | 2022-03-03 05:52 | P.PN ---
Subjective Progress Note Date: 03/03/22 Principal diagnosis: Paroxysmal atrial fibrillation This is an 89-year-old gentleman with underlying dementia as well as paroxysmal atrial fibrillation maintaining on oral anticoagulation as an outpatient was admitted to the hospital initially with urosepsis and dehydration. Initially he was admitted to the fourth floor but subsequently he went into A. fib with RVR and then he was transferred to the third floor. He was seen yesterday. He was started on amiodarone IV. This morning when he was evaluated and he is back in normal sinus mechanism. I am going to DC the new IV and start the patient on an U by mouth. Continue beta marta with the current dose. Continue oral anticoagulation. I believe that the A. fib with RVR was triggered by dehydration as well as urosepsis. From the cardiac standpoint of view, the patient can be transferred to the fourth floor. We will follow-up with her home when necessary Objective - Vital Signs Vital signs: Vital Signs Temp 98.5 F 03/03/22 03:45 Pulse 77 03/03/22 03:45 Resp 16 03/03/22 03:45 BP 148/67 03/03/22 03:45 Pulse Ox 97 03/03/22 03:45 FiO2 Intake & Output 03/02/22 03/02/22 03/03/22 06:59 18:59 06:59 Intake Total 16.5 1510.004 Output Total 1200 700 350 Balance -1200 -683.5 1160.004 Intake: Intake, IV Titration 16.5 970.004 Amount Amiodarone 450 mg In 200.004 Dextrose 5% in Water 250 ml @ 0.5 MG/MIN 16.667 mls/hr IV .Q15H [facility] Rx#: [id number] Diltiazem 125 mg In 16.5 Sodium Chloride 0.9% 100 ml @ Per Protocol IV .Q0M [facility] Rx#:[id number] Ertapenem 1 gm In Sodium 50 Chloride 0.9% 50 ml @ 100 mls/hr IVPB DAILY@2000 [facility] Rx#:[id number] Sodium Chloride 0.9% 1, 720 000 ml @ 60 mls/hr IV . [id number] [facility] Rx#:[id number] Oral 0 540 Output: Urine 1200 700 350 Uretheral (Deutsch) 100 Other: Voiding Method Indwelling Catheter Indwelling Catheter Indwelling Catheter - Constitutional General appearance: Present: no acute distress - Respiratory Respiratory: bilateral: diminished - Cardiovascular Rhythm: regular Heart sounds: normal: S1, S2 Abnormal Heart Sounds: Present: systolic murmur - Labs CBC & Chem 7: 03/02/22 12:18 03/02/22 12:18 Labs: Abnormal Lab Results - Last 24 Hours (Table) 03/02/22 03/02/22 03/02/22 Range/Units 07:23 07:23 12:18 WBC 13.14 H 12.9 H (4.50-10.00) X 10*3/uL RBC 3.82 L 3.56 L (4.40-5.60) X 10*6/uL Hgb 11.0 L 11.4 L (13.0-17.0) g/dL Hct 33.5 L 32.1 L (39.6-50.0) % Immature Gran # 0.06 H (0.00-0.04) X 10*3/uL Neutrophils # 10.72 H (1.80-7.70) X 10*3/uL Monocytes # 1.25 H (0.20-1.00) X 10*3/uL Sodium (137-145) mmol/L Creatinine 0.5 L (0.6-1.5) mg/dL BUN/Creatinine Ratio 29.20 H (12.00-20.00) Ratio Glucose (74-99) mg/dL Calcium 8.3 L (8.7-10.3) mg/dL 03/02/22 Range/Units 12:18 WBC (4.50-10.00) X 10*3/uL RBC (4.40-5.60) X 10*6/uL Hgb (13.0-17.0) g/dL Hct (39.6-50.0) % Immature Gran # (0.00-0.04) X 10*3/uL Neutrophils # (1.80-7.70) X 10*3/uL Monocytes # (0.20-1.00) X 10*3/uL Sodium 135 L (137-145) mmol/L Creatinine 0.57 L (0.6-1.5) mg/dL BUN/Creatinine Ratio (12.00-20.00) Ratio Glucose 108 H (74-99) mg/dL Calcium 8.2 L (8.7-10.3) mg/dL Microbiology - Last 24 Hours (Table) 02/26/22 01:35 Blood Culture - Preliminary Blood No Growth after 120 hours 02/26/22 01:51 Blood Culture - Preliminary Blood No Growth after 120 hours 02/27/22 19:43 Blood Culture - Preliminary Blood No Growth after 72 hours Assessment and Plan Assessment: Assessment #1 urosepsis #2 possible component of dehydration #3 atrial fibrillation with rapid ventricular response #4 known history of paroxysmal atrial fibrillation #5 preserved left ventricle systolic function Plan #1 DC amiodarone IV start the patient on amiodarone by mouth #2 the patient can be transferred to the fourth floor #3 continue oral anticoagulation #4 follow-up with the patient on when necessary
[2022-03-03 07:02] LABS: Glucose,Whole Blood 121 mg/dL (70-110)
[2022-03-03] MEDS: PANTOPRAZOLE 40 MG TABLET PO SCH (07:03)
[2022-03-03] MEDS: SODIUM CHLORIDE 0.9% 1,000 ML IV SCH (07:09)
[2022-03-03] MEDS: IPRATROPIUM-ALBUTEROL 3 ML NEB INHALATION PRN ×4 (07:50→19:42)
[2022-03-03] MEDS: SYMBICORT 80-4.5 MCG INHALER INHALATION SCH ×2 (07:50→19:42)
[2022-03-03] MEDS: TAMSULOSIN 0.4 MG CAP.ER.24H PO SCH (08:00)
[2022-03-03] MEDS: APIXABAN 2.5 MG TABLET PO SCH ×2 (08:00→17:33)
[2022-03-03] MEDS: ZINC SULFATE 220 MG CAP PO SCH (08:00)
[2022-03-03] MEDS: LACTOBACILLUS ACIDOPH & BULGAR 1 EACH PACKET PO SCH (08:00)
[2022-03-03] MEDS: METOPROLOL TARTRATE 25 MG TAB PO SCH ×2 (08:00→20:24)
[2022-03-03] MEDS: DONEPEZIL 10 MG TAB PO SCH (08:00)
[2022-03-03] MEDS ORDERED: AMIODARONE 200 MG TAB PO SCH (09:00)
--- NOTE | 2022-03-03 09:51 | P.PN ---
Subjective Progress Note Date: 03/03/22 Principal diagnosis: UTI sepsis Patient was seen and examined. Started on diltiazem drip yesterday for atrial fibrillation with RVR. This was discontinued for amiodarone IV. Heart rate in the 70s, regular. Amiodarone IV discontinued and patient started on amiodarone by mouth 400 mg twice a day. T-max of 99 Fahrenheit over the last 24 hours. Currently on ertapenem for UTI sepsis. Objective - Vital Signs Vital signs: Vital Signs Temp 97.9 F 03/03/22 07:53 Pulse 80 03/03/22 08:03 Resp 18 03/03/22 07:53 BP 141/84 03/03/22 07:53 Pulse Ox 97 03/03/22 07:53 FiO2 Intake & Output 03/02/22 03/03/22 03/03/22 18:59 06:59 18:59 Intake Total 16.5 1510.004 5 Output Total 700 350 Balance -683.5 1160.004 5 Intake: IV 5 Invasive Line 2 5 Intake, IV Titration 16.5 970.004 Amount Amiodarone 450 mg In 200.004 Dextrose 5% in Water 250 ml @ 0.5 MG/MIN 16.667 mls/hr IV .Q15H [facility] Rx#: [id number] Diltiazem 125 mg In 16.5 Sodium Chloride 0.9% 100 ml @ Per Protocol IV .Q0M [facility] Rx#:[id number] Ertapenem 1 gm In Sodium 50 Chloride 0.9% 50 ml @ 100 mls/hr IVPB DAILY@2000 [facility] Rx#:[id number] Sodium Chloride 0.9% 1, 720 000 ml @ 60 mls/hr IV . [id number] [facility] Rx#:[id number] Oral 0 540 Output: Urine 700 350 Uretheral (Deutsch) 100 Other: Voiding Method Indwelling Catheter Indwelling Catheter Indwelling Catheter - Exam General: [non toxic], [no distress], [appears at stated age] Derm: [warm], [dry] Head: [atraumatic], [normocephalic], [symmetric] Eyes: [EOMI], [no lid lag], [anicteric sclera] Mouth: [no lip lesion], [mucus membranes moist] Cardiovascular: [S1 S2 heard], [systolic murmur] Lungs: [Decreased BS bilateral], [no rhonchi, no rales] , [no accessory muscle use] Abdominal: [soft], [ nontender to palpation], [no guarding], [no appreciable organomegaly] Ext: [no gross muscle atrophy], [no edema] Neuro: [Uncooperative] Psych: [AOx1] - Labs CBC & Chem 7: 03/02/22 12:18 03/02/22 12:18 Labs: Abnormal Lab Results - Last 24 Hours (Table) 03/02/22 03/02/22 03/02/22 Range/Units 07:23 07:23 12:18 WBC 13.14 H 12.9 H (4.50-10.00) X 10*3/uL RBC 3.82 L 3.56 L (4.40-5.60) X 10*6/uL Hgb 11.0 L 11.4 L (13.0-17.0) g/dL Hct 33.5 L 32.1 L (39.6-50.0) % Immature Gran # 0.06 H (0.00-0.04) X 10*3/uL Neutrophils # 10.72 H (1.80-7.70) X 10*3/uL Monocytes # 1.25 H (0.20-1.00) X 10*3/uL Sodium (137-145) mmol/L Creatinine 0.5 L (0.6-1.5) mg/dL BUN/Creatinine Ratio 29.20 H (12.00-20.00) Ratio Glucose (74-99) mg/dL POC Glucose (mg/dL) (70-110) mg/dL Calcium 8.3 L (8.7-10.3) mg/dL 03/02/22 03/03/22 Range/Units 12:18 06:53 WBC (4.50-10.00) X 10*3/uL RBC (4.40-5.60) X 10*6/uL Hgb (13.0-17.0) g/dL Hct (39.6-50.0) % Immature Gran # (0.00-0.04) X 10*3/uL Neutrophils # (1.80-7.70) X 10*3/uL Monocytes # (0.20-1.00) X 10*3/uL Sodium 135 L (137-145) mmol/L Creatinine 0.57 L (0.6-1.5) mg/dL BUN/Creatinine Ratio (12.00-20.00) Ratio Glucose 108 H (74-99) mg/dL POC Glucose (mg/dL) 121 H (70-110) mg/dL Calcium 8.2 L (8.7-10.3) mg/dL Microbiology - Last 24 Hours (Table) 02/26/22 01:35 Blood Culture - Preliminary Blood No Growth after 120 hours 02/26/22 01:51 Blood Culture - Preliminary Blood No Growth after 120 hours 02/27/22 19:43 Blood Culture - Preliminary Blood No Growth after 72 hours Assessment and Plan Assessment: Assessment and Plan #Sepsis secondary to suspected acute UTI, cultures pending in a patient with history of ESBL, prostate cancer with radiation seeds , urinary retention. Elevated pro-calcitonin #Urinary retention secondary to urethral stricture, Status post dilation and placement of 12-English coud tip catheter per urology. #Acute metabolic encephalopathy, multifactorial, all the above, environment, in a patient with underlying dementia. #Atrial fibrillation with RVR #Fall, Suspected fell out of bed hitting bedside table. Head, cervical spine CT reported negative. X-rays of bilateral shoulder and humerus noted. 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 #History of rheumatoid arthritis, treated in the past, not on immunosuppressants #History of lumbar degenerative disc disease, spinal stenosis, L5 spondylosis, facet arthropathy, L3-4 laminectomy #Gait dysfunction, right foot drop, ambulates with walker #Underlying dementia No fever over the past 24H. Leukocytosis resolved. Blood cultures negative at 120 hours. Urine culture negative. Continue normal saline at 60 cc/hr. Continue Ertapenem. Follow cultures. Telemetry monitoring. Infectious disease onboard. s/p dilation of urethral strictures. Urology on board. Monitor strict intake and output. Continue Eliquis for anticoagulation. Patient started on amiodarone by mouth today. Heart rate in the 70s. Discontinue scheduled DuoNeb treatments as this could be contributing to AFib with RVR and patient not in respiratory distress. Maintain potassium greater than 4 and magnesium greater than 2, labs ordered. Will order echocardiogram. Cardiology consulted for further management of this patient. Fall precautions. PT and OT consulted. Repeat CBC and BMP tomorrow morning.
[2022-03-03] MEDS: MIRTAZAPINE 15 MG TAB PO SCH (17:33)
[2022-03-03] MEDS: FOLIC ACID 1 MG TAB PO SCH (17:33)
[2022-03-03] MEDS: QUEtiapine 50 MG TAB PO SCH (17:33)
[2022-03-03] MEDS: ERTAPENEM 1 GM in SODIUM CHLORIDE 0.9% 50 ML IVPB SCH (20:27)
[2022-03-04] MEDS ORDERED: METOPROLOL TARTRATE 25 MG TAB PO STA (02:22)
[2022-03-04] MEDS: PANTOPRAZOLE 40 MG TABLET PO SCH (07:01)
--- NOTE | 2022-03-04 07:34 | P.PN ---
Subjective Progress Note Date: 03/03/22 Principal diagnosis: Fever/UTI Patient is 89 year old male with multiple comorbidities including a prostate cancer status post radiation seed implant history of urethral stricture requiring dilatation in history of recurrent UTI, brought into the hospital for low-grade fever weakness and urinary retention positive UA concerning for symptomatic urinary tract infection on today's evaluation that is 03/03/2022, the patient continues to be afebrile, the patient slightly more awake today however did not provide any history, the patient is currently breathing comfortably on room air no vomiting or diarrhea was reported by the nursing staff Objective - Vital Signs Vital signs: Vital Signs Temp 98.3 F 03/03/22 20:00 Pulse 103 H 03/03/22 20:00 Resp 30 H 03/03/22 20:00 BP 116/63 03/03/22 20:00 Pulse Ox 96 03/03/22 20:00 FiO2 Intake & Output 03/03/22 03/03/22 03/04/22 06:59 18:59 06:59 Intake Total 1510.004 345 Output Total 350 Balance 1160.004 345 Intake: IV 245 .9 @ 20 240 Invasive Line 2 5 Intake, IV Titration 970.004 Amount Amiodarone 450 mg In 200.004 Dextrose 5% in Water 250 ml @ 0.5 MG/MIN 16.667 mls/hr IV .Q15H DANIEL Rx#: [id number] Ertapenem 1 gm In Sodium 50 Chloride 0.9% 50 ml @ 100 mls/hr IVPB DAILY@2000 DANIEL Rx#:[id number] Sodium Chloride 0.9% 1, 720 000 ml @ 60 mls/hr IV . [id number] DANIEL Rx#:[id number] Oral 540 100 Output: Urine 350 Uretheral (Deutsch) 100 Other: Voiding Method Indwelling Catheter Indwelling Catheter - Exam GENERAL DESCRIPTION: An elderly male lying in bed in no distress RESPIRATORY SYSTEM: Unlabored breathing , decreased breath sounds at bases HEART: S1 S2 regular rate and rhythm , ABDOMEN: Soft , no tenderness EXTREMITIES: No edema feet - Labs CBC & Chem 7: 03/02/22 12:18 03/02/22 12:18 Labs: Abnormal Lab Results - Last 24 Hours (Table) 03/03/22 Range/Units 06:53 POC Glucose (mg/dL) 121 H (70-110) mg/dL Microbiology - Last 24 Hours (Table) 02/26/22 01:35 Blood Culture - Preliminary Blood No Growth after 120 hours 02/26/22 01:51 Blood Culture - Preliminary Blood No Growth after 120 hours 02/27/22 19:43 Blood Culture - Preliminary Blood No Growth after 72 hours Assessment and Plan (1) UTI (urinary tract infection) Current Visit: Yes Status: Acute Code(s): N39.0 - URINARY TRACT INFECTION, SITE NOT SPECIFIED SNOMED Code(s): 00370714 Plan: 1patient presented to hospital with sepsis in this patient had fever elevated white count did have urinary retention requiring Deutsch catheter placement pos itive high clinical suspicious for urinary tract infection in this patient spiking fever despite being on Zosyn with concern for possible ESBL pathogen as the patient previously did have ESBL E. coli UTI. 2- Blood and urine culture have been requested which are so far negative, patient did have ultrasound of the abdomen that was negative for any acute abnormality 3Patient did have resolution of the fever and to continue with Invanz 1 g daily however with the negative cultures for any resistant pathogen may consider a short course of oral Ceftin on discharge Time with Patient: Less than 30
[2022-03-04 07:35] LABS: HCT 34.6 % (39.0-53.0); MCH 28.3 pg (25.0-35.0); MCHC 31.7 g/dL (31.0-37.0); MCV 89.2 fL (80.0-100.0); Mean Platelet Volume 7.5; Platelet Count 464 k/uL (150-450); RBC 3.87 m/uL (4.30-5.90); RDW 12.6 % (11.5-15.5); WBC 17.5 k/uL (3.8-10.6)
[2022-03-04] MEDS: SYMBICORT 80-4.5 MCG INHALER INHALATION SCH ×2 (07:45→20:03)
[2022-03-04 08:01] LABS: African American GFR (CKD) >90 (>60 ml/min/1.73 sqM); Anion Gap 6 mmol/L; Blood Urea Nitrogen 19 mg/dL (9-20); Calcium 7.9 mg/dL (8.4-10.2); Carbon Dioxide 22 mmol/L (22-30); Chloride 107 mmol/L (98-107); Glucose 98 mg/dL (74-99); Non-African American GFR(CKD) >90 (>60 ml/min/1.73 sqM); Potassium 4.4 mmol/L (3.5-5.1); Sodium 135 mmol/L (137-145)
[2022-03-04] MEDS: DONEPEZIL 10 MG TAB PO SCH (09:44)
[2022-03-04] MEDS: ZINC SULFATE 220 MG CAP PO SCH (09:44)
[2022-03-04] MEDS: APIXABAN 2.5 MG TABLET PO SCH ×2 (09:44→17:27)
[2022-03-04] MEDS: TAMSULOSIN 0.4 MG CAP.ER.24H PO SCH (09:44)
[2022-03-04] MEDS: METOPROLOL TARTRATE 25 MG TAB PO SCH ×2 (09:44→20:36)
[2022-03-04] MEDS: LACTOBACILLUS ACIDOPH & BULGAR 1 EACH PACKET PO SCH (09:44)
[2022-03-04] MEDS: ARTIFICIAL TEARS-HYPROMELLOSE DROPS 15 ML BTL BOTH EYES PRN ×2 (09:44→14:54)
[2022-03-04 11:04] VITALS: RESP 18
--- NOTE | 2022-03-04 11:36 | CA ---
Transthoracic Echo Report Name: Fabio Geller Age: 89 Gender: M : 1930 Exam Date: 03/04/2022 08:46 Exam Location: [facility] Ht (in): 71 Wt (lb): 170 Ordering Physician: Musa Woods MD Attending/Referring Phys: Monitor Technician [place] Procedure CPT: Indications: afib rvr Cardiac Hx: Technical Quality: Technically difficult study Contrast 1: Lumason Total Dose (mL): 1 Contrast 2: Total Dose (mL): MEASUREMENTS (Male / Female) Normal Values M-MODE Aortic Root Diameter MM 3.6 cm LA Systolic Diameter MM 2.3 cm LA Ao Ratio MM 0.6 AV Cusp Separation MM 1.7 cm DOPPLER AV Peak Velocity 48.4 cm/s AV Peak Gradient 0.9 mmHg MV Area PHT 2.8 cm??? MR Peak Velocity 109.4 cm/s MR Peak Gradient 4.8 mmHg Mitral E Point Velocity 98.4 cm/s Mitral A Point Velocity 72.4 cm/s Mitral E to A Ratio 1.4 MV Deceleration Time 266.3 ms TR Peak Velocity 150.8 cm/s TR Peak Gradient 9.1 mmHg Right Ventricular Systolic Press 14.1 mmHg FINDINGS Left Ventricle Left ventricular ejection fraction is estimated at 50-55_%. Left ventricular wall thickness normal. Left ventricular cavity size normal. Right Ventricle Right ventricle not well visualized. Right Atrium Right atrium not well visualized. Left Atrium Normal left atrial size. Mitral Valve Mitral valve not well visualized. Mild mitral regurgitation. Aortic Valve Aortic valve not well visualized. Tricuspid Valve Trace tricuspid regurgitation. Pulmonic Valve Pulmonic valve not well visualized. Pericardium No pericardial effusion. Aorta Aortic root and proximal ascending aorta not well visualized. CONCLUSIONS Technically suboptimal study LV function appears preserved mild mitral regurgitation Previewed by: Dr. Ming Olvera MD (Electronically Signed) Final Date: 04 March 2022 11:35
[2022-03-04] MEDS ORDERED: FLUCONAZOLE IN NACL,ISO-OSM 200 MG in SALINE 1 100ML.BAG IVPB SCH (13:00)
--- NOTE | 2022-03-04 13:39 | P.PN ---
Subjective Progress Note Date: 03/04/22 HISTORY OF PRESENT ILLNESS: The patient is a pleasant 89-year-old gentleman with a past medical history significant for underlying dementia as well as permanent atrial fibrillation maintaining oral anticoagulation as well as multiple comorbid conditions who was admitted to the hospital initially with urosepsis. Initially the patient was admitted to the fourth floor. He is known to have permanent atrial fibrillation. Earlier today it was noticed that his heart rate was going up and he was in atrial fibrillation with a heart rate around 120 beats per minutes. For that reason the patient was brought to the telemetry unit. He is a poor historian and known to have underlying dementia. No indication that he was experiencing any chest pain or chest discomfort or any shortness of breath. As a matter of fact he seems to be euvolemic on examination. He was started on Car dizem IV. He was also on beta marta which has increased a earlier today. He is also on oral anticoagulation. I am going to DC the Cardizem and start the patient on amiodarone IV and subsequently switching to amiodarone by mouth and also try to increase the dose of beta marta within the next 24-48 hours. Continue oral anticoagulation. On examination also the patient seems to be somewhat dehydrated. And that could be contributing to his atrial fibrillation with RVR in addition of course to the urosepsis. The patient is known to our service before. He was admitted in 2019 was A. fib with RVR and at that point he underwent an echo which revealed normal left ventricular systolic function was no significant valvular abnormalities. His blood work and workup was reviewed. His hemoglobin is stable. His GFR is about 60. 03/03/2022 He was seen yesterday. He was started on amiodarone IV. This morning when he was evaluated and he is back in normal sinus mechanism. I am going to DC the new IV and start the patient on an U by mouth. Continue beta marta with the current dose. Continue oral anticoagulation. I believe that the A. fib with RVR was triggered by dehydration as well as urosepsis. From the cardiac standpoint of view, the patient can be transferred to the fourth floor. We will follow-up with her home when necessary 03/04/2022 Patient examined this morning at the bedside. Patient denies chest pain or pressure. He denies shortness of breath. Telemetry reveals atrial fibrillation with a heart rate in the 120s. However overnight, the patients heart rates have been fairly well controlled. The patient is currently on metoprolol 25 mg twice a day. PHYSICAL EXAM: VITAL SIGNS: Reviewed. GENERAL: Well-developed in no acute distress. NECK: Supple. No JVD or thyromegaly LUNGS: Respirations even and unlabored. Lungs essentially clear to auscultation bilaterally. HEART: Irregular rate and rhythm. S1 and S2 heard. Systolic murmur noted. EXTREMITIES: Normal range of motion. No clubbing or cyanosis. Peripheral pulses intact. No lower extremity edema ASSESSMENT: UTI with sepsis Urinary retention Leukocytosis, worsening Paroxysmal atrial fibrillation with mild RVR Dementia PLAN: Continue current cardiac medications Continue telemetry monitoring Continue with current dose of metoprolol. If patients heart rates remain elevated, may adjust metoprolol dosing Further recommendations pending patient course Nurse practitioner note has been reviewed by physician. Signing provider agrees with the documented findings, assessment, and plan of care. Objective - Vital Signs Vital signs: Vital Signs Temp 97.9 F 03/04/22 11:55 Pulse 113 H 03/04/22 11:55 Resp 18 03/04/22 11:55 BP 123/66 03/04/22 11:55 Pulse Ox 97 03/04/22 11:55 FiO2 Intake & Output 03/03/22 03/04/22 03/04/22 18:59 06:59 18:59 Intake Total 345 118 Output Total 1000 400 Balance 345 -1000 -282 Intake: IV 245 .9 @ 20 240 Invasive Line 2 5 Oral 100 118 Output: Urine 1000 400 Uretheral (Deutsch) 275 200 Other: Voiding Method Indwelling Catheter Indwelling Catheter Indwelling Catheter - Labs CBC & Chem 7: 03/04/22 07:15 03/04/22 07:15 Labs: Abnormal Lab Results - Last 24 Hours (Table) 03/04/22 03/04/22 Range/Units 07:15 07:15 WBC 17.5 H (3.8-10.6) k/uL RBC 3.87 L (4.30-5.90) m/uL Hgb 11.0 L (13.0-17.5) gm/dL Hct 34.6 L (39.0-53.0) % Plt Count 464 H (150-450) k/uL Sodium 135 L (137-145) mmol/L Creatinine 0.57 L (0.66-1.25) mg/dL Calcium 7.9 L (8.4-10.2) mg/dL Microbiology - Last 24 Hours (Table) 02/26/22 01:51 Blood Culture - Final Blood No Growth after 144 hours 02/26/22 01:35 Blood Culture - Final Blood No Growth after 144 hours 02/27/22 19:43 Blood Culture - Preliminary Blood No Growth after 96 hours
[2022-03-04] MEDS: FLUCONAZOLE ORAL SUSP 1,400 MG/35 ML BOTTLE PO SCH (14:53)
--- NOTE | 2022-03-04 16:43 | P.PN ---
Subjective Progress Note Date: 03/04/22 H&P Date: 02/26/22 Chief Complaint: Fevers, fall This is a 86-year-old gentleman with known history of paroxysmal atrial fibrillation, follows with Dr. 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 Patient discovered on the floor at bedside with suspected fall out of bed, possbily hitting bedside table. At the time of incident patient reported to have difficulty lifiting left left shoulder, with pain, febrile, temp of 102 with shaking/chills/ near rigors reported. Received cold wash cloth to forehead along with Tylenol and transported to the ER via EMS.T-max 99.9 on admission, post tylenol prior to transfer from [facility]. Vague historian secondary to underlying dementia. WBC 17.4, hemoglobin 11.8, platelets 345, neutrophils 15.5, INR 1.2, sodium 134, potassium 4.4, bicarb 21, BUN 22, creatinine 0.8 to, GFR 78, lactic acid 1.4, magnesium 1.5 troponin negative 1, albumin 3. UA reported large leukocytes, 2+ protein, plus ketones, small amount of blood, urine wbc's greater than 182, elevated urine RBCs, few bacteria, culture with micro-pending. Blood cultures obtained. Chest x-ray limited exam, reporting no active cardiopulmonary disease. Head/cervical spine CT reported mild enlargement of ventricles, some cerebral cortical atrophy , no mass effect or midline shift , no sign of intracranial hemorrhage ,extra-axial calcified mass in the right parietal lobe convexity con sistent with meningioma measuring 1.5 cm in diameter, small meningioma in the right side of the anterior cerebral falx, cervical spondylitic changes, no fracture, cerebral atrophy with no acute intracranial abnormality, brain unchanged compared to prior exam. EKG reporting sinus rhythm with occasional PVC.Resting comfortably, mild diaphoresis, denies chest pain, palpitations or shortness of breath. Denies nausea, vomiting or diarrhea. Denies abdominal pain. IV fluid hydration and IV antibiotics of Rocephin and Zosyn initiated. 02/27/2022 T-max 100.9, WBC decreased to 11.4. Currently maintained on Zosyn. Urine and blood cultures, finalizing. Last night required dilation of urethral strictures with placement of coud-tipped Deutsch catheter per urology secondary to urinary retention. Urine cloudy, significant sediment, repeat urine culture ordered. Extremely fatigued this morning. 02/28/2022 continued spiking temperatures, infectious disease consulted. T-max 101.2. Blood and urine cultures redrawn/pending. Antibiotics adjusted further to ertapenem. Extreme fatigue/lethargy secondary to infection/fevers/sepsis. Minimal diet intake. Maintaining O2 sats in the high 90s on room air. Denies pain. 03/01/2022 . Diet intake improving, more so later in the day. Fevers pe rsistant on Zosyn ; currently maintained on ertapenem, with significant improvement in fevers , T-max 99.7, WBC normalized. Urine clearer, now without sediment, less concentrated.Hemoglobin 9.9, platelets 332, BUN 15, creatinine 0.5, magnesium 2. Fatigued. Denies chest pain, palpitations or shortness of breath. Maintaining O2 sats in the mid 90s on room air. 03/04/22 Over the weekend developed atrial fibrillation with RVR, converted on Cardizem drip. Evaluated by cardiology. Beta marta increased. Controlled A. fib throughout the night, this morning heart rates fluctuating up into the 130s briefly. T-max 99, WBC 17.5, diaphoretic. Sediment cleared from urine. Staff reports no signs or symptoms of aspiration. No cough. Lungs clear. Continues on ertapenem. Blood and urine cultures remain clear. Renal function stable. Diet intake poor, consuming 25%. Medically debilitated, has not been out of bed yet, requires 2 person assist. Objective - Vital Signs Vital signs: Vital Signs Temp 97.9 F 03/04/22 11:55 Pulse 113 H 03/04/22 11:55 Resp 18 03/04/22 11:55 BP 123/66 03/04/22 11:55 Pulse Ox 97 03/04/22 11:55 FiO2 Intake & Output 03/03/22 03/04/22 03/04/22 18:59 06:59 18:59 Intake Total 345 118 Output Total 1000 400 Balance 345 -1000 -282 Intake: IV 245 .9 @ 20 240 Invasive Line 2 5 Oral 100 118 Output: Urine 1000 400 Uretheral (Deutsch) 275 200 Other: Voiding Method Indwelling Catheter Indwelling Catheter Indwelling Catheter - Exam PHYSICAL EXAM: VITAL SIGNS: As above GENERAL: Sitting up in bed, alert and oriented 1,[place], fatigued HEENT: Atraumatic, normocephalic , pupils round and equal ,Conjunctivae normal. NECK: Supple, No JVD. CARDIOVASCULAR: S1, S2 regular,irreg. Systolic murmur RESPIRATION: Bilateral air entry with breath sounds diminished in the bases. ABDOMEN: Soft, nontender, nondistended . No guarding. no masses palpable. Positive Bowel sounds. Extremities: Bilateral Dupuytren's contractures,( history of right hand surgical repair), No edema. no swelling. PSYCHIATRY: Alert and oriented X1, increased confusion from baseline NERVOUS SYSTEM: Limited exam. Cranial N 2-12 grossly normal. Skin: Warm and dry, no rash - Labs CBC & Chem 7: 03/04/22 07:15 03/04/22 07:15 Labs: Abnormal Lab Results - Last 24 Hours (Table) 03/04/22 03/04/22 Range/Units 07:15 07:15 WBC 17.5 H (3.8-10.6) k/uL RBC 3.87 L (4.30-5.90) m/uL Hgb 11.0 L (13.0-17.5) gm/dL Hct 34.6 L (39.0-53.0) % Plt Count 464 H (150-450) k/uL Sodium 135 L (137-145) mmol/L Creatinine 0.57 L (0.66-1.25) mg/dL Calcium 7.9 L (8.4-10.2) mg/dL Microbiology - Last 24 Hours (Table) 02/26/22 01:51 Blood Culture - Final Blood No Growth after 144 hours 02/26/22 01:35 Blood Culture - Final Blood No Growth after 144 hours 02/27/22 19:43 Blood Culture - Preliminary Blood No Growth after 96 hours Assessment and Plan Assessment: Sepsis secondary to suspected acute UTI, cultures pending in a patient with history of ESBL, prostate cancer with radiation seeds , urinary retention. Elevated pro-calcitonin Urinary retention secondary to urethral stricture lending to difficult catheter insertion/coude', history of cystoscopy with urethral dilations with , Urology. Status post dilation and placement of 12-[place]oc[place] coud tip catheter per urology. Acute metabolic encephalopathy, multifactorial, all the above, environment, in a patient with underlying dementia. Acute A. fib with RVR, converted on Cardizem drip, in a patient with Chronic paroxysmal atrial fibrillation on anticoagulation, follows with instructor of spanish Dr. Mcbride. Fall, Suspected rolled out of bed hitting bedside table. Head, cervical spine CT reported negative. X-rays of bilateral shoulder and humerus noted. 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 History of rheumatoid arthritis, treated in the past, not on immunosuppressants History of lumbar degenerative disc disease, spinal stenosis, L5 spondylosis, facet arthropathy, L3-4 laminectomy Gait dysfunction, right foot drop, ambulates with walker Underlying dementia [place] Plan: Continue on current medication regime ,monitoring and symptomatic treatment. Echo pending. Continue on beta marta dose, recently increased. Deutsch discontinued, bladder scan/PVR & q 8h. Procalcitonin repeated to trend in fection. Discussed with infectious disease, Diflucan added to med regimen, repeat urine and blood cultures. Discharge planning in progress for return to [facility] with [facility], tomorrow with improvement in WBC. The impression and plan of care has been dictated as directed. : I performed a history and examination of this patient, discussed the same with the dictator. I agree with the dictator's note ,documented as a scribe. Any additional findings or plans will be noted.
[2022-03-04] MEDS: MIRTAZAPINE 15 MG TAB PO SCH (17:27)
[2022-03-04] MEDS: SODIUM CHLORIDE 0.9% 1,000 ML IV SCH (17:28)
[2022-03-04] MEDS: FOLIC ACID 1 MG TAB PO SCH (17:28)
[2022-03-04] MEDS: PRAVASTATIN SODIUM 40 MG TAB PO SCH (17:28)
[2022-03-04] MEDS: ERTAPENEM 1 GM in SODIUM CHLORIDE 0.9% 50 ML IVPB SCH (20:36)
--- NOTE | 2022-03-04 23:02 | P.PN ---
Subjective Progress Note Date: 03/04/22 Principal diagnosis: Fever/UTI Patient is 89 year old male with multiple comorbidities including a prostate cancer status post radiation seed implant history of urethral stricture requiring dilatation in history of recurrent UTI, brought into the hospital for low-grade fever weakness and urinary retention positive UA concerning for symptomatic urinary tract infection on today's evaluation that is 03/04/2022, the patient remains to be afebrile, the patient is more awake today and did answer some simple questions and, he seemed to be breathing comfortably, no vomiting or diarrhea has been reported Objective - Vital Signs Vital signs: Vital Signs Temp 97.9 F 03/04/22 11:55 Pulse 113 H 03/04/22 11:55 Resp 18 03/04/22 11:55 BP 123/66 03/04/22 11:55 Pulse Ox 97 03/04/22 11:55 FiO2 Intake & Output 03/03/22 03/04/22 03/04/22 18:59 06:59 18:59 Intake Total 345 118 Output Total 1000 400 Balance 345 -1000 -282 Intake: IV 245 .9 @ 20 240 Invasive Line 2 5 Oral 100 118 Output: Urine 1000 400 Uretheral (Deutsch) 275 200 Other: Voiding Method Indwelling Catheter Indwelling Catheter Indwelling Catheter - Exam GENERAL DESCRIPTION: An elderly male lying in bed in no distress RESPIRATORY SYSTEM: Unlabored breathing , decreased breath sounds at bases HEART: S1 S2 regular rate and rhythm , ABDOMEN: Soft , no tenderness EXTREMITIES: No edema feet - Labs CBC & Chem 7: 03/04/22 07:15 03/04/22 07:15 Labs: Abnormal Lab Results - Last 24 Hours (Table) 03/04/22 03/04/22 Range/Units 07:15 07:15 WBC 17.5 H (3.8-10.6) k/uL RBC 3.87 L (4.30-5.90) m/uL Hgb 11.0 L (13.0-17.5) gm/dL Hct 34.6 L (39.0-53.0) % Plt Count 464 H (150-450) k/uL Sodium 135 L (137-145) mmol/L Creatinine 0.57 L (0.66-1.25) mg/dL Calcium 7.9 L (8.4-10.2) mg/dL Microbiology - Last 24 Hours (Table) 02/26/22 01:51 Blood Culture - Final Blood No Growth after 144 hours 02/26/22 01:35 Blood Culture - Final Blood No Growth after 144 hours 02/27/22 19:43 Blood Culture - Preliminary Blood No Growth after 96 hours Assessment and Plan (1) UTI (urinary tract infection) Current Visit: Yes Status: Acute Code(s): N39.0 - URINARY TRACT INFECTION, SITE NOT SPECIFIED SNOMED Code(s): 77622987 Plan: 1patient presented to hospital with sepsis in this patient had fever elevated white count did have urinary retention requiring Deutsch catheter placement posit [place] clinical suspicious for urinary tract infection in this patient spiking fever despite being on Zosyn with concern for possible ESBL pathogen as the patient previously did have ESBL E. coli UTI. 2- Blood and urine culture have been requested which are so far negative, patient did have ultrasound of the abdomen that was negative for any acute abnormality 3Patient did have resolution of the fever, however the white count is up to 17,000 today, we will repeat his UA and cultures continue with Invanz and Diflucan and repeat a CBC tomorrow, if the white count is trending downwards tomorrow, plan to finish therapy with oral Ceftin and Diflucan discussed with the REBEAMER for admitting team Time with Patient: Less than 30
[2022-03-05] MEDS: SODIUM CHLORIDE 0.9% 1,000 ML IV SCH (06:11)
[2022-03-05] MEDS: PANTOPRAZOLE 40 MG TABLET PO SCH (06:11)
[2022-03-05] MEDS: SYMBICORT 80-4.5 MCG INHALER INHALATION SCH (07:10)
[2022-03-05] MEDS ORDERED: CYANOCOBALAMIN 500 MCG TAB PO SCH (08:00)
[2022-03-05] MEDS: METOPROLOL TARTRATE 25 MG TAB PO SCH (08:28)
[2022-03-05] MEDS: LACTOBACILLUS ACIDOPH & BULGAR 1 EACH PACKET PO SCH (08:28)
[2022-03-05] MEDS: TAMSULOSIN 0.4 MG CAP.ER.24H PO SCH (08:28)
[2022-03-05] MEDS: FLUCONAZOLE ORAL SUSP 1,400 MG/35 ML BOTTLE PO SCH (08:28)
[2022-03-05] MEDS: APIXABAN 2.5 MG TABLET PO SCH (08:28)
[2022-03-05] MEDS: DONEPEZIL 10 MG TAB PO SCH (08:28)
[2022-03-05] MEDS: ZINC SULFATE 220 MG CAP PO SCH (08:28)
[2022-03-05 08:30] LABS: HCT 37.4 % (39.0-53.0); HGB 11.7 gm/dL (13.0-17.5); MCH 28.3 pg (25.0-35.0); MCHC 31.2 g/dL (31.0-37.0); MCV 90.9 fL (80.0-100.0); Mean Platelet Volume 7.2; Platelet Count 495 k/uL (150-450); RBC 4.12 m/uL (4.30-5.90); RDW 12.6 % (11.5-15.5); WBC 13.7 k/uL (3.8-10.6)
[2022-03-05] MEDS ORDERED: METOPROLOL TARTRATE 25 MG TAB PO SCH (09:00)
--- NOTE | 2022-03-05 10:30 | P.DS ---
Providers Date of admission: 02/26/22 05:51 Expected date of discharge: 03/05/22 Attending physician: Silvestre Ames MD Consults: 02/26/22 14:00 Consult Physician Stat Consulting Provider: Enrique Hays Consult Reason/Comments: UTI, unable to establish IDC, bleeding Do you want consulting provider notified?: Yes 02/27/22 15:45 Consult Physician Routine Consulting Provider: Avery Harley Consult Reason/Comments: Sepsis, UTI Do you want consulting provider notified?: Yes 03/02/22 08:27 Consult Physician Routine Consulting Provider: Jamal Mcbride Consult Reason/Comments: a-fib RVR, hx a-fib Do you want consulting provider notified?: Yes Primary care physician: Alley Wade Hospital Course: Final Diagnoses: Sepsis secondary to bacterial prostatitis with suspected acute UTI, repeat cultures pending in a patient with history of ESBL, prostate cancer with radiation seeds , urinary retention. Elevated pro-calcitonin Urinary retention secondary to urethral stricture lending to difficult catheter insertion/coude', history of cystoscopy with urethral dilations with , Urology. Status post dilation and placement of 12-Belizean coud tip catheter per urology. Deutsch catheter discontinued 03/04/2022. Acute metabolic encephalopathy, multifactorial, all the above, environment, in a patient with underlying dementia. Acute A. fib with RVR, converted on Cardizem drip, in a patient with Chronic paroxysmal atrial fibrillation on anticoagulation, follows with traveling representative Dr. Mcbride. Fall, Suspected rolled out of bed hitting bedside table. Head, cervical spine CT reported negative. X-rays of bilateral shoulder and humerus noted. Leukocytosis secondary to the above, improving with the addition of Diflucan. 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 History of rheumatoid arthritis, treated in the past, not on immunosuppressants History of lumbar degenerative disc disease, spinal stenosis, L5 spondylosis, facet arthropathy, L3-4 laminectomy Gait dysfunction, right foot drop, ambulates with walker Underlying dementia [place] Medical debility, secondary to prolonged hospitalization, bedridden 7 days. Hospital course:This is a 86-year-old gentleman with known history of paroxysmal atrial fibrillation, follows with Dr. 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 Patient discovered on the floor at bedside with suspected fall out of bed, possbily hitting bedside table. At the time of incident patient reported to have difficulty lifiting left left shoulder, with pain, febrile, temp of 102 with shaking/chills/ near rigors reported. Received cold wash cloth to forehead along with Tylenol and transported to the ER via EMS.T-max 99.9 on admission, post tylenol prior to transfer from [facility]. Vague historian secondary to underlying dementia. WBC 17.4, hemoglobin 11.8, platelets 345, neutrophils 15.5, INR 1.2, sodium 134, potassium 4.4, bicarb 21, BUN 22, creatinine 0.8 to, GFR 78, lactic acid 1.4, magnesium 1.5 troponin negative 1, albumin 3. UA reported large leukocytes, 2+ protein, plus ketones, small amount of blood, urine wbc's greater than 182, elevated urine RBCs, few bacteria, culture with micro-pending. Blood cultures obtained. Chest x-ray limited exam, reporting no active cardiopulmonary disease. Head/cervical spine CT reported mild enlargement of ventricles, some cerebral cortical atrophy , no mass effect or midline shift , no sign of intracranial hemorrhage ,extra-axial calcified mass in the right parietal lobe convexity consistent with meningioma measuring 1.5 cm in diameter, small meningioma in the right side of the anterior cerebral falx, cervical spondylitic changes, no fracture, cerebral atrophy with no acute intracranial abnormality, brain unchanged compared to prior exam. EKG reporting sinus rhythm with occasional PVC.Resting comfortably, mild diaphoresis, denies chest pain, palpitations or shortness of breath. Denies nausea, vomiting or diarrhea. Denies abdominal pain. IV fluid hydration and IV antibiotics of Rocephin and Zosyn initiated. 02/27/2022 T-max 100.9, WBC decreased to 11.4. Currently maintained on Zosyn. Urine and blood cultures, finalizing. Last night required dilation of urethral strictures with placement of coud-tipped Deutsch catheter per urology secondary to urinary retention. Urine cloudy, significant sediment, repeat urine culture ordered. Extremely fatigued this morning. 02/28/2022 continued spiking temperatures, infectious disease consulted. T-max 101.2. Blood and urine cultures redrawn/pending. Antibiotics adjusted further to ertapenem. Extreme fatigue/lethargy secondary to infection/fevers/sepsis. Minimal diet intake. Maintaining O2 sats in the high 90s on room air. Denies pain. 03/01/2022 . Diet intake improving, more so later in the day. Fevers persistant on Zosyn ; currently maintained on ertapenem, with significant improvement in fevers , T-max 99.7, WBC normalized. Urine clearer, now without sediment, less concentrated.Hemoglobin 9.9, platelets 332, BUN 15, creatinine 0.5, magnesium 2. Fatigued. Denies chest pain, palpitations or shortness of breath. Maintaining O2 sats in the mid 90s on room air. 03/04/22 Over the weekend developed atrial fibrillation with RVR, converted on Cardizem drip. Evaluated by cardiology. Received additional dose of beta marta early a.m. with Beta marta increased. Controlled A. fib throughout the night, this morning heart rates fluctuating up into the 130s briefly. T-max 99, WBC 17.5, diaphoretic. Sediment cleared from urine. Staff reports no signs or symptoms of aspiration. No cough. Lungs clear. Continues on ertapenem. Blood and urine cultures remain clear. Renal function stable. Diet intake poor, consuming 25%. Medically debilitated, has not been out of bed yet, requires 2 person assist. Beta marta further increased to 3 times a day as per cardiology, with heart rates better controlled. Repeat urine and blood cultures obtained, Diflucan added to med regimen yesterday with significant clinical results, afebrile, WBC decreased to 13.7. Sensorium improving, more alert this morning. Significant clinical improvement, cleared by all consults for discharge. Patient will be discharged to [facility] today in a stable condition with guarded prognosis. Final culture results to infectious disease Dr. Harley and PCP. The impression and plan of care has been dictated as directed. : I performed a history and examination of this patient, discussed the same with the dictator. I agree with the dictator's note ,documented as a scribe. Any additional findings or plans will be noted. Patient Condition at Discharge: Stable Plan - Discharge Summary Discharge Rx Participant: No New Discharge Prescriptions: New Artificial Tears-Hypromellose [Artificial Tear Drops] 2 drops BOTH EYES Q4HR PRN #1 ml PRN Reason: Dry Eye(S) Lactobacillus Acidoph & Bulgar [Lactinex] 1 each PO DAILY #30 packet Fluconazole [Diflucan] 200 mg PO DAILY #7 tablet Magnesium Oxide [Mag-Ox] 400 mg PO DAILY #30 tablet cefUROXime axetiL [Ceftin] 500 mg PO BID 1 Days #14 tab Tamsulosin [Flomax] 0.4 mg PO PC-BRKFST #30 cap Metoprolol Tartrate [Lopressor] 25 mg PO TID #90 tab Continue Folic Acid 1 mg PO DAILY@1800 Cyanocobalamin [Vitamin B-12] 500 mcg PO DAILY@0800 Donepezil [Aricept] 10 mg PO DAILY@0800 Colloidal Oatmeal [Eucerin Eczema Relief] 1 applic TOPICAL BID ALPRAZolam [Xanax] 0.5 mg PO BID PRN PRN Reason: Anxiety Pantoprazole [Protonix] 40 mg PO DAILY@0800 Ipratropium-Albuterol Nebulize [Duoneb 0.5 mg-3 mg/3 ml Soln] 3 ml INHALATION RT-QID PRN PRN Reason: Shortness Of Breath Magnesium Hydroxide [Milk of Magnesia] 2,400 mg PO HS PRN PRN Reason: Constipation Mag Hydrox/Aluminum Hyd/Simeth [Mylanta Maximum Strength Liq] 15 ml PO BID PRN PRN Reason: Gi Upset Zinc Sulfate [Orazinc] 220 mg PO DAILY@0800 Pravastatin Sodium [Pravachol] 40 mg PO HS@1800 Fluticasone/Vilanterol [Breo Ellipta 100-25 Mcg Inhaler] 1 puff INHALATION RT-DAILY@0800 Mirtazapine [Remeron] 30 mg PO HS@1800 Apixaban [Eliquis] 2.5 mg PO BID@0800,1800 Acetaminophen Tab [Tylenol] 650 mg PO Q4H PRN PRN Reason: Pain Or Fever > 100.5 guaiFENesin SYRUP 100MG/5ML [Robitussin] 1 dose PO Q6H PRN PRN Reason: Cough Cranberry Fruit Extract [Cranberry] 500 mg PO DAILY@0800 Kaolin Pectin 30 ml PO DAILY PRN PRN Reason: Loose Stool Changed Ascorbic Acid [Vitamin C] 500 mg PO DAILY #1 QUEtiapine [SEROquel] 25 mg PO HS@1800 #30 tab Discontinued Metoprolol Tartrate [Lopressor] 12.5 mg PO BID@0800,1800 Ipratropium-Albuterol Nebulize [Duoneb 0.5 mg-3 mg/3 ml Soln] 3 ml INHALATION RT-Q3H PRN PRN Reason: Shortness Of Breath Discharge Medication List Folic Acid 1 mg PO DAILY@1800 03/12/17 [History] ALPRAZolam [Xanax] 0.5 mg PO BID PRN 03/05/20 [History] Colloidal Oatmeal [Eucerin Eczema Relief] 1 applic TOPICAL BID 03/05/20 [History] Cyanocobalamin [Vitamin B-12] 500 mcg PO DAILY@0803/05/20 [History] Donepezil [Aricept] 10 mg PO DAILY@79903/05/20 [History] Ipratropium-Albuterol Nebulize [Duoneb 0.5 mg-3 mg/3 ml Soln] 3 ml INHALATION RT-QID PRN 03/05/20 [History] Pantoprazole [Protonix] 40 mg PO DAILY@0803/05/20 [History] Acetaminophen Tab [Tylenol] 650 mg PO Q4H PRN 02/26/22 [History] Apixaban [Eliquis] 2.5 mg PO BID@0800,1800 02/26/22 [History] Cranberry Fruit Extract [Cranberry] 500 mg PO DAILY@79902/26/22 [History] Fluticasone/Vilanterol [Breo Ellipta 100-25 Mcg Inhaler] 1 puff INHALATION RT- DAILY@79902/26/22 [History] Kaolin Pectin 30 ml PO DAILY PRN 02/26/22 [History] Mag Hydrox/Aluminum Hyd/Simeth [Mylanta Maximum Strength Liq] 15 ml PO BID PRN 02/26/22 [History] Magnesium Hydroxide [Milk of Magnesia] 2,400 mg PO HS PRN 02/26/22 [History] Mirtazapine [Remeron] 30 mg PO HS@1800 02/26/22 [History] Pravastatin Sodium [Pravachol] 40 mg PO HS@1800 02/26/22 [History] Zinc Sulfate [Orazinc] 220 mg PO DAILY@0800 02/26/22 [History] guaiFENesin SYRUP 100MG/5ML [Robitussin] 1 dose PO Q6H PRN 02/26/22 [History] Artificial Tears-Hypromellose [Artificial Tear Drops] 2 drops BOTH EYES Q4HR PRN #1 ml 03/04/22 [Rx] Ascorbic Acid [Vitamin C] 500 mg PO DAILY #1 03/04/22 [Rx] Fluconazole [Diflucan] 200 mg PO DAILY #7 tablet 03/04/22 [Rx] Lactobacillus Acidoph & Bulgar [Lactinex] 1 each PO DAILY #30 packet 03/04/22 [Rx] Tamsulosin [Flomax] 0.4 mg PO PC-BRKFST #30 cap 03/04/22 [Rx] cefUROXime axetiL [Ceftin] 500 mg PO BID 1 Days #14 tab 03/04/22 [Rx] Magnesium Oxide [Mag-Ox] 400 mg PO DAILY #30 tablet 03/05/22 [Rx] Metoprolol Tartrate [Lopressor] 25 mg PO TID #90 tab 03/05/22 [Rx] QUEtiapine [SEROquel] 25 mg PO HS@1800 #30 tab 03/05/22 [Rx] Follow up Appointment(s)/Referral(s): Jamal Mcbride MD [STAFF PHYSICIAN] - 2 Weeks (( when scheduling, please schedule in afternoon at [address] [place] [address],[place])) Alley Wade MD [Primary Care Provider] - 1 Week Ambulatory/Diagnostic Orders: Complete Blood Count w/diff [LAB.AMB] Time Frame: 3 Days, Location: None Selected Activity/Diet/Wound Care/Special Instructions: Ursula Sullivan ( [place]) [facility] procalcitonin level results to Dr. Harley, Dr. Silvestre Ames & Dr. Wade Diet: regular Pt needs high Protein diet. Vanilla ensure or carnation drinks/shakes between meals Pt currently is a 2 person assist. HR q shift BP daily Ensure patient is voiding q shift Discharge Disposition: TRANSFER TO SNF/ECF
--- NOTE | 2022-03-05 11:35 | P.PN ---
Subjective Progress Note Date: 03/05/22 HISTORY OF PRESENT ILLNESS: The patient is a pleasant 89-year-old gentleman with a past medical history significant for underlying dementia as well as permanent atrial fibrillation maintaining oral anticoagulation as well as multiple comorbid conditions who was admitted to the hospital initially with urosepsis. Initially the patient was admitted to the fourth floor. He is known to have permanent atrial fibrillation. Earlier today it was noticed that his heart rate was going up and he was in atrial fibrillation with a heart rate around 120 beats per minutes. For that reason the patient was brought to the telemetry unit. He is a poor historian and known to have underlying dementia. No indication that he was experiencing any chest pain or chest discomfort or any shortness of breath. As a matter of fact he seems to be euvolemic on examination. He was started on Car dizem IV. He was also on beta marta which has increased a earlier today. He is also on oral anticoagulation. I am going to DC the Cardizem and start the patient on amiodarone IV and subsequently switching to amiodarone by mouth and also try to increase the dose of beta marta within the next 24-48 hours. Continue oral anticoagulation. On examination also the patient seems to be somewhat dehydrated. And that could be contributing to his atrial fibrillation with RVR in addition of course to the urosepsis. The patient is known to our service before. He was admitted in 2019 was A. fib with RVR and at that point he underwent an echo which revealed normal left ventricular systolic function was no significant valvular abnormalities. His blood work and workup was reviewed. His hemoglobin is stable. His GFR is about 60. 03/03/2022 He was seen yesterday. He was started on amiodarone IV. This morning when he was evaluated and he is back in normal sinus mechanism. I am going to DC the new IV and start the patient on an U by mouth. Continue beta marta with the current dose. Continue oral anticoagulation. I believe that the A. fib with RVR was triggered by dehydration as well as urosepsis. From the cardiac standpoint of view, the patient can be transferred to the fourth floor. We will follow-up with her home when necessary 03/04/2022 Patient examined this morning at the bedside. Patient denies chest pain or pressure. He denies shortness of breath. Telemetry reveals atrial fibrillation with a heart rate in the 120s. However overnight, the patients heart rates have been fairly well controlled. The patient is currently on metoprolol 25 mg twice a day. 03/05/2022 Patient examined this morning at the bedside. Patient denies chest pain or pressure. He denies shortness of breath. Telemetry reveals atrial fibrillation with a heart rate in the 115-130. PHYSICAL EXAM: VITAL SIGNS: Reviewed. GENERAL: Well-developed in no acute distress. NECK: Supple. No JVD or thyromegaly LUNGS: Respirations even and unlabored. Lungs essentially clear to auscultation bilaterally. HEART: Tachycardic. Irregular rate and rhythm. S1 and S2 heard. Systolic murmur noted. EXTREMITIES: Normal range of motion. No clubbing or cyanosis. Peripheral pulses intact. No lower extremity edema ASSESSMENT: UTI with sepsis Urinary retention Leukocytosis, worsening Paroxysmal atrial fibrillation with mild RVR Dementia PLAN: Continue current cardiac medications Continue telemetry monitoring Increase metoprolol to 25 mg 3 times a day. Further recommendations pending patient course Nurse practitioner note has been reviewed by physician. Signing provider agrees with the documented findings, assessment, and plan of care. Objective - Vital Signs Vital signs: Vital Signs Temp 97.8 F 03/05/22 08:27 Pulse 113 H 03/05/22 08:27 Resp 18 03/05/22 08:27 BP 113/71 03/05/22 08:27 Pulse Ox 97 03/05/22 08:27 FiO2 Intake & Output 03/04/22 03/05/22 03/05/22 18:59 06:59 18:59 Intake Total 236 Output Total 700 400 Balance -464 -400 Intake: Oral 236 Output: Urine 700 400 Uretheral (Deutsch) 200 Other: Voiding Method Indwelling Catheter External Catheter External Catheter - Labs CBC & Chem 7: 03/05/22 08:16 03/04/22 07:15 Labs: Abnormal Lab Results - Last 24 Hours (Table) 03/04/22 03/05/22 Range/Units 07:15 08:16 WBC 13.7 H (3.8-10.6) k/uL RBC 4.12 L (4.30-5.90) m/uL Hgb 11.7 L (13.0-17.5) gm/dL Hct 37.4 L (39.0-53.0) % Plt Count 495 H (150-450) k/uL Procalcitonin 0.24 H (0.02-0.09) ng/mL Microbiology - Last 24 Hours (Table) 03/04/22 12:05 Urine Culture - Preliminary Urine,Voided 02/27/22 19:43 Blood Culture - Preliminary Blood No Growth after 120 hours
[2022-03-05 11:55] VITALS: BP 116/61; PULSE 70; TEMP 98
[2022-03-05 14:55] VITALS: BMI 24.3
== END 2022-03-05 14:42 | disposition home health service (06) | DRG 871 ==
LOC: EC 01:21 → 5NMEDONC 05:51 → 4SSUR 14:31 → 3SCARD 03-02 08:15
PROVIDERS: ADMIT Family Medicine; ATTEND Family Medicine
DX: A41.9 Sepsis, unspecified organism (principal); G93.41 Metabolic encephalopathy; N39.0 Urinary tract infection, site not specified; E87.1 Hypo-osmolality and hyponatremia; I48.21 Permanent atrial fibrillation; Z85.46 Personal history of malignant neoplasm of prostate; Z92.3 Personal history of irradiation; N18.2 Chronic kidney disease, stage 2 (mild); D63.1 Anemia in chronic kidney disease; E83.42 Hypomagnesemia; E86.0 Dehydration; E86.1 Hypovolemia; E87.8 Other disorders of electrolyte and fluid balance, not elsewhere classified; B96.89 Other specified bacterial agents as the cause of diseases classified elsewhere; E88.09 Other disorders of plasma-protein metabolism, not elsewhere classified; F03.90 Unspecified dementia, unspecified severity, without behavioral disturbance, psychotic disturbance, mood disturbance, and anxiety; I49.3 Ventricular premature depolarization; J45.30 Mild persistent asthma, uncomplicated; L30.9 Dermatitis, unspecified; M48.061 Spinal stenosis, lumbar region without neurogenic claudication; M51.36 Other intervertebral disc degeneration, lumbar region; M06.9 Rheumatoid arthritis, unspecified; N41.8 Other inflammatory diseases of prostate; M21.371 Foot drop, right foot; N35.819 Other urethral stricture, male, unspecified site; R33.8 Other retention of urine; Z74.01 Bed confinement status; Z79.01 Long term (current) use of anticoagulants; Z79.899 Other long term (current) drug therapy; Z86.73 Personal history of transient ischemic attack (TIA), and cerebral infarction without residual deficits; Z87.440 Personal history of urinary (tract) infections; Z71.3 Dietary counseling and surveillance; Z91.81 History of falling
CPT/HCPCS: 36415; 51798; 70450; 71045; 72125; 76700; 80048; 80053; 81001; 82652; 83605; 83735; 84100; 84145; 84484; 85025; 85027; 85610; 85730; 87040; 87086; 93005; 93306; 94640; 96361; 96365; 96367; 96368; 96375; 99285

== ENCOUNTER 2022-04-22 07:39 | Inpatient (IN) | payer MEDICARE, OTHER ==
--- NOTE | 2022-04-22 08:10 | ED ---
General Adult HPI - General Chief complaint: Altered Mental Status Stated complaint: UTI Time Seen by Provider: 04/22/22 07:41 Source: patient, EMS, RN notes reviewed Mode of arrival: EMS Limitations: altered mental status - History of Present Illness Initial comments: Patient is a pleasant 89-year-old male presenting to the emergency department with concerns for change in mental status. Patient comes from nursing facility. He should states he feels fine and has no complaints. Patient does not provide significant history. Patient limits exam and requests to be left alone. - Related Data Home Medications Medication Instructions Recorded Confirmed Folic Acid 1 mg PO DAILY@179903/12/17 04/22/22 ALPRAZolam [Xanax] 0.5 mg PO BID PRN 03/05/20 04/22/22 Cyanocobalamin [Vitamin B-12] 500 mcg PO DAILY@79903/05/20 04/22/22 Donepezil [Aricept] 10 mg PO DAILY@79903/05/20 04/22/22 Ipratropium-Albuterol Nebulize 3 ml INHALATION RT-QID PRN 03/05/20 04/22/22 [Duoneb 0.5 mg-3 mg/3 ml Soln] Pantoprazole [Protonix] 40 mg PO DAILY@79903/05/20 04/22/22 Apixaban [Eliquis] 2.5 mg PO BID@0800,1800 02/26/22 04/22/22 Cranberry Fruit Extract [Cranberry] 500 mg PO DAILY@79902/26/22 04/22/22 Fluticasone/Vilanterol [Breo 1 puff INHALATION RT-DAILY@79902/26/22 04/22/22 Ellipta 100-25 Mcg Inhaler] Magnesium Hydroxide [Milk of 2,400 mg PO Q48H PRN 02/26/22 04/22/22 Magnesia] Mirtazapine [Remeron] 30 mg PO HS@179902/26/22 04/22/22 Pravastatin Sodium [Pravachol] 40 mg PO HS@1800 02/26/22 04/22/22 Zinc Sulfate [Orazinc] 220 mg PO DAILY@79902/26/22 04/22/22 guaiFENesin SYRUP 100MG/5ML 200 mg PO Q6H PRN 02/26/22 04/22/22 [Robitussin] Ascorbic Acid [Vitamin C] 500 mg PO BID@0800,1800 04/22/22 04/22/22 Floranex Packet 1 packet PO DAILY@79904/22/22 04/22/22 Hyoscyamine Sulfate [Levsin-Sl] 0.125 mg SL Q4H PRN 04/22/22 04/22/22 LORazepam [Ativan] 0.5 mg PO Q4H PRN 04/22/22 04/22/22 MORPHINE ORAL ANDREY CONC 20mg/mL 5 mg PO Q4H PRN 04/22/22 04/22/22 [Roxanol Oral Soln Conc 20MG/ML] Magnesium Oxide [Mag-Ox] 400 mg PO W/BRKFST@79904/22/22 04/22/22 Metoprolol Tartrate [Lopressor] 25 mg PO BID@0800,2000 04/22/22 04/22/22 Permethrin 5% Cream [Elimite] 1 applic TOPICAL DAILY@79904/22/22 04/22/22 Tamsulosin [Flomax] 0.4 mg PO PC-BRKFST@79904/22/22 04/22/22 bisacodyL [Dulcolax] 10 mg RECTAL Q72H PRN 04/22/22 04/22/22 Previous Rx's Medication Instructions Recorded Artificial Tears-Hypromellose 2 drops BOTH EYES Q4HR PRN #1 ml 03/04/22 [Artificial Tear Drops] QUEtiapine [SEROquel] 25 mg PO HS@1800 #30 tab 03/05/22 Allergies Allergy/AdvReac Type Severity Reaction Status Date / Time No Known Allergies Allergy Verified 04/22/22 09:37 Review of Systems ROS Statement: Those systems with pertinent positive or pertinent negative responses have been documented in the HPI. ROS Other: All systems not noted in ROS Statement are negative. Limitations: ROS unobtainable due to patients medical condition Past Medical History Past Medical History: Atrial Fibrillation, Asthma, Cancer, CVA/TIA, Dementia, GI Bleed, Prostate Disorder, Rheumatoid Arthritis (RA) Additional Past Medical History / Comment(s): chronic back problems, Rt foot drop, Uses a walker, prostate cancer, radiation seeds; suspected cva 2016; covid; strictures History of Any Multi-Drug Resistant Organisms: ESBL Date of last positivie culture/infection: 07/28/2019 MDRO Source:: URINE ESBL Past Surgical History: Back Surgery Additional Past Surgical History / Comment(s): RECENT PICC LINE, NOW REMOVED, JONO CATARACTS, R hand surgery; laminectomy Past Anesthesia/Blood Transfusion Reactions: No Reported Reaction Past Psychological History: No Psychological Hx Reported Smoking Status: Never smoker Past Alcohol Use History: None Reported Past Drug Use History: None Reported - Past Family History Father Family Medical History: No Reported History Mother Family Medical History: GI Bleed General Exam Limitations: altered mental status General appearance: alert, in no apparent distress Head exam: Present: atraumatic Eye exam: Present: normal appearance, PERRL, EOMI ENT exam: Present: normal oropharynx Neck exam: Present: normal inspection. Absent: meningismus Respiratory exam: Present: normal lung sounds bilaterally Cardiovascular Exam: Present: regular rate, normal rhythm GI/Abdominal exam: Present: soft. Absent: tenderness Neurological exam: Present: alert, altered (Does not answer questions appropriately). Absent: motor sensory deficit (Limited exam) Expanded Motor strength exam: RUE: 5, LUE: 5, RLE: 5, LLE: 5 Eye Response: (4) open spontaneously Motor Response: (6) obeys commands Verbal Response: (4) confused conversation Psychiatric exam: Present: normal affect, normal mood Skin exam: Present: normal color Course Vital Signs 04/22/22 07:42 Temperature 98.4 F Pulse Rate 64 Respiratory 18 Rate Blood Pressure 146/50 O2 Sat by Pulse 95 Oximetry EKG Findings - EKG Comments: EKG Findings:: Since bradycardia 57. NH 162. QRS 94. QT 439. QTC 432. Normal axis. Normal QRS. No acute ST change. Medical Decision Making - Medical Decision Making Family was updated. Case was discussed with Dr. Marcial who did evaluate patient and will admit - Lab Data Result diagrams: 04/22/22 08:19 04/22/22 08:19 Lab Results 04/22/22 04/22/22 04/22/22 Range/Units 08:19 08:19 08:19 WBC 8.4 (3.8-10.6) k/uL RBC 3.84 L (4.30-5.90) m/uL Hgb 11.2 L (13.0-17.5) gm/dL Hct 34.9 L (39.0-53.0) % MCV 91.0 (80.0-100.0) fL MCH 29.2 (25.0-35.0) pg MCHC 32.1 (31.0-37.0) g/dL RDW 14.0 (11.5-15.5) % Plt Count 290 (150-450) k/uL MPV 7.9 Neutrophils % 72 % Lymphocytes % 14 % Monocytes % 10 % Eosinophils % 2 % Basophils % 1 % Neutrophils # 6.0 (1.3-7.7) k/uL Lymphocytes # 1.2 (1.0-4.8) k/uL Monocytes # 0.8 (0-1.0) k/uL Eosinophils # 0.2 (0-0.7) k/uL Basophils # 0.0 (0-0.2) k/uL PT 11.1 (9.0-12.0) sec INR 1.0 (<1.2) APTT 22.4 (22.0-30.0) sec Sodium 137 (137-145) mmol/L Potassium 4.2 (3.5-5.1) mmol/L Chloride 102 (98-107) mmol/L Carbon Dioxide 25 (22-30) mmol/L Anion Gap 10 mmol/L BUN 29 H (9-20) mg/dL Creatinine 0.62 L (0.66-1.25) mg/dL Est GFR (CKD-EPI)AfAm >90 (>60 ml/min/1.73 sqM) Est GFR (CKD-EPI)NonAf 88 (>60 ml/min/1.73 sqM) Glucose 110 H (74-99) mg/dL Calcium 8.5 (8.4-10.2) mg/dL Total Bilirubin 0.6 (0.2-1.3) mg/dL AST 25 (17-59) U/L ALT 18 (4-49) U/L Alkaline Phosphatase 92 (38-126) U/L Troponin I (0.000-0.034) ng/mL Total Protein 6.2 L (6.3-8.2) g/dL Albumin 3.0 L (3.5-5.0) g/dL 09/26/22 Range/Units 08:19 WBC (3.8-10.6) k/uL RBC (4.30-5.90) m/uL Hgb (13.0-17.5) gm/dL Hct (39.0-53.0) % MCV (80.0-100.0) fL MCH (25.0-35.0) pg MCHC (31.0-37.0) g/dL RDW (11.5-15.5) % Plt Count (150-450) k/uL MPV Neutrophils % % Lymphocytes % % Monocytes % % Eosinophils % % Basophils % % Neutrophils # (1.3-7.7) k/uL Lymphocytes # (1.0-4.8) k/uL Monocytes # (0-1.0) k/uL Eosinophils # (0-0.7) k/uL Basophils # (0-0.2) k/uL PT (9.0-12.0) sec INR (<1.2) APTT (22.0-30.0) sec Sodium (137-145) mmol/L Potassium (3.5-5.1) mmol/L Chloride (98-107) mmol/L Carbon Dioxide (22-30) mmol/L Anion Gap mmol/L BUN (9-20) mg/dL Creatinine (0.66-1.25) mg/dL Est GFR (CKD-EPI)AfAm (>60 ml/min/1.73 sqM) Est GFR (CKD-EPI)NonAf (>60 ml/min/1.73 sqM) Glucose (74-99) mg/dL Calcium (8.4-10.2) mg/dL Total Bilirubin (0.2-1.3) mg/dL AST (17-59) U/L ALT (4-49) U/L Alkaline Phosphatase (38-126) U/L Troponin I <0.012 (0.000-0.034) ng/mL Total Protein (6.3-8.2) g/dL Albumin (3.5-5.0) g/dL - Radiology Data Radiology results: report reviewed (Computed tomography scan of the brain shows no acute process), image reviewed (Chest x-ray shows no acute process) Disposition Clinical Impression: Altered mental status Disposition: ADMITTED IP TO THIS HOSP Is patient prescribed a controlled substance at d/c from ED?: No Referrals: Alley Wade MD [Primary Care Provider] - 1-2 days Time of Disposition: 11:49
[2022-04-22 08:29] LABS: Basophils % (A) 1 %; Eosinophils # (A) 0.2 k/uL (0-0.7); Eosinophils % (A) 2 %; HCT 34.9 % (39.0-53.0); HGB 11.2 gm/dL (13.0-17.5); Lymphocytes # (A) 1.2 k/uL (1.0-4.8); Lymphocytes % (A) 14 %; MCH 29.2 pg (25.0-35.0); MCHC 32.1 g/dL (31.0-37.0); Mean Platelet Volume 7.9; Monocytes # (A) 0.8 k/uL (0-1.0); Monocytes % (A) 10 %; Neutrophils % (A) 72 %; Platelet Count 290 k/uL (150-450); RBC 3.84 m/uL (4.30-5.90); WBC 8.4 k/uL (3.8-10.6)
[2022-04-22 08:46] LABS: Partial Thromboplastin Time 22.4 sec (22.0-30.0); Prothrombin Time 11.1 sec (9.0-12.0)
--- NOTE | 2022-04-22 08:46 | XR ---
EXAMINATION TYPE: XR chest 2V DATE OF EXAM: 04/22/2022 COMPARISON: Chest x-ray February 26, 2022 HISTORY: Altered mental status and weakness. TECHNIQUE: Frontal and lateral views of the chest are obtained. FINDINGS: There is chronic emphysematous change without suspicious focal air space opacity, pleural effusion, or pneumothorax seen. The cardiac silhouette size is upper limits of normal. The osseous structures are intact. IMPRESSION: Chronic emphysematous change without acute pulmonary process. No significant change from prior.
--- NOTE | 2022-04-22 08:55 | CT ---
EXAMINATION TYPE: CT brain wo con DATE OF EXAM: 04/22/2022 HISTORY: ams CT DLP: 1166.4 mGycm. Automated Exposure Control for Dose Reduction was Utilized. TECHNIQUE: CT scan of the head is performed without contrast. COMPARISON: CT brain February 26, 2022. FINDINGS: There is no acute intracranial hemorrhage or midline shift identified. There is mild to m oderate diffuse ventricular and sulcal prominence consistent with diffuse age-related cerebral atroph y. There is moderate to severe low-attenuation in the periventricular white matter consistent with c hronic small vessel ischemic change. New dependent fluid in the bilateral maxillary sinuses with mild mucosal thickening. Increasing opacification in the ethmoid sinuses bilaterally. Globes are intact b ilaterally. IMPRESSION: No acute intracranial hemorrhage or midline shift. There is losp-ce-tbxgftdy diffuse ag e-related cerebral atrophy and axnfvtns-zk-[id number] chronic small vessel ischemic change redemonstrated and felt stable. Worsening acute on chronic bilateral maxillary and ethmoid sinus disease present, correlate clinically.
[2022-04-22 09:14] LABS: ALT 18 U/L (4-49); AST 25 U/L (17-59); African American GFR (CKD) >90 (>60 ml/min/1.73 sqM); Alkaline Phosphatase 92 U/L (38-126); Anion Gap 10 mmol/L; Blood Urea Nitrogen 29 mg/dL (9-20); Calcium 8.5 mg/dL (8.4-10.2); Carbon Dioxide 25 mmol/L (22-30); Chloride 102 mmol/L (98-107); Glucose 110 mg/dL (74-99); Non-African American GFR(CKD) 88 (>60 ml/min/1.73 sqM); Potassium 4.2 mmol/L (3.5-5.1); Sodium 137 mmol/L (137-145); Total Bilirubin 0.6 mg/dL (0.2-1.3); Total Protein 6.2 g/dL (6.3-8.2)
[2022-04-22] MEDS ORDERED: ALPRAZolam 0.5 MG TAB PO PRN (10:35)
[2022-04-22] MEDS ORDERED: IPRATROPIUM-ALBUTEROL 3 ML NEB INHALATION PRN (10:40)
[2022-04-22] MEDS: PANTOPRAZOLE 40 MG/10 ML VIAL IVP SCH (11:49)
[2022-04-22] MEDS: APIXABAN 2.5 MG TABLET PO SCH ×2 (11:50→17:08)
[2022-04-22] MEDS ORDERED: NALOXONE 0.4 MG/ML 1 ML VIAL IV PRN (11:50)
[2022-04-22] MEDS: METOPROLOL TARTRATE 25 MG TAB PO SCH ×2 (11:58→20:35)
[2022-04-22] MEDS ORDERED: ARTIFICIAL TEARS-HYPROMELLOSE DROPS 15 ML BTL BOTH EYES PRN (14:00)
[2022-04-22 14:40] LABS: Appearance,Urine Cloudy (Clear); Bacteria,Urine Occasional /hpf; Bilirubin,Urine Negative (Negative); Blood,Urine Large (Negative); Calcium Oxalate Crystals,Urine Rare /hpf; Color,Urine Yellow; Glucose,Urine (UA) Negative (Negative); Ketones,Urine Negative (Negative); Leukocyte Esterase,Urine Large (Negative); Nitrite,Urine Negative (Negative); PH, Urine 7.5 (5.0-8.0); Protein,Urine 1+ (Negative); RBC,Urine 143 /hpf (0-5); Specific Gravity,Urine 1.017 (1.001-1.035); Squamous Epithelial Cell,Urine 1 /hpf (0-4); Urobilinogen,Urine <2.0 mg/dL (<2.0); WBC,Urine 70 /hpf (0-5)
[2022-04-22 14:50] LABS: Amphetamine Screen,Urine Not Detected (NotDetected); Barbiturate Screen,Urine Not Detected (NotDetected); Benzodiazepines Screen,Urine Not Detected (NotDetected); Cocaine Screen,Urine Not Detected (NotDetected); Methadone Screen, Urine Not Detected (NotDetected); Opiate Screen,Urine Not Detected (NotDetected); Oxycodone Screen, Urine Not Detected (NotDetected); Phencyclidine Screen,Urine Not Detected (NotDetected); Tricyclic Antidepressant,Urine Detected (NotDetected); Urn Cannabinoid Scrn Not Detected (NotDetected)
--- NOTE | 2022-04-22 15:31 | P.HPIM ---
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 Staff reports that upon getting patient up in his [place] chair this morning before while down for breakfast, patient became pale ,developed uncontrollable shakes, accompanied by drooling, and proceeded to lean to the right into the staff member, developing increased shortness of breath. Did not lose consciousness. No nausea vomiting or diarrhea. Prior to procedure patient had been talking, post procedure patient not conversing. Shakiness resolved prior to EMS arrival. No syncope. Further EMS records currently unavailable. Glucose on admission 110. EKG reporting sinus bradycardia, ventricular rate 57, brain CT no acute intracranial hemorrhage or midline shift, mild to moderate diffuse atrial agent cerebral atrophy and moderate to severe chronic small vessel ischemic changes redemonstrated and felt stable, worsening acute on chronic bilateral maxillary a nd ethmoid sinus disease. Chest x-ray reported chronic emphysematous changes without acute pulmonary process, no significant change from prior. Afebrile, WBC 8.4, hemoglobin 11.2, platelets 290, INR 1, sodium 137, potassium 4.2, bicarb 25, BUN 29, creatinine 0.62, troponin negative 1, total protein and albumin low at 6.2,3. UA reporting tricyclic antidepressants. Bladder scan reported 150, staff unable to straight cath secondary to patient has known history of significant urethral stricture requiring catheter placement as per urology. At bedside patient was able to answer simple yes and no questions at times, extremely hard of hearing. Earlier presented with mild expressive aphasia per daughter. Review of Systems Limited secondary to patient's current increased confusion. ROS Statement: Those systems with pertinent positive or pertinent negative responses have been documented in the HPI. ROS Other: All systems not noted in ROS Statement are negative. Past Medical History Past Medical History: Atrial Fibrillation, Asthma, Cancer, CVA/TIA, Dementia, GI Bleed, Prostate Disorder, Rheumatoid Arthritis (RA) Additional Past Medical History / Comment(s): chronic back problems, Rt foot drop, Uses a walker, prostate cancer, radiation seeds; suspected cva 2017; covid; strictures History of Any Multi-Drug Resistant Organisms: ESBL Date of last positivie culture/infection: 07/28/2019 MDRO Source:: URINE ESBL Past Surgical History: Back Surgery Additional Past Surgical History / Comment(s): RECENT PICC LINE, NOW REMOVED, JONO CATARACTS, R hand surgery; laminectomy Past Anesthesia/Blood Transfusion Reactions: No Reported Reaction Past Psychological History: No Psychological Hx Reported Smoking Status: Never smoker Past Alcohol Use History: None Reported Past Drug Use History: None Reported - Past Family History Father Family Medical History: No Reported History Mother Family Medical History: GI Bleed Medications and Allergies Home Medications Medication Instructions Recorded Confirmed Type Folic Acid 1 mg PO DAILY@1800 03/12/17 04/22/22 History ALPRAZolam [Xanax] 0.5 mg PO BID PRN 03/05/20 04/22/22 History Cyanocobalamin [Vitamin B-12] 500 mcg PO DAILY@79903/05/20 04/22/22 History Donepezil [Aricept] 10 mg PO DAILY@79903/05/20 04/22/22 History Ipratropium-Albuterol Nebulize 3 ml INHALATION RT-QID PRN 03/05/20 04/22/22 Hist ory [Duoneb 0.5 mg-3 mg/3 ml Soln] Pantoprazole [Protonix] 40 mg PO DAILY@79903/05/20 04/22/22 History Apixaban [Eliquis] 2.5 mg PO BID@0800,1800 02/26/22 04/22/22 History Cranberry Fruit Extract [Cranberry] 500 mg PO DAILY@79902/26/22 04/22/22 History Fluticasone/Vilanterol [Breo 1 puff INHALATION RT-DAILY@79902/26/22 04/22/22 History Ellipta 100-25 Mcg Inhaler] Magnesium Hydroxide [Milk of 2,400 mg PO Q48H PRN 02/26/22 04/22/22 History Magnesia] Mirtazapine [Remeron] 30 mg PO HS@1800 02/26/22 04/22/22 History Pravastatin Sodium [Pravachol] 40 mg PO HS@1800 02/26/22 04/22/22 History Zinc Sulfate [Orazinc] 220 mg PO DAILY@79902/26/22 04/22/22 History guaiFENesin SYRUP 100MG/5ML 200 mg PO Q6H PRN 02/26/22 04/22/22 History [Robitussin] Artificial Tears-Hypromellose 2 drops BOTH EYES Q4HR PRN #1 ml 03/04/22 04/22/22 Rx [Artificial Tear Drops] QUEtiapine [SEROquel] 25 mg PO HS@1800 #30 tab 03/05/22 04/22/22 Rx Ascorbic Acid [Vitamin C] 500 mg PO BID@0800,1800 04/22/22 04/22/22 History Floranex Packet 1 packet PO DAILY@79904/22/22 04/22/22 History Hyoscyamine Sulfate [Levsin-Sl] 0.125 mg SL Q4H PRN 04/22/22 04/22/22 History LORazepam [Ativan] 0.5 mg PO Q4H PRN 04/22/22 04/22/22 History MORPHINE ORAL ANDREY CONC 20mg/mL 5 mg PO Q4H PRN 04/22/22 04/22/22 History [Roxanol Oral Soln Conc 20MG/ML] Magnesium Oxide [Mag-Ox] 400 mg PO W/BRKFST@79904/22/22 04/22/22 History Metoprolol Tartrate [Lopressor] 25 mg PO BID@799,199904/22/22 04/22/22 History Permethrin 5% Cream [Elimite] 1 applic TOPICAL DAILY@79904/22/22 04/22/22 History Tamsulosin [Flomax] 0.4 mg PO PC-BRKFST@79904/22/22 04/22/22 History bisacodyL [Dulcolax] 10 mg RECTAL Q72H PRN 04/22/22 04/22/22 History Allergies Allergy/AdvReac Type Severity Reaction Status Date / Time No Known Allergies Allergy Verified 04/22/22 09:37 Physical Exam Vitals: Vital Signs Temp Pulse Resp BP Pulse Ox 04/22/22 11:59 68 18 139/62 96 04/22/22 07:42 98.4 F 64 18 146/50 95 Intake and Output 04/21/22 04/22/22 04/22/22 22:59 06:59 14:59 Other: Weight 58.967 kg PHYSICAL EXAM: VITAL SIGNS: As above GENERAL: Lying on stretcher, no acute distress. Confused, alert and oriented 1.[place]. HEENT: Atraumatic, normocephalic , pupils round and equal ,Conjunctivae normal. NECK: No JVD. No thyroid enlargement. No LNs CARDIOVASCULAR: S1, S2 regular. Systolic murmur RESPIRATION: Breath sounds diminished in the bases. No rhonchi or crackles. No bronchial breathing. ABDOMEN: Soft, nontender, nondistended . No guarding. no masses palpable. No ascites, No hepatosplenomegaly.Bowel sounds heard. Extremities: Bilateral Dupuytren's contractures, history of right hand surgery, No edema. no swelling. PSYCHIATRY: Alert and oriented X1, confused NERVOUS SYSTEM: Limited exam. Cranial N 2-12 grossly normal. Skin: Warm and dry, no rash. Left tip of great toe, bilateral heel ulcers-refer to nursing documentation. Results CBC & Chem 7: 04/22/22 08:19 04/22/22 08:19 Labs: Abnormal Lab Results - Last 24 Hours (Table) 04/22/22 04/22/22 Range/Units 08:19 08:19 RBC 3.84 L (4.30-5.90) m/uL Hgb 11.2 L (13.0-17.5) gm/dL Hct 34.9 L (39.0-53.0) % BUN 29 H (9-20) mg/dL Creatinine 0.62 L (0.66-1.25) mg/dL Glucose 110 H (74-99) mg/dL Total Protein 6.2 L (6.3-8.2) g/dL Albumin 3.0 L (3.5-5.0) g/dL Assessment and Plan Assessment: Acute metabolic encephalopathy secondary to suspected acute UTI related to urinary retention, in a patient with history of ESBL, prostate cancer with radiation seeds , urinary retention. Possible acute seizure activity, per [facility] report ,neurology consulted Recently discharged on 03/04/2022 with sepsis secondary to bacterial prostatitis with suspected acute UTI, urine and blood cultures that time failed to report any growth, despite fevers, elevated WBC and pro-calcitonin. History of Urinary retention secondary to urethral stricture lending to difficult catheter insertion/coude', history of cystoscopy with urethral dilations with , Urology. Status post dilation and placement of 12- Palestinian coud tip catheter per urology on prior admission with Deutsch catheter discontinued 03/04/2022. Bilateral heel and left great toe ulcers, present on admission; upon discharge- patient had sustained bilateral heel & left great toe blisters that later transitioned to wounds. Debrided at wound care center on 04/18/22. (Offloading boots with heels to be floating at all times) Chronic Paroximal A. 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 Mcbride. 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 History of rheumatoid arthritis, treated in the past, not on immunosuppressants History of lumbar degenerative disc disease, spinal stenosis, L5 spondylosis, facet arthropathy, L3-4 laminectomy Risk secondary to increased medical debility, increased weakness ( 2 person assist), dementia in a patient with prior HX of Gait dysfunction, bilateral foot drop-greatest in the right. Underlying dementia, progressive [place] Plan: Continue on current medication regime ,monitoring and symptomatic treatm ent. Urology consulted for coud Deutsch catheter placement/urinary retention with UA/urine culture to be obtained at that time. Recent wound debridement of bilateral heels, offloading boots ordered with heels to be free-floating at all times-orders discussed with nurse. Wound care consulted. Neurology consulted. Prognosis guarded given multiple complex medical issues. The impression and plan of care has been dictated as directed. : I performed a history and examination of this patient, discussed the same with the dictator. I agree with the dictator's note ,documented as a scribe. Any additional findings or plans will be noted. Plan: Start rocephin, follow cultures
--- NOTE | 2022-04-22 15:44 | P.GSCN ---
History of Present Illness Consult date: 04/22/22 History of present illness: 89-year-old gentleman in the hospital with altered mental status. The possibility of a urinary tract infection is considered. The patient could not give a voided urinary specimen in the emergency room thus the staff attempted to pass a catheter but were unable to do so. The patient has a known history of a urethral stricture. He recently was in the hospital or I had to dilate his stricture and to place a catheter were urine retention and urosepsis. The patient has a history of strictures or for by Dr. Kim years past. The patient can give no history. The nursing staff is obtained a bladder residual and the bladder is relatively empty less than 100 mL. He is wearing a condom catheter. His white count is normal. He is not febrile. His urinalysis looks inflamed. Review of Systems ROS unobtainable: due to mental status Past Medical History Past Medical History: Atrial Fibrillation, Asthma, Cancer, CVA/TIA, Dementia, GI Bleed, Prostate Disorder, Rheumatoid Arthritis (RA) Additional Past Medical History / Comment(s): chronic back problems, Rt foot drop, Uses a walker, prostate cancer, radiation seeds; suspected cva 2017; covid; strictures History of Any Multi-Drug Resistant Organisms: ESBL Year Discovered:: 07/28/2019 MDRO Source:: URINE ESBL Past Surgical History: Back Surgery Additional Past Surgical History / Comment(s): RECENT PICC LINE, NOW REMOVED, JONO CATARACTS, R hand surgery; laminectomy Past Anesthesia/Blood Transfusion Reactions: No Reported Reaction Past Psychological History: No Psychological Hx Reported Smoking Status: Never smoker Past Alcohol Use History: None Reported Past Drug Use History: None Reported - Past Family History Father Family Medical History: No Reported History Mother Family Medical History: GI Bleed Medications and Allergies Home Medications Medication Instructions Recorded Confirmed Type Folic Acid 1 mg PO DAILY@1800 03/12/17 04/22/22 History ALPRAZolam [Xanax] 0.5 mg PO BID PRN 03/05/20 04/22/22 History Cyanocobalamin [Vitamin B-12] 500 mcg PO DAILY@00 03/05/20 04/22/22 History Donepezil [Aricept] 10 mg PO DAILY@79903/05/20 04/22/22 History Ipratropium-Albuterol Nebulize 3 ml INHALATION RT-QID PRN 03/05/20 04/22/22 History [Duoneb 0.5 mg-3 mg/3 ml Soln] Pantoprazole [Protonix] 40 mg PO DAILY@0800 03/05/20 04/22/22 History Apixaban [Eliquis] 2.5 mg PO BID@0800,1800 02/26/22 04/22/22 History Cranberry Fruit Extract [Cranberry] 500 mg PO DAILY@0800 02/26/22 04/22/22 History Fluticasone/Vilanterol [Breo 1 puff INHALATION RT-DAILY@0800 02/26/22 04/22/22 History Ellipta 100-25 Mcg Inhaler] Magnesium Hydroxide [Milk of 2,400 mg PO Q48H PRN 02/26/22 04/22/22 History Magnesia] Mirtazapine [Remeron] 30 mg PO HS@1800 02/26/22 04/22/22 History Pravastatin Sodium [Pravachol] 40 mg PO HS@1800 02/26/22 04/22/22 History Zinc Sulfate [Orazinc] 220 mg PO DAILY@0800 02/26/22 04/22/22 History guaiFENesin SYRUP 100MG/5ML 200 mg PO Q6H PRN 02/26/22 04/22/22 History [Robitussin] Artificial Tears-Hypromellose 2 drops BOTH EYES Q4HR PRN #1 ml 03/04/22 04/22/22 Rx [Artificial Tear Drops] QUEtiapine [SEROquel] 25 mg PO HS@1800 #30 tab 03/05/22 04/22/22 Rx Ascorbic Acid [Vitamin C] 500 mg PO BID@0800,1800 04/22/22 04/22/22 History Floranex Packet 1 packet PO DAILY@79904/22/22 04/22/22 History Hyoscyamine Sulfate [Levsin-Sl] 0.125 mg SL Q4H PRN 04/22/22 04/22/22 History LORazepam [Ativan] 0.5 mg PO Q4H PRN 04/22/22 04/22/22 History MORPHINE ORAL ANDREY CONC 20mg/mL 5 mg PO Q4H PRN 04/22/22 04/22/22 History [Roxanol Oral Soln Conc 20MG/ML] Magnesium Oxide [Mag-Ox] 400 mg PO W/BRKFST@79904/22/22 04/22/22 History Metoprolol Tartrate [Lopressor] 25 mg PO BID@799,199904/22/22 04/22/22 History Permethrin 5% Cream [Elimite] 1 applic TOPICAL DAILY@79904/22/22 04/22/22 History Tamsulosin [Flomax] 0.4 mg PO PC-BRKFST@79904/22/22 04/22/22 History bisacodyL [Dulcolax] 10 mg RECTAL Q72H PRN 04/22/22 04/22/22 History Allergies Allergy/AdvReac Type Severity Reaction Status Date / Time No Known Allergies Allergy Verified 04/22/22 09:37 Surgical - Exam Vital Signs Temp Pulse Resp BP Pulse Ox 98.4 F 64 18 146/50 95 04/22/22 07:42 04/22/22 07:42 04/22/22 07:42 04/22/22 07:42 04/22/22 07:42 - General Thin white male cannot communicate. - ENT no hearing loss - Neck no masses - Respiratory normal expansion, normal respiratory effort - Abdomen Abdomen: soft, non tender - Genitourinary Condom catheter with clear urine. Normal testicles. - Neurologic combative, memory loss Results - Labs 04/22/22 08:19 04/22/22 08:19 Abnormal Lab Results - Last 24 Hours (Table) 04/22/22 04/22/22 04/22/22 Range/Units 08:19 08:19 08:19 RBC 3.84 L (4.30-5.90) m/uL Hgb 11.2 L (13.0-17.5) gm/dL Hct 34.9 L (39.0-53.0) % BUN 29 H (9-20) mg/dL Creatinine 0.62 L (0.66-1.25) mg/dL Glucose 110 H (74-99) mg/dL Total Protein 6.2 L (6.3-8.2) g/dL Albumin 3.0 L (3.5-5.0) g/dL Urine Protein 1+ H (Negative) Urine Blood Large H (Negative) Ur Leukocyte Esterase Large H (Negative) Urine RBC 143 H (0-5) /hpf Urine WBC 70 H (0-5) /hpf Urine WBC Clumps Rare H (None) /hpf Calcium Oxalate Crystal Rare H (None) /hpf Urine Bacteria Occasional H (None) /hpf U Tricyclic Antidepress Detected H (NotDetected) Diabetes panel 04/22/22 Range/Units 08:19 Sodium 137 (137-145) mmol/L Potassium 4.2 (3.5-5.1) mmol/L Chloride 102 (98-107) mmol/L Carbon Dioxide 25 (22-30) mmol/L BUN 29 H (9-20) mg/dL Creatinine 0.62 L (0.66-1.25) mg/dL Glucose 110 H (74-99) mg/dL Calcium 8.5 (8.4-10.2) mg/dL AST 25 (17-59) U/L ALT 18 (4-49) U/L Alkaline Phosphatase 92 (38-126) U/L Total Protein 6.2 L (6.3-8.2) g/dL Albumin 3.0 L (3.5-5.0) g/dL Calcium panel 04/22/22 Range/Units 08:19 Calcium 8.5 (8.4-10.2) mg/dL Albumin 3.0 L (3.5-5.0) g/dL Pituitary panel 04/22/22 Range/Units 08:19 Sodium 137 (137-145) mmol/L Potassium 4.2 (3.5-5.1) mmol/L Chloride 102 (98-107) mmol/L Carbon Dioxide 25 (22-30) mmol/L BUN 29 H (9-20) mg/dL Creatinine 0.62 L (0.66-1.25) mg/dL Glucose 110 H (74-99) mg/dL Calcium 8.5 (8.4-10.2) mg/dL Adrenal panel 04/22/22 Range/Units 08:19 Sodium 137 (137-145) mmol/L Potassium 4.2 (3.5-5.1) mmol/L Chloride 102 (98-107) mmol/L Carbon Dioxide 25 (22-30) mmol/L BUN 29 H (9-20) mg/dL Creatinine 0.62 L (0.66-1.25) mg/dL Glucose 110 H (74-99) mg/dL Calcium 8.5 (8.4-10.2) mg/dL Total Bilirubin 0.6 (0.2-1.3) mg/dL AST 25 (17-59) U/L ALT 18 (4-49) U/L Alkaline Phosphatase 92 (38-126) U/L Total Protein 6.2 L (6.3-8.2) g/dL Albumin 3.0 L (3.5-5.0) g/dL Assessment and Plan Assessment: Impression: Altered mental status possibly urine infection possibly chronic skin breakdown. Recommendations: Since the bladder is empty and a urine specimen has been collected I do not recommend placing a catheter is due to his mental status he'll pull it out and cause urethral trauma. Unless he has a difficult time urinating and we treat him based on the culture obtained, observe his urine and make sure he doesn't go into retention.
[2022-04-22] MEDS: QUEtiapine 25 MG TAB PO SCH (17:10)
[2022-04-22] MEDS: FOLIC ACID 1 MG TAB PO SCH (17:10)
[2022-04-22] MEDS: ASCORBIC ACID 500 MG TAB PO SCH (17:10)
[2022-04-22] MEDS ORDERED: MIRTAZAPINE 15 MG TAB PO SCH (18:00)
[2022-04-22] MEDS ORDERED: PRAVASTATIN SODIUM 40 MG TAB PO SCH (18:00)
[2022-04-22] MEDS: PRAVASTATIN SODIUM 40 MG TAB PO SCH (20:35)
[2022-04-22] MEDS: MIRTAZAPINE 15 MG TAB PO SCH (20:35)
[2022-04-22] MEDS ORDERED: ACETAMINOPHEN TAB 325 MG TAB PO PRN (23:09)
[2022-04-23] MEDS: SYMBICORT 80-4.5 MCG INHALER INHALATION SCH ×2 (07:01→20:14)
--- NOTE | 2022-04-23 07:52 | P.PN ---
Subjective Progress Note Date: 04/23/22 The patient is in the hospital with fever and disorientation. I was asked to see for possible catheter. The patient seems to be emptying his bladder appropriately. He does have a history of urethral stricture. His urine looks inflamed probably consistent with a urinary tract infection. Ultrasound pen ding. I do not feel it necessary to place a catheter given that he is emptying his bladder adequately. I'll follow with you. Objective - Vital Signs Vital signs: Vital Signs Temp 99.2 F 04/23/22 05:28 Pulse 80 04/23/22 04:10 Resp 18 04/23/22 04:10 BP 120/47 04/23/22 04:10 Pulse Ox 100 04/23/22 04:10 FiO2 Intake & Output 04/22/22 04/23/22 04/23/22 18:59 06:59 18:59 Intake Total 410 Output Total 85 950 Balance -85 -540 Weight 58.967 kg Intake: Intake, IV Titration 50 Amount cefTRIAXone 1 gm In 50 Sodium Chloride 0.9% 50 ml @ 100 mls/hr IVPB ONCE STA Rx#:[id number] Oral 360 Output: Urine 950 Post Void Residual 85 Other: Voiding Method External Catheter External Catheter # Bowel Movements 1 0 - Labs CBC & Chem 7: 04/22/22 08:19 04/22/22 08:19 Labs: Abnormal Lab Results - Last 24 Hours (Table) 04/22/22 04/22/22 04/22/22 Range/Units 08:19 08:19 08:19 RBC 3.84 L (4.30-5.90) m/uL Hgb 11.2 L (13.0-17.5) gm/dL Hct 34.9 L (39.0-53.0) % BUN 29 H (9-20) mg/dL Creatinine 0.62 L (0.66-1.25) mg/dL Glucose 110 H (74-99) mg/dL Total Protein 6.2 L (6.3-8.2) g/dL Albumin 3.0 L (3.5-5.0) g/dL TSH (0.350-5.500) uIU/mL Urine Protein 1+ H (Negative) Urine Blood Large H (Negative) Ur Leukocyte Esterase Large H (Negative) Urine RBC 143 H (0-5) /hpf Urine WBC 70 H (0-5) /hpf Urine WBC Clumps Rare H (None) /hpf Calcium Oxalate Crystal Rare H (None) /hpf Urine Bacteria Occasional H (None) /hpf U Tricyclic Antidepress Detected H (NotDetected) 04/22/22 Range/Units 16:54 RBC (4.30-5.90) m/uL Hgb (13.0-17.5) gm/dL Hct (39.0-53.0) % BUN (9-20) mg/dL Creatinine (0.66-1.25) mg/dL Glucose (74-99) mg/dL Total Protein (6.3-8.2) g/dL Albumin (3.5-5.0) g/dL TSH 0.051 L (0.350-5.500) uIU/mL Urine Protein (Negative) Urine Blood (Negative) Ur Leukocyte Esterase (Negative) Urine RBC (0-5) /hpf Urine WBC (0-5) /hpf Urine WBC Clumps (None) /hpf Calcium Oxalate Crystal (None) /hpf Urine Bacteria (None) /hpf U Tricyclic Antidepress (NotDetected) Microbiology - Last 24 Hours (Table) 04/22/22 08:19 Urine Culture - Preliminary Urine,Clean Catch
[2022-04-23] MEDS: PANTOPRAZOLE 40 MG/10 ML VIAL IVP SCH (08:02)
[2022-04-23] MEDS: TAMSULOSIN 0.4 MG CAP.ER.24H PO SCH (08:04)
[2022-04-23] MEDS: CYANOCOBALAMIN 500 MCG TAB PO SCH (08:04)
[2022-04-23] MEDS: APIXABAN 2.5 MG TABLET PO SCH ×2 (08:04→18:04)
[2022-04-23] MEDS: DONEPEZIL 10 MG TAB PO SCH (08:05)
[2022-04-23] MEDS: ZINC SULFATE 220 MG CAP PO SCH (08:05)
[2022-04-23] MEDS: ASCORBIC ACID 500 MG TAB PO SCH ×2 (08:05→18:04)
[2022-04-23] MEDS: METOPROLOL TARTRATE 25 MG TAB PO SCH ×2 (08:05→21:54)
[2022-04-23] MEDS: MAGNESIUM OXIDE 400 MG TAB PO SCH (08:09)
[2022-04-23] MEDS ORDERED: MAGNESIUM HYDROXIDE 2,400 MG/10 ML CUP PO PRN (09:00)
[2022-04-23 09:35] LABS: Basophils # (A) 0.04 X 10*3/uL (0.00-0.10); Basophils % (A) 0.5 %; Eosinophils # (A) 0.03 X 10*3/uL (0.04-0.35); Eosinophils % (A) 0.3 %; HCT 31.1 % (39.6-50.0); HGB 10.4 g/dL (13.0-17.0); Immature Grans, Automated 0.2 %; Lymphocytes # (A) 0.83 X 10*3/uL (0.90-5.00); Lymphocytes % (A) 9.5 %; MCH 29.5 pg (27.0-32.0); MCHC 33.4 g/dL (32.0-37.0); MCV 88.4 fL (80.0-97.0); Mean Platelet Volume 9.7 fL (9.5-12.2); Monocytes # (A) 1.22 X 10*3/uL (0.20-1.00); Monocytes % (A) 13.9 %; NRBC Per 100 WBC 0 /100 WBCS (0.0-0.0); Neutrophils # (A) 6.62 X 10*3/uL (1.80-7.70); Neutrophils % (A) 75.6 %; Platelet Count 286 X 10*3/uL (140-440); RBC 3.52 X 10*6/uL (4.40-5.60); RDW 14.1 % (11.5-14.5); WBC 8.76 X 10*3/uL (4.50-10.00)
[2022-04-23 10:03] LABS: African American GFR (CKD) 99.5 (60.0-200.0); Anion Gap 9.9 mmol/L (10.00-18.00); BUN/Creat Ratio 38.6 Ratio (12.00-20.00); Blood Urea Nitrogen 25.4 mg/dL (9.0-27.0); Calcium 8.3 mg/dL (8.7-10.3); Carbon Dioxide 24.2 mmol/L (20.0-27.5); Non-African American GFR(CKD) 85.8 (60.0-200.0); Potassium 3.8 mmol/L (3.5-5.5)
--- NOTE | 2022-04-23 10:09 | P.CNNES ---
History of Present Illness Consult date: 04/23/22 Requesting physician: Bernadette Bergeron Reason for Consult: possible seizure activity History of Present Illness: This is an 89-year-old gentleman with history of stroke without residual deficits, advanced dementia, paroxysmal atrial fibrillation on eliquis, prostate cancer status post radiation seeds, recurrent urinary tract infection presented emergency department on 04/22/2022 for questionable possible seizure. History is obtained from medical record that. Patient resides and an [facility] home and it seems that that the patient the while trying to get up from his [place] chair on 04/22/2022 he became pale develop uncontrolled body shakes accompanied by drooling and was leaning to the right with increased shortness of breath but did not lose consciousness. It seems that the patient's shakiness resolved prior to EMS arrival. This episode transpired prior to breakfast. Per the daughter (Bernadette Bergeron) he is having word finding difficulty since yesterday and today. Per the daughter he fell (rolled out of bed at his [facility]) in February 2022. Denies to this no history of seizure. Some other workup during this hospital visit consisted of: Initial presentation his vital signs his blood pressure of 146/50, heart rate of 64, respiratory of 18, temperature of 98.4 Fahrenheit axillary and the pulse ox of 95% room air. His T-max during this hospital visit is 101.3 Fahrenheit White blood cell has been normal during during this hospital visit. Initial serum glucose is 110. AST and ALT is within normal limits TSH is 0.051 and the free T4 is 1.260 Urinalysis is suggestive of likely urinary tract infection Urine tox screen is detected the positive for tricyclic antidepressant. CT of the head is reported as no acute intracranial hemorrhage or midline shift. There is mild to moderate diffuse age-related cerebral atrophy and moderate to severe chronic small vessel ischemic changes redemonstrated and felt stable. Worsening acute on chronic bilateral maxillary and ethmoid sinus disease present, correlate clinically. I personally reviewed the CT and agree with the finding of the report but in addition I felt the patient has a right frontal calcified likely meningioma. And in the 2017 CT is reported as small calcified calcifying mass and interbody it is mentioned hemangioma or osteochondroma. I'll personally reviewed the CT 2017 I feel the size is about the same and it seems in the right frontal region as well. Review of Systems Review of system is limited but the pertinent positive and negative as per HPI. Past Medical History Past Medical History: Atrial Fibrillation, Asthma, Cancer, CVA/TIA, Dementia, GI Bleed, Prostate Disorder, Rheumatoid Arthritis (RA) Additional Past Medical History / Comment(s): chronic back problems, Rt foot drop, Uses a walker, prostate cancer, radiation seeds; suspected cva 2017; covid; strictures History of Any Multi-Drug Resistant Organisms: ESBL Date of last positivie culture/infection: 07/28/2019 MDRO Source:: URINE ESBL Past Surgical History: Back Surgery Additional Past Surgical History / Comment(s): RECENT PICC LINE, NOW REMOVED, JONO CATARACTS, R hand surgery; laminectomy Past Anesthesia/Blood Transfusion Reactions: No Reported Reaction Past Psychological History: No Psychological Hx Reported Smoking Status: Never smoker Past Alcohol Use History: None Reported Past Drug Use History: None Reported - Past Family History Father Family Medical History: No Reported History Mother Family Medical History: GI Bleed Medications and Allergies Home Medications Medication Instructions Recorded Confirmed Type Folic Acid 1 mg PO DAILY@1800 03/12/17 04/22/22 History ALPRAZolam [Xanax] 0.5 mg PO BID PRN 03/05/20 04/22/22 History Cyanocobalamin [Vitamin B-12] 500 mcg PO DAILY@79903/05/20 04/22/22 History Donepezil [Aricept] 10 mg PO DAILY@79903/05/20 04/22/22 History Ipratropium-Albuterol Nebulize 3 ml INHALATION RT-QID PRN 03/05/20 04/22/22 History [Duoneb 0.5 mg-3 mg/3 ml Soln] Pantoprazole [Protonix] 40 mg PO DAILY@79903/05/20 04/22/22 History Apixaban [Eliquis] 2.5 mg PO BID@0800,1800 02/26/22 04/22/22 History Cranberry Fruit Extract [Cranberry] 500 mg PO DAILY@79902/26/22 04/22/22 History Fluticasone/Vilanterol [Breo 1 puff INHALATION RT-DAILY@79902/26/22 04/22/22 History Ellipta 100-25 Mcg Inhaler] Magnesium Hydroxide [Milk of 2,400 mg PO Q48H PRN 02/26/22 04/22/22 History Magnesia] Mirtazapine [Remeron] 30 mg PO HS@1800 02/26/22 04/22/22 History Pravastatin Sodium [Pravachol] 40 mg PO HS@1800 02/26/22 04/22/22 History Zinc Sulfate [Orazinc] 220 mg PO DAILY@0802/26/22 04/22/22 History guaiFENesin SYRUP 100MG/5ML 200 mg PO Q6H PRN 02/26/22 04/22/22 History [Robitussin] Artificial Tears-Hypromellose 2 drops BOTH EYES Q4HR PRN #1 ml 03/04/22 04/22/22 Rx [Artificial Tear Drops] QUEtiapine [SEROquel] 25 mg PO HS@1800 #30 tab 03/05/22 04/22/22 Rx Ascorbic Acid [Vitamin C] 500 mg PO BID@0800,1800 04/22/22 04/22/22 History Floranex Packet 1 packet PO DAILY@79904/22/22 04/22/22 History Hyoscyamine Sulfate [Levsin-Sl] 0.125 mg SL Q4H PRN 04/22/22 04/22/22 History LORazepam [Ativan] 0.5 mg PO Q4H PRN 04/22/22 04/22/22 History MORPHINE ORAL ANDREY CONC 20mg/mL 5 mg PO Q4H PRN 04/22/22 04/22/22 History [Roxanol Oral Soln Conc 20MG/ML] Magnesium Oxide [Mag-Ox] 400 mg PO W/BRKFST@79904/22/22 04/22/22 History Metoprolol Tartrate [Lopressor] 25 mg PO BID@799,199904/22/22 04/22/22 History Permethrin 5% Cream [Elimite] 1 applic TOPICAL DAILY@79904/22/22 04/22/22 History Tamsulosin [Flomax] 0.4 mg PO PC-BRKFST@79904/22/22 04/22/22 History bisacodyL [Dulcolax] 10 mg RECTAL Q72H PRN 04/22/22 04/22/22 History Allergies Allergy/AdvReac Type Severity Reaction Status Date / Time No Known Allergies Allergy Verified 04/22/22 09:37 Physical Examination - Vital Signs Vital Signs: Vital Signs Temp Pulse Pulse Resp BP BP BP 04/23/22 08:45 99.1 F 62 15 108/61 04/23/22 05:28 99.2 F 04/23/22 04:10 101.3 F H 80 18 120/47 04/22/22 22:30 98.3 F 04/22/22 21:39 100.3 F H 64 14 109/66 04/22/22 14:49 99.7 F H 59 L 16 97/29 04/22/22 13:30 68 18 112/62 04/22/22 11:59 68 18 139/62 Pulse Ox 04/23/22 08:45 96 04/23/22 05:28 04/23/22 04:10 100 04/22/22 22:30 04/22/22 21:39 100 04/22/22 14:49 96 04/22/22 13:30 95 04/22/22 11:59 96 Intake and Output 04/22/22 04/23/22 04/23/22 22:59 06:59 14:59 Intake Total 410 240 Output Total 385 650 Balance -385 -240 240 Intake: Intake, IV Titration 50 Amount cefTRIAXone 1 gm In 50 Sodium Chloride 0.9% 50 ml @ 100 mls/hr IVPB ONCE STA Rx#:[id number] Oral 360 240 Output: Urine 300 650 Post Void Residual 85 Other: Voiding Method External Catheter # Bowel Movements 1 0 GENERAL: The patient is lying in bed and is not in acute distress. CHEST: The heart rate is regular rate rhythm. No murmurs to auscultation. LUNG: Clear to auscultation bilaterally no wheezing noted throughout. Not labored breathing. ABDOMEN/GI: Bowel sounds present in all 4 quadrants. No tenderness to palpation throughout. NEUROLOGICAL: Limited because of his cooperation. Higher mental function: The patient is awake, alert, oriented to self only. He is able to name some objects (watch and phone). He is following few simple commands. Language is limited Cranial nerves: The pupils are round, equal and reactive to light. No facial weakness. No dysarthria noted. Otherwise rest is limited. Motor: The strength is limited because of his cooperation. Was able to lift his right upper extremity above gravity. Has his left hand flexed and left hand and forearm was pain to touch but was able to lift proximally above gravity without difficulty. Unable to assess lowers because of his cooperation. Cerebellum: Unable to assess. Sensation: Unable to assess. Reflexes (right/left): Unable to assess. Plantars are mute bilaterally. Results - Laboratory Findings CBC and BMP: 04/23/22 06:15 04/23/22 06:15 Abnormal Lab Findings: Abnormal Labs 04/22/22 04/22/22 04/22/22 08:19 08:19 08:19 RBC 3.84 L Hgb 11.2 L Hct 34.9 L BUN 29 H Creatinine 0.62 L Glucose 110 H Total Protein 6.2 L Albumin 3.0 L TSH Urine Protein 1+ H Urine Blood Large H Ur Leukocyte Esterase Large H Urine RBC 143 H Urine WBC 70 H Urine WBC Clumps Rare H Calcium Oxalate Crystal Rare H Urine Bacteria Occasional H U Tricyclic Antidepress Detected H 04/22/22 16:54 RBC Hgb Hct BUN Creatinine Glucose Total Protein Albumin TSH 0.051 L Urine Protein Urine Blood Ur Leukocyte Esterase Urine RBC Urine WBC Urine WBC Clumps Calcium Oxalate Crystal Urine Bacteria U Tricyclic Antidepress Assessment and Plan Assessment: Questionable seizure activity at the [facility] facility (reported that upon trying to get up from his [place] chair he became pale and developed uncontrolleable body shakes with drooling and leaning towards the right). Possibly provoked due to underlying UTI Acute on chronic urinary tract infection Advanced dementia History of stroke without residual deficits Right frontal calcified mass unchanged since 2017 (one of differential is meningioma) History of prostate cancer status post radiation seeds Paroxysmal atrial fibrillation on eliquis Plan: I ordered a routine EEG. I'll not start the patient on an antiepileptic drug unless there is any epileptiform form discharges or seizure on the EEG or the patient has any further seizure episodes. I ordered ammonia level, vitamin B12, folate. Recommend orthostatic vitals once the patient is more stable. So recommend x- ray of the left hand forearm since the patient is in pain. PT and OT are consulted Defer the rest of the medical management to the primary team Commended the patient dad to be evaluated by a neurologist as an outpatient within 1-2 weeks upon discharge Patient CODE STATUS is DO NOT RESUSCITATE Plan was discussed with the patient's daughter via phone and she is in agreement with the plan. She'll discuss the case with the nurse. Thank you for the consultation. Champ Casarez M.D. Neuro[facility]hospital Time with Patient: Greater than 30
--- NOTE | 2022-04-23 11:59 | XR ---
Left forearm, left hand HISTORY: Tenderness, pain Frontal and lateral views of the left forearm, 3 views the left hand submitted There is arthropathy noted, lateral subluxation of the metacarpal phalangeal joints is consistent wit h underlying rheumatoid arthritis, there is arthropathy also present at the interphalangeal joints, r adiocarpal joint. Carpal metacarpal joint of the first digit also shows some hypertrophic change, sub chondral sclerosis. No evident fracture or dislocation. Positioning for the frontal view of the forearm somewhat limited. There is arthropathy present within the elbow joint, marginal spurring present, possible loose body noted on lateral view. No definite j oint effusion. Vascular calcifications suspected along the volar aspect of the distal forearm. IMPRESSION: Osteoarthritic changes are present, correlate for rheumatoid arthritis.
--- NOTE | 2022-04-23 12:38 | P.CONS ---
History of Present Illness - Reason for Consult Consult date: 04/23/22 wound care - History of Present Illness This is an 89-year-old gentleman with history of pressure also some bilateral heel and her ulcer to the right foot great toe tip. Patient has been seen in the wound care center where Santyl was started. Original cause of wound was Not Known. The date acquired was: 02/26/2022. The wound is currently classified as a Unstageable/Unclassified wound with etiology of Pressure Ulcer and is located on the Left,Distal Toe Great. The wound measures 0.9cm length x 1.4cm width x 0.1cm depth; 0.99cm^2 area and 0.099cm^3 volume. There is no tunneling or undermining noted. There is a none present amount of drainage noted. The wound margin is flat and intact. There is a large (67-100%) amount of necrotic tissue within the wound bed including Eschar. The periwound skin appearance exhibited: Callus. The periwound skin appearance did not exhibit: Crepitus, Excoriation, Induration, Rash, Scarring, Atrophie [place], Cyanosis, Ecchymosis, Hemosiderin Staining, Mottled, Pallor, Rubor, Erythema. Periwound temperature was noted as No Abnormality. The periwound has tenderness on palpation. Original cause of wound was Pressure Injury. The date acquired was: 02/26/2022. The wound is currently cla ssified as a Category/Stage III wound with etiology of Pressure Ulcer and is located on the Left,Lateral Calcaneus. The wound measures 1.6cm length x 1.4cm width x 0.1cm depth; 1.759cm^2 area and 0.176cm^3 volume. There is Fat Layer (Subcutaneous Tissue) exposed. There is no tunneling or undermining noted. There is a medium amount of serosanguineous drainage noted. The wound margin is flat and intact. There is medium (34-66%) red, pink granulation within the wound bed. There is a medium (34-66%) amount of necrotic tissue within the wound bed including Adherent Slough. The periwound skin appearance exhibited: Scarring. The periwound skin appearance did not exhibit: Callus, Crepitus, Excoriation, Induration, Rash, Dry/Scaly, Maceration, Atrophie [place], Cyanosis, Ecchymosis, Hemosiderin Staining, Mottled, Rubor, Erythema. Periwound temperature was noted as No Abnormality. Original cause of wound was Pressure Injury. The date acquired was: 02/26/2022. The wound is currently classified as a Category/Stage III wound with etiology of Pressure Ulcer and is located on the Right,Medial Calcaneus. The wound measures 1.5cm length x 1.2cm width x 0.2cm depth; 1.414cm^2 area and 0.283cm^3 volume. There is Fat Layer (Subcutaneous Tissue) exposed. There is no tunneling or undermining noted. There is a medium amount of serosanguineous drainage noted. The wound margin is flat and intact. There is small (1-33%) red, pink granulation within the wound bed. There is a large (67- 100%) amount of necrotic tissue within the wound bed including Adherent Slough. The periwound skin appearance exhibited: Scarring, Maceration. The periwound skin appearance did not exhibit: Callus, Crepitus, Excoriation, Induration, Rash, Dry/Scaly, Atrophie [place], Cyanosis, Ecchymosis, Hemosiderin Staining, Mottled, Pallor, Rubor, Erythema. Periwound temperature was noted as No Abnormality. Review Of Systems: Constitutional: No fever, no chills, no night sweats. No weight change. No weakness, fatigue or lethargy. No daytime sleepiness. Integumentary:reports wounds, no lesions. No rash or pruritus. No unusual bruising. No change in hair or nails. Physical exam: General Appearance: Alert, cooperative, no distress, appears stated age. Skin: See HPI all other Skin color, texture, tugor normal, no rashes or lesions. Neurologic: Alert oriented x3 Assessment: 1. Pressure ulcer of right heel stage II 2. Pressure ulcer left heel stage II 3. 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 Apply Santyl, saline moistened gauze, dry gauze, rolled gauze and secure with paper tape. Change daily. 2. Continue with heel protectors unless ambulating. Thank you for the consultation any questions please contact the wound care center DNP note has been reviewed and discussed with Dr. Bhatia and the impression and plan of care has been directed as dictated. Past Medical History Past Medical History: Atrial Fibrillation, Asthma, Cancer, CVA/TIA, Dementia, GI Bleed, Prostate Disorder, Rheumatoid Arthritis (RA) Additional Past Medical History / Comment(s): chronic back problems, Rt foot kym p, Uses a walker, prostate cancer, radiation seeds; suspected cva 2017; covid; strictures History of Any Multi-Drug Resistant Organisms: ESBL Year Discovered:: 07/28/2019 MDRO Source:: URINE ESBL Past Surgical History: Back Surgery Additional Past Surgical History / Comment(s): RECENT PICC LINE, NOW REMOVED, JONO CATARACTS, R hand surgery; laminectomy Past Anesthesia/Blood Transfusion Reactions: No Reported Reaction Past Psychological History: No Psychological Hx Reported Smoking Status: Never smoker Past Alcohol Use History: None Reported Past Drug Use History: None Reported - Past Family History Father Family Medical History: No Reported History Mother Family Medical History: GI Bleed Medications and Allergies Home Medications Medication Instructions Recorded Confirmed Type Folic Acid 1 mg PO DAILY@1800 03/12/17 04/22/22 History ALPRAZolam [Xanax] 0.5 mg PO BID PRN 03/05/20 04/22/22 History Cyanocobalamin [Vitamin B-12] 500 mcg PO DAILY@79903/05/20 04/22/22 History Donepezil [Aricept] 10 mg PO DAILY@79903/05/20 04/22/22 History Ipratropium-Albuterol Nebulize 3 ml INHALATION RT-QID PRN 03/05/20 04/22/22 History [Duoneb 0.5 mg-3 mg/3 ml Soln] Pantoprazole [Protonix] 40 mg PO DAILY@79903/05/20 04/22/22 History Apixaban [Eliquis] 2.5 mg PO BID@08,1800 02/26/22 04/22/22 History Cranberry Fruit Extract [Cranberry] 500 mg PO DAILY@79902/26/22 04/22/22 History Fluticasone/Vilanterol [Breo 1 puff INHALATION RT-DAILY@79902/26/22 04/22/22 History Ellipta 100-25 Mcg Inhaler] Magnesium Hydroxide [Milk of 2,400 mg PO Q48H PRN 02/26/22 04/22/22 History Magnesia] Mirtazapine [Remeron] 30 mg PO HS@1800 02/26/22 04/22/22 History Pravastatin Sodium [Pravachol] 40 mg PO HS@1800 02/26/22 04/22/22 History Zinc Sulfate [Orazinc] 220 mg PO DAILY@79902/26/22 04/22/22 History guaiFENesin SYRUP 100MG/5ML 200 mg PO Q6H PRN 02/26/22 04/22/22 History [Robitussin] Artificial Tears-Hypromellose 2 drops BOTH EYES Q4HR PRN #1 ml 03/04/22 04/22/22 Rx [Artificial Tear Drops] QUEtiapine [SEROquel] 25 mg PO HS@1800 #30 tab 03/05/22 04/22/22 Rx Ascorbic Acid [Vitamin C] 500 mg PO BID@0800,1800 04/22/22 04/22/22 History Floranex Packet 1 packet PO DAILY@79904/22/22 04/22/22 History Hyoscyamine Sulfate [Levsin-Sl] 0.125 mg SL Q4H PRN 04/22/22 04/22/22 History LORazepam [Ativan] 0.5 mg PO Q4H PRN 04/22/22 04/22/22 History MORPHINE ORAL ANDREY CONC 20mg/mL 5 mg PO Q4H PRN 04/22/22 04/22/22 History [Roxanol Oral Soln Conc 20MG/ML] Magnesium Oxide [Mag-Ox] 400 mg PO W/BRKFST@79904/22/22 04/22/22 History Metoprolol Tartrate [Lopressor] 25 mg PO BID@799,199904/22/22 04/22/22 History Permethrin 5% Cream [Elimite] 1 applic TOPICAL DAILY@79904/22/22 04/22/22 History Tamsulosin [Flomax] 0.4 mg PO PC-BRKFST@79904/22/22 04/22/22 History bisacodyL [Dulcolax] 10 mg RECTAL Q72H PRN 04/22/22 04/22/22 History Allergies Allergy/AdvReac Type Severity Reaction Status Date / Time No Known Allergies Allergy Verified 04/22/22 09:37 Physical Exam Vitals: Vital Signs Temp Pulse Pulse Resp BP BP BP 04/23/22 11:43 98.7 F 65 16 116/62 04/23/22 08:45 99.1 F 62 15 108/61 04/23/22 05:28 99.2 F 04/23/22 04:10 101.3 F H 80 18 120/47 04/22/22 22:30 98.3 F 04/22/22 21:39 100.3 F H 64 14 109/66 04/22/22 14:49 99.7 F H 59 L 16 97/29 04/22/22 13:30 68 18 112/62 Pulse Ox 04/23/22 11:43 97 04/23/22 08:45 96 04/23/22 05:28 04/23/22 04:10 100 04/22/22 22:30 04/22/22 21:39 100 04/22/22 14:49 96 04/22/22 13:30 95 Intake and Output 04/22/22 04/23/22 04/23/22 22:59 06:59 14:59 Intake Total 410 240 Output Total 385 650 Balance -385 -240 240 Intake: Intake, IV Titration 50 Amount cefTRIAXone 1 gm In 50 Sodium Chloride 0.9% 50 ml @ 100 mls/hr IVPB ONCE STA Rx#:[id number] Oral 360 240 Output: Urine 300 650 Post Void Residual 85 Other: Voiding Method External Catheter External Catheter # Bowel Movements 1 0 Results CBC & Chem 7: 04/23/22 06:15 04/23/22 06:15 Labs: Abnormal Lab Results - Last 24 Hours (Table) 04/22/22 04/22/22 04/23/22 Range/Units 08:19 16:54 06:15 RBC 3.52 L (4.40-5.60) X 10*6/uL Hgb 10.4 L (13.0-17.0) g/dL Hct 31.1 L (39.6-50.0) % Lymphocytes # 0.83 L (0.90-5.00) X 10*3/uL Monocytes # 1.22 H (0.20-1.00) X 10*3/uL Eosinophils # 0.03 L (0.04-0.35) X 10*3/uL Anion Gap (10.00-18.00) mmol/L BUN/Creatinine Ratio (12.00-20.00) Ratio Glucose (70-110) mg/dL Calcium (8.7-10.3) mg/dL TSH 0.051 L (0.350-5.500) uIU/mL Urine Protein 1+ H (Negative) Urine Blood Large H (Negative) Ur Leukocyte Esterase Large H (Negative) Urine RBC 143 H (0-5) /hpf Urine WBC 70 H (0-5) /hpf Urine WBC Clumps Rare H (None) /hpf Calcium Oxalate Crystal Rare H (None) /hpf Urine Bacteria Occasional H (None) /hpf U Tricyclic Antidepress Detected H (NotDetected) 04/23/22 Range/Units 06:15 RBC (4.40-5.60) X 10*6/uL Hgb (13.0-17.0) g/dL Hct (39.6-50.0) % Lymphocytes # (0.90-5.00) X 10*3/uL Monocytes # (0.20-1.00) X 10*3/uL Eosinophils # (0.04-0.35) X 10*3/uL Anion Gap 9.90 L (10.00-18.00) mmol/L BUN/Creatinine Ratio 38.60 H (12.00-20.00) Ratio Glucose 114 H (70-110) mg/dL Calcium 8.3 L (8.7-10.3) mg/dL TSH (0.350-5.500) uIU/mL Urine Protein (Negative) Urine Blood (Negative) Ur Leukocyte Esterase (Negative) Urine RBC (0-5) /hpf Urine WBC (0-5) /hpf Urine WBC Clumps (None) /hpf Calcium Oxalate Crystal (None) /hpf Urine Bacteria (None) /hpf U Tricyclic Antidepress (NotDetected) Microbiology - Last 24 Hours (Table) 04/22/22 08:22 Blood Culture - Preliminary Blood No Growth after 24 hours 04/22/22 08:19 Urine Culture - Preliminary Urine,Clean Catch Assessment and Plan (1) Pressure ulcer of left heel, stage 2 Current Visit: Yes Status: Acute Code(s): L89.622 - PRESSURE ULCER OF LEFT HEEL, STAGE 2 SNOMED Code(s): 61246481430917 (2) Pressure ulcer of right heel, stage 2 Current Visit: Yes Status: Acute Code(s): L89.612 - PRESSURE ULCER OF RIGHT HEEL, STAGE 2 SNOMED Code(s): 80973721605539 (3) Non-pressure chronic ulcer of other part of left foot with fat layer exposed Current Visit: Yes Status: Acute Code(s): L97.522 - NON-PRS CHRONIC ULCER OTH PRT LEFT FOOT W FAT LAYER EXPOSED SNOMED Code(s): 049713442
[2022-04-23] MEDS: COLLAGENASE 250 UNIT/GM OINTMENT 30 GM TUBE TOPICAL SCH (13:47)
--- NOTE | 2022-04-23 14:31 | P.PN ---
Subjective Progress Note Date: 04/16/22 H&P Date: 04/22/22 Chief Complaint: Since shaking, drooling, leaning to the right with accompanied labored br This is a 86-year-old gentleman with known history of paroxysmal atrial fibrillation, follows with Dr. 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 Staff reports that upon getting patient up in his [place] chair this morning before while down for breakfast, patient became pale ,developed uncontrollable shakes, accompanied by drooling, and proceeded to lean to the right into the staff member, developing increased shortness of breath. Did not lose consciousness. No nausea vomiting or diarrhea. Prior to procedure patient had been talking, post procedure patient not conversing. Shakiness resolved prior to EMS arrival. No syncope. Further EMS records currently unavailable. Glucose on admission 110. EKG reporting sinus bradycardia, ventricular rate 57, brain CT no acute intracranial hemorrhage or midline shift, mild to moderate diffuse atrial agent cerebral atrophy and moderate to severe chronic small vessel ischemic changes redemonstrated and felt stable, worsening acute on chronic bilateral maxillary and ethmoid sinus disease. Chest x-ray reported chronic emphysematous changes without acute pulmonary process, no significant change from prior. Afebrile, WBC 8.4, hemoglobin 11.2, platelets 290, INR 1, sodium 137, potassium 4.2, bicarb 25, BUN 29, creatinine 0.62, troponin negative 1, total protein and albumin low at 6.2,3. UA reporting tricyclic antidepressants. Bladder scan reported 150, staff unable to straight cath secondary to patient has known his tory of significant urethral stricture requiring catheter placement as per urology. At bedside patient was able to answer simple yes and no questions at times, extremely hard of hearing. Earlier presented with mild expressive aphasia per daughter. 04/23/2022 no further shakiness, no seizure activity reported. Evaluated by neurology, workup in progress, labs/EEG pending. Brain CT suggested worsening acute on chronic bilateral maxillary and ethmoid sinus disease, asymptomatic clinically. Maintained on IV antibiotics. UA reported rare WBC,, 70 WBCs, large leukocytes, negative nitrates, culture , preliminary blood culture reported no growth after 24 hours . Wound dressing changed last night with no drainage reported. T-max 101.3, WBC 8.76. Objective - Vital Signs Vital signs: Vital Signs Temp 99.1 F 04/23/22 08:45 Pulse 62 04/23/22 08:45 Resp 15 04/23/22 08:45 BP 108/61 04/23/22 08:45 Pulse Ox 96 04/23/22 08:45 FiO2 Intake & Output 04/22/22 04/23/22 04/23/22 18:59 06:59 18:59 Intake Total 410 240 Output Total 85 950 Balance -85 -540 240 Weight 58.967 kg Intake: Intake, IV Titration 50 Amount cefTRIAXone 1 gm In 50 Sodium Chloride 0.9% 50 ml @ 100 mls/hr IVPB ONCE STA Rx#:[id number] Oral 360 240 Output: Urine 950 Post Void Residual 85 Other: Voiding Method External Catheter External Catheter # Bowel Movements 1 0 - Exam PHYSICAL EXAM: VITAL SIGNS: As above GENERAL: Sitting up in bed, no acute distress. Confused, alert and oriented 1.H OH. HEENT: Atraumatic, normocephalic , pupils round and equal ,Conjunctivae normal. NECK: No JVD. No thyroid enlargement. No LNs CARDIOVASCULAR: S1, S2 regular. Systolic murmur RESPIRATION: Breath sounds diminished in the bases. No rhonchi or crackles. No bronchial breathing. ABDOMEN: Soft, nontender, nondistended . No guarding. no masses palpable. Possible Bowel sounds. Extremities: Bilateral Dupuytren's contractures, history of right hand surgery, No edema. no swelling. Left forearm and left hand tender. NERVOUS SYSTEM: Limited exam. Cranial N 2-12 grossly normal. Skin: Warm and dry, no rash. Left tip of great toe, bilateral heel and left great toe dressings clean dry and intact, wearing offloading boots - Labs CBC & Chem 7: 04/23/22 06:15 04/23/22 06:15 Labs: Abnormal Lab Results - Last 24 Hours (Table) 04/22/22 04/22/22 04/23/22 Range/Units 08:19 16:54 06:15 RBC 3.52 L (4.40-5.60) X 10*6/uL Hgb 10.4 L (13.0-17.0) g/dL Hct 31.1 L (39.6-50.0) % Lymphocytes # 0.83 L (0.90-5.00) X 10*3/uL Monocytes # 1.22 H (0.20-1.00) X 10*3/uL Eosinophils # 0.03 L (0.04-0.35) X 10*3/uL Anion Gap (10.00-18.00) mmol/L BUN/Creatinine Ratio (12.00-20.00) Ratio Glucose (70-110) mg/dL Calcium (8.7-10.3) mg/dL TSH 0.051 L (0.350-5.500) uIU/mL Urine Protein 1+ H (Negative) Urine Blood Large H (Negative) Ur Leukocyte Esterase Large H (Negative) Urine RBC 143 H (0-5) /hpf Urine WBC 70 H (0-5) /hpf Urine WBC Clumps Rare H (None) /hpf Calcium Oxalate Crystal Rare H (None) /hpf Urine Bacteria Occasional H (None) /hpf U Tricyclic Antidepress Detected H (NotDetected) 04/23/22 Range/Units 06:15 RBC (4.40-5.60) X 10*6/uL Hgb (13.0-17.0) g/dL Hct (39.6-50.0) % Lymphocytes # (0.90-5.00) X 10*3/uL Monocytes # (0.20-1.00) X 10*3/uL Eosinophils # (0.04-0.35) X 10*3/uL Anion Gap 9.90 L (10.00-18.00) mmol/L BUN/Creatinine Ratio 38.60 H (12.00-20.00) Ratio Glucose 114 H (70-110) mg/dL Calcium 8.3 L (8.7-10.3) mg/dL TSH (0.350-5.500) uIU/mL Urine Protein (Negative) Urine Blood (Negative) Ur Leukocyte Esterase (Negative) Urine RBC (0-5) /hpf Urine WBC (0-5) /hpf Urine WBC Clumps (None) /hpf Calcium Oxalate Crystal (None) /hpf Urine Bacteria (None) /hpf U Tricyclic Antidepress (NotDetected) Microbiology - Last 24 Hours (Table) 04/22/22 08:22 Blood Culture - Preliminary Blood No Growth after 24 hours 04/22/22 08:19 Urine Culture - Preliminary Urine,Clean Catch Assessment and Plan Assessment: Acute metabolic encephalopathy secondary to suspected acute on chronic UTI re lated to urinary retention, in a patient with history of ESBL, prostate cancer with radiation seeds , urinary retention. Possible acute seizure activity, per AFC report , no further seizure activity reported; suspect symptoms secondary to possibly hypoglycemic episode though blood sugar normal on admission, possible secondary to infection, UTI, possibly orthostatic hypotension. neurology consulted. Recently discharged on 03/04/2022 with sepsis secondary to bacterial prostatitis with suspected acute UTI, urine and blood cultures that time failed to report any growth, despite fevers, elevated WBC and pro-calcitonin. History of Urinary retention secondary to urethral stricture lending to difficult catheter insertion/coude', history of cystoscopy with urethral dilations with , Urology. Status post dilation and placement of 12- Portuguese coud tip catheter per urology on prior admission with Deutsch catheter discontinued 03/04/2022. Bilateral heel -stage II and left great toe ulcers, nonpressure-unstageable ,present on admission; upon discharge-patient had sustained bilateral heel & left great toe blisters that later transitioned to wounds. Debrided at wound care center on 04/18/22. (Offloading boots with heels to be floating at all times) Chronic Paroximal A. fib with RVR, converted on Cardizem drip, in a patient with Chronic paroxysmal atrial fibrillation on anticoagulation, follows with vp information technology Dr. Mcbride. 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 History of rheumatoid arthritis, treated in the past, not on immunosuppressants History of lumbar degenerative disc disease, spinal stenosis, L5 spondylosis, facet arthropathy, L3-4 laminectomy Risk secondary to increased medical debility, increased weakness ( 2 person assist), dementia in a patient with prior HX of Gait dysfunction, bilateral foot drop-greatest in the right. Underlying dementia, advanced [place] Plan: Continue on current medication regime ,monitoring and symptomatic treatment. Labs pending Maintained on IV antibiotics, infectious disease consulted. Neurology workup in progress, including EEG. Left hand and forearm x-rays ordered secondary to new onset pain. Wound care including heel protectors and Santyl as per wound care mgmt. evaluated by urology , no Deutsch catheter placement at this time, bladder scanned for less than 100. Prognosis guarded given multiple complex medical issues. The impression and plan of care has been dictated as directed. : I performed a history and examination of this patient, discussed the same with the dictator. I agree with the dictator's note ,documented as a scribe. Any additional findings or plans will be noted.
[2022-04-23 15:10] VITALS: BMI 19.2
--- NOTE | 2022-04-23 15:56 | US ---
EXAMINATION TYPE: US venous doppler duplex LE DATE OF EXAM: 04/23/2022 1:22 PM COMPARISON: NONE CLINICAL HISTORY: venous insufficiency, DVT. COnfused elderly male that had to be held by nurse aid t o perform test, no h/o dvt, non healing wounds SIDE PERFORMED: Bilateral TECHNIQUE: The lower extremity deep venous system is examined utilizing real time linear array sonog mark with graded compression, doppler sonography and color-flow sonography. VESSELS IMAGED: Common Femoral Vein Deep Femoral Vein Greater Saphenous Vein * Femoral Vein Popliteal Vein Small Saphenous Vein * Proximal Calf Veins (* superficial vessels) Limited imaging behind knee due to patients inability to hold still - good blood flow was seen Right Leg: Negative for DVT Left Leg: Negative for DVT There is normal flow, compressibility, vascular waveforms. IMPRESSION: No evident deep venous thrombosis from the level of the knees centrally. Exam was not per formed for venous insufficiency.
[2022-04-23] MEDS: FOLIC ACID 1 MG TAB PO SCH (18:04)
[2022-04-23] MEDS: QUEtiapine 25 MG TAB PO SCH (18:04)
[2022-04-23] MEDS: MIRTAZAPINE 15 MG TAB PO SCH (21:54)
[2022-04-23] MEDS: PRAVASTATIN SODIUM 40 MG TAB PO SCH (21:55)
--- NOTE | 2022-04-24 00:09 | EEG ---
ELECTROENCEPHALOGRAM REPORT CLINICAL HISTORY: This is an 89-year-old gentleman, who presented because of reported uncontrollable tremor at his C concerned for possible seizure. The video EEG is obtained to evaluate for seizure epileptiform activity. RELEVANT MEDICATION: The patient is not on any seizure medication. EEG TYPE: A routine 21-channel EEG is performed with video using the 10/20 electrode placement system. DESCRIPTION: Wakefulness is only obtained. During awake state, the background consists of low-to- moderate voltage of 6 to 7 hertz activity that is well modulated, well sustained. There is no physiological sleep architecture seen. There is no focal slowing. There is diffuse myogenic artifact that is [id number] in severity. INTERICTAL AND ICTAL: None. ACTIVATION PROCEDURE: Photic stimulation and hyperventilation are not performed. CLINICAL INTERPRETATION: This is an abnormal routine EEG. The background slowing is suggestive of mild encephalopathy. Otherwise, there is no focal slowing, epileptiform discharge, or seizure on the EEG. Clinical correlation is recommended MICHELLE / MARLON: [id number] / [facility]PITALReina
[2022-04-24] MEDS ORDERED: FUROSEMIDE 10 MG/ML 2 ML VIAL IV ONE (05:34)
[2022-04-24] MEDS ORDERED: METOPROLOL TARTRATE 25 MG TAB PO STA (05:38)
--- NOTE | 2022-04-24 07:08 | P.CONS ---
History of Present Illness - Reason for Consult Consult date: 04/23/22 - History of Present Illness Patient is a 89-year-old male with a past medical history significant for recurrent urinary tract infection patient presenting to the ER yesterday with concern for mental status changes at the halfway symptom apparently has been going on for a day or 2 before presentation to the hospital on arrival to the ER patient did have a low-grade fever of 99.7 subsequently the patient di d spike a fever of 101.3 F in this morning patient did have a normal white count kidney function has been normal liver exams are normal patient did have a positive UA with large leukocyte esterase 70 WBC patient was started on Rocephin infectious disease was consulted as the patient do have a history of recurrent UTI and history of ESBL infection patient at this time is afebrile he seemed to be slightly more awake alert compared to last admission when specifically did not answer any question of any headache no vomiting diarrhea or any other changes were reported by the nursing staff Past Medical History Past Medical History: Atrial Fibrillation, Asthma, Cancer, CVA/TIA, Dementia, GI Bleed, Prostate Disorder, Rheumatoid Arthritis (RA) Additional Past Medical History / Comment(s): chronic back problems, Rt foot drop, Uses a walker, prostate cancer, radiation seeds; suspected cva 2017; covid; strictures History of Any Multi-Drug Resistant Organisms: ESBL Year Discovered:: 07/28/2019 MDRO Source:: URINE ESBL Past Surgical History: Back Surgery Additional Past Surgical History / Comment(s): RECENT PICC LINE, NOW REMOVED, JONO CATARACTS, R hand surgery; laminectomy Past Anesthesia/Blood Transfusion Reactions: No Reported Reaction Past Psychological History: No Psychological Hx Reported Smoking Status: Never smoker Past Alcohol Use History: None Reported Past Drug Use History: None Reported - Past Family History Father Family Medical History: No Reported History Mother Family Medical History: GI Bleed Medications and Allergies Home Medications Medication Instructions Recorded Confirmed Type Folic Acid 1 mg PO DAILY@1800 03/12/17 04/22/22 History ALPRAZolam [Xanax] 0.5 mg PO BID PRN 03/05/20 04/22/22 History Cyanocobalamin [Vitamin B-12] 500 mcg PO DAILY@0803/05/20 04/22/22 History Donepezil [Aricept] 10 mg PO DAILY@79903/05/20 04/22/22 History Ipratropium-Albuterol Nebulize 3 ml INHALATION RT-QID PRN 03/05/20 04/22/22 History [Duoneb 0.5 mg-3 mg/3 ml Soln] Pantoprazole [Protonix] 40 mg PO DAILY@0800 03/05/20 04/22/22 History Apixaban [Eliquis] 2.5 mg PO BID@0800,1800 02/26/22 04/22/22 History Cranberry Fruit Extract [Cranberry] 500 mg PO DAILY@79902/26/22 04/22/22 History Fluticasone/Vilanterol [Breo 1 puff INHALATION RT-DAILY@79902/26/22 04/22/22 History Ellipta 100-25 Mcg Inhaler] Magnesium Hydroxide [Milk of 2,400 mg PO Q48H PRN 02/26/22 04/22/22 History Magnesia] Mirtazapine [Remeron] 30 mg PO HS@1800 02/26/22 04/22/22 History Pravastatin Sodium [Pravachol] 40 mg PO HS@1800 02/26/22 04/22/22 History Zinc Sulfate [Orazinc] 220 mg PO DAILY@79902/26/22 04/22/22 History guaiFENesin SYRUP 100MG/5ML 200 mg PO Q6H PRN 02/26/22 04/22/22 History [Robitussin] Artificial Tears-Hypromellose 2 drops BOTH EYES Q4HR PRN #1 ml 03/04/22 04/22/22 Rx [Artificial Tear Drops] QUEtiapine [SEROquel] 25 mg PO HS@1800 #30 tab 03/05/22 04/22/22 Rx Ascorbic Acid [Vitamin C] 500 mg PO BID@0800,1800 04/22/22 04/22/22 History Floranex Packet 1 packet PO DAILY@00 04/22/22 04/22/22 History Hyoscyamine Sulfate [Levsin-Sl] 0.125 mg SL Q4H PRN 04/22/22 04/22/22 History LORazepam [Ativan] 0.5 mg PO Q4H PRN 04/22/22 04/22/22 History MORPHINE ORAL ANDREY CONC 20mg/mL 5 mg PO Q4H PRN 04/22/22 04/22/22 History [Roxanol Oral Soln Conc 20MG/ML] Magnesium Oxide [Mag-Ox] 400 mg PO W/BRKFST@79904/22/22 04/22/22 History Metoprolol Tartrate [Lopressor] 25 mg PO BID@799,199904/22/22 04/22/22 History Permethrin 5% Cream [Elimite] 1 applic TOPICAL DAILY@79904/22/22 04/22/22 History Tamsulosin [Flomax] 0.4 mg PO PC-BRKFST@79904/22/22 04/22/22 History bisacodyL [Dulcolax] 10 mg RECTAL Q72H PRN 04/22/22 04/22/22 History Allergies Allergy/AdvReac Type Severity Reaction Status Date / Time No Known Allergies Allergy Verified 04/22/22 09:37 Physical Exam Vitals: Vital Signs Temp Pulse Pulse Resp BP BP BP 04/23/22 08:45 99.1 F 62 15 108/61 04/23/22 05:28 99.2 F 04/23/22 04:10 101.3 F H 80 18 120/47 04/22/22 22:30 98.3 F 04/22/22 21:39 100.3 F H 64 14 109/66 04/22/22 14:49 99.7 F H 59 L 16 97/29 04/22/22 13:30 68 18 112/62 04/22/22 11:59 68 18 139/62 Pulse Ox 04/23/22 08:45 96 04/23/22 05:28 04/23/22 04:10 100 04/22/22 22:30 04/22/22 21:39 100 04/22/22 14:49 96 04/22/22 13:30 95 04/22/22 11:59 96 Intake and Output 04/22/22 04/23/22 04/23/22 22:59 06:59 14:59 Intake Total 410 240 Output Total 385 650 Balance -385 -240 240 Intake: Intake, IV Titration 50 Amount cefTRIAXone 1 gm In 50 Sodium Chloride 0.9% 50 ml @ 100 mls/hr IVPB ONCE STA Rx#:[id number] Oral 360 240 Output: Urine 300 650 Post Void Residual 85 Other: Voiding Method External Catheter External Catheter # Bowel Movements 1 0 Results CBC & Chem 7: 04/23/22 06:15 04/23/22 06:15 Labs: Abnormal Lab Results - Last 24 Hours (Table) 04/22/22 04/22/22 04/23/22 Range/Units 08:19 16:54 06:15 RBC 3.52 L (4.40-5.60) X 10*6/uL Hgb 10.4 L (13.0-17.0) g/dL Hct 31.1 L (39.6-50.0) % Lymphocytes # 0.83 L (0.90-5.00) X 10*3/uL Monocytes # 1.22 H (0.20-1.00) X 10*3/uL Eosinophils # 0.03 L (0.04-0.35) X 10*3/uL Anion Gap (10.00-18.00) mmol/L BUN/Creatinine Ratio (12.00-20.00) Ratio Glucose (70-110) mg/dL Calcium (8.7-10.3) mg/dL TSH 0.051 L (0.350-5.500) uIU/mL Urine Protein 1+ H (Negative) Urine Blood Large H (Negative) Ur Leukocyte Esterase Large H (Negative) Urine RBC 143 H (0-5) /hpf Urine WBC 70 H (0-5) /hpf Urine WBC Clumps Rare H (None) /hpf Calcium Oxalate Crystal Rare H (None) /hpf Urine Bacteria Occasional H (None) /hpf U Tricyclic Antidepress Detected H (NotDetected) 04/23/22 Range/Units 06:15 RBC (4.40-5.60) X 10*6/uL Hgb (13.0-17.0) g/dL Hct (39.6-50.0) % Lymphocytes # (0.90-5.00) X 10*3/uL Monocytes # (0.20-1.00) X 10*3/uL Eosinophils # (0.04-0.35) X 10*3/uL Anion Gap 9.90 L (10.00-18.00) mmol/L BUN/Creatinine Ratio 38.60 H (12.00-20.00) Ratio Glucose 114 H (70-110) mg/dL Calcium 8.3 L (8.7-10.3) mg/dL TSH (0.350-5.500) uIU/mL Urine Protein (Negative) Urine Blood (Negative) Ur Leukocyte Esterase (Negative) Urine RBC (0-5) /hpf Urine WBC (0-5) /hpf Urine WBC Clumps (None) /hpf Calcium Oxalate Crystal (None) /hpf Urine Bacteria (None) /hpf U Tricyclic Antidepress (NotDetected) Microbiology - Last 24 Hours (Table) 04/22/22 08:22 Blood Culture - Preliminary Blood No Growth after 24 hours 04/22/22 08:19 Urine Culture - Preliminary Urine,Clean Catch Assessment and Plan Plan: 1patient presented to hospital mental status changes likely multifactorial in this patient with a history of recurrent UTI with a positive UA likely urinary source patient seem to have grown multiple different pathogen in his urine culture however with resolution of the fever to Rocephin could be Rocephin sens itive pathogen 2-continue with Rocephin while waiting for the culture to finalize 3-gentle IV fluid We will follow on clinical condition and cultures to further adjust medication if needed Thank you for this consultation will follow this patient along with you Time with Patient: Greater than 30
[2022-04-24] MEDS: SYMBICORT 80-4.5 MCG INHALER INHALATION SCH (07:11)
[2022-04-24] MEDS: PANTOPRAZOLE 40 MG/10 ML VIAL IVP SCH (08:09)
[2022-04-24] MEDS: PIPERACILLIN-TAZOBACTAM 3.375 GM in SODIUM CHLORIDE 0.9% 100 ML IVPB SCH ×2 (08:09→15:33)
[2022-04-24] MEDS: CYANOCOBALAMIN 500 MCG TAB PO SCH (08:10)
[2022-04-24] MEDS: APIXABAN 2.5 MG TABLET PO SCH ×2 (08:10→17:44)
[2022-04-24] MEDS: MAGNESIUM OXIDE 400 MG TAB PO SCH (08:10)
[2022-04-24] MEDS: ASCORBIC ACID 500 MG TAB PO SCH ×2 (08:10→17:44)
[2022-04-24] MEDS: DONEPEZIL 10 MG TAB PO SCH (08:10)
[2022-04-24] MEDS: METOPROLOL TARTRATE 25 MG TAB PO SCH ×3 (08:10→21:10)
[2022-04-24] MEDS: ZINC SULFATE 220 MG CAP PO SCH (08:10)
[2022-04-24] MEDS: TAMSULOSIN 0.4 MG CAP.ER.24H PO SCH (08:10)
[2022-04-24] MEDS: COLLAGENASE 250 UNIT/GM OINTMENT 30 GM TUBE TOPICAL SCH (08:11)
--- NOTE | 2022-04-24 08:36 | XR ---
EXAMINATION TYPE: XR chest 1V portable DATE OF EXAM: 04/24/2022 COMPARISON: 04/22/2022 HISTORY: Cough and congestion TECHNIQUE: Single frontal view of the chest is obtained. FINDINGS: Soft tissue folds overlying both upper lungs. Biapical pleural thickening. Diffuse osteope favio and arthropathy of the shoulders. Heart size normal. Hypertrophic change of the spine with degene rative changes. Hyperinflation seen. IMPRESSION: 1. No acute intrathoracic process. 2. COPD.
--- NOTE | 2022-04-24 10:48 | P.CRDCN ---
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 Patient follows in the office with Dr. Mcbride. We have been asked to see the patient in consultation for ALatasha berrios with RVR. Patient examined at the bedside. Patient is currently admitted to the hospital secondary to encephalopathy, possible seizure activity, and acute on chronic UTI. The patient currently denies any chest pain or pressure. Denies shortness of breath. Patient was febrile overnight with a temperature 102F. Telemetry reveals atrial fibrillation with a heart rate ranging between 146334. * Initial EKG reveals sinus bradycardia with a heart rate of 57. * Chest xray no acute process. COPD. * Laboratory data: WBC 8.76. Hemoglobin 10.4. Platelet count 286. Sodium 130s 5. Potassium 3.8. BUN 25. Creatinine 0.7. Troponin negative 1. * Current home cardiac medications include Pravachol 40 mg at night, metoprolol tartrate 25 mg twice a day,Eliquis 2.5mg BID * Most recent echocardiogram obtained in February 2022 revealed ejection fraction 50-55%, mild MR, trace TR REVIEW OF SYSTEMS: At the time of my exam: Unable to obtain thorough review of systems secondary to mental status PHYSICAL EXAM: VITAL SIGNS: Reviewed. GENERAL: Well-developed in no acute distress. HEENT: Head is normocephalic. Pupils are equal, round. Sclerae anicteric. Mucous membranes of the mouth are moist. Neck supple. No JVD or thyromegaly LUNGS: Respirations even and unlabored. Lungs with expiratory wheezing noted. HEART: Tachycardia. Irregular rate and rhythm. S1 and S2 heard. ABDOMEN: Soft. Nondistended. Nontender. EXTREMITIES: Normal range of motion. No clubbing or cyanosis. Peripheral pulses intact. No lower extremity edema NEUROLOGIC: Awake and alert. Oriented x 1. 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 Please reconsult if needed. Nurse practitioner note has been reviewed by physician. Signing provider agrees with the documented findings, assessment, and plan of care. Past Medical History Past Medical History: Atrial Fibrillation, Asthma, Cancer, CVA/TIA, Dementia, GI Bleed, Prostate Disorder, Rheumatoid Arthritis (RA) Additional Past Medical History / Comment(s): chronic back problems, Rt foot drop, Uses a walker, prostate cancer, radiation seeds; suspected cva 2017; covid; strictures History of Any Multi-Drug Resistant Organisms: ESBL Date of last positivie culture/infection: 07/28/2019 MDRO Source:: URINE ESBL Past Surgical History: Back Surgery Additional Past Surgical History / Comment(s): RECENT PICC LINE, NOW REMOVED, JONO CATARACTS, R hand surgery; laminectomy Past Anesthesia/Blood Transfusion Reactions: No Reported Reaction Past Psychological History: No Psychological Hx Reported Smoking Status: Never smoker Past Alcohol Use History: None Reported Past Drug Use History: None Reported - Past Family History Father Family Medical History: No Reported History Mother Family Medical History: GI Bleed Medications and Allergies Home Medications Medication Instructions Recorded Confirmed Type Folic Acid 1 mg PO DAILY@1800 03/12/17 04/22/22 History ALPRAZolam [Xanax] 0.5 mg PO BID PRN 03/05/20 04/22/22 History Cyanocobalamin [Vitamin B-12] 500 mcg PO DAILY@79903/05/20 04/22/22 History Donepezil [Aricept] 10 mg PO DAILY@79903/05/20 04/22/22 History Ipratropium-Albuterol Nebulize 3 ml INHALATION RT-QID PRN 03/05/20 04/22/22 Hist ory [Duoneb 0.5 mg-3 mg/3 ml Soln] Pantoprazole [Protonix] 40 mg PO DAILY@79903/05/20 04/22/22 History Apixaban [Eliquis] 2.5 mg PO BID@0800,1800 02/26/22 04/22/22 History Cranberry Fruit Extract [Cranberry] 500 mg PO DAILY@0802/26/22 04/22/22 History Fluticasone/Vilanterol [Breo 1 puff INHALATION RT-DAILY@79902/26/22 04/22/22 History Ellipta 100-25 Mcg Inhaler] Magnesium Hydroxide [Milk of 2,400 mg PO Q48H PRN 02/26/22 04/22/22 History Magnesia] Mirtazapine [Remeron] 30 mg PO HS@1800 02/26/22 04/22/22 History Pravastatin Sodium [Pravachol] 40 mg PO HS@1800 02/26/22 04/22/22 History Zinc Sulfate [Orazinc] 220 mg PO DAILY@79902/26/22 04/22/22 History guaiFENesin SYRUP 100MG/5ML 200 mg PO Q6H PRN 02/26/22 04/22/22 History [Robitussin] Artificial Tears-Hypromellose 2 drops BOTH EYES Q4HR PRN #1 ml 03/04/22 04/22/22 Rx [Artificial Tear Drops] QUEtiapine [SEROquel] 25 mg PO HS@1800 #30 tab 03/05/22 04/22/22 Rx Ascorbic Acid [Vitamin C] 500 mg PO BID@0800,179904/22/22 04/22/22 History Floranex Packet 1 packet PO DAILY@79904/22/22 04/22/22 History Hyoscyamine Sulfate [Levsin-Sl] 0.125 mg SL Q4H PRN 04/22/22 04/22/22 History LORazepam [Ativan] 0.5 mg PO Q4H PRN 04/22/22 04/22/22 History MORPHINE ORAL ANDREY CONC 20mg/mL 5 mg PO Q4H PRN 04/22/22 04/22/22 History [Roxanol Oral Soln Conc 20MG/ML] Magnesium Oxide [Mag-Ox] 400 mg PO W/BRKFST@79904/22/22 04/22/22 History Metoprolol Tartrate [Lopressor] 25 mg PO BID@799,199904/22/22 04/22/22 History Permethrin 5% Cream [Elimite] 1 applic TOPICAL DAILY@79904/22/22 04/22/22 History Tamsulosin [Flomax] 0.4 mg PO PC-BRKFST@79904/22/22 04/22/22 History bisacodyL [Dulcolax] 10 mg RECTAL Q72H PRN 04/22/22 04/22/22 History Allergies Allergy/AdvReac Type Severity Reaction Status Date / Time No Known Allergies Allergy Verified 04/22/22 09:37 Physical Exam Vitals: Vital Signs Temp Pulse Pulse Resp BP Pulse Ox 04/24/22 05:55 99.3 F 04/24/22 05:49 99.5 F 04/24/22 04:43 111 H 04/24/22 04:34 90 04/24/22 04:22 102.1 F H 83 17 151/79 95 04/23/22 20:14 90 04/23/22 19:33 99.0 F 65 15 128/64 98 04/23/22 11:43 98.7 F 65 16 116/62 97 Intake and Output 04/23/22 04/24/22 04/24/22 22:59 06:59 14:59 Intake Total 50 Output Total 900 Balance 50 -900 Intake: Intake, IV Titration 50 Amount cefTRIAXone 1 gm In 50 Sodium Chloride 0.9% 50 ml @ 100 mls/hr IVPB ONCE STA Rx#:[id number] Output: Urine 900 Other: Voiding Method External Catheter # Bowel Movements 1 Weight 58.967 kg Results 04/23/22 06:15 04/23/22 06:15 Current Medications Generic Name Dose Route Start Last Admin Trade Name Freq PRN Reason Stop Dose Admin Acetaminophen 650 mg 04/22/22 23:09 04/23/22 04:04 Acetaminophen Tab 325 Mg Tab PO 650 mg Q6HR PRN Administration Fever and/ or Pain Albuterol/Ipratropium 3 ml 04/24/22 12:00 Ipratropium-Albuterol 3 Ml Neb INHALATION RT-QID DANIEL Albuterol/Ipratropium 3 ml 04/24/22 08:33 Ipratropium-Albuterol 3 Ml Neb INHALATION RT-Q2H PRN Shortness Of Breath Or Wheezing Alprazolam 0.5 mg 04/22/22 10:35 Alprazolam 0.5 Mg Tab PO BID PRN Anxiety Apixaban 2.5 mg 04/22/22 10:40 04/24/22 08:10 Apixaban 2.5 Mg Tablet PO 2.5 mg BID@0800,1800 [facility] Administration Protocol Artificial Tears 2 drops 04/22/22 14:00 Artificial Tears-Hypromellose Drops 15 Ml Btl BOTH EYES Q4HR PRN Dry Eye(s) Ascorbic Acid 500 mg 04/22/22 18:00 04/24/22 08:10 Ascorbic Acid 500 Mg Tab PO 500 mg BID@0800,1800 DANIEL Administration Budesonide 0.5 mg 04/24/22 09:00 Budesonide 0.5 Mg/2 Ml Nebu INHALATION RT-BID DANIEL Collagenase 1 applic 04/23/22 09:00 04/24/22 08:11 Collagenase 250 Unit/Gm Ointment 30 Gm Tube TOPICAL 1 applic DAILY DANIEL Administration Protocol Cyanocobalamin 500 mcg 04/23/22 08:00 04/24/22 08:10 Cyanocobalamin 500 Mcg Tab PO 500 mcg DAILY@0800 DANIEL Administration Donepezil HCl 10 mg 04/23/22 08:00 04/24/22 08:10 Donepezil 10 Mg Tab PO 10 mg DAILY@0800 DANIEL Administration Folic Acid 1 mg 04/22/22 18:00 04/23/22 18:04 Folic Acid 1 Mg Tab PO 1 mg DAILY@1800 DANIEL Administration Piperacillin Sod/Tazobactam 100 mls @ 25 mls/hr 04/24/22 08:00 04/24/22 08:09 Sod 3.375 gm/ Sodium Chloride IVPB 25 mls/hr Q8HR DANIEL Administration Protocol Magnesium Hydroxide 2,400 mg 04/23/22 09:00 Magnesium Hydroxide 2,400 Mg/10 Ml Cup PO Q48H PRN Constipation Magnesium Oxide 400 mg 04/23/22 08:00 04/24/22 08:10 Magnesium Oxide 400 Mg Tab PO 400 mg W/BRKFST@0800 DANIEL Administration Metoprolol Tartrate 25 mg 04/24/22 12:00 Metoprolol Tartrate 25 Mg Tab PO TID DANIEL Mirtazapine 30 mg 04/22/22 21:00 04/23/22 21:54 Mirtazapine 15 Mg Tab PO 30 mg HS@2100 DANIEL Administration Naloxone HCl 0.2 mg 04/22/22 11:50 Naloxone 0.4 Mg/Ml 1 Ml Vial IV Q2M PRN Opioid Reversal Pantoprazole Sodium 40 mg 04/22/22 10:45 04/24/22 08:09 Pantoprazole 40 Mg/10 Ml Vial IVP 40 mg DAILY DANIEL Administration Pravastatin Sodium 40 mg 04/22/22 21:00 04/23/22 21:55 Pravastatin Sodium 40 Mg Tab PO 40 mg HS@2100 DANIEL Administration Quetiapine Fumarate 25 mg 04/22/22 18:00 04/23/22 18:04 Quetiapine 25 Mg Tab PO 25 mg HS@1800 DANIEL Administration Tamsulosin HCl 0.4 mg 04/23/22 08:00 04/24/22 08:10 Tamsulosin 0.4 Mg Cap.Er.24h PO 0.4 mg PC-BRKFST@0800 [facility] Administration Zinc Sulfate 220 mg 04/23/22 08:00 04/24/22 08:10 Zinc Sulfate 220 Mg Cap PO 220 mg DAILY@0800 [facility] Administration Intake and Output 04/23/22 04/24/22 04/24/22 22:59 06:59 14:59 Intake Total 50 Output Total 900 Balance 50 -900 Intake: Intake, IV Titration 50 Amount cefTRIAXone 1 gm In 50 Sodium Chloride 0.9% 50 ml @ 100 mls/hr IVPB ONCE STA Rx#:[id number] Output: Urine 900 Other: Voiding Method External Catheter # Bowel Movements 1 Weight 58.967 kg 04/23/22 06:15 04/23/22 06:15
[2022-04-24 10:51] LABS: African American GFR (CKD) 85 (>60 ml/min/1.73 sqM); Anion Gap 13 mmol/L; Blood Urea Nitrogen 28 mg/dL (9-20); Carbon Dioxide 25 mmol/L (22-30); Chloride 96 mmol/L (98-107); Glucose 162 mg/dL (74-99); Magnesium 1.8 mg/dL (1.6-2.3); Non-African American GFR(CKD) 74 (>60 ml/min/1.73 sqM); Potassium 4.4 mmol/L (3.5-5.1); Sodium 134 mmol/L (137-145)
[2022-04-24] MEDS: IPRATROPIUM-ALBUTEROL 3 ML NEB INHALATION SCH ×3 (11:14→20:15)
[2022-04-24] MEDS: BUDESONIDE 0.5 MG/2 ML NEBU INHALATION SCH ×2 (11:14→20:15)
[2022-04-24] MEDS ORDERED: FUROSEMIDE 10 MG/ML 4 ML VIAL IV STA (11:46)
[2022-04-24] MEDS ORDERED: methylPREDNISolone SOD SUCCI 40 MG/ML 1 ML VIAL IV STA (11:59)
[2022-04-24] MEDS ORDERED: MAGNESIUM SULFATE-D5W PMX 1 GM in DEXTROSE/WATER 1 100ML.BAG IVPB ONE (13:05)
[2022-04-24] MEDS ORDERED: DILTIAZEM ORAL 30 MG TAB PO SCH (13:15)
--- NOTE | 2022-04-24 14:37 | P.CNPUL ---
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 He was admitted 04/22/2022 after being admitted for altered mental status shaking and drooling. Computed tomography scan revealed no acute intracranial hemorrhage or midline shift. Chest x-ray showed chronic emphysematous changes without acute pulmonary process. He was found to have a urinary tract infection secondary to gram-negative bacilli. Blood cultures re veal no growth. Earlier today he developed an acute episode of shortness of breath. A. fib with RVR with a rate in the 180s, evidence of fluid volume overload and difficulty clearing his secretions. We're consulted for the same. Presently he is resting fairly comfortably in bed. Awake and alert in no acute distress. He is maintaining good O2 saturations in the 90s on room air. He's afebrile. He did receive IV diuretics with increased urine output and has felt rather quick improvement. He remains in atrial fibrillation with a controlled ventricular rhythm currently. He is anticoagulated with Eliquis. He's been on metoprolol 25 3 times a day. He was initiated on antibiotics in the form of Zosyn. He is given bronchodilators. Review of Systems REVIEW OF SYSTEMS: CONSTITUTIONAL: Altered mental status. Denies any recent significant weight loss or weight gain. EYES: Denies change in vision. EARS, NOSE, MOUTH, THROAT: Denies headaches, denies sore throat. CARDIOVASCULAR: Positive for palpitations no syncopal episodes. RESPIRATORY: Positive for shortness of breath, cough, congestion or hemoptysis. GASTROINTESTINAL: Denies change in appetite, denies abdominal pain GENITOURINARY: Denies hematuria, denies infections. MUSKULOSKELETAL: Denies pain, denies swelling. INTEGUMENTARY: Denies rash, denies eczema. NEUROLOGICAL: Denies recent memory loss, no recent seizure activity. PSYCHIATRIC: Denies anxiety, denies depression. HEMATOLOGIC/LYMPHATIC: Denies anemia, denies enlarged lymph nodes. Past Medical History Past Medical History: Atrial Fibrillation, Asthma, Cancer, CVA/TIA, Dementia, GI Bleed, Prostate Disorder, Rheumatoid Arthritis (RA) Additional Past Medical History / Comment(s): chronic back problems, Rt foot drop, Uses a walker, prostate cancer, radiation seeds; suspected cva 2017; covid; strictures History of Any Multi-Drug Resistant Organisms: ESBL Date of last positivie culture/infection: 07/28/2019 MDRO Source:: URINE ESBL Past Surgical History: Back Surgery Additional Past Surgical History / Comment(s): RECENT PICC LINE, NOW REMOVED, JONO CATARACTS, R hand surgery; laminectomy Past Anesthesia/Blood Transfusion Reactions: No Reported Reaction Past Psychological History: No Psychological Hx Reported Smoking Status: Never smoker Past Alcohol Use History: None Reported Past Drug Use History: None Reported - Past Family History Father Family Medical History: No Reported History Mother Family Medical History: GI Bleed Medications and Allergies Home Medications Medication Instructions Recorded Confirmed Type Folic Acid 1 mg PO DAILY@1800 03/12/17 04/22/22 History ALPRAZolam [Xanax] 0.5 mg PO BID PRN 03/05/20 04/22/22 History Cyanocobalamin [Vitamin B-12] 500 mcg PO DAILY@79903/05/20 04/22/22 History Donepezil [Aricept] 10 mg PO DAILY@79903/05/20 04/22/22 History Ipratropium-Albuterol Nebulize 3 ml INHALATION RT-QID PRN 03/05/20 04/22/22 History [Duoneb 0.5 mg-3 mg/3 ml Soln] Pantoprazole [Protonix] 40 mg PO DAILY@79903/05/20 04/22/22 History Apixaban [Eliquis] 2.5 mg PO BID@0800,1800 02/26/22 04/22/22 History Cranberry Fruit Extract [Cranberry] 500 mg PO DAILY@79902/26/22 04/22/22 History Fluticasone/Vilanterol [Breo 1 puff INHALATION RT-DAILY@79902/26/22 04/22/22 History Ellipta 100-25 Mcg Inhaler] Magnesium Hydroxide [Milk of 2,400 mg PO Q48H PRN 02/26/22 04/22/22 History Magnesia] Mirtazapine [Remeron] 30 mg PO HS@1800 02/26/22 04/22/22 History Pravastatin Sodium [Pravachol] 40 mg PO HS@1800 02/26/22 04/22/22 History Zinc Sulfate [Orazinc] 220 mg PO DAILY@0800 02/26/22 04/22/22 History guaiFENesin SYRUP 100MG/5ML 200 mg PO Q6H PRN 02/26/22 04/22/22 History [Robitussin] Artificial Tears-Hypromellose 2 drops BOTH EYES Q4HR PRN #1 ml 03/04/22 04/22/22 Rx [Artificial Tear Drops] QUEtiapine [SEROquel] 25 mg PO HS@1800 #30 tab 03/05/22 04/22/22 Rx Ascorbic Acid [Vitamin C] 500 mg PO BID@0800,1800 04/22/22 04/22/22 History Floranex Packet 1 packet PO DAILY@79904/22/22 04/22/22 History Hyoscyamine Sulfate [Levsin-Sl] 0.125 mg SL Q4H PRN 04/22/22 04/22/22 History LORazepam [Ativan] 0.5 mg PO Q4H PRN 04/22/22 04/22/22 History MORPHINE ORAL ANDREY CONC 20mg/mL 5 mg PO Q4H PRN 04/22/22 04/22/22 History [Roxanol Oral Soln Conc 20MG/ML] Magnesium Oxide [Mag-Ox] 400 mg PO W/BRKFST@79904/22/22 04/22/22 History Metoprolol Tartrate [Lopressor] 25 mg PO BID@08,199904/22/22 04/22/22 History Permethrin 5% Cream [Elimite] 1 applic TOPICAL DAILY@79904/22/22 04/22/22 History Tamsulosin [Flomax] 0.4 mg PO PC-BRKFST@79904/22/22 04/22/22 History bisacodyL [Dulcolax] 10 mg RECTAL Q72H PRN 04/22/22 04/22/22 History Allergies Allergy/AdvReac Type Severity Reaction Status Date / Time No Known Allergies Allergy Verified 04/22/22 09:37 Physical Exam Vitals: Vital Signs Temp Pulse Pulse Resp BP BP Pulse Ox 04/24/22 11:27 96 04/24/22 11:15 98.1 F 84 88 16 95/59 94 L 04/24/22 05:55 99.3 F 04/24/22 05:49 99.5 F 04/24/22 04:43 111 H 04/24/22 04:34 90 04/24/22 04:22 102.1 F H 83 17 151/79 95 04/23/22 20:14 90 04/23/22 19:33 99.0 F 65 15 128/64 98 Intake and Output 04/23/22 04/24/22 04/24/22 22:59 06:59 14:59 Intake Total 50 Output Total 900 Balance 50 -900 Intake: Intake, IV Titration 50 Amount cefTRIAXone 1 gm In 50 Sodium Chloride 0.9% 50 ml @ 100 mls/hr IVPB ONCE STA Rx#:[id number] Output: Urine 900 Other: Voiding Method External Catheter # Bowel Movements 1 Weight 58.967 kg GENERAL EXAM: Alert, pleasant 89-year-old male patient, extremely hard of hearing, on 2 L nasal cannula, comfortable in no apparent distress. HEAD: Normocephalic. EYES: Normal reaction of pupils, equal size. NOSE: Clear with pink turbinates. THROAT: No erythema or exudates. NECK: No masses, no JVD. CHEST: No chest wall deformity. LUNGS: Equal air entry with crackles in the posterior bases. CVS: S1 and S2 normal with no audible murmur, irregular rhythm. ABDOMEN: No hepatosplenomegaly, normal bowel sounds, no guarding or rigidity. SPINE: No scoliosis or deformity SKIN: No rashes CENTRAL NERVOUS SYSTEM: No focal deficits, tone is normal in all 4 extremities. EXTREMITIES: There is trace peripheral edema. No clubbing, no cyanosis. Peripheral pulses are intact. Results - Laboratory Findings CBC and BMP: 04/23/22 06:15 04/24/22 10:17 PT/INR, D-dimer PT 11.1 sec (9.0-12.0) 04/22/22 08:19 INR 1.0 (<1.2) 04/22/22 08:19 Abnormal lab findings: Abnormal Labs 04/22/22 04/22/22 04/22/22 08:19 08:19 08:19 RBC 3.84 L Hgb 11.2 L Hct 34.9 L Lymphocytes # Monocytes # Eosinophils # Sodium Chloride Anion Gap BUN 29 H Creatinine 0.62 L BUN/Creatinine Ratio Glucose 110 H Calcium Total Protein 6.2 L Albumin 3.0 L TSH Urine Protein 1+ H Urine Blood Large H Ur Leukocyte Esterase Large H Urine RBC 143 H Urine WBC 70 H Urine WBC Clumps Rare H Calcium Oxalate Crystal Rare H Urine Bacteria Occasional H U Tricyclic Antidepress Detected H 04/22/22 04/23/22 04/23/22 16:54 06:15 06:15 RBC 3.52 L Hgb 10.4 L Hct 31.1 L Lymphocytes # 0.83 L Monocytes # 1.22 H Eosinophils # 0.03 L Sodium Chloride Anion Gap 9.90 L BUN Creatinine BUN/Creatinine Ratio 38.60 H Glucose 114 H Calcium 8.3 L Total Protein Albumin TSH 0.051 L Urine Protein Urine Blood Ur Leukocyte Esterase Urine RBC Urine WBC Urine WBC Clumps Calcium Oxalate Crystal Urine Bacteria U Tricyclic Antidepress 04/24/22 10:17 RBC Hgb Hct Lymphocytes # Monocytes # Eosinophils # Sodium 134 L Chloride 96 L Anion Gap BUN 28 H Creatinine BUN/Creatinine Ratio Glucose 162 H Calcium Total Protein Albumin TSH Urine Protein Urine Blood Ur Leukocyte Esterase Urine RBC Urine WBC Urine WBC Clumps Calcium Oxalate Crystal Urine Bacteria U Tricyclic Antidepress - Diagnostic Findings Chest x-ray: image reviewed Assessment and Plan Assessment: Atrial flutter ablation with a rapid ventricular response, anticoagulated with Eliquis Acute hypoxemic respiratory failure secondary to fluid volume overload secondary to above Altered mental status with metabolic encephalopathy secondary to urinary tract infection Urinary tract infection History of recurrent urinary tract infections with ESBL History of prostate cancer status post radiation placement History of CVA 2016 History of dementia History of GI bleed Rheumatoid arthritis Plan: The patient was seen and evaluated Chest x-ray, labs and medications reviewed Continue with IV diuretics Continue metoprolol, add Cardizem Titrate the FiO2 as tolerated We will continue to follow and make further recommendations based on his clinical status I have personally seen and examined the patient, performed the documentation and the assessment and plan as written. Number of minutes spent on the visit: 20.
--- NOTE | 2022-04-24 15:23 | US ---
EXAMINATION TYPE: US arterial LE multi level DATE OF EXAM: 04/23/2022 3:14 PM CLINICAL HISTORY: non-healing ulcer edmar. heels. Confused patient unable to give history. Limited exam done due to patient motion and inability to hol d still. Doppler Waveforms: Right: Unable to obtain waveforms except at ankle due to patient cooperation Left: Unable to obtain waveforms except at ankle due to patient cooperation Ankle-Brachial Indices: Right: CNO Left: 1.50 Toe Brachial Indices: Right: Unable to obtain due to patient motion Left: Unable to obtain waveforms except at ankle due to patient cooperation IMPRESSION: Nondiagnostic study.
--- NOTE | 2022-04-24 16:07 | P.PN ---
Subjective Progress Note Date: 04/24/22 The patient is seen at bedside and per nurse is confused. It seems the patient went into A-fib with RVR Objective - Vital Signs Vital signs: Vital Signs Temp 98.1 F 04/24/22 11:15 Pulse 96 04/24/22 11:27 Resp 16 04/24/22 11:15 BP 95/59 04/24/22 11:15 Pulse Ox 94 L 04/24/22 11:15 FiO2 Intake & Output 04/23/22 04/24/22 04/24/22 18:59 06:59 18:59 Intake Total 290 Output Total 900 Balance 290 -900 Weight 58.967 kg Intake: Intake, IV Titration 50 Amount cefTRIAXone 1 gm In 50 Sodium Chloride 0.9% 50 ml @ 100 mls/hr IVPB ONCE STA Rx#:[id number] Oral 240 Output: Urine 900 Other: Voiding Method External Catheter External Catheter # Bowel Movements 1 - Exam GENERAL: The patient is lying in bed and is not in acute distress. NEUROLOGICAL: Limited because of his cooperation. Higher mental function: The patient is severe drowsy but is briefly awakeable. Not responding or following commands.. Cranial nerves: The pupils are round, equal and reactive to light. No facial weakness. Otherwise rest is limited. Motor: The strength is limited because of his cooperation. Cerebellum: Unable to assess. Sensation: Unable to assess. Reflexes (right/left): Unable to assess. Plantars are mute bilaterally. Some other workup during this hospital visit consisted of: AST and ALT is within normal limits Ammonia level is less than 9 Vitamin B12 is 505 Serum folate is more than 20 TSH is 0.051 and the free T4 is 1.260 Urinalysis is suggestive of likely urinary tract infection Urine tox screen is detected the positive for tricyclic antidepressant. CT of the head is reported as no acute intracranial hemorrhage or midline shift. There is mild to moderate diffuse age-related cerebral atrophy and moderate to severe chronic small vessel ischemic changes redemonstrated and felt stable. Worsening acute on chronic bilateral maxillary and ethmoid sinus disease present, correlate clinically. I personally reviewed the CT and agree with the finding of the report but in addition I felt the patient has a right frontal calcified likely meningioma. And in the 2017 CT is reported as small calcified calcifying mass and interbody it is mentioned hemangioma or osteochondroma. I'll personally reviewed the CT 2017 I feel the size is about the same and it seems in the right frontal region as well. Routine EEG it is reported as abnormal. The background slowing suggestive of mild encephalopathy. Otherwise there is no focal slowing, performed discharge or seizure on the EEG. - Labs CBC & Chem 7: 04/23/22 06:15 04/24/22 10:17 Labs: Abnormal Lab Results - Last 24 Hours (Table) 04/24/22 Range/Units 10:17 Sodium 134 L (137-145) mmol/L Chloride 96 L (98-107) mmol/L BUN 28 H (9-20) mg/dL Glucose 162 H (74-99) mg/dL Microbiology - Last 24 Hours (Table) 04/22/22 08:22 Blood Culture - Preliminary Blood No Growth after 48 hours 04/22/22 08:19 Urine Culture - Preliminary Urine,Clean Catch Gram Neg Bacilli Group D Enterococcus 04/22/22 16:54 Blood Culture - Preliminary Blood No Growth after 24 hours Assessment and Plan Assessment: Questionable seizure activity at the [facility] facility (reported that upon trying to get up from his [place] chair he became pale and developed uncontrolleable body shakes with drooling and leaning towards the right). Possibly provoked due to underlying UTI Encephalopathy due to underlying urinary tract infection Acute on chronic urinary tract infection Advanced dementia History of stroke without residual deficits Right frontal calcified mass unchanged since 2017 (one of differential is meningioma) History of prostate cancer status post radiation seeds Paroxysmal atrial fibrillation on eliquis Plan: Will not start antiepileptic drugs since this was first episode of questionable possible seizure. If he has another episode will start medication and daughter is in agreement. Recommend orthostatic vitals once the patient is more stable. PT and OT are consulted Defer the rest of the medical management to the primary team Recommend the patient to be evaluated by a neurologist as an outpatient within 1-2 weeks upon discharge Patient CODE STATUS is DO NOT RESUSCITATE Plan was discussed with the patient's daughter and his nurse. Will follow-up with patient sporadically. Champ Casarez M.D. Neuro-hospital Time with Patient: Less than 30
[2022-04-24] MEDS: QUEtiapine 25 MG TAB PO SCH (17:44)
[2022-04-24] MEDS: FOLIC ACID 1 MG TAB PO SCH (17:44)
--- NOTE | 2022-04-24 18:02 | P.PN ---
Subjective Progress Note Date: 04/24/22 H&P Date: 04/22/22 Chief Complaint: Since shaking, drooling, leaning to the right with accompanied labored br This is a 86-year-old gentleman with known history of paroxysmal atrial fibrillation, follows with Dr. Mcbride health club attendant, asthma, rheumatoid arthritis, history of prostate cancer status post radiation seeds, recurrent UTIs secondary to urinary retention related to urethral stricture lending to difficult catheter insertion/coude', history of cystoscopy with urethral dilations with , Urology, history of CVA with no residuals and multiple other medical issues sent to the ER from [facility]. Staff reports that upon getting patient up in his [place] chair this morning before while down for breakfast, patient became pale ,developed uncontrollable shakes, accompanied by drooling, and proceeded to lean to the right into the staff member, developing increased shortness of breath. Did not lose consciousness. No nausea vomiting or diarrhea. Prior to procedure patient had been talking, post procedure patient not conversing. Shakiness resolved prior to EMS arrival. No syncope. Further EMS records currently unavailable. Glucose on admission 110. EKG reporting sinus bradycardia, ventricular rate 57, brain CT no acute intracranial hemorrhage or midline shift, mild to moderate diffuse atrial agent cerebral atrophy and moderate to severe chronic small vessel ischemic changes redemonstrated and felt stable, worsening acute on chronic bilateral maxillary and ethmoid sinus disease. Chest x-ray reported chronic emphysematous changes without acute pulmonary process, no significant change from prior. Afebrile, WBC 8.4, hemoglobin 11.2, platelets 290, INR 1, sodium 137, potassium 4.2, bicarb 25, BUN 29, creatinine 0.62, troponin negative 1, total protein and albumin low at 6.2,3. UA reporting tricyclic antidepressants. Bladder scan reported 150, staff unable to straight cath secondary to patient has known his tory of significant urethral stricture requiring catheter placement as per urology. At bedside patient was able to answer simple yes and no questions at times, extremely hard of hearing. Earlier presented with mild expressive aphasia per daughter. 04/23/2022 no further shakiness, no seizure activity reported. Evaluated by neurology, workup in progress, labs/EEG pending. Brain CT suggested worsening acute on chronic bilateral maxillary and ethmoid sinus disease, asymptomatic clinically. Maintained on IV antibiotics. UA reported rare WBC,, 70 WBCs, large leukocytes, negative nitrates, culture , preliminary blood culture reported no growth after 24 hours . Wound dressing changed last night with no drainage reported. T-max 101.3, WBC 8.76. 04/24/2022 T-max 102.1. Urine culture reporting gram-negative bacilli, group D enterococcus, IV antibiotics adjusted to Zosyn. In the early childhood assistant hours developed atrial fibrillation with RVR with heart rates reported up into the 180s, audible gurgling with fluid overload-difficulty clearing secretions, with continuous nonproductive coughing, received additional metoprolol, Lasix. Labs pending. Chest x-ray pending. EEG reported as abnormal, across slowing suggestive of healed encephalopathy, no focal slowing,no elipeptiform discharge, no seizure activity. Objective - Vital Signs Vital signs: Vital Signs Temp 98.1 F 04/24/22 11:15 Pulse 92 04/24/22 16:27 Resp 16 04/24/22 11:15 BP 95/59 04/24/22 11:15 Pulse Ox 94 L 04/24/22 11:15 FiO2 Intake & Output 04/23/22 04/24/22 04/24/22 18:59 06:59 18:59 Intake Total 290 Output Total 900 900 Balance 290 -900 -900 Weight 58.967 kg Intake: Intake, IV Titration 50 Amount cefTRIAXone 1 gm In 50 Sodium Chloride 0.9% 50 ml @ 100 mls/hr IVPB ONCE STA Rx#:[id number] Oral 240 Output: Urine 900 900 Other: Voiding Method External Catheter External Catheter # Bowel Movements 1 - Exam PHYSICAL EXAM: VITAL SIGNS: As above GENERAL: Sitting up in bed, no acute distress. Confused, alert and oriented 1.[place]. HEENT: Atraumatic, normocephalic , pupils round and equal ,Conjunctivae normal. NECK: No JVD. No thyroid enlargement. No LNs CARDIOVASCULAR: S1, S2 regular. Systolic murmur RESPIRATION: Breath sounds diminished in the bases. Bibasilar crackles. ABDOMEN: Soft, nontender, nondistended . No guarding. no masses palpable. Possible Bowel sounds. Extremities: Bilateral Dupuytren's contractures, history of right hand surgery, Left tip of great toe, bilateral heel and left great toe dressings clean dry and intact, wearing offloading boots, minimal edema. NERVOUS SYSTEM: Limited exam. Cranial N 2-12 grossly normal. Skin: Warm and dry, no rash. - Labs CBC & Chem 7: 04/23/22 06:15 04/24/22 10:17 Labs: Abnormal Lab Results - Last 24 Hours (Table) 04/24/22 Range/Units 10:17 Sodium 134 L (137-145) mmol/L Chloride 96 L (98-107) mmol/L BUN 28 H (9-20) mg/dL Glucose 162 H (74-99) mg/dL Microbiology - Last 24 Hours (Table) 04/22/22 08:22 Blood Culture - Preliminary Blood No Growth after 48 hours 04/22/22 08:19 Urine Culture - Preliminary Urine,Clean Catch Gram Neg Bacilli Group D Enterococcus 04/22/22 16:54 Blood Culture - Preliminary Blood No Growth after 24 hours Assessment and Plan Assessment: Acute metabolic encephalopathy secondary to suspected acute on chronic UTI related to urinary retention, in a patient with history of ESBL, prostate canc er with radiation seeds , urinary retention. Acute on chronic paroxysmal A. fib with RVR , follows with health club attendant, Dr. Mcbride Possible acute seizure activity, per [facility] report , no further seizure activity reported; suspect symptoms secondary to possibly hypoglycemic episode though blood sugar normal on admission, possible secondary to infection, UTI, possibly orthostatic hypotension. No seizure activity reported per EEG. Recently discharged on 03/04/2022 with sepsis secondary to bacterial prostatitis with suspected acute UTI, urine and blood cultures that time failed to report any growth, despite fevers, elevated WBC and pro-calcitonin. History of Urinary retention secondary to urethral stricture lending to difficult catheter insertion/coude', history of cystoscopy with urethral dila tions with , Urology. Status post dilation and placement of 12-[place] coud tip catheter per urology on prior admission with Deutsch catheter discontinued 03/04/2022. Bilateral heel -stage II and left great toe ulcers, nonpressure-unstageable ,present on admission; upon discharge-patient had sustained bilateral heel & left great toe blisters that later transitioned to wounds. Debrided at wound care center on 04/18/22. (Offloading boots with heels to be floating at all times) Hypoalbuminemia Chronic renal failure, stage II, secondary to chronic urinary retention Chronic anemia secondary to the above Chronic mild persistent bronchial asthma, stable History of high right frontal meningioma , suspected CVA, no residuals. History of rheumatoid arthritis, treated in the past, not on immunosuppressants History of lumbar degenerative disc disease, spinal stenosis, L5 spondylosis, facet arthropathy, L3-4 laminectomy Risk secondary to increased medical debility, increased weakness ( 2 person assist), dementia in a patient with prior HX of Gait dysfunction, bilateral foot drop-greatest in the right. Underlying dementia, advanced [place] Plan: Continue on current medication regime ,monitoring and symptomatic treatment. Labs pending. Maintained on IV antibiotics. Beta marta increased. Evaluated by pulmonary with Cardizem added to med regimen. Evaluated by cardiology with no additional recommendations and they have signed off.Prognosis guarded given multiple complex medical issues. The impression and plan of care has been dictated as directed. : I performed a history and examination of this patient, discussed the same with the dictator. I agree with the dictator's note ,documented as a scribe. Any additional findings or plans will be noted.
[2022-04-24] MEDS ORDERED: ERTAPENEM 1 GM in SODIUM CHLORIDE 0.9% 50 ML IVPB SCH (19:00)
[2022-04-24] MEDS: MIRTAZAPINE 15 MG TAB PO SCH (21:09)
[2022-04-24] MEDS: AMIODARONE 200 MG TAB PO SCH ×2 (21:09→22:09)
[2022-04-24] MEDS: PRAVASTATIN SODIUM 40 MG TAB PO SCH (21:10)
[2022-04-25] MEDS: PIPERACILLIN-TAZOBACTAM 3.375 GM in SODIUM CHLORIDE 0.9% 100 ML IVPB SCH ×4 (00:34→23:48)
[2022-04-25] MEDS: BUDESONIDE 0.5 MG/2 ML NEBU INHALATION SCH ×2 (07:31→19:44)
[2022-04-25] MEDS: IPRATROPIUM-ALBUTEROL 3 ML NEB INHALATION SCH ×4 (07:31→19:44)
[2022-04-25] MEDS: PANTOPRAZOLE 40 MG/10 ML VIAL IVP SCH (08:27)
[2022-04-25] MEDS: ASCORBIC ACID 500 MG TAB PO SCH ×2 (08:28→18:01)
[2022-04-25] MEDS: ZINC SULFATE 220 MG CAP PO SCH (08:28)
[2022-04-25] MEDS: APIXABAN 2.5 MG TABLET PO SCH ×2 (08:28→18:01)
[2022-04-25] MEDS: AMIODARONE 200 MG TAB PO SCH ×2 (08:28→21:15)
[2022-04-25] MEDS: TAMSULOSIN 0.4 MG CAP.ER.24H PO SCH (08:28)
[2022-04-25] MEDS: DONEPEZIL 10 MG TAB PO SCH (08:28)
[2022-04-25] MEDS: CYANOCOBALAMIN 500 MCG TAB PO SCH (08:28)
[2022-04-25] MEDS: MAGNESIUM OXIDE 400 MG TAB PO SCH (08:28)
[2022-04-25] MEDS: METOPROLOL TARTRATE 25 MG TAB PO SCH ×3 (08:28→21:14)
[2022-04-25 08:59] LABS: HGB 12.2 g/dL (13.0-17.0); MCH 29.7 pg (27.0-32.0); MCHC 33.9 g/dL (32.0-37.0); MCV 87.6 fL (80.0-97.0); Mean Platelet Volume 9.6 fL (9.5-12.2); NRBC Per 100 WBC 0 /100 WBCS (0.0-0.0); Platelet Count 292 X 10*3/uL (140-440); RBC 4.11 X 10*6/uL (4.40-5.60); WBC 17.56 X 10*3/uL (4.50-10.00)
[2022-04-25 09:13] LABS: Magnesium 2.5 mg/dL (1.5-2.4)
[2022-04-25 09:15] LABS: African American GFR (CKD) 66.4 (60.0-200.0); Anion Gap 12.4 mmol/L (10.00-18.00); BUN/Creat Ratio 39.82 Ratio (12.00-20.00); Calcium 8.8 mg/dL (8.7-10.3); Carbon Dioxide 26.7 mmol/L (20.0-27.5); Non-African American GFR(CKD) 57.3 (60.0-200.0)
--- NOTE | 2022-04-25 11:07 | P.PN ---
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 He was admitted 04/22/2022 after being admitted for altered mental status shaking and drooling. Computed tomography scan revealed no acute intracranial hemorrhage or midline shift. Chest x-ray showed chronic emph ysematous changes without acute pulmonary process. He was found to have a urinary tract infection secondary to gram-negative bacilli. Blood cultures reveal no growth. Earlier today he developed an acute episode of shortness of breath. A. fib with RVR with a rate in the 180s, evidence of fluid volume overload and difficulty clearing his secretions. We're consulted for the same. Presently he is resting fairly comfortably in bed. Awake and alert in no acute distress. He is maintaining good O2 saturations in the 90s on room air. He's afebrile. He did receive IV diuretics with increased urine output and has felt rather quick improvement. He remains in atrial fibrillation with a controlled ventricular rhythm currently. He is anticoagulated with Eliquis. He's been on metoprolol 25 3 times a day. He was initiated on antibiotics in the form of Zosyn. He is given bronchodilators. The patient is seen today 04/25/2022 in follow-up on the regular medical floor. He is currently resting fairly comfortably in bed. Awake and alert in no acute distress. He did have ongoing issues with atrial fibrillation with rapid ventricular response. He was initiated on oral amiodarone. His rate is better controlled today. He is anticoagulated with Eliquis. He is maintaining O2 saturation in the 90s on 2 L/m per nasal cannula. Urine culture is positive for pseudomonas aeruginosa is and enterococcus faecalis. Blood cultures reveal no growth. White count 17.5. Hemoglobin 12.2. Sodium 135. Potassium 4.0. BUN 45. Creatinine 1.1. Glucose 174. He is continued on antibiotics in form of Zosyn. Continued on bronchodilators. Objective - Vital Signs Vital signs: Vital Signs Temp 97.4 F L 04/25/22 05:00 Pulse 85 04/25/22 07:46 Resp 16 04/25/22 05:00 BP 94/62 04/25/22 05:00 Pulse Ox 97 04/25/22 07:34 FiO2 Intake & Output 04/24/22 04/25/22 04/25/22 18:59 06:59 18:59 Intake Total 540 240 Output Total 900 200 Balance -360 40 Intake: Intake, IV Titration 300 Amount Magnesium Sulfate-D5w Pmx 100 1 gm In Dextrose/Water 1 100ml.bag @ 100 mls/hr IVPB ONCE ONE Rx#: [id number] Piperacillin-Tazobactam 3 200 .375 gm In Sodium Chloride 0.9% 100 ml @ 25 mls/hr IVPB Q8HR [facility] Rx# :[id number] Oral 240 240 Output: Urine 900 200 Other: Voiding Method External Catheter External Catheter External Catheter # Bowel Movements 1 1 - Exam GENERAL EXAM: Alert, 89-year-old male patient, hard of hearing, on 2 L nasal cannula, comfortable in no apparent distress. HEAD: Normocephalic. EYES: Normal reaction of pupils, equal size. NOSE: Clear with pink turbinates. THROAT: No erythema or exudates. NECK: No masses, no JVD. CHEST: No chest wall deformity. LUNGS: Equal air entry with crackles in the posterior bases. CVS: S1 and S2 normal with no audible murmur, irregular rhythm. ABDOMEN: No hepatosplenomegaly, normal bowel sounds, no guarding or rigidity. SPINE: No scoliosis or deformity SKIN: No rashes CENTRAL NERVOUS SYSTEM: No focal deficits, tone is normal in all 4 extremities. EXTREMITIES: There is trace peripheral edema. No clubbing, no cyanosis. Peripheral pulses are intact. - Labs CBC & Chem 7: 04/25/22 05:56 04/25/22 05:56 Labs: Abnormal Lab Results - Last 24 Hours (Table) 04/25/22 04/25/22 Range/Units 05:56 05:56 WBC 17.56 H (4.50-10.00) X 10*3/uL RBC 4.11 L (4.40-5.60) X 10*6/uL Hgb 12.2 L (13.0-17.0) g/dL Hct 36.0 L (39.6-50.0) % BUN 45.0 H (9.0-27.0) mg/dL Est GFR (CKD-EPI)NonAf 57.3 L (60.0-200.0) BUN/Creatinine Ratio 39.82 H (12.00-20.00) Ratio Glucose 174 H (70-110) mg/dL Magnesium 2.5 H (1.5-2.4) mg/dL Microbiology - Last 24 Hours (Table) 04/22/22 08:22 Blood Culture - Preliminary Blood No Growth after 72 hours 04/22/22 08:19 Urine Culture - Final Urine,Clean Catch Pseudomonas aeruginosa Enterococcus faecalis 04/22/22 16:54 Blood Culture - Preliminary Blood No Growth after 48 hours Assessment and Plan Assessment: Atrial flutter ablation with a rapid ventricular response, anticoagulated with Eliquis. Initiated on amiodarone Acute hypoxemic respiratory failure secondary to fluid volume overload secondary to above Altered mental status with metabolic encephalopathy secondary to urinary tract infection Urinary tract infection History of recurrent urinary tract infections with ESBL History of prostate cancer status post radiation placement History of CVA 2017 History of dementia History of GI bleed Rheumatoid arthritis Plan: The patient was seen and evaluated Labs and medications reviewed Initiated on amiodarone Heart rate better controlled We will continue to follow I have personally seen and examined the patient, performed the documentation and the assessment and plan as written. Number of minutes spent on the visit: 10.
[2022-04-25 12:13] LABS: Basophils # (A) 0.02 X 10*3/uL (0.00-0.10); Basophils % (A) 0.1 %; Eosinophils # (A) 0 X 10*3/uL (0.04-0.35); Eosinophils % (A) 0 %; Immature Grans, Automated 0.5 %; Lymphocytes # (A) 0.97 X 10*3/uL (0.90-5.00); Lymphocytes % (A) 5.5 %; Monocytes # (A) 1.54 X 10*3/uL (0.20-1.00); Monocytes % (A) 8.8 %; Neutrophils # (A) 14.95 X 10*3/uL (1.80-7.70); Neutrophils % (A) 85.1 %
--- NOTE | 2022-04-25 16:37 | P.PN ---
Subjective Progress Note Date: 04/25/22 Patient is seen at bedside and the per the patient's nurse as well as his daughter is a mentation has been the better today compared to yesterday. Objective - Vital Signs Vital signs: Vital Signs Temp 97.8 F 04/25/22 11:11 Pulse 88 04/25/22 15:32 Resp 18 04/25/22 11:11 BP 102/66 04/25/22 11:11 Pulse Ox 97 04/25/22 15:18 FiO2 Intake & Output 04/24/22 04/25/22 04/25/22 18:59 06:59 18:59 Intake Total 540 240 Output Total 900 200 Balance -360 40 Intake: Intake, IV Titration 300 Amount Magnesium Sulfate-D5w Pmx 100 1 gm In Dextrose/Water 1 100ml.bag @ 100 mls/hr IVPB ONCE ONE Rx#: [id number] Piperacillin-Tazobactam 3 200 .375 gm In Sodium Chloride 0.9% 100 ml @ 25 mls/hr IVPB Q8HR COUNT INCLUDES THE [facility] Rx# :[id number] Oral 240 240 Output: Urine 900 200 Other: Voiding Method External Catheter External Catheter External Catheter # Bowel Movements 1 1 - Exam GENERAL: The patient is lying in bed and is not in acute distress. NEUROLOGICAL: Limited because of his cooperation. Higher mental function: The patient is drowsy but awake to voice. He's oriented to self. He stated that he is in the hospital. He's able to follow a few simple commands and showing a thumbs up to thicken his tongue out. Cranial nerves: The pupils are round, equal and reactive to light. No facial weakness. Otherwise rest is limited. Motor: The strength is limited because of his cooperation. Cerebellum: Unable to assess. Sensation: Unable to assess. Reflexes (right/left): Unable to assess. Plantars are mute bilaterally. Some other workup during this hospital visit consisted of: AST and ALT is within normal limits Ammonia level is less than 9 Vitamin B12 is 505 Serum folate is more than 20 TSH is 0.051 and the free T4 is 1.260 Urinalysis is suggestive of likely urinary tract infection Urine tox screen is detected the positive for tricyclic antidepressant. CT of the head is reported as no acute intracranial hemorrhage or midline shift. There is mild to moderate diffuse age-related cerebral atrophy and moderate to severe chronic small vessel ischemic changes redemonstrated and felt stable. Worsening acute on chronic bilateral maxillary and ethmoid sinus disease present, correlate clinically. I personally reviewed the CT and agree with the finding of the report but in addition I felt the patient has a right frontal calcified likely meningioma. And in the 2017 CT is reported as small calcified calcifying mass and interbody it is mentioned hemangioma or osteochondroma. I'll personally reviewed the CT 2017 I feel the size is about the same and it seems in the right frontal region as well. Routine EEG it is reported as abnormal. The background slowing suggestive of mild encephalopathy. Otherwise there is no focal slowing, performed discharge or seizure on the EEG. - Labs CBC & Chem 7: 04/25/22 05:56 04/25/22 05:56 Labs: Abnormal Lab Results - Last 24 Hours (Table) 04/25/22 04/25/22 Range/Units 05:56 05:56 WBC 17.56 H (4.50-10.00) X 10*3/uL RBC 4.11 L (4.40-5.60) X 10*6/uL Hgb 12.2 L (13.0-17.0) g/dL Hct 36.0 L (39.6-50.0) % Immature Gran # 0.08 H (0.00-0.04) X 10*3/uL Neutrophils # 14.95 H (1.80-7.70) X 10*3/uL Monocytes # 1.54 H (0.20-1.00) X 10*3/uL Eosinophils # 0 L (0.04-0.35) X 10*3/uL BUN 45.0 H (9.0-27.0) mg/dL Est GFR (CKD-EPI)NonAf 57.3 L (60.0-200.0) BUN/Creatinine Ratio 39.82 H (12.00-20.00) Ratio Glucose 174 H (70-110) mg/dL Magnesium 2.5 H (1.5-2.4) mg/dL Microbiology - Last 24 Hours (Table) 04/22/22 08:22 Blood Culture - Preliminary Blood No Growth after 72 hours 04/22/22 08:19 Urine Culture - Final Urine,Clean Catch Pseudomonas aeruginosa Enterococcus faecalis 04/22/22 16:54 Blood Culture - Preliminary Blood No Growth after 48 hours Assessment and Plan Assessment: Questionable seizure activity at the [facility] facility (reported that upon trying to get up from his [place] chair he became pale and developed uncontrolleable body shakes with drooling and leaning towards the right). Possibly provoked due to underlying UTI Encephalopathy due to underlying urinary tract infection--improving Acute on chronic urinary tract infection Advanced dementia History of stroke without residual deficits Right frontal calcified mass unchanged since 2017 (one of differential is meningioma) History of prostate cancer status post radiation seeds Paroxysmal atrial fibrillation on eliquis Plan: Will not start antiepileptic drugs since this was first episode of questionable possible seizure. If he has another episode will start medication and daughter is in agreement. Recommend orthostatic vitals once the patient is more stable. Pumonary team is on board. ID team is on board PT and OT are consulted Defer the rest of the medical management to the primary team Recommend the patient to be evaluated by a neurologist as an outpatient within 1-2 weeks upon discharge Patient CODE STATUS is DO NOT RESUSCITATE Plan was discussed with the patient's daughter and his nurse. Otherwise there is no additional workup needed from a neurological perspective. We'll sign off. Please reconsult if needed. Champ Casarez M.D. Neuro-hospital Time with Patient: Less than 30
[2022-04-25] MEDS: COLLAGENASE 250 UNIT/GM OINTMENT 30 GM TUBE TOPICAL SCH (16:46)
--- NOTE | 2022-04-25 17:35 | P.PN ---
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 Staff reports that upon getting patient up in his [place] chair this morning before while down for breakfast, patient became pale ,developed uncontrollable shakes, accompanied by drooling, and proceeded to lean to the right into the staff member, developing increased shortness of breath. Did not lose consciousness. No nausea vomiting or diarrhea. Prior to procedure patient had been talking, post procedure patient not conversing. Shakiness resolved prior to EMS arrival. No syncope. Further EMS records currently unavailable. Glucose on admission 110. EKG reporting sinus bradycardia, ventricular rate 57, brain CT no acute intracranial hemorrhage or midline shift, mild to moderate diffuse atrial agent cerebral atrophy and moderate to severe chronic small vessel ischemic changes redemonstrated and felt stable, worsening acute on chronic bilateral maxillary and ethmoid sinus disease. Chest x-ray reported chronic emphysematous changes without acute pulmonary process, no significant change from prior. Afebrile, WBC 8.4, hemoglobin 11.2, platelets 290, INR 1, sodium 137, potassium 4.2, bicarb 25, BUN 29, creatinine 0.62, troponin negative 1, total protein and albumin low at 6.2,3. UA reporting tricyclic antidepressants. Bladder scan reported 150, staff unable to straight cath secondary to patient has known his tory of significant urethral stricture requiring catheter placement as per urology. At bedside patient was able to answer simple yes and no questions at times, extremely hard of hearing. Earlier presented with mild expressive aphasia per daughter. 04/23/2022 no further shakiness, no seizure activity reported. Evaluated by neurology, workup in progress, labs/EEG pending. Brain CT suggested worsening acute on chronic bilateral maxillary and ethmoid sinus disease, asymptomatic clinically. Maintained on IV antibiotics. UA reported rare WBC,, 70 WBCs, large leukocytes, negative nitrates, culture , preliminary blood culture reported no growth after 24 hours . Wound dressing changed last night with no drainage reported. T-max 101.3, WBC 8.76. 04/24/2022 T-max 102.1. Urine culture reporting gram-negative bacilli, group D enterococcus, IV antibiotics adjusted to Zosyn. 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 Labs pending. Chest x-ray pending. EEG reported as abnormal, across slowing suggestive of healed encephalopathy, no focal slowing,no elipeptiform discharge, no seizure activity. 04/25/2022 Yesterday throughout the day, ongoing A. fib with RVR, desaturating on supplemental O2-merely maintaining O2 sats of 90-91%, worsening renal function and soft blood pressure. oral amiodarone initiated yesterday afternoon. Rate better controlled this morning. Urine culture reporting pseudomonas aeruginosa and enterococcus faecalis, preliminary blood cultures reporting no growth. Maintained on Zosyn. T-max 99.5, WBC 17.5 . Hemoglobin 12.2, platelets 292 . Electrolytes within normal limits . BUN 45, creatinine 1.1. Much more alert. Sitting up in bed, conversing, smiling and eating. Maintaining O2 sats in the high 90s on room air. Objective - Vital Signs Vital signs: Vital Signs Temp 97.8 F 04/25/22 11:11 Pulse 88 04/25/22 15:32 Resp 18 04/25/22 11:11 BP 102/66 04/25/22 11:11 Pulse Ox 97 04/25/22 15:18 FiO2 Intake & Output 04/24/22 04/25/22 04/25/22 18:59 06:59 18:59 Intake Total 540 240 Output Total 900 200 Balance -360 40 Intake: Intake, IV Titration 300 Amount Magnesium Sulfate-D5w Pmx 100 1 gm In Dextrose/Water 1 100ml.bag @ 100 mls/hr IVPB ONCE ONE Rx#: [id number] Piperacillin-Tazobactam 3 200 .375 gm In Sodium Chloride 0.9% 100 ml @ 25 mls/hr IVPB Q8HR [facility] Rx# :[id number] Oral 240 240 Output: Urine 900 200 Other: Voiding Method External Catheter External Catheter External Catheter # Bowel Movements 1 1 - Exam PHYSICAL EXAM: VITAL SIGNS: As above GENERAL: Sitting up in bed, no acute distress. Pleasantly Confused, alert and oriented 1.YOMBA SHOSHONE. HEENT: Atraumatic, normocephalic , pupils round and equal ,Conjunctivae normal. NECK: No JVD. No thyroid enlargement. No LNs CARDIOVASCULAR: S1, S2 regular. Systolic murmur RESPIRATION: Breath sounds diminished in the bases. Fine Bibasilar crackles. ABDOMEN: Soft, nontender, nondistended . No guarding. no masses palpable. Possible Bowel sounds. Extremities: Bilateral Dupuytren's contractures, history of right hand surgery, Left tip of great toe, bilateral heel and left great toe dressings clean dry and intact, wearing offloading boots, trace edema. NERVOUS SYSTEM: Limited exam. Cranial N 2-12 grossly normal. Skin: Warm and dry, no rash. Microbiology 04/22/22 08:22 Blood Blood Culture - Preliminary No Growth after 72 hours 04/22/22 08:19 Urine,Clean Catch Urine Culture - Final Pseudomonas aeruginosa Enterococcus faecalis 04/22/22 16:54 Blood Blood Culture - Preliminary No Growth after 48 hours - Labs CBC & Chem 7: 04/25/22 05:56 04/25/22 05:56 Labs: Abnormal Lab Results - Last 24 Hours (Table) 04/25/22 04/25/22 Range/Units 05:56 05:56 WBC 17.56 H (4.50-10.00) X 10*3/uL RBC 4.11 L (4.40-5.60) X 10*6/uL Hgb 12.2 L (13.0-17.0) g/dL Hct 36.0 L (39.6-50.0) % Immature Gran # 0.08 H (0.00-0.04) X 10*3/uL Neutrophils # 14.95 H (1.80-7.70) X 10*3/uL Monocytes # 1.54 H (0.20-1.00) X 10*3/uL Eosinophils # 0 L (0.04-0.35) X 10*3/uL BUN 45.0 H (9.0-27.0) mg/dL Est GFR (CKD-EPI)NonAf 57.3 L (60.0-200.0) BUN/Creatinine Ratio 39.82 H (12.00-20.00) Ratio Glucose 174 H (70-110) mg/dL Magnesium 2.5 H (1.5-2.4) mg/dL Microbiology - Last 24 Hours (Table) 04/22/22 08:22 Blood Culture - Preliminary Blood No Growth after 72 hours 04/22/22 08:19 Urine Culture - Final Urine,Clean Catch Pseudomonas aeruginosa Enterococcus faecalis 04/22/22 16:54 Blood Culture - Preliminary Blood No Growth after 48 hours Assessment and Plan Assessment: Acute metabolic encephalopathy secondary to suspected acute on chronic UTI related to urinary retention, in a patient with history of ESBL, prostate cance r with radiation seeds , urinary retention. Acute UTI with pseudomonas aeruginosa, enterococcus faecalis Acute on chronic paroxysmal A. 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 Mcbride Possible acute seizure activity, per [facility] report , no further seizure activity reported; suspect symptoms secondary to possibly hypoglycemic episode though blood sugar normal on admission, possible secondary to infection, UTI, possibly orthostatic hypotension. No seizure activity reported per EEG. Recently discharged on 03/04/2022 with sepsis secondary to bacterial prostatitis with suspected acute UTI, urine and blood cultures that time failed to report any growth, despite fevers, elevated WBC and pro-calcitonin. History of Urinary retention secondary to urethral stricture lending to difficult catheter insertion/coude', history of cystoscopy with urethral dilations with , Urology. Status post dilation and placement of 12- Indonesian coud tip catheter per urology on prior admission with Deutsch catheter discontinued 03/04/2022. Bilateral heel -stage II and left great toe ulcers, nonpressure-unstageable ,present on admission; upon discharge-patient had sustained bilateral heel & left great toe blisters that later transitioned to wounds. Debrided at wound care center on 04/18/22. (Offloading boots with heels to be floating at all times) Hypoalbuminemia Chronic renal failure, stage II, secondary to chronic urinary retention Chronic anemia secondary to the above Chronic mild persistent bronchial asthma, stable History of high right frontal meningioma , suspected CVA, no residuals. History of rheumatoid arthritis, treated in the past, not on immunosuppressants History of lumbar degenerative disc disease, spinal stenosis, L5 spondylosis, facet arthropathy, L3-4 laminectomy Risk secondary to increased medical debility, increased weakness ( 2 person assist), dementia in a patient with prior HX of Gait dysfunction, bilateral foot drop-greatest in the right. Underlying dementia, advanced YOMBA SHOSHONE Plan: Continue on current medication regime ,monitoring and symptomatic hussain atment. Aggressive pulmonary toileting with nebulized bronchodilators. Continue IV antibiotics as per ID .Maintain amiodarone, Lopressor. Evaluated by pulmonary with recommendations noted and appreciated. Close monitoring of renal function with repeat labs ordered for a.m. Prognosis guarded given multiple complex medical issues. The impression and plan of care has been dictated as directed. : I performed a history and examination of this patient, discussed the same with the dictator. I agree with the dictator's note ,documented as a scribe. Any additional findings or plans will be noted.
[2022-04-25] MEDS: QUEtiapine 25 MG TAB PO SCH (18:01)
[2022-04-25] MEDS: FOLIC ACID 1 MG TAB PO SCH (18:01)
[2022-04-25] MEDS: PRAVASTATIN SODIUM 40 MG TAB PO SCH (21:16)
[2022-04-25] MEDS: MIRTAZAPINE 15 MG TAB PO SCH (21:16)
[2022-04-26] MEDS: BUDESONIDE 0.5 MG/2 ML NEBU INHALATION SCH ×2 (08:07→20:11)
[2022-04-26] MEDS: IPRATROPIUM-ALBUTEROL 3 ML NEB INHALATION SCH ×4 (08:07→20:11)
[2022-04-26] MEDS: PANTOPRAZOLE 40 MG/10 ML VIAL IVP SCH (09:37)
[2022-04-26] MEDS: AMIODARONE 200 MG TAB PO SCH ×2 (09:37→22:24)
[2022-04-26] MEDS: DONEPEZIL 10 MG TAB PO SCH (09:37)
[2022-04-26] MEDS: PIPERACILLIN-TAZOBACTAM 3.375 GM in SODIUM CHLORIDE 0.9% 100 ML IVPB SCH ×3 (09:37→23:58)
[2022-04-26] MEDS: METOPROLOL TARTRATE 25 MG TAB PO SCH ×4 (09:38→22:24)
[2022-04-26] MEDS: TAMSULOSIN 0.4 MG CAP.ER.24H PO SCH (09:38)
[2022-04-26] MEDS: CYANOCOBALAMIN 500 MCG TAB PO SCH (09:38)
[2022-04-26] MEDS: ASCORBIC ACID 500 MG TAB PO SCH ×2 (09:38→17:17)
[2022-04-26] MEDS: ZINC SULFATE 220 MG CAP PO SCH (09:38)
[2022-04-26] MEDS: APIXABAN 2.5 MG TABLET PO SCH ×2 (09:38→17:17)
[2022-04-26] MEDS: MAGNESIUM OXIDE 400 MG TAB PO SCH (09:38)
[2022-04-26] MEDS: COLLAGENASE 250 UNIT/GM OINTMENT 30 GM TUBE TOPICAL SCH (09:39)
[2022-04-26 10:26] LABS: Basophils # (A) 0.03 X 10*3/uL (0.00-0.10); Basophils % (A) 0.2 %; Eosinophils # (A) 0.01 X 10*3/uL (0.04-0.35); Eosinophils % (A) 0.1 %; HCT 31.1 % (39.6-50.0); HGB 10.2 g/dL (13.0-17.0); Immature Grans, Automated 0.4 %; Lymphocytes # (A) 1.18 X 10*3/uL (0.90-5.00); Lymphocytes % (A) 9.2 %; MCH 29.1 pg (27.0-32.0); MCHC 32.8 g/dL (32.0-37.0); MCV 88.9 fL (80.0-97.0); Mean Platelet Volume 9.8 fL (9.5-12.2); Monocytes % (A) 10.2 %; NRBC Per 100 WBC 0 /100 WBCS (0.0-0.0); Neutrophils # (A) 10.22 X 10*3/uL (1.80-7.70); Neutrophils % (A) 79.9 %; Platelet Count 276 X 10*3/uL (140-440); RDW 14.1 % (11.5-14.5); WBC 12.79 X 10*3/uL (4.50-10.00)
[2022-04-26 10:47] LABS: African American GFR (CKD) 91.8 (60.0-200.0); Anion Gap 9.8 mmol/L (10.00-18.00); BUN/Creat Ratio 59.88 Ratio (12.00-20.00); Blood Urea Nitrogen 47.9 mg/dL (9.0-27.0); Calcium 8.7 mg/dL (8.7-10.3); Carbon Dioxide 26.2 mmol/L (20.0-27.5); Non-African American GFR(CKD) 79.2 (60.0-200.0); Potassium 3.5 mmol/L (3.5-5.5)
--- NOTE | 2022-04-26 11:50 | P.PN ---
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 He was admitted 04/22/2022 after being admitted for altered mental status shaking and drooling. Computed tomography scan revealed no acute intracranial hemorrhage or midline shift. Chest x-ray showed chronic emph ysematous changes without acute pulmonary process. He was found to have a urinary tract infection secondary to gram-negative bacilli. Blood cultures reveal no growth. Earlier today he developed an acute episode of shortness of breath. A. fib with RVR with a rate in the 180s, evidence of fluid volume overload and difficulty clearing his secretions. We're consulted for the same. Presently he is resting fairly comfortably in bed. Awake and alert in no acute distress. He is maintaining good O2 saturations in the 90s on room air. He's afebrile. He did receive IV diuretics with increased urine output and has felt rather quick improvement. He remains in atrial fibrillation with a controlled ventricular rhythm currently. He is anticoagulated with Eliquis. He's been on metoprolol 25 3 times a day. He was initiated on antibiotics in the form of Zosyn. He is given bronchodilators. The patient is seen today 04/25/2022 in follow-up on the regular medical floor. He is currently resting fairly comfortably in bed. Awake and alert in no acute distress. He did have ongoing issues with atrial fibrillation with rapid ventricular response. He was initiated on oral amiodarone. His rate is better controlled today. He is anticoagulated with Eliquis. He is maintaining O2 saturation in the 90s on 2 L/m per nasal cannula. Urine culture is positive for pseudomonas aeruginosa is and enterococcus faecalis. Blood cultures reveal no growth. White count 17.5. Hemoglobin 12.2. Sodium 135. Potassium 4.0. BUN 45. Creatinine 1.1. Glucose 174. He is continued on antibiotics in form of Zosyn. Continued on bronchodilators. The patient is seen today 04/26/2022 in follow-up on the regular medical floor. He is currently awake and alert in no acute distress. Resting comfortably in bed. Maintaining O2 saturations in the 90s on 2 L/m per nasal cannula. Her rate to atrial fibrillation with a better controlled heart rate in the 80s currently. He is maintained on amiodarone 400 twice a day. Urine culture was positive for pseudomonas aeruginosa, enterococcus faecalis. White count 12.7. Hemoglobin 10.2. Sodium 138. Potassium 3.5. BUN 48. Creatinine 0.8. Anticoagulated with Eliquis. Remains on bronchodilators. Antibiotics in the form of Zosyn. Objective - Vital Signs Vital signs: Vital Signs Temp 98.5 F 04/26/22 05:00 Pulse 84 04/26/22 09:44 Resp 16 04/25/22 17:50 BP 92/54 04/26/22 09:44 Pulse Ox 91 L 04/26/22 05:00 FiO2 Intake & Output 04/25/22 04/26/22 04/26/22 18:59 06:59 18:59 Intake Total 690 Output Total 400 Balance -400 690 Intake: Oral 690 Output: Urine 400 Other: Voiding Method External Catheter External Catheter # Bowel Movements 1 - Exam GENERAL EXAM: Alert, pleasant 89-year-old male patient, hard of hearing, on 2 L nasal cannula, comfortable in no apparent distress. HEAD: Normocephalic. EYES: Normal reaction of pupils, equal size. NOSE: Clear with pink turbinates. THROAT: No erythema or exudates. NECK: No masses, no JVD. CHEST: No chest wall deformity. LUNGS: Equal air entry with crackles in the posterior bases. CVS: S1 and S2 normal with no audible murmur, irregular rhythm. ABDOMEN: No hepatosplenomegaly, normal bowel sounds, no guarding or rigidity. SPINE: No scoliosis or deformity SKIN: No rashes CENTRAL NERVOUS SYSTEM: No focal deficits, tone is normal in all 4 extremities. EXTREMITIES: There is trace peripheral edema. No clubbing, no cyanosis. Peripheral pulses are intact. - Labs CBC & Chem 7: 04/26/22 07:07 04/26/22 07:07 Labs: Abnormal Lab Results - Last 24 Hours (Table) 04/25/22 04/26/22 04/26/22 Range/Units 05:56 07:07 07:07 WBC 12.79 H (4.50-10.00) X 10*3/uL RBC 3.50 L (4.40-5.60) X 10*6/uL Hgb 10.2 L (13.0-17.0) g/dL Hct 31.1 L (39.6-50.0) % Immature Gran # 0.08 H 0.05 H (0.00-0.04) X 10*3/uL Neutrophils # 14.95 H 10.22 H (1.80-7.70) X 10*3/uL Monocytes # 1.54 H 1.30 H (0.20-1.00) X 10*3/uL Eosinophils # 0 L 0.01 L (0.04-0.35) X 10*3/uL Anion Gap 9.80 L (10.00-18.00) mmol/L BUN 47.9 H (9.0-27.0) mg/dL BUN/Creatinine Ratio 59.88 H (12.00-20.00) Ratio Microbiology - Last 24 Hours (Table) 04/22/22 08:22 Blood Culture - Preliminary Blood No Growth after 96 hours 04/22/22 16:54 Blood Culture - Preliminary Blood No Growth after 72 hours Assessment and Plan Assessment: Atrial flutter ablation with a rapid ventricular response, anticoagulated with Eliquis. Initiated on amiodarone Acute hypoxemic respiratory failure secondary to fluid volume overload secondary to above Altered mental status with metabolic encephalopathy secondary to urinary tract infection Urinary tract infection secondary to pseudomonas aeruginosa, Enterococcus faecalis History of recurrent urinary tract infections with ESBL History of prostate cancer status post radiation placement History of CVA 2017 History of dementia History of GI bleed Rheumatoid arthritis Plan: The patient was seen and evaluated Labs and medications reviewed Titrate the FiO2 as tolerated We will continue to follow I have personally seen and examined the patient, performed the documentation and the assessment and plan as written. Number of minutes spent on the visit: 10.
--- NOTE | 2022-04-26 13:02 | P.PN ---
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 Staff reports that upon getting patient up in his [place] chair this morning before while down for breakfast, patient became pale ,developed uncontrollable shakes, accompanied by drooling, and proceeded to lean to the right into the staff member, developing increased shortness of breath. Did not lose consciousness. No nausea vomiting or diarrhea. Prior to procedure patient had been talking, post procedure patient not conversing. Shakiness resolved prior to EMS arrival. No syncope. Further EMS records currently unavailable. Glucose on admission 110. EKG reporting sinus bradycardia, ventricular rate 57, brain CT no acute intracranial hemorrhage or midline shift, mild to moderate diffuse atrial agent cerebral atrophy and moderate to severe chronic small vessel ischemic changes redemonstrated and felt stable, worsening acute on chronic bilateral maxillary and ethmoid sinus disease. Chest x-ray reported chronic emphysematous changes without acute pulmonary process, no significant change from prior. Afebrile, WBC 8.4, hemoglobin 11.2, platelets 290, INR 1, sodium 137, potassium 4.2, bicarb 25, BUN 29, creatinine 0.62, troponin negative 1, total protein and albumin low at 6.2,3. UA reporting tricyclic antidepressants. Bladder scan reported 150, staff unable to straight cath secondary to patient has known his tory of significant urethral stricture requiring catheter placement as per urology. At bedside patient was able to answer simple yes and no questions at times, extremely hard of hearing. Earlier presented with mild expressive aphasia per daughter. 04/23/2022 no further shakiness, no seizure activity reported. Evaluated by neurology, workup in progress, labs/EEG pending. Brain CT suggested worsening acute on chronic bilateral maxillary and ethmoid sinus disease, asymptomatic clinically. Maintained on IV antibiotics. UA reported rare WBC,, 70 WBCs, large leukocytes, negative nitrates, culture , preliminary blood culture reported no growth after 24 hours . Wound dressing changed last night with no drainage reported. T-max 101.3, WBC 8.76. 04/24/2022 T-max 102.1. Urine culture reporting gram-negative bacilli, group D enterococcus, IV antibiotics adjusted to Zosyn. In the parts administrator hours developed atrial fibrillation with RVR with heart rates reported up into the 180s, audible gurgling with fluid overload-difficulty clearing secretions, with continuous nonproductive coughing, received additional metoprolol, Lasix. Labs pending. Chest x-ray pending. EEG reported as abnormal, across slowing suggestive of healed encephalopathy, no focal slowing,no elipeptiform discharge, no seizure activity. 04/25/2022 Yesterday throughout the day, ongoing A. fib with RVR, desaturating on supplemental O2-merely maintaining O2 sats of 90-91%, worsening renal function and soft blood pressure. oral amiodarone initiated yesterday afternoon. Rate better controlled this morning. Urine culture reporting pseudomonas aeruginosa and enterococcus faecalis, preliminary blood cultures reporting no growth. Maintained on Zosyn. T-max 99.5, WBC 17.5 . Hemoglobin 12.2, platelets 292 . Electrolytes within normal limits . BUN 45, creatinine 1.1. Much more alert. Sitting up in bed, conversing, smiling and eating. Maintaining O2 sats in the high 90s on room air. 04/26/2022 continues on Zosyn for UTI with pseudomonas aeruginosa/enterococcus faecalis.afebrile, WBC improved down to 12.7. Renal function stable .Sitting up in bed, consuming breakfast with assistance. Telemetry A. fib with heart rate controlled on amiodarone and metoprolol. Continues on nebulized bronchodilators . Maintaining O2 sats in the 90s on 2 L nasal cannula. Objective - Vital Signs Vital signs: Vital Signs Temp 98.6 F 04/26/22 12:15 Pulse 106 H 04/26/22 12:15 Resp 20 04/26/22 12:15 BP 95/54 04/26/22 12:15 Pulse Ox 94 L 04/26/22 12:15 FiO2 Intake & Output 09/29/22 09/30/22 09/30/22 18:59 06:59 18:59 Intake Total 690 Output Total 400 Balance -400 690 Intake: Oral 690 Output: Urine 400 Other: Voiding Method External Catheter External Catheter External Catheter # Bowel Movements 1 - Exam PHYSICAL EXAM: VITAL SIGNS: As above GENERAL: Sitting up in bed, no acute distress. Pleasantly Confused, alert and oriented 1.JENA. HEENT: Atraumatic, normocephalic , pupils round and equal ,Conjunctivae normal. NECK: No JVD. No thyroid enlargement. No LNs CARDIOVASCULAR: S1, S2 regular. Systolic murmur RESPIRATION: Breath sounds diminished in the bases. Fine Bibasilar crackles. ABDOMEN: Soft, nontender, nondistended . No guarding. no masses palpable. Possible Bowel sounds. Extremities: Bilateral Dupuytren's contractures, history of right hand surgery, Left tip of great toe, bilateral heel and left great toe dressings clean dry and intact, wearing offloading boots, trace edema. NERVOUS SYSTEM: Limited exam. Cranial N 2-12 grossly normal. Skin: Warm and dry, no rash. - Labs CBC & Chem 7: 04/26/22 07:07 04/26/22 07:07 Labs: Abnormal Lab Results - Last 24 Hours (Table) 04/26/22 04/26/22 Range/Units 07:07 07:07 WBC 12.79 H (4.50-10.00) X 10*3/uL RBC 3.50 L (4.40-5.60) X 10*6/uL Hgb 10.2 L (13.0-17.0) g/dL Hct 31.1 L (39.6-50.0) % Immature Gran # 0.05 H (0.00-0.04) X 10*3/uL Neutrophils # 10.22 H (1.80-7.70) X 10*3/uL Monocytes # 1.30 H (0.20-1.00) X 10*3/uL Eosinophils # 0.01 L (0.04-0.35) X 10*3/uL Anion Gap 9.80 L (10.00-18.00) mmol/L BUN 47.9 H (9.0-27.0) mg/dL BUN/Creatinine Ratio 59.88 H (12.00-20.00) Ratio Microbiology - Last 24 Hours (Table) 04/22/22 08:22 Blood Culture - Preliminary Blood No Growth after 96 hours 04/22/22 16:54 Blood Culture - Preliminary Blood No Growth after 72 hours Assessment and Plan Assessment: Acute metabolic encephalopathy secondary to suspected acute on chronic UTI related to urinary retention, in a patient with history of ESBL, prostate cancer with radiation seeds , urinary retention. Acute UTI with pseudomonas aeruginosa, enterococcus faecalis Acute on chronic paroxysmal A. fib with RVR , follows with regional sales director, Dr. Mcbride Possible acute seizure activity, per AFC report , no further seizure activity reported; suspect symptoms secondary to possibly hypoglycemic episode though blood sugar normal on admission, possible secondary to infection, UTI, possibly orthostatic hypotension. No seizure activity reported per EEG. Recently discharged on 03/04/2022 with sepsis secondary to bacterial prostatitis with suspected acute UTI, urine and blood cultures that time failed to report any growth, despite fevers, elevated WBC and pro-calcitonin. History of Urinary retention secondary to urethral stricture lending to difficult catheter insertion/coude', history of cystoscopy with urethral dilations with , Urology. Status post dilation and placement of 12- Latvian coud tip catheter per urology on prior admission with Deutsch catheter discontinued 03/04/2022. Bilateral heel -stage II and left great toe ulcers, nonpressure-unstageable ,present on admission; upon discharge-patient had sustained bilateral heel & left great toe blisters that later transitioned to wounds. Debrided at wound care center on 04/18/22. (Offloading boots with heels to be floating at all times) Hypoalbuminemia Chronic renal failure, stage II, secondary to chronic urinary retention Chronic anemia secondary to the above Chronic mild persistent bronchial asthma, stable History of high right frontal meningioma , suspected CVA, no residuals. 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 Underlying dementia, advanced JENA Plan: Continue on current medication regime ,monitoring and symptomatic treatment.Continue on amiodarone, Lopressor. Aggressive pulmonary toileting with nebulized bronchodilators. Maintain IV antibiotics as per ID .Maintain amiodarone, Lopressor. Wound care as previously directed per wound care team. Turn every 2hrs. assist feed with aspiration precautions.Close monitoring of renal function with repeat labs ordered for a.m. Prognosis guarded given multiple complex medical issues. The impression and plan of care has been dictated as directed. : I performed a history and examination of this patient, discussed the same with the dictator. I agree with the dictator's note ,documented as a scribe. Any additional findings or plans will be noted.
--- NOTE | 2022-04-26 13:32 | P.PN ---
Subjective Progress Note Date: 04/24/22 Principal diagnosis: Urinary tract infection Patient is 89 year old male with a past medical history significant for recurrent urinary tract infection presented to hospital with mental status changes fever concerning for UTI. On today's evaluation that is 04/24/2022, the patient did spike a fever only this morning of 102.1F, the patient is afebrile since then the patient seemed to be slightly more awake and alert he is breathing comfortably no vomiting diarrhea or any other changes were reported by the nursing staff Objective - Vital Signs Vital signs: Vital Signs Temp 98.1 F 04/24/22 11:15 Pulse 96 04/24/22 11:27 Resp 16 04/24/22 11:15 BP 95/59 04/24/22 11:15 Pulse Ox 94 L 04/24/22 11:15 FiO2 Intake & Output 04/23/22 04/24/22 04/24/22 18:59 06:59 18:59 Intake Total 290 Output Total 900 Balance 290 -900 Weight 58.967 kg Intake: Intake, IV Titration 50 Amount cefTRIAXone 1 gm In 50 Sodium Chloride 0.9% 50 ml @ 100 mls/hr IVPB ONCE STA Rx#:[id number] Oral 240 Output: Urine 900 Other: Voiding Method External Catheter External Catheter # Bowel Movements 1 - Exam GENERAL DESCRIPTION: An elderly male lying in bed in no distress RESPIRATORY SYSTEM: Unlabored breathing , decreased breath sounds at bases HEART: S1 S2 regular rate and rhythm , ABDOMEN: Soft , no tenderness EXTREMITIES: No edema feet - Labs CBC & Chem 7: 04/26/22 07:07 04/26/22 07:07 Labs: Abnormal Lab Results - Last 24 Hours (Table) 04/24/22 Range/Units 10:17 Sodium 134 L (137-145) mmol/L Chloride 96 L (98-107) mmol/L BUN 28 H (9-20) mg/dL Glucose 162 H (74-99) mg/dL Microbiology - Last 24 Hours (Table) 04/22/22 08:22 Blood Culture - Preliminary Blood No Growth after 48 hours 04/22/22 08:19 Urine Culture - Preliminary Urine,Clean Catch Gram Neg Bacilli Group D Enterococcus 04/22/22 16:54 Blood Culture - Preliminary Blood No Growth after 24 hours Assessment and Plan (1) UTI (urinary tract infection) Current Visit: No Status: Acute Code(s): N39.0 - URINARY TRACT INFECTION, SITE NOT SPECIFIED SNOMED Code(s): 73749195 Plan: 1patient presented to hospital mental status changes likely multifactorial in this patient with a history of recurrent UTI with a positive UA likely urinary source patient seem to have grown multiple different pathogen in his urine culture currently growing enterococcus and gram-negative bacilli patient antibiotic was switched over to last night to Zosyn which will be continued while waiting for the cultures to be finalize Time with Patient: Less than 30
--- NOTE | 2022-04-26 13:34 | P.PN ---
Subjective Progress Note Date: 04/25/22 Principal diagnosis: Urinary tract infection Patient is 89 year old male with a past medical history significant for recurrent urinary tract infection presented to hospital with mental status changes fever concerning for UTI. On today's evaluation that is 04/25/2022, the patient has been afebrile with no fever or the last 24 hours the patient slightly more awake and alert, the patient is breathing comfortably no chest pain or cough no abdominal pain or diarrhea Objective - Vital Signs Vital signs: Vital Signs Temp 97.8 F 04/25/22 11:11 Pulse 82 04/25/22 11:32 Resp 18 04/25/22 11:11 BP 102/66 04/25/22 11:11 Pulse Ox 98 04/25/22 11:11 FiO2 Intake & Output 04/24/22 04/25/22 04/25/22 18:59 06:59 18:59 Intake Total 540 240 Output Total 900 200 Balance -360 40 Intake: Intake, IV Titration 300 Amount Magnesium Sulfate-D5w Pmx 100 1 gm In Dextrose/Water 1 100ml.bag @ 100 mls/hr IVPB ONCE ONE Rx#: [id number] Piperacillin-Tazobactam 3 200 .375 gm In Sodium Chloride 0.9% 100 ml @ 25 mls/hr IVPB Q8HR DANIEL Rx# :[id number] Oral 240 240 Output: Urine 900 200 Other: Voiding Method External Catheter External Catheter External Catheter # Bowel Movements 1 1 - Exam GENERAL DESCRIPTION: An elderly male lying in bed in no distress RESPIRATORY SYSTEM: Unlabored breathing , decreased breath sounds at bases HEART: S1 S2 regular rate and rhythm , ABDOMEN: Soft , no tenderness EXTREMITIES: No edema feet - Labs CBC & Chem 7: 04/26/22 07:07 04/26/22 07:07 Labs: Abnormal Lab Results - Last 24 Hours (Table) 04/25/22 04/25/22 Range/Units 05:56 05:56 WBC 17.56 H (4.50-10.00) X 10*3/uL RBC 4.11 L (4.40-5.60) X 10*6/uL Hgb 12.2 L (13.0-17.0) g/dL Hct 36.0 L (39.6-50.0) % Immature Gran # 0.08 H (0.00-0.04) X 10*3/uL Neutrophils # 14.95 H (1.80-7.70) X 10*3/uL Monocytes # 1.54 H (0.20-1.00) X 10*3/uL Eosinophils # 0 L (0.04-0.35) X 10*3/uL BUN 45.0 H (9.0-27.0) mg/dL Est GFR (CKD-EPI)NonAf 57.3 L (60.0-200.0) BUN/Creatinine Ratio 39.82 H (12.00-20.00) Ratio Glucose 174 H (70-110) mg/dL Magnesium 2.5 H (1.5-2.4) mg/dL Microbiology - Last 24 Hours (Table) 04/22/22 08:22 Blood Culture - Preliminary Blood No Growth after 72 hours 04/22/22 08:19 Urine Culture - Final Urine,Clean Catch Pseudomonas aeruginosa Enterococcus faecalis 04/22/22 16:54 Blood Culture - Preliminary Blood No Growth after 48 hours Assessment and Plan (1) UTI (urinary tract infection) Current Visit: No Status: Acute Code(s): N39.0 - URINARY TRACT INFECTION, SITE NOT SPECIFIED SNOMED Code(s): 73746149 Plan: 1patient presented to hospital mental status changes likely multifactorial in this patient with a history of recurrent UTI with a positive UA likely urinary source patient seem to have grown multiple different pathogen in his urine culture currently growing enterococcus and pseudomonas aeruginosa and both pathogen will be covered with the Zosyn and Invanz was discontinued and this was explained to the patient and the questions concerned were answered Time with Patient: Less than 30
--- NOTE | 2022-04-26 13:35 | P.PN ---
Subjective Progress Note Date: 04/26/22 Principal diagnosis: Urinary tract infection Patient is 89 year old male with a past medical history significant for recurrent urinary tract infection presented to hospital with mental status changes fever concerning for UTI. On today's evaluation that is 04/26/2022, the patient remains to be afebrile, the patient is more awake and alert and sitting up in the chair, the patient is breathing comfortably, the patient denies chest pain or cough no abdominal pain or diarrhea Objective - Vital Signs Vital signs: Vital Signs Temp 98.5 F 04/26/22 05:00 Pulse 84 04/26/22 09:44 Resp 16 04/25/22 17:50 BP 92/54 04/26/22 09:44 Pulse Ox 91 L 04/26/22 05:00 FiO2 Intake & Output 04/25/22 04/26/22 04/26/22 18:59 06:59 18:59 Intake Total 690 Output Total 400 Balance -400 690 Intake: Oral 690 Output: Urine 400 Other: Voiding Method External Catheter External Catheter # Bowel Movements 1 - Exam GENERAL DESCRIPTION: An elderly male lying in bed in no distress RESPIRATORY SYSTEM: Unlabored breathing , decreased breath sounds at bases HEART: S1 S2 regular rate and rhythm , ABDOMEN: Soft , no tenderness EXTREMITIES: No edema feet - Labs CBC & Chem 7: 04/26/22 07:07 04/26/22 07:07 Labs: Abnormal Lab Results - Last 24 Hours (Table) 04/25/22 04/26/22 04/26/22 Range/Units 05:56 07:07 07:07 WBC 12.79 H (4.50-10.00) X 10*3/uL RBC 3.50 L (4.40-5.60) X 10*6/uL Hgb 10.2 L (13.0-17.0) g/dL Hct 31.1 L (39.6-50.0) % Immature Gran # 0.08 H 0.05 H (0.00-0.04) X 10*3/uL Neutrophils # 14.95 H 10.22 H (1.80-7.70) X 10*3/uL Monocytes # 1.54 H 1.30 H (0.20-1.00) X 10*3/uL Eosinophils # 0 L 0.01 L (0.04-0.35) X 10*3/uL Anion Gap 9.80 L (10.00-18.00) mmol/L BUN 47.9 H (9.0-27.0) mg/dL BUN/Creatinine Ratio 59.88 H (12.00-20.00) Ratio Microbiology - Last 24 Hours (Table) 04/22/22 08:22 Blood Culture - Preliminary Blood No Growth after 96 hours 04/22/22 16:54 Blood Culture - Preliminary Blood No Growth after 72 hours Assessment and Plan (1) UTI (urinary tract infection) Current Visit: No Status: Acute Code(s): N39.0 - URINARY TRACT INFECTION, SITE NOT SPECIFIED SNOMED Code(s): 73843769 Plan: 1patient presented to hospital mental status changes likely multifactorial in this patient with a history of recurrent UTI with a positive UA likely urinary source patient seem to have grown multiple different pathogen in his urine culture currently growing enterococcus and pseudomonas aeruginosa and both pathogen will be covered with the Zosyn which will be continued while inpatient however the patient will be able to finish therapy with oral Cipro and amoxicillin 7 days on discharge Time with Patient: Less than 30
[2022-04-26] MEDS: QUEtiapine 25 MG TAB PO SCH (17:17)
[2022-04-26] MEDS: FOLIC ACID 1 MG TAB PO SCH (17:17)
[2022-04-26] MEDS: PRAVASTATIN SODIUM 40 MG TAB PO SCH (22:23)
[2022-04-26] MEDS: MIRTAZAPINE 15 MG TAB PO SCH (22:23)
[2022-04-27] MEDS: BUDESONIDE 0.5 MG/2 ML NEBU INHALATION SCH ×2 (07:27→19:31)
[2022-04-27] MEDS: IPRATROPIUM-ALBUTEROL 3 ML NEB INHALATION SCH (07:27)
[2022-04-27] MEDS: TAMSULOSIN 0.4 MG CAP.ER.24H PO SCH (09:10)
[2022-04-27] MEDS: DONEPEZIL 10 MG TAB PO SCH (09:10)
[2022-04-27] MEDS: AMIODARONE 200 MG TAB PO SCH ×2 (09:10→21:27)
[2022-04-27] MEDS: PIPERACILLIN-TAZOBACTAM 3.375 GM in SODIUM CHLORIDE 0.9% 100 ML IVPB SCH ×2 (09:10→17:54)
[2022-04-27] MEDS: CYANOCOBALAMIN 500 MCG TAB PO SCH (09:10)
[2022-04-27] MEDS: ZINC SULFATE 220 MG CAP PO SCH (09:10)
[2022-04-27] MEDS: MAGNESIUM OXIDE 400 MG TAB PO SCH (09:11)
[2022-04-27] MEDS: PANTOPRAZOLE 40 MG/10 ML VIAL IVP SCH (09:11)
[2022-04-27] MEDS: APIXABAN 2.5 MG TABLET PO SCH ×2 (09:11→17:54)
[2022-04-27] MEDS: METOPROLOL TARTRATE 25 MG TAB PO SCH ×3 (09:11→21:27)
[2022-04-27] MEDS: ASCORBIC ACID 500 MG TAB PO SCH ×2 (09:11→17:54)
[2022-04-27] MEDS: COLLAGENASE 250 UNIT/GM OINTMENT 30 GM TUBE TOPICAL SCH (09:15)
--- NOTE | 2022-04-27 10:34 | P.PN ---
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 He was diagnosed with acute metabolic encephalopathy secondary to UTI. Patient was seen and examined. He reports feeling fair. He denies any abdominal pain or dysuria. No nausea or vomiting. No fever or chills. States that he is hungry, requesting banana, does not remember if he ate breakfast. General: non toxic, no distress, appears at stated age Derm: warm, dry Head: atraumatic, normocephalic, symmetric Eyes: EOMI, no lid lag, anicteric sclera Mouth: no lip lesion, mucus membranes moist Cardiovascular: Irregularly irregular, no murmur Lungs: CTA bilateral, no rhonchi, no rales , no accessory muscle use Ext: no gross muscle atrophy, 1+ pitting edema bilateral lower extremity edema, no contractures Neuro: no focal neuro deficits Psych: Alert, oriented, appropriate affect #Acute metabolic encephalopathy #Urinary tract infection Risk factors include history of prostate cancer with radiation, urinary retention due to urethral stricture. B12 and Folate within normal limits. EEG shows mild encephalopathy without epileptiform discharge. Brain CT negative for acute CVA. Urine culture positive for Enterococcus faecalis and pseudomonas. Blood culture negative at 96 hours. Leukocytosis improving. Patient be continued on Zosyn. Tylenol as needed for fever. Infectious disease, neurology and urology on board . #Atrial fibrillation with RVR Echocardiogram from February 2022 shows EF of 50-55%. Continue amiodarone and metoprolol. Continue Eliquis for anticoagulation. Maintain K > 4 and Mg > 2. Telemetry monitoring. Cardiology on board. #Prerenal azotemia Patient encouraged hydration by mouth. Avoid nephrotoxins. Repeat BMP tomorrow morning. #Normocytic anemia Appears at baseline. No active signs of bleeding. Continue to monitor. #Subclinical hyperthyroidism Repeat TSH and FT4 in 6 weeks. Resolved: Acute hypoxic respiratory failure, discontinue scheduled DuoNeb Chronic conditions: Asthma, rheumatoid arthritis, history of prostate cancer, history of CVA Objective - Vital Signs Vital signs: Vital Signs Temp 98.1 F 04/27/22 05:00 Pulse 74 04/27/22 07:45 Resp 12 04/27/22 05:00 BP 101/57 04/27/22 05:00 Pulse Ox 93 L 04/27/22 07:30 FiO2 Intake & Output 04/26/22 04/27/22 04/27/22 18:59 06:59 18:59 Output Total 1050 400 Balance -1050 -400 Weight 58.967 kg Output: Urine 1050 400 Other: Voiding Method External Catheter External Catheter External Catheter # Bowel Movements 1 - Labs CBC & Chem 7: 04/26/22 07:07 04/26/22 07:07 Labs: Abnormal Lab Results - Last 24 Hours (Table) 04/26/22 Range/Units 07:07 Anion Gap 9.80 L (10.00-18.00) mmol/L BUN 47.9 H (9.0-27.0) mg/dL BUN/Creatinine Ratio 59.88 H (12.00-20.00) Ratio Microbiology - Last 24 Hours (Table) 04/22/22 08:22 Blood Culture - Preliminary Blood No Growth after 120 hours 04/22/22 16:54 Blood Culture - Preliminary Blood No Growth after 96 hours
[2022-04-27] MEDS: IPRATROPIUM-ALBUTEROL 3 ML NEB INHALATION PRN ×2 (11:09→19:32)
[2022-04-27] MEDS: QUEtiapine 25 MG TAB PO SCH (17:54)
[2022-04-27] MEDS: FOLIC ACID 1 MG TAB PO SCH (17:54)
[2022-04-27] MEDS: MIRTAZAPINE 15 MG TAB PO SCH (21:27)
[2022-04-27] MEDS: PRAVASTATIN SODIUM 40 MG TAB PO SCH (21:27)
[2022-04-28] MEDS: PIPERACILLIN-TAZOBACTAM 3.375 GM in SODIUM CHLORIDE 0.9% 100 ML IVPB SCH ×4 (00:24→23:42)
[2022-04-28] MEDS: BUDESONIDE 0.5 MG/2 ML NEBU INHALATION SCH ×2 (07:12→19:37)
[2022-04-28] MEDS: IPRATROPIUM-ALBUTEROL 3 ML NEB INHALATION PRN ×2 (07:12→19:37)
[2022-04-28] MEDS: PANTOPRAZOLE 40 MG/10 ML VIAL IVP SCH (09:27)
[2022-04-28] MEDS: ZINC SULFATE 220 MG CAP PO SCH (09:27)
[2022-04-28] MEDS: AMIODARONE 200 MG TAB PO SCH ×2 (09:27→21:18)
[2022-04-28] MEDS: MAGNESIUM OXIDE 400 MG TAB PO SCH (09:28)
[2022-04-28] MEDS: CYANOCOBALAMIN 500 MCG TAB PO SCH (09:28)
[2022-04-28] MEDS: DONEPEZIL 10 MG TAB PO SCH (09:28)
[2022-04-28] MEDS: TAMSULOSIN 0.4 MG CAP.ER.24H PO SCH (09:28)
[2022-04-28] MEDS: ASCORBIC ACID 500 MG TAB PO SCH ×2 (09:28→17:45)
[2022-04-28] MEDS: METOPROLOL TARTRATE 25 MG TAB PO SCH ×3 (09:28→21:18)
[2022-04-28] MEDS: APIXABAN 2.5 MG TABLET PO SCH ×2 (09:28→17:45)
[2022-04-28] MEDS: COLLAGENASE 250 UNIT/GM OINTMENT 30 GM TUBE TOPICAL SCH (09:29)
--- NOTE | 2022-04-28 11:30 | P.PN ---
Subjective Progress Note Date: 04/28/22 Patient is a 86-year-old male with PMH of paroxysmal atrial fibrillation, asthma, rheumatoid arthritis, history of prostate cancer status post radiation with recurrent UTIs secondary to urinary retention and urethral stricture, history of CVA that presented to the ED from his [facility] for generalized weakness, appearing pale, uncontrollable shakiness and shortness of breath. He was diagnosed with acute metabolic encephalopathy secondary to UTI. Patient was seen and examined. He reports feeling better today. He denies any abdominal pain or dysuria. No nausea or vomiting. No fever or chills. General: non toxic, no distress, appears at stated age Derm: warm, dry Head: atraumatic, normocephalic, symmetric Eyes: EOMI, no lid lag, anicteric sclera Mouth: no lip lesion, mucus membranes moist Cardiovascular: Irregularly irregular, no murmur Lungs: CTA bilateral, no rhonchi, no rales , no accessory muscle use Ext: no gross muscle atrophy, 1+ pitting edema bilateral lower extremity edema, no contractures Neuro: no focal neuro deficits Psych: Alert, oriented, appropriate affect #Acute metabolic encephalopathy #Urinary tract infection Risk factors include history of prostate cancer with radiation, urinary retention due to urethral stricture. B12 and Folate within normal limits. EEG shows mild encephalopathy without epileptiform discharge. Brain CT negative for acute CVA. Urine culture positive for Enterococcus faecalis and pseudomonas. Blood culture negative at 144 hours. Leukocytosis improving. Patient be continued on Zosyn. Tylenol as needed for fever. Infectious disease, neurology and urology on board. #Atrial fibrillation with RVR Echocardiogram from February 2022 shows EF of 50-55%. Continue amiodarone and metoprolol. Continue Eliquis for anticoagulation. Maintain K > 4 and Mg > 2. Telemetry monitoring. Cardiology on board. #Prerenal azotemia Patient encouraged hydration by mouth. Avoid nephrotoxins. Repeat BMP tomorrow morning. #Normocytic anemia Appears at baseline. No active signs of bleeding. Continue to monitor. #Subclinical hyperthyroidism Repeat TSH and FT4 in 6 weeks. Resolved: Acute hypoxic respiratory failure, discontinue scheduled DuoNeb Chronic conditions: Asthma, rheumatoid arthritis, history of prostate cancer, history of CVA Objective - Vital Signs Vital signs: Vital Signs Temp 98.9 F 04/28/22 04:05 Pulse 67 04/28/22 11:26 Resp 15 04/28/22 04:05 BP 136/66 04/28/22 11:26 Pulse Ox 95 04/28/22 07:15 FiO2 21 04/27/22 19:33 Intake & Output 04/27/22 04/28/22 04/28/22 18:59 06:59 18:59 Output Total 750 1150 Balance -750 -1150 Output: Urine 750 1150 Other: Voiding Method External Catheter External Catheter # Bowel Movements 2 - Labs CBC & Chem 7: 04/26/22 07:07 04/26/22 07:07 Labs: Microbiology - Last 24 Hours (Table) 04/22/22 08:22 Blood Culture - Final Blood No Growth after 144 hours 04/22/22 16:54 Blood Culture - Preliminary Blood No Growth after 120 hours
[2022-04-28] MEDS: QUEtiapine 25 MG TAB PO SCH (17:45)
[2022-04-28] MEDS: FOLIC ACID 1 MG TAB PO SCH (17:45)
[2022-04-28] MEDS: PRAVASTATIN SODIUM 40 MG TAB PO SCH (21:18)
[2022-04-28] MEDS: MIRTAZAPINE 15 MG TAB PO SCH (21:18)
[2022-04-28 21:21] VITALS: RESP 16
--- NOTE | 2022-04-28 23:47 | P.PN ---
Subjective Progress Note Date: 04/27/22 Principal diagnosis: Urinary tract infection Patient is 89 year old male with a past medical history significant for recurrent urinary tract infection presented to hospital with mental status changes fever concerning for UTI. On today's evaluation that is 04/27/2022, the patient continues to be afebrile the patient is breathing comfortably on room air denies any chest pain shortness of breath or cough no abdominal pain no diarrhea Objective - Vital Signs Vital signs: Vital Signs Temp 98.1 F 04/27/22 05:00 Pulse 74 04/27/22 07:45 Resp 12 04/27/22 05:00 BP 101/57 04/27/22 05:00 Pulse Ox 93 L 04/27/22 07:30 FiO2 Intake & Output 04/26/22 04/27/22 04/27/22 18:59 06:59 18:59 Output Total 1050 400 Balance -1050 -400 Weight 58.967 kg Output: Urine 1050 400 Other: Voiding Method External Catheter External Catheter # Bowel Movements 1 - Exam GENERAL DESCRIPTION: An elderly male lying in bed in no distress RESPIRATORY SYSTEM: Unlabored breathing , decreased breath sounds at bases HEART: S1 S2 regular rate and rhythm , ABDOMEN: Soft , no tenderness EXTREMITIES: No edema feet - Labs CBC & Chem 7: 04/26/22 07:07 04/26/22 07:07 Labs: Abnormal Lab Results - Last 24 Hours (Table) 04/26/22 04/26/22 Range/Units 07:07 07:07 WBC 12.79 H (4.50-10.00) X 10*3/uL RBC 3.50 L (4.40-5.60) X 10*6/uL Hgb 10.2 L (13.0-17.0) g/dL Hct 31.1 L (39.6-50.0) % Immature Gran # 0.05 H (0.00-0.04) X 10*3/uL Neutrophils # 10.22 H (1.80-7.70) X 10*3/uL Monocytes # 1.30 H (0.20-1.00) X 10*3/uL Eosinophils # 0.01 L (0.04-0.35) X 10*3/uL Anion Gap 9.80 L (10.00-18.00) mmol/L BUN 47.9 H (9.0-27.0) mg/dL BUN/Creatinine Ratio 59.88 H (12.00-20.00) Ratio Microbiology - Last 24 Hours (Table) 04/22/22 16:54 Blood Culture - Preliminary Blood No Growth after 96 hours 04/22/22 08:22 Blood Culture - Preliminary Blood No Growth after 96 hours Assessment and Plan (1) UTI (urinary tract infection) Current Visit: No Status: Acute Code(s): N39.0 - URINARY TRACT INFECTION, SITE NOT SPECIFIED SNOMED Code(s): 20185637 Plan: 1patient presented to hospital mental status changes likely multifactorial in this patient with a history of recurrent UTI with a positive UA likely urinary source patient seem to have grown multiple different pathogen in his urine cultu re currently growing enterococcus and pseudomonas aeruginosa and both pathogen will be covered with the Zosyn 2-Patient seem to have shown clinical improvement to continue with the Zosyn, the patient will be able to finish therapy with oral Cipro and amoxicillin 7 days on discharge Time with Patient: Less than 30
--- NOTE | 2022-04-28 23:48 | P.PN ---
Subjective Progress Note Date: 04/28/22 Principal diagnosis: Urinary tract infection Patient is 89 year old male with a past medical history significant for recurrent urinary tract infection presented to hospital with mental status changes fever concerning for UTI. On today's evaluation that is 04/28/2022 patient remains to be afebrile, the patient is breathing comfortably will be the patient denies having any chest pain shortness with or cough no nausea vomiting no abdominal pain no diarrhea Objective - Vital Signs Vital signs: Vital Signs Temp 98.6 F 04/28/22 11:38 Pulse 65 04/28/22 11:38 Resp 18 04/28/22 11:38 BP 136/53 04/28/22 11:38 Pulse Ox 98 04/28/22 11:38 FiO2 21 04/27/22 19:33 Intake & Output 04/27/22 04/28/22 04/28/22 18:59 06:59 18:59 Output Total 750 1150 Balance -750 -1150 Output: Urine 750 1150 Other: Voiding Method External Catheter External Catheter External Catheter # Bowel Movements 2 - Exam GENERAL DESCRIPTION: An elderly male lying in bed in no distress RESPIRATORY SYSTEM: Unlabored breathing , decreased breath sounds at bases HEART: S1 S2 regular rate and rhythm , ABDOMEN: Soft , no tenderness EXTREMITIES: No edema feet - Labs CBC & Chem 7: 04/26/22 07:07 04/26/22 07:07 Labs: Microbiology - Last 24 Hours (Table) 04/22/22 08:22 Blood Culture - Final Blood No Growth after 144 hours 04/22/22 16:54 Blood Culture - Preliminary Blood No Growth after 120 hours Assessment and Plan (1) UTI (urinary tract infection) Current Visit: No Status: Acute Code(s): N39.0 - URINARY TRACT INFECTION, SITE NOT SPECIFIED SNOMED Code(s): 85028028 Plan: 1patient presented to hospital mental status changes likely multifactorial in this patient with a history of recurrent UTI with a positive UA likely urinary source patient seem to have grown multiple different pathogen in his urine culture currently growing enterococcus and pseudomonas aeruginosa and both pathogen will be covered with the Zosyn 2-Patient is clinically improved with the Zosyn, the patient to finish therapy with oral Cipro and amoxicillin 7 days on discharge Time with Patient: Less than 30
[2022-04-29] MEDS: BUDESONIDE 0.5 MG/2 ML NEBU INHALATION SCH (07:26)
[2022-04-29] MEDS: IPRATROPIUM-ALBUTEROL 3 ML NEB INHALATION PRN (07:26)
[2022-04-29] MEDS: PIPERACILLIN-TAZOBACTAM 3.375 GM in SODIUM CHLORIDE 0.9% 100 ML IVPB SCH (08:22)
[2022-04-29] MEDS: PANTOPRAZOLE 40 MG/10 ML VIAL IVP SCH (08:22)
[2022-04-29] MEDS: AMIODARONE 200 MG TAB PO SCH (08:23)
[2022-04-29] MEDS: APIXABAN 2.5 MG TABLET PO SCH (08:23)
[2022-04-29] MEDS: ZINC SULFATE 220 MG CAP PO SCH (08:23)
[2022-04-29] MEDS: MAGNESIUM OXIDE 400 MG TAB PO SCH (08:23)
[2022-04-29] MEDS: DONEPEZIL 10 MG TAB PO SCH (08:23)
[2022-04-29] MEDS: TAMSULOSIN 0.4 MG CAP.ER.24H PO SCH (08:23)
[2022-04-29] MEDS: CYANOCOBALAMIN 500 MCG TAB PO SCH (08:23)
[2022-04-29] MEDS: ASCORBIC ACID 500 MG TAB PO SCH (08:23)
[2022-04-29] MEDS: METOPROLOL TARTRATE 25 MG TAB PO SCH (08:23)
[2022-04-29] MEDS: COLLAGENASE 250 UNIT/GM OINTMENT 30 GM TUBE TOPICAL SCH (08:33)
--- NOTE | 2022-04-29 11:47 | P.DS ---
Providers Date of admission: 04/23/22 14:12 Expected date of discharge: 04/29/22 Attending physician: Silvestre Ames MD Consults: 04/22/22 10:33 Consult Physician Routine Consulting Provider: Naeem France Consult Reason/Comments: stricture, urinary retention, hx of ESBL,coude placement cath.,ua with cx Do you want consulting provider notified?: Yes 04/22/22 14:56 Consult Physician Routine Consulting Provider: Champ Casarez Consult Reason/Comments: poss. seizure activity Do you want consulting provider notified?: Yes 04/23/22 10:34 Consult Physician Routine Consulting Provider: Avery Harley Consult Reason/Comments: uti, hx of ESBL Do you want consulting provider notified?: Yes 04/24/22 11:54 Consult Physician Routine Consulting Provider: John Sawyer Consult Reason/Comments: Hypoxia, COPD/Asthma Do you want consulting provider notified?: Yes Primary care physician: Alley Wade Hospital Course: Final Diagnoses: Acute metabolic encephalopathy secondary to suspected acute on chronic UTI related to urinary retention, in a patient with history of ESBL, prostate cancer with radiation seeds , urinary retention. Acute UTI with pseudomonas aeruginosa, enterococcus faecalis Acute on chronic paroxysmal A. fib with RVR , follows with cloth colors examiner, Dr. Mcbride Possible acute seizure activity, per AFC report , no further seizure activity reported; suspect symptoms secondary to possibly hypoglycemic episode though blood sugar normal on admission, possible secondary to infection, UTI, possibly orthostatic hypotension. No seizure activity reported per EEG. Recently discharged on 03/04/2022 with sepsis secondary to bacterial prostatitis with suspected acute UTI, urine and blood cultures that time failed to report any growth, despite fevers, elevated WBC and pro-calcitonin. History of Urinary retention secondary to urethral stricture lending to difficult catheter insertion/coude', history of cystoscopy with urethral dilations with , Urology. Status post dilation and placement of 12- Bulgarian coud tip catheter per urology on prior admission with Deutsch catheter discontinued 03/04/2022. Bilateral heel -stage II and left great toe ulcers, nonpressure-unstageable ,present on admission; upon discharge-patient had sustained bilateral heel & left great toe blisters that later transitioned to wounds. Debrided at wound care center on 04/18/22. (Offloading boots with heels to be floating at all times) Hypoalbuminemia Chronic renal failure, stage II, secondary to chronic urinary retention Chronic anemia secondary to the above Chronic mild persistent bronchial asthma, stable History of high right frontal meningioma , suspected CVA, no residuals. History of rheumatoid arthritis, treated in the past, not on immunosuppressants History of lumbar degenerative disc disease, spinal stenosis, L5 spondylosis, facet arthropathy, L3-4 laminectomy Risk secondary to increased medical debility, increased weakness ( 2 person assist), dementia in a patient with prior HX of Gait dysfunction, bilateral foot drop-greatest in the right. Underlying dementia, advanced [place] Subclinical hyperthyroidism, TSH 0.051, free T4 1 0.26; with repeat TSH and free T4 in 6 weeks This is a 86-year-old gentleman with known history of paroxysmal atrial fibrillation, follows with Dr. Mcbride cloth colors examiner, asthma, rheumatoid arthritis, history of prostate cancer status post radiation seeds, recurrent UTIs secondary to urinary retention related to urethral stricture lending to difficult catheter insertion/coude', history of cystoscopy with urethral dilations with , Urology, history of CVA with no residuals and multiple other medical issues sent to the ER from [facility]. Staff reports that upon getting patient up in his [place] chair this morning before while down for breakfast, patient became pale ,developed uncontrollable shakes, accompanied by drooling, and proceeded to lean to the right into the staff member, developing increased shortness of breath. Did not lose consciousness. No nausea vomiting or diarrhea. Prior to procedure patient had been talking, post procedure patient not conversing. Shakiness resolved prior to EMS arrival. No syncope. Further EMS records currently unavailable. Glucose on admission 110. EKG reporting sinus bradycardia, ventricular rate 57, brain CT no acute intracranial hemorrhage or midline shift, mild to moderate diffuse atrial agent cerebral atrophy and moderate to severe chronic small vessel ischemic changes redemonstrated and felt stable, worsening acute on chronic bilateral maxillary and ethmoid sinus disease. Chest x-ray reported chronic emphysematous changes without acute pulmonary process, no significant change from prior. Afebrile, WBC 8.4, hemoglobin 11.2, platelets 290, INR 1, sodium 137, potassium 4.2, bicarb 25, BUN 29, creatinine 0.62, troponin negative 1, total protein and albumin low at 6.2,3. UA reporting tricyclic antidepressants. Bladder scan reported 150, staff unable to straight cath secondary to patient has known history of significant urethral stricture requiring catheter placement as per urology. At bedside patient was able to answer simple yes and no questions at times, extremely hard of hearing. Earlier presented with mild expressive aphasia per daughter. 04/23/2022 no further shakiness, no seizure activity reported. Evaluated by neurology, workup in progress, labs/EEG pending. Brain CT suggested worsening acute on chronic bilateral maxillary and ethmoid sinus disease, asymptomatic clinically. Maintained on IV antibiotics. UA reported rare WBC,, 70 WBCs, large leukocytes, negative nitrates, culture , preliminary blood culture reported no growth after 24 hours . Wound dressing changed last night with no drainage reported. T-max 101.3, WBC 8.76. 04/24/2022 T-max 102.1. Urine culture reporting gram-negative bacilli, group D enterococcus, IV antibiotics adjusted to Zosyn. In the supervisor pumping station hours developed atrial fibrillation with RVR with heart rates reported up into the 180s, audible gurgling with fluid overload-difficulty clearing secretions, with continuous nonproductive coughing, received additional metoprolol, Lasix. Labs pending. Chest x-ray pending. EEG reported as abnormal, across slowing suggestive of healed encephalopathy, no focal slowing,no elipeptiform discharge, no seizure activity. 04/25/2022 Yesterday throughout the day, ongoing A. fib with RVR, desaturating on supplemental O2-merely maintaining O2 sats of 90-91%, worsening renal function and soft blood pressure. oral amiodarone initiated yesterday afternoon. Rate better controlled this morning. Urine culture reporting pseudomonas aeruginosa and enterococcus faecalis, preliminary blood cultures reporting no growth. Maintained on Zosyn. T-max 99.5, WBC 17.5 . Hemoglobin 12.2, platelets 292 . Electrolytes within normal limits . BUN 45, creatinine 1.1. Much more alert. Sitting up in bed, conversing, smiling and eating. Maintaining O2 sats in the high 90s on room air. 04/26/2022 continues on Zosyn for UTI with pseudomonas aeruginosa/enterococcus faecalis.afebrile, WBC improved down to 12.7. Renal function stable .Sitting up in bed, consuming breakfast with assistance. Telemetry A. fib with heart rate controlled on amiodarone and metoprolol. Continues on nebulized bronchodilators. Maintaining O2 sats in the 90s on 2 L nasal cannula. Significant clinical improvement. Converted to sinus rhythm during the weekend. Maintained on IV Zosyn and will finish therapy with both Cipro and amoxicillin 7 days .Denies chest pain, palpitations or shortness of breath. No nausea, vomiting or abdominal pain. No diarrhea. Last bowel movement this morning. Patient will be just to discharged back to [facility] with [facility] ,today in a stable condition with guarded prognosis. The impression and plan of care has been dictated as directed. : I performed a history and examination of this patient, discussed the same with the dictator. I agree with the dictator's note ,documented as a scribe. Any additional findings or plans will be noted. Patient Condition at Discharge: Stable Plan - Discharge Summary Discharge Rx Participant: Yes New Discharge Prescriptions: New Amoxicillin 500 mg PO TID 7 Days #21 capsule Ciprofloxacin HCl [Cipro] 500 mg PO BID 7 Days #14 tab Amiodarone [Cordarone] See Taper PO DIRECTED #35 tab Collagenase [Santyl Ointment] 1 applic TOPICAL DAILY each Metoprolol Tartrate [Lopressor] 25 mg PO TID #90 tab Continue Folic Acid 1 mg PO DAILY@1800 Cyanocobalamin [Vitamin B-12] 500 mcg PO DAILY@0800 Donepezil [Aricept] 10 mg PO DAILY@0800 ALPRAZolam [Xanax] 0.5 mg PO BID PRN PRN Reason: Anxiety Pantoprazole [Protonix] 40 mg PO DAILY@0800 Ipratropium-Albuterol Nebulize [Duoneb 0.5 mg-3 mg/3 ml Soln] 3 ml INHALATION RT-QID PRN PRN Reason: Shortness Of Breath Magnesium Hydroxide [Milk of Magnesia] 2,400 mg PO Q48H PRN PRN Reason: Constipation Zinc Sulfate [Orazinc] 220 mg PO DAILY@0800 Pravastatin Sodium [Pravachol] 40 mg PO HS@1800 Fluticasone/Vilanterol [Breo Ellipta 100-25 Mcg Inhaler] 1 puff INHALATION RT-DAILY@0800 Mirtazapine [Remeron] 30 mg PO HS@1800 Apixaban [Eliquis] 2.5 mg PO BID@0800,1800 Artificial Tears-Hypromellose [Artificial Tear Drops] 2 drops BOTH EYES Q4HR PRN #1 ml PRN Reason: Dry Eye(S) LORazepam [Ativan] 0.5 mg PO Q4H PRN PRN Reason: Anxiety Permethrin 5% Cream [Elimite] 1 applic TOPICAL DAILY@0800 Ascorbic Acid [Vitamin C] 500 mg PO BID@0800,1800 guaiFENesin SYRUP 100MG/5ML [Robitussin] 200 mg PO Q6H PRN PRN Reason: Cough Cranberry Fruit Extract [Cranberry] 500 mg PO DAILY@0800 QUEtiapine [SEROquel] 25 mg PO HS@1800 #30 tab Floranex Packet 1 packet PO DAILY@0800 Hyoscyamine Sulfate [Levsin-Sl] 0.125 mg SL Q4H PRN PRN Reason: Secretions Magnesium Oxide [Mag-Ox] 400 mg PO W/BRKFST@0800 Tamsulosin [Flomax] 0.4 mg PO PC-BRKFST@0800 Discontinued bisacodyL [Dulcolax] 10 mg RECTAL Q72H PRN PRN Reason: Constipation MORPHINE ORAL ANDREY CONC 20mg/mL [Roxanol Oral Soln Conc 20MG/ML] 5 mg PO Q4H PRN PRN Reason: Shortness Of Breath/Pain Metoprolol Tartrate [Lopressor] 25 mg PO BID@0800,1999 Discharge Medication List Folic Acid 1 mg PO DAILY@1800 03/12/17 [History] ALPRAZolam [Xanax] 0.5 mg PO BID PRN 03/05/20 [History] Cyanocobalamin [Vitamin B-12] 500 mcg PO DAILY@0803/05/20 [History] Donepezil [Aricept] 10 mg PO DAILY@0803/05/20 [History] Ipratropium-Albuterol Nebulize [Duoneb 0.5 mg-3 mg/3 ml Soln] 3 ml INHALATION RT-QID PRN 03/05/20 [History] Pantoprazole [Protonix] 40 mg PO DAILY@0800 03/05/20 [History] Apixaban [Eliquis] 2.5 mg PO BID@0800,1800 02/26/22 [History] Cranberry Fruit Extract [Cranberry] 500 mg PO DAILY@79902/26/22 [History] Fluticasone/Vilanterol [Breo Ellipta 100-25 Mcg Inhaler] 1 puff INHALATION RT- DAILY@79902/26/22 [History] Magnesium Hydroxide [Milk of Magnesia] 2,400 mg PO Q48H PRN 02/26/22 [History] Mirtazapine [Remeron] 30 mg PO HS@1800 02/26/22 [History] Pravastatin Sodium [Pravachol] 40 mg PO HS@1800 02/26/22 [History] Zinc Sulfate [Orazinc] 220 mg PO DAILY@79902/26/22 [History] guaiFENesin SYRUP 100MG/5ML [Robitussin] 200 mg PO Q6H PRN 02/26/22 [History] Artificial Tears-Hypromellose [Artificial Tear Drops] 2 drops BOTH EYES Q4HR PRN #1 ml 03/04/22 [Rx] QUEtiapine [SEROquel] 25 mg PO HS@1800 #30 tab 03/05/22 [Rx] Ascorbic Acid [Vitamin C] 500 mg PO BID@0800,1800 04/22/22 [History] Floranex Packet 1 packet PO DAILY@79904/22/22 [History] Hyoscyamine Sulfate [Levsin-Sl] 0.125 mg SL Q4H PRN 04/22/22 [History] LORazepam [Ativan] 0.5 mg PO Q4H PRN 04/22/22 [History] Magnesium Oxide [Mag-Ox] 400 mg PO W/BRKFST@79904/22/22 [History] Permethrin 5% Cream [Elimite] 1 applic TOPICAL DAILY@79904/22/22 [History] Tamsulosin [Flomax] 0.4 mg PO PC-BRKFST@79904/22/22 [History] Amiodarone [Cordarone] See Taper PO DIRECTED #35 tab 04/29/22 [Rx] Amoxicillin 500 mg PO TID 7 Days #21 capsule 04/29/22 [Rx] Ciprofloxacin HCl [Cipro] 500 mg PO BID 7 Days #14 tab 04/29/22 [Rx] Collagenase [Santyl Ointment] 1 applic TOPICAL DAILY each 10/03/22 [Rx] Metoprolol Tartrate [Lopressor] 25 mg PO TID #90 tab 04/29/22 [Rx] Follow up Appointment(s)/Referral(s): Jamal Mcbride MD [STAFF PHYSICIAN] - 1 Week () Mikayla Wilkerson NPC [Nurse Practitioner] - 05/02/22 1:30 pm ([facility] to transfer) Alley Wade MD [Primary Care Provider] - 3 Days Patient Instructions/Handouts: Ciprofloxacin (By mouth), Metoprolol (By mouth), Amoxicillin (By mouth), Amiodarone (By mouth), Urinary Tract Infection in Men (DC) Activity/Diet/Wound Care/Special Instructions: [facility] send pt wearing his green offloading boots. Michelleyl. [facility] at [facility] VS q shift Wound care Daily: left great toe tip, bilateral heels cleanse with sterile saline,apply Santyl (edge to edge, a nickel in depth), saline moistened gauze, then apply gelfoam dressings.Cover left great toe with dry gauze. Must wear green Offloading boots at all times. Discharge Disposition: TRANSFER TO SNF/ECF
[2022-04-29 11:53] VITALS: BP 122/61; PULSE 67; TEMP 97.4
== END 2022-04-29 16:02 | DRG 689 ==
LOC: EC 07:39 → 5NMEDONC 11:50 → OBSVTOIN 04-23 14:12
PROVIDERS: ADMIT Family Medicine; ATTEND Family Medicine
DX: N39.0 Urinary tract infection, site not specified (principal); G93.41 Metabolic encephalopathy; J96.01 Acute respiratory failure with hypoxia; L97.528 Non-pressure chronic ulcer of other part of left foot with other specified severity; I48.92 Unspecified atrial flutter; I48.0 Paroxysmal atrial fibrillation; N35.919 Unspecified urethral stricture, male, unspecified site; H91.90 Unspecified hearing loss, unspecified ear; M21.371 Foot drop, right foot; J43.9 Emphysema, unspecified; B95.2 Enterococcus as the cause of diseases classified elsewhere; J45.30 Mild persistent asthma, uncomplicated; B96.5 Pseudomonas (aeruginosa) (mallei) (pseudomallei) as the cause of diseases classified elsewhere; D32.9 Benign neoplasm of meninges, unspecified; M47.816 Spondylosis without myelopathy or radiculopathy, lumbar region; L89.612 Pressure ulcer of right heel, stage 2; L89.622 Pressure ulcer of left heel, stage 2; R33.8 Other retention of urine; E87.70 Fluid overload, unspecified; E88.09 Other disorders of plasma-protein metabolism, not elsewhere classified; L97.522 Non-pressure chronic ulcer of other part of left foot with fat layer exposed; E05.90 Thyrotoxicosis, unspecified without thyrotoxic crisis or storm; J01.80 Other acute sinusitis; R53.81 Other malaise; J32.8 Other chronic sinusitis; N18.2 Chronic kidney disease, stage 2 (mild); D63.1 Anemia in chronic kidney disease; F03.90 Unspecified dementia, unspecified severity, without behavioral disturbance, psychotic disturbance, mood disturbance, and anxiety; M06.9 Rheumatoid arthritis, unspecified; Z79.899 Other long term (current) drug therapy; Z79.01 Long term (current) use of anticoagulants; Z79.51 Long term (current) use of inhaled steroids; Z85.46 Personal history of malignant neoplasm of prostate; Z86.73 Personal history of transient ischemic attack (TIA), and cerebral infarction without residual deficits; Z87.440 Personal history of urinary (tract) infections; Z92.3 Personal history of irradiation; Z86.19 Personal history of other infectious and parasitic diseases
CPT/HCPCS: 36415; 70450; 71045; 71046; 80048; 80053; 80306; 81001; 82140; 82607; 82746; 83735; 84439; 84443; 84484; 85025; 85610; 85730; 87040; 87077; 87086; 87186; 93005; 93922; 93970; 94640; 94760; 95816; 96374; 99283; 99285